=== PATIENT | male | born 1970 | race African-American/Black ===

== ENCOUNTER 2024-04-27 15:21 | Inpatient (IN) | payer OTHER, SELFPAY ==
[2024-04-27] VITALS (48 sets, daily range): BP systolic 52–160; BP diastolic 26–142; BMI 47.9; BMI 48.4
[2024-04-27 12:58] LABS: Hematocrit 35.9 % (39.0-52.0); Mean Corp Hgb Conc. 33.4 g/dL (33.0-37.0); Mean Corpuscular Hgb 27.3 pg (27.0-31.0); Mean Corpuscular Volume 81.8 fL (80.0-94.0); Mean Platelet Volume 10.1 fL (7.4-10.4); Platelet Count 212 10^3/uL (130-400); Red Blood Cell Count 4.39 10^6/uL (4.70-6.10); Red Cell Dist. Width 13.5 % (11.5-14.5); White Blood Cell Count 16.9 10^3/uL (4.8-10.8)
[2024-04-27 13:10] LABS: AST (SGOT) 58 U/L (17-59); Albumin 3.5 g/dl (3.5-5.0); Alkaline Phosphatase 64 U/L (38-126); Blood Urea Nitrogen 50 mg/dl (9-20); Carbon Dioxide 20 mmol/L (22-30); Chloride 95 mmol/L (98-107); Estimated Creatinine Clearance 40 ml/min; Glucose 103 mg/dl (70-99); Potassium 4.6 mmol/L (3.5-5.1); Sodium 133 mmol/L (135-145); Total Protein 6.2 g/dl (6.3-8.2); eGFR 17.58
[2024-04-27 13:16] LABS: ALT (SGPT) 43 U/L (0-50)
[2024-04-27 13:17] LABS: Troponin I 0.016 ng/ml
--- NOTE | 2024-04-27 13:24 | ED.GENMED ---
History of Present Illness
General
Chief Complaint: Fainting/Passed Out
Time Seen by Provider: 04/27/24 13:16
History of Present Illness
History of Present Illness:
53-year-old male with no known past medical history presents to the emergency department for evaluation after a syncopal event at the medical [facility] at [facility]. He states that for the past several days he has had
generalized malaise and bodyaches, went to seek medical attention when he had a witnessed syncopal event. He reports shortness of breath with exertion. Also reports severe leg pain and redness
Review of Systems
Review of Systems
Allergies reviewed?: Yes
All Other Systems: ROS reviewed and negative except as documented in HPI and ROS
Phy Exam
Physical Exam
Physical Exam:
GEN: Morbidly obese, diaphoretic, tachypneic
Eyes: PERRLA, EOMs intact, no scleral icterus
HENT: NCAT, oral mucosa moist
Lungs: CTAB, no wheezes, rales, rhonchi, normal chest wall excursion
Cardiac: Tachycardic, regular
Abdomen: S, NT, ND, NABS, no masses or hepatosplenomegaly
Neuro: AO x 3
MSK: No gross deformity or ecchymosis. No edema. No digital clubbing
Skin: Severe erythema of the left lower extremity extending to the medial thigh with warmth and marked tenderness, there is an ulcerated wound to the posterior lower leg
Psych: Calm, cooperative, proper hygiene
Sepsis
Sepsis Screening
Sepsis Assessment: Septic Shock
Sepsis Screening: Lactate >/=4mmol/L and ARF-Creatinine >2.0
Sepsis Screen
Sepsis Screen: Septic Shock
Date: 04/27/24
Time: 15:26
Course
Orders/Labs/Results
Orders:
Orders
04/27/24 12:18
Electrocardiogram (*1) Urgent
Reason for Study: Syncope
04/27/24 12:19
EKG- Treatment ONCE
04/27/24 12:39
Complete Blood Count/With Diff Urgent
Comprehensive Metabolic Panel Urgent
Manual Differential Urgent
Troponin I Urgent
04/27/24 13:25
CR Chest Portable - 1 View Urgent
Comment:
Reason For Exam: sepsis
Reason Study Needs to be Portable: Other
04/27/24 13:26
Lactated Ringers [Lr] 2,000 ml IV BOLUS
04/27/24 13:27
Cefepime HCl [Maxipime] 2,000 mg IV NOW STA
04/27/24 13:37
Lactic Acid Q4H
Comment: CANCEL 2nd LACTIC ACID IF 1st LACTIC ACID IS LESS THAN 2
Blood Culture Routine
TANIYA Source: Blood/Venous
Specimen Description:
Blood Culture Urgent
TANIYA Source: Blood/Venous
Specimen Description:
04/27/24 13:43
Vancomycin [Vancocin] 2,000 mg 0.9% Sodium Chloride 500 ml [Nss] 500 ml IV NOW
04/27/24 14:11
MRSA Screen Routine
TANIYA Source: Nose
Specimen Description:
04/27/24 14:12
Urinalysis Reflex To Culture Routine
04/27/24 14:15
0.9% Sodium Chloride 1000 ml [Nss] 1,000 ml IV 500 mls/hr
04/27/24 15:02
Medical Insurance Coding Specialist Consult Routine
Consulting Provider: Bhupendra Yarbrough
Was physician already notified: Yes
Reason for consult: Septic shock
04/27/24 15:04
Admit/Transfer Patient As Directed
Co-Sign Provider:
Level of Care: Inpatient admission
Assign to:: ICU
Physician / Group: jeronimo rodarte
Diagnosis: Septic shock 2/2 LLE cellulitis/woud, hypotension, MARÍA ELENA 2/2 nephrotoxic meds
Reason for Hospitalization: Septic shock 2/2 LLE cellulitis, hypotension, MARÍA ELENA 2/2 nephrotoxic meds, left lower
extremity wounds, stage II sacral wound
Expected length of stay greater than two midnights?: Yes
ELOS- Estimated Length of Stay in days: 5
I certify the patient meets the requirements for IP care: Yes
Code Status As Directed
Resuscitation Status: Full Code
04/27/24 15:07
PRN Pain Medication Management As Directed
May give lesser potent ordered pain med per pt: Yes
preference::
Protocol:: Medication orders for pain may be administered in a
manner that supports deferring to patient preference
when the pt is:
- Requesting an ordered lesser potent pain medication.
Least to most potent pain medications are defined
as: acetaminophen < NSAID < tramadol < opioids
(morphine, oxycodone, hydromorphone).
- Requesting a lesser dose of the same medication IF
ORDERED.
- Requesting a less intrusive route of administration
if both routes are prescribed by the provider (PO <
IV).
04/27/24 15:[address] Non Medication Order As Directed
Physician Order: -Please use adult size cuff to left lower forearm to measure blood pressures. see order for
lovephed
04/27/24 15:15
NORepinephrine 4 MG/250 ML [Levophed] 4 mg in 250 ml IV PER PROTOCOL
Initial dose in mcg/min, then titrate:: 2
Titrate to keep:: MAP > 65 mmHg
Titrate by mcg/min:: 1-2 mcg/min
Frequency of titrations (minutes):: 5
Maximum dose in ICU in mcg/min:: 30
Maximum dose in IMU in mcg/min:: 8
Maximum dose in IVU in mcg/min:: 4
Begin to taper infusion when:: Remained at goal for 4hrs
Taper by mcg/min:: 1-2 mcg/min
Frequency of taper (minutes) if patient maintains goal:: 30
Taper to off?: Yes
If infusion off & no longer maintaining goal:: Contact Provider
04/27/24 15:17
Acetaminophen [Tylenol] 650 mg PO Q4HPRN PRN
04/27/24 17:30
Lactic Acid Q4H
Comment: CANCEL 2nd LACTIC ACID IF 1st LACTIC ACID IS LESS THAN 2
Abnormal Lab Results
04/27/24 04/27/24
12:39 13:37
WBC 16.9 H 10^3/uL
(4.8-10.8)
RBC 4.39 L 10^6/uL
(4.70-6.10)
Hgb 12.0 L g/dL
(13.0-18.0)
Hct 35.9 L %
(39.0-52.0)
Abs Neuts (Manual) 14.5 H 10^3/uL
(1.4-6.5)
Band Neutrophils 15 H %
(0-3)
Lymphocytes (Manual) 3 L %
(20-51)
Monocytes (Manual) 11 H %
(2-9)
Sodium 133 L mmol/L
(135-145)
Chloride 95 L mmol/L
(98-107)
Carbon Dioxide 20 L mmol/L
(22-30)
BUN 50 H mg/dl
(9-20)
Creatinine 3.9 H mg/dL
(0.7-1.3)
Glucose 103 H mg/dl
(70-99)
Lactic Acid 5.5 H* mmol/L
(0.7-2.0)
Total Bilirubin 2.0 H mg/dl
(0.2-1.3)
Total Protein 6.2 L g/dl
(6.3-8.2)
04/27/24 12:39
04/27/24 12:39
Vital Signs
Initial and Last Documented VS:
Initial Vital Signs
Temp Pulse Resp Pulse Ox
97.6 F 103 22 92
04/27/24 12:19 04/27/24 12:19 04/27/24 12:19 04/27/24 12:19
Last Documented Vital Signs
Temp Pulse Resp BP Pulse Ox
98.8 F 122 28 160/142 99
04/27/24 14:53 04/27/24 15:15 04/27/24 15:15 04/27/24 15:09 04/27/24 12:29
MDM/Problems Addressed
MDM/Problems Addressed:
Patient was severe sepsis most likely secondary to left lower extremity cellulitis. He is in renal failure but chronicity of this is uncertain, aggressive IV fluid resuscitation initiated in the emergency department and will start broad-spectrum IV
antibiotics. Will require admission to the hospitalist service for further management
*Critical Care Note
Total Time (30-74mins, 75-104mins- exclusive of procedures): 35 minutes
comment:
Critical care time: 35 minutes
Critical care time was exclusive of: Separately billable procedures, treating other patients, and teaching time
Critical care was necessary to treat or prevent imminent or life-threatening deterioration of the following conditions: Septic shock
Critical care time spent personally by me on the following activities:
[x] Review of old charts
[x] Obtaining history from patient or surrogate
[x] Ordering and review of the laboratory studies
[x] Ordering and review of radiographic studies
[x] Ordering and performing treatments and interventions
[x] Patient patient's response to treatment
[x] Development of treatment plan with patient or surrogate
ED Attending Note
-
Portions of this chart may have been created with voice recognition software.� Occasional wrong word or��sound alike� substitutions may have occurred due to the inherent limitations of voice recognition software.
Discharge Plan
Departure
Patient Disposition: Admit
Date of Disposition: 04/27/24
Time of Disposition: 13:59
Admit to: Med/Surg
Presentation/result/management discussed w/ accepting MD/DO: Hospitalist
Discharge Problem:
Cellulitis of left lower extremity, Septic shock
Interventions
Interventions:
*Risk Screen - Suicide Last Done: 04/27/24 12:26
*General Assessment Last Done: 04/27/24 12:26
*Neglect/Abuse Screening Last Done: 04/27/24 12:26
*ED COVID-19 Vaccine History Last Done: 04/27/24 12:26
ED- Cardiac Assessment Last Done: 04/27/24 12:27
ED- Neurological Assessment Last Done: 04/27/24 12:27
[2024-04-27] MEDS: MAXIPIME 2000 MG IV (13:42)
[2024-04-27] MEDS: LR 2000 IV (13:43)
[2024-04-27 13:48] LABS: Absolute Neutrophils -Man Diff 14.5 10^3/uL (1.4-6.5); Band Neutrophils 15 % (0-3); Lymphocytes 3 % (20-51); Monocytes 11 % (2-9); Normal RBC Morphology Yes; Platelets Checked Yes; Segmented Neutrophils 71 % (42-75); Total Cells Counted 100
[2024-04-27 14:09] LABS: Lactic Acid 5.5 mmol/L (0.7-2.0)
--- NOTE | 2024-04-27 14:14 | HPS.HSE ---
Family Physician
-
Family Physician: Facility [facility]
Chief Complaint
-
Hypotension, left leg cellulitis
History of Present Illness
53-year-old male from [facility] who had witnessed syncope by staff nurses. He was sitting in a chair then passed out. He was lowered to the floor by 2 nurses and other staff members where they elevated his legs on pillows
he then woke up on the floor. He has been complaining of bodyaches, fatigue for the past 2 days. He reports fever yesterday 101F for which she was given Tylenol. He states the chills did not come back until today. He reports bilateral leg edema
for the past 3 to 4 days. He has chronic peripheral edema left greater than right they have been giving him Lasix 40 mg for the past 6 days along with Motrin 400 mg twice daily x 3 months along with Lasix and lisinopril. On presentation to the ER
he was noted to be hypotensive 78/63 tachycardic with heart rate 111 and in septic shock likely due to a left lower extremity cellulitis, with left lateral aspect skin tear, left leg mid medial aspect ulceration stage II and left buttocks stage II
wound. He reports chills, left leg pain and chronic back pain. He denies headache, sore throat, chest pain, palpitations, shortness of breath, cough, abdominal pain, nausea, vomiting, diarrhea, urinary symptoms. He has past medical history of
class III obesity�BMI 47.9, HTN, prior opiate abuse 10 years ago has been on chronic buprenorphine 2 mg daily for the past 10 years for chronic back pain/lumbar herniated disks, chronic lower leg edema, prior nicotine use 1 pack a day 5 years quit
20 years ago
Medical History
Past Medical History
Past Medical History: Reports Other
Additional Past Medical History:
class III obesity�BMI 47.9
HTN
prior opiate abuse 10 years ago
has been on chronic buprenorphine 2 mg daily for the past 10 years for chronic back pain/lumbar herniated disks
chronic lower leg edema
prior nicotine use 1 pack a day 5 years quit 20 years ago
Past Surgical History: Reports None
Social History
Tobacco: Former Smoker (5 years 1 pack a day quit 20 years ago age 27)
Alcohol: Daily
Personal: Single
Living: Detention ([facility] for the past 3 months)
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
Family History
Family History: Other (Mother hyperlipidemia father unsure, sister alive estranged)
Allergies / Home Medications
Allergies reflects when Allergies were last updated in [facility].
Home Medications with original date entered in [facility]
Allergy/Medication List:
Allergies
Allergy/AdvReac Type Severity Reaction Status Date / Time
Penicillins Allergy Unknown Rash Verified 04/27/24 12:19
Home Medications
acetaminophen 325 mg tablet (Tylenol) 650 mg PO TIDPRN PRN mild pain 04/27/24
buprenorphine HCl 2 mg sublingual tablet 2 mg sublingual DAILY 04/27/24
furosemide 40 mg tablet (Lasix) 40 mg PO DAILY 04/27/24
ibuprofen 200 mg tablet (Advil) 400 mg PO BIDPRN PRN mild pain 04/27/24
lisinopril 20 mg tablet 20 mg PO DAILY 04/27/24
Review of Systems
-
History Source: Patient and Other (2 correctional officers at bedside)
A 12 point ROS was completed and negative except as noted: Yes
Constitutional: Reports Fever and Chills
EENT: Denies Sore Throat or Runny Nose
Respiratory: Denies Cough or Trouble Breathing
Cardiac: Reports Syncope; Denies Chest Pain or Palpitations
Abdomen/GI: Denies Abdominal Pain, Nausea, Vomiting, Diarrhea, Constipated, Bloody Stools or Black Stools
: Denies Dysuria, Frequency, Flank Pain, Incontinence, Difficulty Voiding or Urgency
Musculoskeletal: Reports Edema (+2 left lower extremity edema left greater than right, left leg cellulitis from foot extending up circumferentially lower leg to upper mid thigh, left lateral skin tear, left leg medial aspect ulceration stage II);
Denies Joint Pain
Skin: Denies Itching
Neurological: Denies Dizzy, Headache or Weakness
Endocrine: Reports No Symptoms
Hematologic/Lymphatic: Reports No Symptoms
Psych: Reports Calm
Physical Exam
Vital Signs
Vital Signs
Temp Pulse Resp BP Pulse Ox
97.6 F 111 30 157/105 99
04/27/24 12:19 04/27/24 14:00 04/27/24 14:00 04/27/24 13:49 04/27/24 12:29
Physical Exam
General: Conversant, Fever, Chills and Morbidly Obese
HEENT: NormoCephalic, Anicteric, Moist mucous membranes, PERRLA, [place] Conjunctivae and No Ptosis; No Pharyngeal Erythema
Respiratory: Clear; No Wheezes, Rales or Rhonchi
Cardiac: S1/S2, Tachycardia (Sinus) and Peripheral Edema (Bilateral +2 left greater than right); No Murmur, Rub or Gallop
Breast: Deferred by me
GI: Soft, Non Tender, Non Distended, Normal Bowel Sounds and No Hepatosplenomegaly
Rectal: Deferred by Provider
Genito-urinary: Deferred by me
Musculoskeletal: No Clubbing, No Cyanosis and Edema, Left Lower Extremity (+2 left lower extremity edema left greater than right, left leg cellulitis from foot extending up circumferentially lower leg to upper mid thigh, left lateral skin tear POA,
left leg medial aspect ulceration stage II POA); No Edema, Left Upper Extremity, Edema, Right Upper Extremity or Edema, Right Lower Extremity
Skin: Warm, Dry and Decubitus Ulcers (Stage II left buttocks decub present on admission); No Rash or Jaundice
Neuro: AO x 3, No Motor Deficits, Cranial Nerves Intact and No Sensory Deficits; No Slurred Speech, Facial Droop, Tremors or Sedated
Psych: Calm
Laboratory Results
-
04/27/24 12:39
04/27/24 12:39
Laboratory Results
Lactic Acid 5.5 mmol/L (0.7-2.0) H* 04/27/24 13:37
Total Bilirubin 2.0 mg/dl (0.2-1.3) H 04/27/24 12:39
AST 58 U/L (17-59) 04/27/24 12:39
ALT 43 U/L (0-50) 04/27/24 12:39
Alkaline Phosphatase 64 U/L (38-126) 04/27/24 12:39
Troponin I 0.016 ng/ml 04/27/24 12:39
Impression/Plan
-
Impression/plan:
Admit to ICU
#Septic shock secondary to Left lower extremity cellulitis w/ skin tear and ulceration present on admission
#Bilateral leg edema Left> Right
BP 78/63, HR 106, 97.6,
WBC 16.9 with left shift and bandemia, lactic acid 5.5 will trend
-Check MRSA nasal swab
-Blood culture x 2
-Check UA DISTRIBUTION OPERATION SUPERVISOR
-Treating IV cefepime, IV vancomycin
-Tylenol as needed
-Check venous duplex bilateral legs
-Consult district sales representative
-Consult wound care
CXR: No active cardiopulmonary disease
#Syncope secondary to vasovagal episode
#Hypotension 2/2 sepsis and volume depletion
BP 78/63
-IV LR 3000 cc bolus over 3 hours then IV NSS 100 cc/h
-Start Levophed- As blood pressure 70s over 50s with appropriate cuff to left lower arm due to obesity
-Please use adult size cuff to left lower forearm to measure blood pressures
-HOLD lisinopril, Lasix 40 mg daily
#MARÍA ELENA 2/2 sepsis/nephrotoxic meds
Has been on Motrin 4 mg twice daily x 3 months, was on Lasix 40 mg for the past 6 days
Creat 3.9/bun 50
HOLD lisinopril, Lasix. Hold Motrin 400 mg twice daily
-Hold nephrotoxic meds
#Left buttocks stage II decub secondary to obesity and prolonged sitting present on admission
-Consult wound care
#Prior drug abuse
Was addicted to oral Percocet greater than 10 years ago for back pain
May continue buprenorphine 2 mg sublingual daily -patient has been on for 10 years
#Prior nicotine use
5-year 1 pack a day quit 20 years ago age 27
#Class III obesity�BMI 47.9
-Affects all aspects of care
-Weight loss recommended
-Low-fat diet
DVT prophylaxis
Subcu heparin
Full code
[2024-04-27] MEDS: VANCOCIN 540 MG IV (14:23)
--- NOTE | 2024-04-27 15:08 | W.PN.UPDATE ---
Update Note
Progress Note Update
This is an addendum to the H&P written by Nena Zhang 04/27/2024. Patient seen and examined independently with ENAMEL FINISHER.
53-year-old male past medical history of hypertension, chronic lymphedema, obesity, former oral opiate use, presenting with left lower extremity cellulitis.
Labs show creatinine of 2.9 unclear baseline. Lactic acid of 5.5. Chest x-ray unremarkable. Patient clinically septic shock secondary to left lower extremity cellulitis. MARÍA ELENA secondary to recent addition of Lasix, lisinopril and ibuprofen use.
Check blood cultures. IV fluids. Levophed as needed. Vancomycin/Zosyn. Check bilateral venous ultrasound. Hold nephrotoxic medications.
[2024-04-27] MEDS: TYLENOL 650 MG PO (15:29)
--- NOTE | 2024-04-27 16:25 | CON.INTV ---
Addendum entered and electronically signed by Bhupendra Yabrrough MD 04/27/24 23:05:
I have seen the patient with the assistant family teacher, Dr. Stewart, and I agree with her HPI, PE, impression and plan with the following notations, additions and corrections. Patient was at the nurses office in [place] and had a witnessed
syncopal episode. Over the last few days he has been having worsening shortness of breath, fatigue and bodyaches. He does not remember syncopized and. He says his left leg has been painful and weeping over the last several weeks�months. He does
not use oxygen at home. In the ER he was afebrile to 97.6 �F, pulse rate 103, breathing at 22 breaths/min, BP low at 78/63 and saturating 92% on room air. Labs showed leukocytosis to 16.9, anemia to 12, sodium 133, creatinine 3.9, lactate 5.5, T.
bili 2 and urinalysis with no evidence of UTI. Blood cultures were collected. CXR shows no active cardiopulmonary process. He was given cefepime/vancomycin + LR x 2 L in the ER. Due to the patient remaining hypotensive with SBP in the 50s�60s,
Levophed was started and he was transferred to the ICU for further care with lawn and tree service spray supervisor services consulted for additional management/recommendations.
When I saw the patient he was resting in bed in no acute distress, denying shortness of breath, chest pain or dizziness. He is currently on 2 L/min nasal cannula saturating 96%. BP 100/64 and heart rate 122. He is currently on Levophed at
18mcg/min + vasopressin at 0.03 units/min. He says his blood pressure is normally 'good' and is not too high or too low. He is on antihypertensives at home with lisinopril 20 mg daily.
PMHx: Hypertension, history of opioid abuse, chronic lower leg edema, former tobacco use disorder
PSHx: Non-contributory
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
FHx: Mother: Hyperlipidemia
Pertinent physical exam:
NAD, morbidly obese, awake, alert, answering questions appropriately
EOMI/PERRL; NC/AT
Thick neck
+S1/S2; Tachycardic
CTA b/l, no wheezing, rales rhonchi
Bilateral lower extremity lymphedema with lichenification, +2 LE pitting edema b/l
Following all commands; cooperative
Patient's vitals, labs, imaging, micro and current/former documentation were all personally reviewed.
Impression:
#Sepsis due to left lower extremity cellulitis
#Syncopal event
#Leukocytosis likely due to sepsis
#Acute respiratory failure with hypoxia on supplemental oxygen (2L/min)
#Anemia (mild)
#Hypochloremia, hyponatremia
#MARÍA ELENA
#Lactic acidosis
#Hyperbilirubinemia
#Stage II decubitus ulcer
#History of drug abuse
#History of tobacco use disorder
#Obesity
Plan:
- Continue vasopressors with vaso + levo and keep MAP>65
- If unable to wean off then consider hydrocortisone +/- midodrine
- Continue ABx with cefepime/IV vanco
- Follow up blood Cx collected 04/27/2024
- NS 0.9% at 100cc/hr with eventual stop date to avoid volume overload
- trend lactate until <2mmol/L
- Renally dose all meds/Abx, and trend sCr and UOP
- Consider nephrology eval if Cr continues to rise
- Wound care to left lower extremity
- Check LE duplex to r/o DVT
- Maintain SpO2 >90-94% with supplemental O2, and wean down as tolerated
- Transfuse Hb if needed to keep >7g/dL; keep plt>20k
- Replete K>4, Mg>2
- Continue subutex
- Encourage IS use
- DVT ppx: HSQ
Critical care statement: A total of 40 minutes of critical care time was provided for this patient today. This includes management of unstable vital signs, evaluation of the patient at bedside, reviewing the patient's pertinent medical records
including radiographs, microbiology, laboratory evaluations, and discussion with primary team, consultants, pharmacy, nutrition, physical therapy, case management, charge nurse, critical care nursing, and respiratory therapy.
Original Note:
Consultation
Consultation Request
Date/Time Consultation Requested: 04/27/24 1600
Date/Time Consultation Performed: 04/27/24 1615
Medical History
-
Chief Complaint: Lower extremity swelling, fever, chills
History of Present Illness:
Patient is a 53-year-old male w PMH hypertension (on lisinopril), morbid obesity, and chronic lower leg edema (from about a year ago) who was brought to the ED from [facility] after a witnessed syncope by staff nurses.
Patient was shortly back to baseline after a leg elevation. On presentation to the ER, his vital signs were BP 78/63, HR 111, RR 22. Initial labs showed elevated WBC 16.9 with left shift, hyponatremia (sodium 133), k 4.6, Cr 3.9 and BUN 50. Lactate
> 5.
Patient states feeling tired since few days ago. He had noticed redness and increased swelling of lower extremities from about a week ago, and developed blisters on his left leg a few days ago. He does not recall a traumatic event to his LEs. He
denies history of diabetes. He was started on Lasix 40mg 6 days ago. He starting feeling feverish and having chills yesterday (mentions a fever of 101F) for which he was given Tylenol. He states he is feeling much better now and does not have
chills anymore. Denies CP, cough or urinary symptoms. No n/v or diarrhea. Has SOB on exertion (chronic).
Past Medical History
Past Medical History: HTN and Other (morbid obesity, Chronic lower leg edema, chronic back pain, lumbar herniated disc)
Past Surgical History: None
Social History
Tobacco: Former Smoker
Alcohol: Daily
Living: Snf
Family History
Family History: Reviewed & Not Pertinent
Allergies / Home Medications
Allergies
Allergy/AdvReac Type Severity Reaction Status Date / Time
Penicillins Allergy Unknown Rash Verified 04/27/24 12:19
Home Medications
�Medication �Instructions �Recorded �Confirmed �Last Taken �Type
acetaminophen 325 mg tablet 650 mg PO TIDPRN PRN mild pain 04/27/24 04/27/24 04/26/24 History
(Tylenol)
buprenorphine HCl 2 mg sublingual 2 mg sublingual DAILY 04/27/24 04/27/24 04/26/24 History
tablet
furosemide 40 mg tablet (Lasix) 40 mg PO DAILY 04/27/24 04/27/24 04/26/24 History
ibuprofen 200 mg tablet (Advil) 400 mg PO BIDPRN PRN mild pain 04/27/24 04/27/24 04/26/24 History
lisinopril 20 mg tablet 20 mg PO DAILY 04/27/24 04/27/24 04/26/24 History
Review of Systems
-
History Source: Patient
All other systems: Negative unless noted
Vitals / Labs / Diagnostic Testing
Vital Signs
Temp Pulse Resp BP Pulse Ox
98.8 F 122 21 118/92 99
04/27/24 14:53 04/27/24 15:31 04/27/24 15:31 04/27/24 15:31 04/27/24 12:29
Lab Data
04/27/24 12:39
04/27/24 12:39
Diagnostic Testing:
Physical Exam
-
HEENT: Normocephalic, Anicteric and Moist Mucous Membranes
Cardiovascular: S1/S2, Regular Rhythm, Peripheral Edema ( b/l LE edema (left> right)) and Calf Tenderness
Respiratory: Clear and Other (tachypneic)
GI: Soft, Distended, Non Tender and Normal Bowel Sounds
Neurology: Awake, Alert, Oriented and AO x 3
Skin: Warm, Dry and Other (erythema, warmness and swelling of both LEs (left> right) up to mid-thigh, ruptured blister on lateral of left leg, pressure ulcer on back, non-purulent-- upper extremity normal)
Assessment
-
#Septic shock likely due to left lower leg cellulitis
Currently, BP 118/92, RR 21 DE 122, O2 sat 99 on room air, T 98.8
-Started on IV cefepime, IV vancomycin--Continue
-Continue IV LR 3000 cc bolus over 3 hours then IV NSS 100 cc/h
- d/c levophed if SBP> 90
-CXR unremarkable
-EKG done
-Currently does not have fever, tylenol prn
-Blood culture x 2
-Check UA when able to provide sample
-bilateral LE doppler US
-Wound care consulted
-Possibly consider echo after patient is more stable
#MARÍA ELENA: might be sec to sepsis or med-related
-Hold Motrin
-limit pain meds
-Closely Monitor BUN, Cr
-Eventually consult nephrology for chronic lower leg edema
[2024-04-27] MEDS: NSS IV (16:44)
[2024-04-27] MEDS: NSS 1000 IV ×2 (16:53→20:59)
[2024-04-27] MEDS: LEVOPHED 250 IV ×2 (17:29→21:54)
[2024-04-27 19:11] LABS: Lactic Acid 3.4 mmol/L (0.7-2.0)
[2024-04-27] MEDS: PITRESSIN 100 IV (19:50)
--- NOTE | 2024-04-27 20:30 | PTCARENOTE ---
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
94%, dyspnea on exertion, diminished, BSx4 round obese, uses urinal due to void, cellulitis on LE, LL leg anterior skin tear 10x5 cleansed with NS, adaptic and adhesive foams applied, LL posterior leg 5 1/2x3 wound and 1 1/2x1 wound cleansed with NS
and adhesive foam applied, R buttocks MASB with several open spots adhesive foam applied, L buttocks MASB cleansed with NS and adhesive foam applied, 20G RFA, 20G LAC, Levo 16, able to make needs known, guards @ bedside, call cole within reach,
otherwise refer to documentation
[2024-04-27 21:16] LABS: Urine Albumin Trace (Neg - Trace); Urine Bilirubin Negative (Negative); Urine Character Clear (Clear); Urine Color Yellow; Urine Glucose Negative (Negative); Urine Ketone Negative (Negative); Urine Leukocyte Negative (Negative); Urine Nitrite Negative (Negative); Urine Occult Blood 4+ (Negative); Urine Urobilinogen Negative (Neg - 1+)
[2024-04-27 21:24] LABS: Urine Squamous Cell 0-2 /LPF (Few)
[2024-04-27 21:25] LABS: Urine White Cell 0-2 /HPF (0-5)
[2024-04-27 21:26] LABS: Urine Amorphous Seen; Urine Sperm Seen
[2024-04-28] VITALS (45 sets, daily range): BP systolic 75–129; BP diastolic 43–81; BMI 48.4
--- NOTE | 2024-04-28 00:08 | PTCARENOTE ---
systems reviewed, vasopressin started per sep, gtts titrated per worklist, using urinal clemente output, pt c/o chronic back pain but declines meds and only wants to be repositioned, otherwise refer to documentation.
[2024-04-28] MEDS: VANCOCIN 300 ML IV (00:14)
[2024-04-28] MEDS: VANCOCIN 300 MG IV (00:14)
[2024-04-28] MEDS: HEPARIN 5000 UNITS SC ×4 (00:14→23:23)
--- NOTE | 2024-04-28 01:30 | W.PN.SEPSIS ---
Sepsis
Vital Signs
Temp Pulse Resp BP Pulse Ox
98.5 F 119 28 115/75 93
04/27/24 23:30 04/28/24 01:15 04/28/24 01:15 04/28/24 01:00 04/28/24 01:15
Physical Exam
Physical Exam:
A focused exam was performed after fluid resuscitation.
Capillary Refill
Bilateral Upper Extremity:
Toshia Time: Less than 3 sec
Bilateral Lower Extremity:
Toshia Time: Less than 3 sec
Pulse Evaluation
Bilateral Radial:
Pulse Evaluation: Present
Bilateral Dorsalis Pedis:
Pulse Evaluation: Palpable with Doppler
[2024-04-28] MEDS: STERILE WATER FOR INJECTION 10 ML IV (01:36)
[2024-04-28] MEDS: MAXIPIME 2000 MG IV (01:36)
[2024-04-28] MEDS: LEVOPHED 250 IV ×4 (01:36→10:32)
[2024-04-28] MEDS: TYLENOL 650 MG PO (01:43)
[2024-04-28] MEDS: PITRESSIN 100 IV ×3 (03:46→19:03)
[2024-04-28 04:27] LABS: Hematocrit 34.3 % (39.0-52.0); Hemoglobin 11.6 g/dL (13.0-18.0); Mean Corp Hgb Conc. 33.8 g/dL (33.0-37.0); Mean Corpuscular Hgb 27.8 pg (27.0-31.0); Mean Corpuscular Volume 82.1 fL (80.0-94.0); Mean Platelet Volume 10.5 fL (7.4-10.4); Platelet Count 232 10^3/uL (130-400); Red Blood Cell Count 4.18 10^6/uL (4.70-6.10); Red Cell Dist. Width 13.8 % (11.5-14.5)
[2024-04-28 04:29] LABS: INR 1.27; PT 15.7 Sec (11.4-14.6)
[2024-04-28 04:30] LABS: APTT 39.3 Sec (23.4-35.0)
--- NOTE | 2024-04-28 04:30 | PTCARENOTE ---
systems reviewed, gtts titrated per worklist, antibiotics, lower legs blistering, weeping and causing skin tears, cleansed with NS, adaptic, alginate foam, ABD and Kerlix wrap applied, pt denied pain throughout dressing change, tylenol given per SEP
for chronic back pain, labs sent, otherwise refer to documentation.
[2024-04-28 04:43] LABS: ALT (SGPT) 119 U/L (0-50); AST (SGOT) 330 U/L (17-59); Alkaline Phosphatase 45 U/L (38-126); Blood Urea Nitrogen 54 mg/dl (9-20); Calcium 8.5 mg/dl (8.4-10.2); Carbon Dioxide 21 mmol/L (22-30); Chloride 96 mmol/L (98-107); Estimated Creatinine Clearance 48 ml/min; Glucose 92 mg/dl (70-99); Magnesium 1.3 mg/dl (1.6-2.3); Phosphorus 3.5 mg/dl (2.5-4.5); Potassium 4.8 mmol/L (3.5-5.1); Sodium 132 mmol/L (135-145); Total Bilirubin 2.2 mg/dl (0.2-1.3); Total Protein 5.8 g/dl (6.3-8.2); eGFR 21.48
[2024-04-28 04:44] LABS: Lactic Acid 3.2 mmol/L (0.7-2.0)
[2024-04-28 04:48] LABS: Vancomycin Random 26.3 ug/ml
[2024-04-28 05:55] LABS: Absolute Neutrophils -Man Diff 12.4 10^3/uL (1.4-6.5); Band Neutrophils 29 % (0-3); Lymphocytes 10 % (20-51); Segmented Neutrophils 49 % (42-75)
[2024-04-28 05:56] LABS: Metamyelocytes 4 % (-); Monocytes 7 % (2-9); Normal RBC Morphology Yes; Platelets Checked Yes
[2024-04-28 05:57] LABS: Total Cells Counted 100; Toxic Granulation 1+; Vacuolated Segs 1+
[2024-04-28] MEDS: MAGNESIUM OXIDE 500 MG PO (06:47)
[2024-04-28] MEDS: NSS 1000 IV (08:06)
[2024-04-28] MEDS: DESENEX/MITRAZOL/ZEASORB 1 APPLIC TOPICAL ×2 (08:19→21:17)
[2024-04-28] MEDS: SUBUTEX 2 MG SL (08:19)
--- NOTE | 2024-04-28 09:14 | W.PN.INTV ---
Today's Communication / Plan
Recommendations
d/c cefepime- Continue vanco-start clinda/eamon--CT of LLE
Assessment
-
#Septic shock likely due to left lower leg cellulitis
Currently, BP 82/63 (on levo 22mcg/min), RR 20, CA 106, O2 sat 95 on 2L O2, T 99.7
-Appreciate ID consult-- Continue vanco-start eamon and clinda--discontinue cefepime
-Continue IV NSS 100 cc/h
-Continue levophed--goal MAP> 65
-CXR unremarkable
-Currently does not have fever, tylenol prn
-Blood culture x 2, initial results positive for gram (+) cocci in chains
-U/A neg for UTI
-bilateral LE doppler US neg for DVT
-Appreciate Wound care
-Wean off O2 if pt tolerates
-Gen surg consulted
- CT LE
- A-line and central line placement
#MARÍA ELENA: might be sec to sepsis or med-related
-Hold Motrin
-limit pain meds
-Closely Monitor BUN, Cr
Subjective Dataa
Subjective Data
Date of Service:
Date of Service: April 28, 2024
Chief Complaint: Rn Access Follow Up
Subjective:
Patient was resting at time of visit. He is alert and oriented. Did not complain of any SOB/CP. Stated he feels much better and has decreased left leg pain. Had an episode of fever last night but was not repeated. No chills.
Review of Systems
General: Pain (mild-mod left leg pain)
Cardiopulmonary: Dyspnea on Exertion
Neuro: Other (fatigue)
Objective Data
Data Reviewed
Vital Signs / I&O / Oxygen:
Vital Signs
Temp Pulse Resp BP Pulse Ox
99.7 F 106 28 95/63 92
04/28/24 07:00 04/28/24 08:30 04/28/24 08:30 04/28/24 08:30 04/28/24 08:40
Intake and Output
04/27/24 04/28/24 04/29/24
06:59 06:59 06:59
Intake Total 2744.0 / 2928.0 368 / 368
Output Total 3100 / 3400 300 / 300
Balance -356.0 / -472.0 68 / 68
SaO2 92
Nasal Cannula flow liters per 2
minute
Physical Exam
General: Respiratory Distress (RR 20, O2 sat 95 on 2L O2), Comfortable and Good Appetite
HEENT: Normocephalic and Anicteric
Cardiovascular: S1-S2, Regular Rhythm and Peripheral Edema (4+ pitting LLE, 2+ pitting RLE)
Respiratory: Clear and Other (no crackles, no wheezing)
GI: Soft, Distended, Non Tender and Normal Bowel Sounds
Neurology: Awake, Alert, Oriented and AO x 3
Skin: Warm, Dry and Other (marked swelling and redness of left leg, purulent bullae on left leg, medial left leg skin tear)
Labs/Micro/Reports
Lab Data
04/28/24 04:07
04/28/24 04:07
Laboratory Results
04/28/24
04:07
PT 15.7 H
INR 1.27
APTT 39.3 H
Microbiology
04/27/24 13:37 Blood/Venous Blood Culture - Preliminary
Positive culture in progress
04/27/24 13:37 Blood/Venous Gram Stain - Final
04/27/24 13:37 Blood/Venous Blood Culture - Preliminary
Positive culture in progress
04/27/24 13:37 Blood/Venous Gram Stain - Final
--- NOTE | 2024-04-28 09:26 | CM ---
Patient from [facility] and plan is for patient to return to care home when medically appropriate. Patient with guards in ICU room. Please call report to [facility]; call [phone] for fax. CM will continue to follow for discharge
planning needs.
Plan; return to [facility] when medically appropriate
[2024-04-28 10:07] LABS: Lactic Acid 2.3 mmol/L (0.7-2.0)
--- NOTE | 2024-04-28 10:34 | W.PN.HOSP.TC ---
Today's Communication/Plan
-
IV antibiotics
IV fluids
Pressor
CT of the left lower extremity rule out collection.
Echo
Follow LFT
Abdominal ultrasound
Total Critical Care Time__45___ minutes. I was immediately available to the patient and staff. I personally examined, reviewed labs, diagnostic images/reports, interpretations, treatment plans, discussed patient care with other providers and
family or caregivers (if patient is unable to make decisions), entered orders as appropriate and documented the medical record.
Assessment / Plan
Assessment / Plan
Impression:
Severe sepsis due to left lower extremity cellulitis
Septic shock with hypotension requiring vasopressors
Gram-positive bacteremia secondary to above.
Syncope prior to presentation.
Acute hypoxic respiratory failure in the settings of hypotension.
Acute renal failure
Lactic acidosis.
Abnormal liver function test
Stage II decubital ulcer present on admission
Other conditions:
Essential hypertension
Obesity with BMI of 48.
Opiate use disorder on Suboxone.
Plan:
Left lower extremity cellulitis with severe sepsis and septic shock
Preliminary blood cultures positive for gram-positive cocci in chains pending final.
Left lower cellulitis complicated with chronic venous stasis/obesity with superficial weeping wounds with no fluctuance.
Lower extremity Doppler negative for DVT.
Check CT scan without contrast (unable to provide contrast due to acute renal failure. Concern for deep tissue collection
Broad-spectrum antibiotics currently on vancomycin and cefepime pending final cultures
ID consultation.
Repeat blood culture for clearance.
Echocardiogram.
Septic shock with hypotension not expanding to IV fluids
Continue isotonic solution
Continue Levophed and vasopressin
Monitor urine output
Acute hypoxic respiratory failure
Currently on 2 L of nasal cannula oxygen with no evidence of respiratory distress.
No respiratory complaints
Chest x-ray with clear parenchyma
Lower extremity Doppler negative
Echocardiogram is pending
If remains hypoxic consider further evaluation with CT scan of the chest/VQ scan if concern for thromboembolic disease
Continue DVT prophylaxis
MARÍA ELENA baseline metabolic acidosis/lactic acidosis
Likely prerenal in the settings of sepsis, septic shock with prerenal stimuli.
Less likely glomerular process given bland UA
Hold Lasix, NSAIDs, lisinopril.
Continue IV fluids
Bladder scan for retention
Follow BMP
Consider nephrology evaluation if uptrending creatinine
Avoid nephrotoxins
Abnormal LFT
No abdominal pain or other gastrointestinal complaints upon presentation.
Trending down with hemodynamic control.
Consider further evaluation with imaging including ultrasound versus CT scan.
Obesity with BMI of 48
Check hemoglobin A1c
Check TSH
Essential hypertension
Hold preadmission antihypertensive regimen including lisinopril and Lasix baseline
Opiate use disorder
Continue Suboxone
Full code
DVT prophylaxis subcu heparin
Anticipated Discharge: > 48 hours
Subjective/Interval History
-
Date of Service: April 28, 2024
Objective Data
-
Labs:
Laboratory Results
04/28/24
04:07
WBC 16.0 H
Hgb 11.6 L
Hct 34.3 L
Plt Count 232
PT 15.7 H
INR 1.27
APTT 39.3 H
Sodium 132 L
Potassium 4.8
Chloride 96 L
Carbon Dioxide 21 L
BUN 54 H
Creatinine 3.3 H
Glucose 92
Calcium 8.5
Total Bilirubin 2.2 H
AST 330 H
ALT 119 H
Alkaline Phosphatase 45
Vital Signs:
Vital Signs
Temp Pulse Resp BP Pulse Ox
99.7 F 106 28 95/63 92
04/28/24 07:00 04/28/24 08:30 04/28/24 08:30 04/28/24 08:30 04/28/24 08:40
I&O
04/27/24 04/28/24 04/29/24
06:59 06:59 06:59
Intake Total 2744.0 / 2928.0 736 / 736
Output Total 3100 / 3400 300 / 300
Balance -356.0 / -472.0 436 / 436
Physical Exam
-
General: Well Developed and No Apparent Distress
HEENT: Normocephalic, Atraumatic and Moist Mucous Membranes
Respiratory: Clear to Auscultation
Cardiac: Regular Rhythm and S1/S2; Negative Murmur, Rub or Gallop
GI: Soft, Nontender, Nondistended and Normal Bowel Sounds; Negative Organomegaly
Rectal: Deferred by Provider
Musculoskeletal: No Clubbing, No Cyanosis, No Edema and Other (Left lower extremity/calf with chronic erythema and induration due to venous stasis and superficial weeping wounds without fluctuance on exam)
Skin: Negative Rash
Neuro: Nonfocal/Grossly Intact
--- NOTE | 2024-04-28 10:40 | CON.ID ---
Consultation
-
Date/Time Consultation Requested: 04/28/24 10:30
Date/Time Consultation Performed: 04/28/24 10:40
Requesting Provider: Dr Meadows
Performing Provider: Dr Mckinney
Reason for Consultation: sepsis, cellulitis
Chief Complaint / Past History
Chief Complaint
Hypotension, left leg cellulitis
History of Present Illness
Mr Bhakta is a 53 year old male with history of class III obesity with chronic lymphedema who presented here from [facility] for witnessed syncope - patient was sitting in a chair and fainted; he was lowered to the floor.
Symptoms began about 6 days before arrival when he was started on laxis and motrin for chronic edema. Then three to four days prior to arrival he actually noted increased lower extremity edema. Two days before this he complained of myalgias and
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 On arrival he noted chills, leg leg pain and a skin tear. He denies headache, sore throat, chest pain, palpitations, shortness of breath, cough, abdominal pain, nausea,
vomiting, diarrhea and urinary symptoms.
Since arrival here Tmax is 100.6 orally, hypotensive and requiring pressors - norepi has steadily increased and now up to 22 mcg/min and vasopressin, wbc on arrival 16.9 and today 16.0, hgb 11.6, plt 232, L shift is noted, na 132, cr 3.9 on arrival
and today 3.3, lactic acid initially 5.5 and today 2.3, t bili 2.2, ast 330, alt 119, alk phos 45, on arrival blood cultures x2 gpcs in chains - two sets of blood cultures done at the same time, a MRSA screen was sent, CXR no infiltrates, US: no
DVT, he was given 2L NR and vancomycin and cefepime
Past History
Additional Past Medical History:
opioid abuse
HTN
Past Surgical History: None
Allergy History:
Penicillins Allergy (Verified 04/27/24 16:28)
Rash
Medications Reviewed: Yes
Social History
Tobacco: Former Smoker (5 pack year hx)
Alcohol: Daily
Drug: None
Family History
Family History: Not Pertinent
Review of Systems
Review of Systems
General: Fever and Chills
All systems: All other systems were reviewed and were negative
Vital Signs
Temp Pulse Resp BP Pulse Ox
99.7 F 106 28 95/63 92
04/28/24 07:00 04/28/24 08:30 04/28/24 08:30 04/28/24 08:30 04/28/24 08:40
Physical Exam
Physical Exam
Constitutional: Acutely Ill, Chronically Ill and Obese
Cardiovascular: Regular Rate and S1/S2; Negative Murmur or Rub
Pulmonary: Clear and Symmetric; Negative Wheezes, Rales or Rhonchi
Gastrointestinal: Soft, Non Tender, Non Distended and Normal Bowel Sounds
Skin: Warm and Dry; Negative Rash or Jaundice
Neurological: Awake and Alert
Lab / Diagnostic Study Results
04/28/24 04:07
04/28/24 04:07
Total Counted 100 04/28/24 04:07
Abs Neuts (Manual) 12.4 10^3/uL (1.4-6.5) H 04/28/24 04:07
Segmented Neutrophils 49 % (42-75) 04/28/24 04:07
Band Neutrophils 29 % (0-3) H D 04/28/24 04:07
Lymphocytes (Manual) 10 % (20-51) L 04/28/24 04:07
Basophils (Manual) 1 % 04/28/24 04:07
PT 15.7 Sec (11.4-14.6) H 04/28/24 04:07
INR 1.27 04/28/24 04:07
Lactic Acid 2.3 mmol/L (0.7-2.0) H 04/28/24 09:35
Ur Squamous Epith Cells 0-2 /LPF (Few) 04/27/24 21:09
Microbiology Results
Micro:
04/27/24 13:37 Blood Culture - Preliminary
Blood/Venous Positive culture in progress
Gram Stain - Final
04/27/24 13:37 Blood Culture - Preliminary
Blood/Venous Positive culture in progress
Gram Stain - Final
04/27/24 18:46 MRSA Screen - Pending
Nose
Assessment / Plan
Septic Shock
LLE cellulitis - GAS vs Necrotizing SSTI
Chronic Lymphedema
MSOF
Reported allergy to penicillin- rash
- has subcuticular bleeding and flaccid serous bullae along with marked swelling but no pain out of proportion (on chronic buprenorpine 2 mg daily but not getting break through medication), also no crepitus - severe differential group a strep
infection vs necrotizing fasciitis
- remains in shock at this time with escalating doses
- added on CRP for LRINEC - expect it to be elevated
- repeat blood cultures x2
- Peripheral Vas US: no DVT
- agree with further imaging if possible - unsure if weight/girth will be limiting factors
- consulted general surgery
- start clindamycin (considered linezolid however on buprenorphine)
- add meropenem, stop cefepime - dosing reviewed with clinical pharmacy given BMI and MARÍA ELENA
- continue vancomycin
patient is critically ill, prognosis guarded
Care Review
Plan reviewed with: Physician (Dr Moreira - possible [facility])
[2024-04-28 11:28] LABS: Glycohemoglobin (HgbA1c) 5.8 % (4.0-5.6)
--- NOTE | 2024-04-28 12:10 | PTCARENOTE ---
PICC line placed. on 22mcg of levo and vaso. Awaiting read from PICC line. Called CT scan to verify weight limit of machine for Lower extremity
[2024-04-28 13:04] LABS: C-Reactive Protein > 270.00 mg/L (0.0-10.00)
[2024-04-28 13:50] LABS: Free T4 1.25 ng/dl (0.78-2.19)
[2024-04-28] MEDS: MERREM 1000 MG IV ×2 (13:52→23:23)
[2024-04-28] MEDS: STERILE WATER FOR INJECTION 20 ML IV ×2 (13:52→23:25)
--- NOTE | 2024-04-28 13:55 | VATNOTE ---
PCN notified of PICC placemen in the [facility] and informed it is OK to use.
[2024-04-28] MEDS: LEVOPHED 258 MG IV ×3 (13:57→23:19)
--- NOTE | 2024-04-28 14:03 | W.SUR.POST ---
Surgical Immediate Post Op
Note
Bedside Arterial Catheter Insertion Procedure
Date of procedure: 04/28/2024
Pre Op Diagnosis: Septic shock
Post Op Diagnosis: Septic shock
Procedure Performed: Arterial catheter insertion
Primary Surgeon/proceduralist: Dr. Yarbrough
Secondary Surgeons: N/A
Anesthesia: N/A
Estimated Blood Loss: 2 cc
Fluids: N/A
Drains/Shunts: N/A
Specimens/Cultures: N/A
Doppler/Duplex/Angio (Y/N): N/A
Complications: No immediate complications
Operative Findings: After informed written consent was obtained, the patient was positioned with his distal left upper extremity supinated. Palpable radial pulse as well as palpable ulnar pulse identified. Collateral flow appreciated with a
positive Tanner test. Sterile technique was employed with handwashing, cap, gown, face mask and sterile gloves. The left radial artery site was cleaned with a ChloraPrep. Ultrasound guidance was utilized to identify the patent radial artery which
had good pulsatility. Integral-guidewire (Arrow) technique was used. The catheter was inserted into the patient's skin and advanced until pulsatile blood flow was seen inside the catheter. The guidewire was advanced through the needle and
catheter to the hub. The outer catheter was advanced over the needle and wire into the artery. The needle�guidewire unit was removed entirely. The arterial catheter was attached to the tubing with appropriate waveform seen. Arterial line was
secured into place using a Ethilon 3-0 suture. The insertion site was covered with a Biopatch and the entire catheter was then covered with a Tegaderm. There were no immediate complications.
[2024-04-28] MEDS: CLEOCIN 50 IV ×2 (14:20→21:16)
[2024-04-28 14:34] LABS: Lactic Acid 2.1 mmol/L (0.7-2.0)
--- NOTE | 2024-04-28 14:44 | CON.GS ---
Consultation
-
Requesting Provider: Hank
Performing Provider: Lillie
Reason for Consultation: Severe cellulitis
Medical History
-
Chief Complaint: LLE swelling and pain
History of Present Illness:
53M, incarcerated, presents after witnessed syncope. This occurred while pt was seated. He reports 2 days of generalized aches and pains and fatigue. Endorses f/c, tmax 101F prior to admit. Reports worsening of chronic edema of BLE over the past few
days which was managed with ibuprofen and lasix. Hypotensive by cuff pressure and tachycardic in the ED prompting admission to ICU and pressor support. He is on buprenorphine for hx of opioid abuse. Denies n/v.
Past Medical History
Past Medical History: Other (class III obesity-BMI 47.9 HTN prior opiate abuse 10 years ago has been on chronic buprenorphine 2 mg daily for the past 10 years for chronic back pain/lumbar herniated disks chronic lower leg edema)
Past Surgical History: Reviewed & Noncontributory
Social History
Tobacco: Former Smoker
Alcohol: None (daily prior to incarceration 3 months ago)
Drug: Former User (on buprenorphine now)
Living: [facility]
Family History
Family History: Reviewed & Noncontributory
Allergies / Home Medications
Allergy/AdvReac Type Severity Reaction Status Date / Time
Penicillins Allergy Rash Verified 04/28/24 10:55
�Medication �Instructions �Recorded �Confirmed �Type
acetaminophen 325 mg tablet 650 mg PO TIDPRN PRN mild pain 04/27/24 04/27/24 History
(Tylenol)
buprenorphine HCl 2 mg sublingual 2 mg sublingual DAILY Pain 04/27/24 04/27/24 History
tablet
furosemide 40 mg tablet (Lasix) 40 mg PO DAILY Fluid 04/27/24 04/27/24 History
Retention/Swelling
ibuprofen 200 mg tablet (Advil) 400 mg PO BIDPRN PRN mild pain 04/27/24 04/27/24 History
lisinopril 20 mg tablet 20 mg PO DAILY Blood Pressure 04/27/24 04/27/24 History
Review of Systems
-
A 10 point review of systems was completed, and was negative except as per HPI.
Physical Exam
Vital Signs
Temp Pulse Resp BP Pulse Ox
99.0 F 107 20 96/64 97
04/28/24 11:00 04/28/24 13:00 04/28/24 13:00 04/28/24 13:00 04/28/24 13:00
04/27/24 04/28/24 04/29/24
06:59 06:59 06:59
Actual Weight 189.8 kg
Body Mass Index (BMI) 48.4
Lab Results
04/28/24 04:07
WBC 16.0 10^3/uL (4.8-10.8) H 04/28/24 04:07
Hgb 11.6 g/dL (13.0-18.0) L 04/28/24 04:07
Hct 34.3 % (39.0-52.0) L 04/28/24 04:07
Plt Count 232 10^3/uL (130-400) 04/28/24 04:07
Physical Exam
General: No Apparent Distress
HEENT: Normocephalic and Anicteric
GI: Obese
Skin: Other (BLE with chronic lymphedema, RLE with chronic lymphedematous changes; LLE with serous bullae and circumferential erythema tracking above the knee medially, mild ttp but not out of proportion, no crepitus, no worsening pain with passive
stretch)
Neuro: AO x 3
Psych: Calm
Data Reviewed
-
Labs: Labs Reviewed by me and Discussed with Physician
Assessment / Plan
-
53M with LLE cellulitis in setting of chronic lymphedema, there is concern for possible necrotizing infection
Tmax 100.6F since admit; requiring pressors based on cuff pressures
His LRINEC score is elevated and suggestive of necrotizing infection, however the clinical picture is obscured by chronic lymphedematous changes to his LE soft tissues and MARÍA ELENA
He is likely to have significant challenges healing any surgical wound, given his social situation and co-morbidities
Plan:
Rec A-line for BP monitoring
Rec stat CT LLE to evaluate the soft tissues of the leg and rule out deep collections
Re-evaluate post images to determine need for OR
IV abx per ID
[2024-04-28 14:46] LABS: Vancomycin Random 15.6 ug/ml
[2024-04-28] MEDS: MAGNESIUM SULFATE 100 IV (14:53)
[2024-04-28 15:20] LABS: Phosphorus 4.1 mg/dl (2.5-4.5)
--- NOTE | 2024-04-28 15:41 | PHA.VAN.IN ---
Assessment
- Assessment
Renal Function: Unknown baseline
Concomitant Antimicrobials: meropenem, clindamycin
Plan
- Plan
Dosing Received:
Vancomycin HCl 2,000 mg - Admin: 04/27/24 14:23
Vancomycin HCl 1,500 mg - Admin: 04/28/24 00:14
Therapeutic Drug Monitoring:
04/28/24 04/28/24
04:07 14:16
Random Vancomycin 26.3 15.6
Initial level drawn ~2H after end of infusion of prior 1500mg dose and essentially is a peak level
Repeat level drawn ~10H after initial level
ke = 0.0515, half-life = 13.5H
Based on patient-specific PK, patient's level expected to fall less than 10 in next 8 H if no further doses administered
Plan:
Patient unlikely to follow population-specific PK given height / weight and MARÍA ELENA
SCR & UOP seem to be improving
Give Vanc 1250mg x1 now (~10mg/kg adjusted body weight)
Repeat random level 04/29 0600
Pharmacokinetics Vancomycin I
- -
Patient Age: 53
Patient Sex: Male
Vancomycin Day #: 1
Indication: Skin And Soft Tissue
Requesting Provider: Dr. Mckinney
Pertinent Antimicrobial Allergies:
penicillins - rash; tolerated cefepime
Height / Weight:
Height 6 ft 6 in
Actual Weight 189.8 kg
IBW in k
Adjusted BW in k
Pertinent Past Medical History: BMI ~48
- Vital Signs / Lab Results
Temp Pulse Resp BP Pulse Ox
99.0 F 107 20 96/64 97
04/28/24 11:00 04/28/24 13:00 04/28/24 13:00 04/28/24 13:00 04/28/24 13:00
Lab Results - Hematology
04/27/24 04/28/24
12:39 04:07
WBC 16.9 H 16.0 H
Band Neutrophils 15 H 29 H D
Lab Results - Chemistry
04/27/24 04/28/24
12:39 04:07
BUN 50 H 54 H
Creatinine 3.9 H 3.3 H
Estimated Creat Clear 40 48
Albumin 3.5 3.0 L
04/27/24 04/27/24 04/28/24
13:37 18:46 04:07
Lactic Acid 5.5 H* 3.4 H 3.2 H
04/28/24 04/28/24
09:35 14:16
Lactic Acid 2.3 H 2.1 H
Lab Results - Urine
04/27/24
21:09
Urine Nitrite (Reflex) Negative
Leukocyte Esterase Rfl Negative
Urine WBC (Reflex) 0-2
Ur Squamous Epith Cells 0-2
Microbiology Results
04/27/24 13:37 Blood Culture - Preliminary
Blood/Venous Positive culture in progress
Gram Stain - Final
04/27/24 13:37 Blood Culture - Preliminary
Blood/Venous Positive culture in progress
Gram Stain - Final
--- NOTE | 2024-04-28 15:54 | PTCARENOTE ---
Deborah placed at bedside prior to transport to CT scan. Pressor requirement going up. Now on double concentrated levo at 24mcg and vaso. Mag repleted. Transported patient on monitor. Plan to go to OR per Dr. Moreira.
--- NOTE | 2024-04-28 16:35 | W.PN.UPDATE ---
Update Note
Progress Note Update
CT reviewed. Diffuse edematous changes without fluid collections or gas. Pt re-evaluated at bedside and now more somnolent, increasing pressor requirements, erythema tracking higher on left medial thigh.
Plan: Emergently to OR for I&D LLE
Discussed the likelihood of large wounds that he will struggle to heal, as well as risk of disease progression, need for further procedures, bleeding, limb loss and he verbalized understanding and freely signed the consent.
--- NOTE | 2024-04-28 16:40 | PTCARENOTE ---
OR staff picked up patient.
[2024-04-28] MEDS: VANCOCIN 275 MG IV (17:06)
[2024-04-28 17:43] LABS: B.E. - POC -3.2 mmol/L; Glucose - POC 104 mg/dl (70-99); HCO3 - POC 24 mmol/L (21-29); Hematocrit - POC 36 % PCV (42-52); Hemodilution- POC Yes; Hemoglobin Calculated - POC 12.4; Ionized Calcium - POC 1.29 mmol/L (1.12-1.27); Lactate - POC 1.79 mmol/L (0.36-0.75); O2 Saturation %Calculated-POC 98.1 % (92-96); PCO2 - POC 51 mmHg (35-45); PO2 - POC 121 mmHg (80-100); Sodium - POC 130 mmol/L (135-145); pH - POC 7.28 (7.35-7.45)
--- NOTE | 2024-04-28 17:59 | W.IMMPOSTOP ---
Surgical Immed Post Op Note
-
Primary Surgeon: Lillie
Pre-op Diagnosis: Severe soft tissue infection
Post-op Diagnosis: Same
Procedure Performed: Incision and debridement left lower extremity soft tissue infection
Anesthesia Type: GETA
Specimen / Cultures: Deep wound Cx x2
Estimated Blood Loss: 200cc
Complications: None immediate
Operative Findings: Severe edema of soft tissues, no necrotic fat, no odor, no dishwater drainage, no pus, fascia intact, compartments soft; fasciotomy type superficial incisions made at medial and lateral aspects, down to the fascia but did not
open fascia; infection worse medially and more extensive incision here, laterally smaller incision, tighter tissue planes on that side; extensive epidermolysis circumferentially; dressed with xeroform to desquamated areas, saline moist kerlix in
deeper bilateral incisions covered with abd pads and gently snugged sinan wrap; minor bleeding controlled with vicryl ties/cautery; no hemodynamic improvement during the case
Prognosis: guarded
--- NOTE | 2024-04-28 18:00 | PTCARENOTE ---
Received patient back from OR. Patient intubated #8 ETT, AC 18/550/5/100%. blood gas and labs sent. Aragon placed. awaiting sedation orders from .
[2024-04-28 18:55] LABS: B.E. -3.9 mmol/L; PCO2 49 mmHg (35-48); PO2 159 mmHg (83-108); pH 7.28 (7.35-7.45)
--- NOTE | 2024-04-28 19:00 | PTCARENOTE ---
On assessment pt intubated and sedated post op, no sedation running currently, pressors needs increasing, MANUAL TRAINING TEACHER aware, sedation ordered, see MAR, pt RASS +2, coughing and setting off vent, PRN meds given, respiratory at bedside to assess pt, ST on the
monitor, low grade temp, NPO, #16 fr wilkerson placed by Juan Carlos encarnacion leg with JAYSHREE C/D/I, RUE double lumen PICC and L radial Andre.
[2024-04-28 19:05] LABS: Blood Urea Nitrogen 48 mg/dl (9-20); Calcium 8.6 mg/dl (8.4-10.2); Carbon Dioxide 23 mmol/L (22-30); Chloride 92 mmol/L (98-107); Estimated Creatinine Clearance 66 ml/min; Glucose 109 mg/dl (70-99); Magnesium 1.8 mg/dl (1.6-2.3); Potassium 4.4 mmol/L (3.5-5.1); Sodium 131 mmol/L (135-145); eGFR 31.47
[2024-04-28] MEDS: NEO-SYNEPHRINE 250 IV (19:32)
[2024-04-28] MEDS: SUBLIMAZE 50 MCG IV ×4 (19:39→23:12)
[2024-04-28] MEDS: SUBLIMAZE 100 IV (19:46)
[2024-04-28] MEDS: PRECEDEX 100 IV (23:06)
[2024-04-29] VITALS (7 sets, daily range): BP systolic 104–136; BP diastolic 63–81; BMI 49.3
[2024-04-29] MEDS: SUBLIMAZE 100 IV ×2 (00:31→06:24)
[2024-04-29] MEDS: TYLENOL 650 MG PO (01:30)
--- NOTE | 2024-04-29 02:09 | PTCARENOTE ---
Increasing pressor requirement noted, LOCAL SALES MANAGER aware and at bedside, pt currently on Levo, Vaso, Cisco, Fen, and Prec gtt. OGT placed and Xray to confirm placement of ETT and OGT, elevated ST noted, LOCAL SALES MANAGER aware, EKG and trop placed and completed, elevated
temp, PRNs given.
--- NOTE | 2024-04-29 02:26 | W.PN.UPDATE ---
Update Note
Progress Note Update
04/29/24
0115- RN noted new EKG changes, appeared on the monitor ST elevation, patient cannot be assessed for chest pain because he is intubated and sedated on the ventilator. EKG and troponin obtained. Troponin resulted 3.380, previously 0.016. Will
consult cardiology Dr. Cadena.
[2024-04-29] MEDS: PRECEDEX 100 IV ×3 (03:47→19:01)
[2024-04-29] MEDS: LEVOPHED 258 MG IV ×4 (03:49→18:59)
[2024-04-29] MEDS: NEO-SYNEPHRINE 250 IV (03:49)
[2024-04-29] MEDS: PITRESSIN 100 IV ×2 (03:49→15:41)
[2024-04-29 04:25] LABS: Hemoglobin 11.2 g/dL (13.0-18.0); Mean Corp Hgb Conc. 33.9 g/dL (33.0-37.0); Mean Corpuscular Hgb 27.4 pg (27.0-31.0); Mean Corpuscular Volume 80.7 fL (80.0-94.0); Mean Platelet Volume 10.4 fL (7.4-10.4); Platelet Count 253 10^3/uL (130-400); Red Blood Cell Count 4.09 10^6/uL (4.70-6.10)
[2024-04-29 04:41] LABS: Glucose - Point of Care 121 mg/dl (70-99)
[2024-04-29 04:42] LABS: Vancomycin Random 15.8 ug/ml
[2024-04-29 04:47] LABS: ALT (SGPT) 119 U/L (0-50); AST (SGOT) 240 U/L (17-59); Albumin 2.9 g/dl (3.5-5.0); Alkaline Phosphatase 69 U/L (38-126); Blood Urea Nitrogen 47 mg/dl (9-20); Calcium 8.6 mg/dl (8.4-10.2); Carbon Dioxide 21 mmol/L (22-30); Chloride 92 mmol/L (98-107); Estimated Creatinine Clearance 79 ml/min; Glucose 117 mg/dl (70-99); Phosphorus 3.9 mg/dl (2.5-4.5); Potassium 4.4 mmol/L (3.5-5.1); Sodium 131 mmol/L (135-145); Total Bilirubin 2.3 mg/dl (0.2-1.3); Total Protein 5.7 g/dl (6.3-8.2); eGFR 39.17
--- NOTE | 2024-04-29 05:16 | PTCARENOTE ---
pt able to follow some commands and nods appropriately, denies pain but appears uncomfortable, repositioned it bed, small amount of drainage noted to LLE post op JAYSHREE dressing. Titrating down on pressors
[2024-04-29] MEDS: CLEOCIN 50 IV ×3 (06:05→21:04)
--- NOTE | 2024-04-29 07:42 | CON.CAR ---
Addendum entered and electronically signed by Min Bahena DO 04/29/24 10:30:
I saw and examined the patient.
The It Lead's note was reviewed and I agree with the note.
Comment:
Plan:
Patient in septic shock with significant lower extremity wounds.
Cont attempts to wean pressors.
Cont to work to wean vent. Cont pulm toilet.
Syncope likely secondary to septic shock.
Echo was poor quality but EF preserved.
Cont to trend troponin until it peaks.
Monitor EKG. No acute changes.
Troponin may be secondary to sepsis/myocarditis and less likely ACS. Will repeat echocardiogram to reevaluate left ventricular systolic function next 24 to 48 hours.
IV heparin for 24 hours and likely would stop within 24 hours after troponin peaks.
Eventual ischemic evaluation pending clinical course.
Unable to add beta-alex secondary to hypotension. The patient's Lasix and lisinopril are on hold.
Monitor daily weights I's and O's.
Discussed with nursing.
Discussed with surgery.
Original Note:
Consultation
Consultation Request
Date/Time Consultation Performed: 04/29/24
Requesting Provider: Dr. Meadows
Performing Provider: Ana M Enamorado PA-C for Dr. Stephen
Reason for Consultation: elevated troponin
Medical History
-
Chief Complaint: syncope
History of Present Illness:
Patient is a 53 yo incarcerated male at [facility] with PMH of opioid abuse, chronic back pain, HTN, obesity, former smoker who presented to [facility] on 04/27/24 after syncopal episode. While at [facility] he apparently had syncope while sitting in chair
which was witnessed by nursing staff. He had been feeling poorly by report several days prior to that with fever, malaise, bodyaches. He also reported several days of acute on chronic LE edema for which he was given several days of lasix and motrin
along with his OP lisinopril. He was hypotensive and tachycardic in ER. He is being treated for septic shock secondary to LE cellulitis. There is concern for necrotizing fasciitis vs group A strep per ID. Patient underwent I&D of LLE as was more
somnolent with worsening erythema to thigh and with increasing pressor requirements. He is currently intubated and sedated on multiple pressors. EKG was completed overnight due to concern for ST elevations on telemetry. Trop trending up, most recent
7. Cardiology consulted for evaluation.
PMH:
HTN
Obesity
History of opioid abuse
Chronic back pain on buprenorphine
Chronic LE edema/lymphedema
Former smoker
Past Medical History
Past Medical History: Other (in HPI)
Social History
Tobacco: Former Smoker
Living: [facility]
Family History
Family History: Unable to Obtain
Allergies / Home Medications
Allergy/AdvReac Type Severity Reaction Status Date / Time
Penicillins Allergy Rash; Verified 04/28/24 15:42
tolerated
cefepime
�Medication �Instructions �Recorded �Confirmed �Type
acetaminophen 325 mg tablet 650 mg PO TIDPRN PRN mild pain 04/27/24 04/27/24 History
(Tylenol)
buprenorphine HCl 2 mg sublingual 2 mg sublingual DAILY Pain 04/27/24 04/27/24 History
tablet
furosemide 40 mg tablet (Lasix) 40 mg PO DAILY Fluid 04/27/24 04/27/24 History
Retention/Swelling
ibuprofen 200 mg tablet (Advil) 400 mg PO BIDPRN PRN mild pain 04/27/24 04/27/24 History
lisinopril 20 mg tablet 20 mg PO DAILY Blood Pressure 04/27/24 04/27/24 History
Review of Systems
-
Unable to obtain full review of systems at this time due to: Patient Intubation
Physical Exam
Vital Signs
Temp Pulse Resp BP Pulse Ox
100 F 61 20 120/73 98
04/29/24 04:33 04/29/24 06:00 04/29/24 06:00 04/29/24 04:00 04/29/24 06:00
Lab Results
04/29/24 03:55
04/29/24 03:55
Troponin I 7.130 ng/ml H* D 04/29/24 06:16
Physical Exam
General: No Apparent Distress, Intubated and Other (obese)
HEENT: Normocephalic and Moist Mucous Membranes
Respiratory: Clear and Non Labored Respirations
Cardiac: S1/S2, Regular Rhythm and Other (garret)
GI: Soft, Non Tender and Non Distended
Musculoskeletal: No Clubbing, No Cyanosis and Edema (trace to 1+ of B/L LE. )
Skin: Warm, Dry and Other (LLE wrapped)
Neuro: Sedated
Impression / Plan
-
Primary Retort Kiln Burner: none prior to admission
Assessment:
Presentation with witnessed syncope
Severe sepsis secondary to LE cellulitis
Bacteremia - suspected necrotizing fasciitis vs group A strep
Septic shock with hypotension requiring pressor support
Acute hypoxic respiratory failure, on vent
MARÍA ELENA, unclear baseline
Elevated troponin
Elevated LFTs
Anemia
Hyponatremia
HTN
Obesity
History of opioid abuse
Chronic back pain on buprenorphine
Chronic LE edema/lymphedema
Former smoker
ECHO 04/28/24: TDS, EF 55%, mild cLVH, enlarged dilated RV, mildly hypokinetic, no significant valvular disease
Plan:
-Patient presented with syncopal episode and is being treated for severe sepsis from LLE cellulitis with concern for nec fasc vs group A strep. underwent I&D yesterday by general surgery.
-remains intubated, sedated at this time
-currently requiring levo, mariam, and vasopressin. wean as able
-cardiology consulted due to rising troponin after noted to have EKG/tele changes. trop up to 7. trend to peak
-echo with results as above, although TDS
-review of EKGs does not appear to have acute ischemic changes. review of tele SR/ST, currently with HRs in 50s-60s.
-for now, plan for conservative mgmt
-hgb 11.2. consider for IV heparin for 24 hours if ok with surgery
-no active cardiopulm disease by CXR
-no BB with hypotension/on pressors. OP lisinopril and lasix on hold
-consider for eventual ischemic evaluation pending clinical progress
-d/w nursing
Data Reviewed
-
EKG: Tracing Personally Visualized and interpreted
Radiology: Report Reviewed by me
Medical Tests (Nuc Med, Echo etc): Report Reviewed by me
Labs: Labs Reviewed by me
Old Records: Reviewed
[2024-04-29] MEDS: NSS (PRESERVATIVE FREE) 10 ML IV (07:55)
[2024-04-29] MEDS: HEPARIN 5000 UNITS SC (07:55)
[2024-04-29] MEDS: DESENEX/MITRAZOL/ZEASORB 1 APPLIC TOPICAL ×2 (07:56→19:43)
[2024-04-29] MEDS: MIRALAX TUBE (07:57)
[2024-04-29] MEDS: SUBUTEX SL (07:57)
[2024-04-29] MEDS: PROTONIX IV 40 MG IV (07:57)
--- NOTE | 2024-04-29 08:08 | PHA.VAN.FU ---
Vancomycin Assessment / Plan
- Assessment
Renal Function: SCR Decreasing
WBC's are: Trending Up
Concomitant Antimicrobials: meropenem, clindamycin
- Assessment - Therapeutic Drug Monitoring
Random Level: 15.8 - drawn ~11H after previous dose of 1250mg
- Dosing Plan
Dosing by Level: Re-dose today (Vanc 1250mg)
- Monitoring Plan
Random Level: 04/29 1600 - to assess if further dosing necessary for today
Monitoring Comments: additional random level ordered for 04/30 AM
- Follow Up
Pharmacy will continue to follow.
Vancomycin Follow UP
- -
Patient Age: 53
Patient Sex: Male
Vancomycin Day #: 2
Indication: Skin And Soft Tissue
Requesting Provider: Dr. Mckinney
Pertinent Antimicrobial Allergies:
penicillins - rash; tolerated cefepime
Height / Weight:
Height 6 ft 6 in
Actual Weight 193.4 kg
IBW in k
Adjusted BW in k
Pertinent Past Medical History: BMI ~48
- Vital Signs / Lab Results
Temp Pulse Resp BP Pulse Ox
100 F 61 20 120/73 98
04/29/24 04:33 04/29/24 06:00 04/29/24 06:00 04/29/24 04:00 04/29/24 06:00
Lab Results - Hematology
04/27/24 04/28/24 04/29/24
12:39 04:07 03:55
WBC 16.9 H 16.0 H 27.0 H
Band Neutrophils 15 H 29 H D
Lab Results - Chemistry
04/27/24 04/28/24 04/28/24
12:39 04:07 18:40
BUN 50 H 54 H 48 H
Creatinine 3.9 H 3.3 H 2.4 H
Estimated Creat Clear 40 48 66
Albumin 3.5 3.0 L
04/29/24
03:55
BUN 47 H
Creatinine 2.0 H
Estimated Creat Clear 79
Albumin 2.9 L
04/27/24 04/27/24 04/28/24
13:37 18:46 04:07
Lactic Acid 5.5 H* 3.4 H 3.2 H
04/28/24 04/28/24 04/28/24
09:35 14:16 18:40
Lactic Acid 2.3 H 2.1 H 2.0
Microbiology Results
04/27/24 13:37 Blood Culture - Preliminary
Blood/Venous Positive culture in progress
Gram Stain - Final
04/27/24 13:37 Blood Culture - Preliminary
Blood/Venous Positive culture in progress
Gram Stain - Final
Therapeutic Drug Monitoring
Random Vancomycin 15.8 ug/ml 04/29/24 03:55
--- NOTE | 2024-04-29 08:15 | W.PN.INTV ---
Today's Communication / Plan
Recommendations
SBT
Continue Clinda/cefazoline
Trend trops
Assessment
-
#Septic shock likely due to left lower leg cellulitis
Currently, BP 138/73 (on levo 22mcg/min), NC 57, O2 sat 95 on 2L O2, T 99.7
-Patient went to OR yesterday. No necrosis, fascia intact, compartments soft. Wound culture sent. Gen surg following
-Also, patient had ST elevation on monitor last night. EKG obtained and echo done (EF 55%). Troponin elevated (3 and 7). Cardiology visited patient. Does not think it is an acute ischemic process. Will trend trops.
-Appreciate ID consult-- Receiving Clinda/cephazolin
-On levophed/vasopressin/precedex--goal MAP> 65
-Currently does not have fever, tylenol prn
-Blood culture positive for strep.pyogenes
-U/A neg for UTI
-bilateral LE doppler US neg for DVT
- Appreciate wound care
-CT LE: no signs of associated abscess
- A-line and central line placed
#Hypoxia/Intubation
Patient came back intubated and has been on mechanical ventilation since.
Fentanyl stopped--Tapering mariam--SBT today to evaluate possible extubation
#MARÍA ELENA: might be sec to sepsis or med-related
-Cr improving
-Closely Monitor
Subjective Dataa
Subjective Data
Date of Service:
Date of Service: April 29, 2024
Chief Complaint: Mechanical Fitter Follow Up
Subjective:
Patient is intubated and sedated at the time of visit.
Review of Systems
General: Unobtainable - Sedation
Objective Data
Data Reviewed
Vital Signs / I&O / Oxygen:
Vital Signs
Temp Pulse Resp BP Pulse Ox
100 F 61 20 120/73 98
04/29/24 04:33 04/29/24 06:00 04/29/24 06:00 04/29/24 04:00 04/29/24 06:00
Intake and Output
04/28/24 04/29/24 04/30/24
06:59 06:59 06:59
Intake Total 2744.0 / 2928.0 3535.1 / 3657.4 244.6 / 244.6
Output Total 3100 / 3400 4460 / 4510 75 / 75
Balance -356.0 / -472.0 -924.9 / -852.6 169.6 / 169.6
Physical Exam
General: Other
HEENT: Anicteric and Other (patient is intubated (self-ventilation))
Cardiovascular: S1-S2, Regular Rhythm and Peripheral Edema (4+ pitting LLE, 2+ pitting RLE)
Respiratory: Clear, ET Tube and Other (no crackles, no wheezing)
GI: Soft, Non Tender and Normal Bowel Sounds
Neurology: Other (sedated at time of visit)
Skin: Warm, Dry and Other (sinan wrap on LLE )
Labs/Micro/Reports
Lab Data
04/29/24 03:55
04/29/24 03:55
Laboratory Results
04/28/24
18:40
pH 7.28 L
pCO2 49 H
pO2 159 H
HCO3 23.0
O2 Delivery Level
Microbiology
04/27/24 13:37 Blood/Venous Blood Culture - Preliminary
Positive culture in progress
04/27/24 13:37 Blood/Venous Gram Stain - Final
04/27/24 13:37 Blood/Venous Blood Culture - Preliminary
Positive culture in progress
04/27/24 13:37 Blood/Venous Gram Stain - Final
[2024-04-29] MEDS: VANCOCIN 275 MG IV (08:32)
--- NOTE | 2024-04-29 08:50 | W.PN.ID1 ---
Addendum entered and electronically signed by Nevaeh Mckinney MD 04/29/24 12:25:
attended dressing change with equipment operator warehouse at noon
Surgical site clean, note visible artery or vein, muscle is not tense or swollen, tissue is pink, no odor, no murky drainage; surrounding skin with sloughing skin in many locations, subcuticular bleeding, a bit less erythema than yesterday.
Original Note:
Date of Service
Date of Service: April 29, 2024
Today's Communication
- c/w clindamycin x3 days
- start cefazolin - dosing reviewed with clinical pharmacist Sona Ellington
- stop vancomycin
patient is critically ill, prognosis guarded
Assessment / Plan
Septic Shock
Group A Strep Cellulitis
Chronic Lymphedema
MSOF
Reported allergy to penicillin- rash
Class III obesity
- discussed with Dr Moreira - OR findings most consistent with severe group a strep infection
- repeat blood cultures x2
- Peripheral Vas US: no DVT
- appreciate general surgery
- c/w clindamycin x3 days
- start cefazolin - dosing reviewed with bay Ellington
- stop vancomycin
patient is critically ill, prognosis guarded
Chief Complaint
-: Cellulitis and Other (Group a strep bacteremia)
Subjective / Review of Systems
febrile overnight via core T - tmax 101.0
now on 3 pressors, with invasive BP monitoring
OR notes reviewed - most consistent with severe Group A strep infection
developed NSTEMI
Vital Signs / Physical Exam
Vital Signs
Vital Signs
Temp Pulse Resp BP Pulse Ox
99.7 F 61 20 120/73 98
04/29/24 08:25 04/29/24 06:00 04/29/24 06:00 04/29/24 04:00 04/29/24 08:00
Physical Exam
Constitutional: Acutely Ill, Chronically Ill, Toxic and Obese
Cardiovascular: Regular Rate and S1/S2; Negative Murmur or Rub
Pulmonary: Symmetric, Coarse and Non Labored; Negative Wheezes or Rales
Gastrointestinal: Soft, Non Tender, Non Distended and Normal Bowel Sounds
Skin: Warm and Dry; Negative Rash or Jaundice
Wound: Other (deferred first dressing take down to surgery)
Objective Data
Lab Data
Lab Results
04/29/24 03:55
04/29/24 03:55
PT 15.7 Sec (11.4-14.6) H 04/28/24 04:07
INR 1.27 04/28/24 04:07
APTT 39.3 Sec (23.4-35.0) H 04/28/24 04:07
Estimated Creat Clear 79 ml/min 04/29/24 03:55
Lactic Acid 2.0 mmol/L (0.7-2.0) 04/28/24 18:40
Total Bilirubin 2.3 mg/dl (0.2-1.3) H 04/29/24 03:55
AST 240 U/L (17-59) H 04/29/24 03:55
ALT 119 U/L (0-50) H 04/29/24 03:55
Alkaline Phosphatase 69 U/L (38-126) 04/29/24 03:55
C-Reactive Protein > 270.00 mg/L (0.0-10.00) H 04/28/24 04:12
Most recent labs reviewed.
Micro Results:
04/27/24 13:37 Blood Culture - Preliminary
Blood/Venous Streptococcus pyogenes
Gram Stain - Final
04/27/24 13:37 Blood Culture - Preliminary
Blood/Venous Streptococcus pyogenes
Gram Stain - Final
04/27/24 18:46 MRSA Screen - Final
Nose Staph aureus MRSA
04/28/24 17:20 Wound Culture - Pending
Leg - Left Gram Stain - Pending
04/28/24 17:20 Anaerobic Culture - Pending
Leg - Left
04/28/24 14:17 Blood Culture - Pending
Blood/Venous
04/28/24 14:17 Blood Culture - Pending
Blood/Venous
[2024-04-29 08:54] LABS: Absolute Neutrophils -Man Diff 25.6 10^3/uL (1.4-6.5); Band Neutrophils 15 % (0-3); Lymphocytes 3 % (20-51); Monocytes 2 % (2-9); Segmented Neutrophils 80 % (42-75)
[2024-04-29 08:57] LABS: Normal RBC Morphology Yes; Platelets Checked Yes; Total Cells Counted 100
--- NOTE | 2024-04-29 09:00 | PTCARENOTE ---
Pt rec'd from shift superintendent caustic cresylate RN, intubated and sedated, Fent and Precedex infusing, bp supported with levo, mariam and vaso-see worklist for rates. Pt is arousable to voice, nodding appropriately, following simple commands. Pupils 2 mm, equal and
reactive. Vent settings AC 20/550/40%/5, pt tolerating well, no alarms. Oral care provided, weak gag reflex noted. Suctioned for scant white secretions. Dopplar pedal pulses present and marked. Ortiz catheter in place for critical I+Os, care
provided, turned with assistance of 2 RNs and PCT. Plan of care discussed with cardiology. 2 Guards remain at bedside, safe environment maintained.
--- NOTE | 2024-04-29 09:10 | PTOTSP ---
Received order for PT from the ED. Reviewed chart and noted pt went to OR and now remains intubated, with rising troponin 7.13. Pt is not appropriate for PT at this time. Will need new orders when stable to begin PT activity.
--- NOTE | 2024-04-29 09:36 | W.PN.SURGUPD ---
Surgical Update
Surgical Update
pt seen and examined
intubated and sedated on ventilator
remains on high dose vasopressor support
troponin rising
LLE with open wounds - serous drainage as expected
erythema, some cyanosis of skin edges but no allan necrosis
A/P: POD#1 s/p Incision and debridement left lower extremity soft tissue infection
Severe edema of soft tissues, no necrotic fat, no odor, no dishwater drainage, no pus, fascia intact, compartments soft
d/w cardiology - okay to initiate heparin gtt - no bolus and monitor for bleeding
local wound care -> dress with xeroform to desquamated areas, saline moist kerlix in deeper bilateral incisions covered with abd pads and gently snugged sinan wrap
[2024-04-29] MEDS: ANCEF 10 IV ×2 (09:42→17:18)
[2024-04-29 11:17] LABS: Hematocrit 31.5 % (39.0-52.0); Hemoglobin 10.7 g/dL (13.0-18.0); Mean Corpuscular Hgb 26.6 pg (27.0-31.0); Mean Corpuscular Volume 78.4 fL (80.0-94.0); Mean Platelet Volume 10.2 fL (7.4-10.4); Platelet Count 244 10^3/uL (130-400); Red Blood Cell Count 4.02 10^6/uL (4.70-6.10); Red Cell Dist. Width 14.1 % (11.5-14.5); White Blood Cell Count 26.7 10^3/uL (4.8-10.8)
[2024-04-29] MEDS: HEPARIN 25000 UNITS/250 ML IV (11:18)
[2024-04-29 11:24] LABS: APTT 40.4 Sec (23.4-35.0)
--- NOTE | 2024-04-29 11:58 | CM ---
CM following re: discharge planning.
Discussed in Rounds, reviewed pt's chart, met with pt and two guards at bedside.
Pt is POD#1 s/p Incision and debridement left lower extremity soft tissue infection, intubated yesterday, remains intubated and sedated, on mechanical ventilator, remains on high dose vasopressor support.
Pt is from [facility] with a plan to return back to [facility] when medically stable.
[facility] nursing report: [phone]
Discharge instructions fax: [phone]
D/C plan: [facility].
[2024-04-29] MEDS: TYLENOL ORAL SOLUTION 650 MG TUBE ×2 (13:25→17:28)
--- NOTE | 2024-04-29 13:48 | WOUNDNOTE ---
LEFT POSTERIOR LEG WOUND
--- NOTE | 2024-04-29 13:49 | WOUNDNOTE ---
LEFT LEG INCISION
--- NOTE | 2024-04-29 14:14 | PTCARENOTE ---
08:22-Fent gtt stopped for SAT, pt tolerated well, remained calm and cooperative, able to follow basic commands.
09:30-Resp therapist attempted SBT and pt was immediately apneic on CPAP settings, returned pt to AC mode with vent settings as prior.
09:40-Cisco off. MAP maintained >65.
10:42-levo weaned to 28 mcg for MAP of 69.
11:19-levo weaned to 26 mcg for MAP of 69.
12:15-attempted to wean levo to 24 mcg, however MAP dropped to 63, so resumed gtt at 26 mcg.
Grand rounds with contracts specialist team performed approx 9am, plan of care discussed, will continue with current plan, (0600 repeat troponin of 7.13 noted) orders for heparin gtt rec'd as per cardiology. CBC/PTT/trop drawn and sent at noon, results noted
and communicated to physician. WOC MACKENZIE Scuhltz at bedside, wound care performed with assistance of 2 RNs and 2 guards, pt washed and repositioned with lópez lift, linens changed, pt tolerated with minimal discomfort, shaking head 'no' when asked if
experiencing pain.
All other meds and assessment as documented. Safe environment maintained, continuing to closely monitor.
--- NOTE | 2024-04-29 14:17 | WOUNDNOTE ---
[facility] RN note: Patient admitted with LLE cellulitis and sepsis
See H&P for complete history.
PMH: class III obesity�BMI 47.9, HTN, prior opiate abuse, chronic back pain/herniated disks, chronic LE edema, prior smoker.
HTN
Wound Location and type/assessment: Due to body habitus and intubated status, care was completed with the care of this mortgage loan underwriter and RNs Jojo and Jimmy. Two security guards helped to turn patient. Patient s/p incision and debridement on 04/28 of
left anterior soft tissue infection. The artery exposed on the anterior/medial wound and there is 2 cm of undermining at 12 o clock. The lateral wound was not pictured as care was completed quickly due patients intubated/respiratory status. Wounds
appear clean and are surrounded by areas of desquamated skin. Buttocks with friction/MASD appearing wound vs stage 2 PI. Per security guards, patient is wheelchair bound.
Appetite: NPO
Pressure redistribution devices in place: Bariatric air bed, turning scheduled, heels off-loaded on pillows.
Plan: Wound care completed as ordered by surgeon. Dr. Mckinney was available to view wound during care. RN's Jimmy and Jojo given update. SPD called for Xeroform to be delivered to room. Patient has several comorbidities including current use of
vasopressors, intubation, obesity and immobility. Wounds may worsen and new wounds may develop, even with optimal care.
--- NOTE | 2024-04-29 14:59 | PTCARENOTE ---
PRN Tylenol administered via OG tube at 13:25 for temp 100.5.
--- NOTE | 2024-04-29 15:34 | W.PN.HOSP.TC ---
Today's Communication/Plan
-
IV antibiotics
IV pressors
Wound care.
Ventilatory support
Total Critical Care Time__45___ minutes. I was immediately available to the patient and staff. I personally examined, reviewed labs, diagnostic images/reports, interpretations, treatment plans, discussed patient care with other providers and
family or caregivers (if patient is unable to make decisions), entered orders as appropriate and documented the medical record.
Assessment / Plan
Assessment / Plan
Impression:
Severe sepsis due to left lower extremity cellulitis
Septic shock with hypotension requiring vasopressors
Bacteremia with Streptococcus pyogenous
Syncope prior to presentation.
Acute hypoxic respiratory failure in the settings of hypotension.
VDRF in the settings of severe sepsis and hemodynamic instability.
� Intubated 04/28
Acute renal failure
Lactic acidosis.
Abnormal liver function test
Demand ischemia non-Q wave HI
Stage II decubital ulcer present on admission
Other conditions:
Essential hypertension
Obesity with BMI of 48.
Opiate use disorder on Suboxone.
Plan:
Left lower extremity cellulitis with severe sepsis and septic shock
Severe left lower extremity cellulitis with initial concern for necrotizing fasciitis
Blood culture with Streptococcus pyogenes
CT of the left lower extremity with severe cellulitis
Status post incision and debridement of left lower extremity soft tissue infection with no evidence of necrotizing fasciitis
Lower extremity Doppler negative for DVT.
Antibiotics regimen adjusted to cefazolin and clindamycin to target nonpathogenic
Repeat blood culture for clearance pending
Daily wound care
Septic shock with hypotension not expanding to IV fluids
Remains hemodynamically unstable requiring multiple pressors currently on Levophed, norepinephrine, vasopressin.
Monitor urine output
Acute hypoxic respiratory failure
VDRF
� Intubated on 04/29 with procedure
Chest x-ray with clear parenchyma
Lower extremity Doppler negative
Continue sedation.
Hold Suboxone
Non-Q wave HI secondary to demand ischemia.
Troponin peaked at 7
Echocardiogram
Very technically difficult study suboptimal 2D echo doppler study
Normal left ventricular chamber size. Normal left ventricular systolic
function. Left ventricular ejection fraction is 55%. Normal regional wall
motion. Mild concentric left ventricular hypertrophy.
Enlarged dilated right ventricular size. Right ventricle appears mildly
hypokinetic.
No significant valvular disease within the limitations of this study
No prior echo for comparison.
Initiated on IV heparin on 04/29
Conservative management including treatment of sepsis and hemodynamic instability
MARÍA ELENA baseline metabolic acidosis/lactic acidosis
Likely prerenal in the settings of sepsis, septic shock with prerenal stimuli.
Less likely glomerular process given bland UA
Hold Lasix, NSAIDs, lisinopril.
Continue vasopressors to avoid hypotension
Bladder scan for retention
Follow BMP
Consider nephrology evaluation if uptrending creatinine
Avoid nephrotoxins
Abnormal LFT
No abdominal pain or other gastrointestinal complaints upon presentation.
Trending down with hemodynamic control.
Consider further evaluation with imaging including ultrasound versus CT scan.
Obesity with BMI of 48
Check hemoglobin A1c 5.8
Check TSH
Essential hypertension
Hold preadmission antihypertensive regimen including lisinopril and Lasix baseline
Opiate use disorder
On Suboxone prior to presentation
Full code
DVT prophylaxis subcu heparin
Anticipated Discharge: > 48 hours
Subjective/Interval History
-
Date of Service: April 29, 2024
Objective Data
-
Labs:
Laboratory Results
04/29/24 04/29/24 04/29/24
03:55 11:04 17:30
WBC 27.0 H 26.7 H
Hgb 11.2 L 10.7 L
Hct 33.0 L 31.5 L
Plt Count 253 244
APTT 40.4 H Pending
Sodium 131 L
Potassium 4.4
Chloride 92 L
Carbon Dioxide 21 L
BUN 47 H
Creatinine 2.0 H
Glucose 117 H
Calcium 8.6
Total Bilirubin 2.3 H
AST 240 H
ALT 119 H
Alkaline Phosphatase 69
Vital Signs:
Vital Signs
Temp Pulse Resp BP Pulse Ox
100.7 F H 65 21 111/70 97
04/29/24 15:26 04/29/24 15:15 04/29/24 15:15 04/29/24 12:00 04/29/24 15:15
I&O
04/28/24 04/29/24 04/30/24
06:59 06:59 06:59
Intake Total 2744.0 / 2928.0 3535.1 / 3657.4 1044.8 / 1044.8
Output Total 3100 / 3400 4460 / 4510 890 / 890
Balance -356.0 / -472.0 -924.9 / -852.6 154.8 / 154.8
Physical Exam
-
General: Well Developed and No Apparent Distress
HEENT: Normocephalic, Atraumatic, Moist Mucous Membranes and Other (ET tube in place with clear secretion)
Respiratory: Decreased Breath Sounds
Cardiac: Regular Rhythm and S1/S2; Negative Murmur, Rub or Gallop
GI: Soft, Nontender, Nondistended and Normal Bowel Sounds; Negative Organomegaly
Rectal: Deferred by Provider
Musculoskeletal: No Clubbing, No Cyanosis and No Edema
Skin: Negative Rash
Neuro: Sedated and Nonfocal/Grossly Intact
--- NOTE | 2024-04-29 16:37 | PTCARENOTE ---
15:42-Levo weaned again to 22 mcg for MAP 73, pt is maintaining stable bp with MAP >65 at this time. Continuing to monitor closely. All other assessments unchanged.
--- NOTE | 2024-04-29 18:24 | PTCARENOTE ---
Troponin result 12.2, PTT 42.0 noted. Heparin gtt increased to 1200 units/hr. Follow up lab draw orders placed per protocol. Will update oncoming shift.
--- NOTE | 2024-04-29 19:23 | PTCARENOTE ---
On assessment pt intubated and sedated, pt RASS -2, coughing and setting off vent occasionally but tolerating, respiratory at bedside to assess pt, SR on the monitor, low grade temp, PRN meds given see SOLEDAD CHAVARRIA, OGT 81 cm at the lip, #16 fr wilkerson, L
leg with JAYSHREE C/D/I, RUE double lumen PICC and L radial Andre.
[2024-04-29] MEDS: SUBLIMAZE 50 MCG IV (21:04)
--- NOTE | 2024-04-29 23:48 | PTCARENOTE ---
Pt repositioned and bathed, tolerated turns, small amount of drainage noted from LLE dressing, mouth care given, HOB elevated.
[2024-04-30] VITALS (12 sets, daily range): BP systolic 91–125; BP diastolic 49–74; PULSE 2–79; BMI 47.1
[2024-04-30] MEDS: LEVOPHED 258 MG IV ×4 (00:46→23:16)
[2024-04-30 00:57] LABS: APTT 43.1 Sec (23.4-35.0)
[2024-04-30] MEDS: PITRESSIN 100 IV ×2 (01:36→12:34)
[2024-04-30] MEDS: ANCEF 10 IV ×4 (01:36→22:23)
[2024-04-30] MEDS: PRECEDEX 100 IV ×2 (01:36→06:23)
--- NOTE | 2024-04-30 04:27 | PTCARENOTE ---
pt continues on levo and vaso, titrating down on levo throughout the night, maps in the 70s.
[2024-04-30 04:34] LABS: Hematocrit 29.7 % (39.0-52.0); Hemoglobin 10.2 g/dL (13.0-18.0); Mean Corp Hgb Conc. 34.3 g/dL (33.0-37.0); Mean Corpuscular Hgb 26.7 pg (27.0-31.0); Mean Corpuscular Volume 77.7 fL (80.0-94.0); Mean Platelet Volume 10.3 fL (7.4-10.4); Platelet Count 243 10^3/uL (130-400); Red Blood Cell Count 3.82 10^6/uL (4.70-6.10); Red Cell Dist. Width 14.3 % (11.5-14.5); White Blood Cell Count 36.2 10^3/uL (4.8-10.8)
[2024-04-30 04:48] LABS: Lactic Acid 1.4 mmol/L (0.7-2.0)
[2024-04-30 04:50] LABS: ALT (SGPT) 108 U/L (0-50); AST (SGOT) 239 U/L (17-59); Albumin 2.6 g/dl (3.5-5.0); Alkaline Phosphatase 109 U/L (38-126); Blood Urea Nitrogen 43 mg/dl (9-20); Calcium 8.5 mg/dl (8.4-10.2); Carbon Dioxide 26 mmol/L (22-30); Chloride 94 mmol/L (98-107); Estimated Creatinine Clearance 106 ml/min; Glucose 126 mg/dl (70-99); Magnesium 2.1 mg/dl (1.6-2.3); Phosphorus 2.6 mg/dl (2.5-4.5); Potassium 3.7 mmol/L (3.5-5.1); Sodium 131 mmol/L (135-145); Total Bilirubin 2.5 mg/dl (0.2-1.3); Total Protein 5.5 g/dl (6.3-8.2); eGFR 55.32
[2024-04-30] MEDS: TYLENOL ORAL SOLUTION 650 MG TUBE ×3 (05:50→20:47)
[2024-04-30] MEDS: CLEOCIN 50 IV ×3 (05:50→22:23)
[2024-04-30] MEDS: HEPARIN 25000 UNITS/250 ML IV ×2 (06:23→22:58)
--- NOTE | 2024-04-30 07:45 | PTCARENOTE ---
Pt rec'd from river rafting guide RN, POD #2 from I+D of LLE with Dr. Moreira, remains intubated, sedated and restrained. Pt tolerating vent settings AC 20/550/0.40/5, bp supported with Levo and vaso; heparin and precedex infusing per orders via R PICC line.
VSS, pt calm and cooperative, RASS -2, pt following simple commands and opening eyes to voice. Left radial A Line leveled and calibrated, all ports secured and patent. 0800 PTT drawn and sent, result noted and heparin gtt adjusted per protocol. Next
PTT ordered for 15:00. Plan of care discussed with patient, indicates his agreement by giving thumbs up. Precedex gtt turned off at 0800 for SAT, pt tolerating well, opening eyes, participating in active ROM. Dr. Moreira arrived to bedside
approximately 08:15, wound care completed with 2 RNs, pt medicated for pain afterward. Pt repositioned with lópez lift, wilkerson care and oral hygiene care provided. Continuing to monitor closely. 2 Guards remain at bedside, safe environment
maintained.
[2024-04-30 07:48] LABS: % Basophils 0.1 % (0-2); % Eosinophils 0.3 % (0-6); % Immature Granulocytes 7.5 % (0-0.5); % Lymphocytes 5.8 % (20.5-51.1); % Monocytes 6.1 % (1.7-9.3); % Neutrophils 80.2 % (42.2-75.2); Absolute Eosinophils 0.1 10^3/uL (0-0.7); Absolute Immature Granulocytes 2.7 10^3/uL (0-0.05); Absolute Lymphocytes 2.1 10^3/uL (1.2-3.4); Absolute Monocytes 2.2 10^3/uL (0.1-0.6); Nucleated Red Blood Cells % 0.1 % (-)
[2024-04-30] MEDS: NSS (PRESERVATIVE FREE) 10 ML IV (07:52)
[2024-04-30] MEDS: PROTONIX IV 40 MG IV (07:52)
[2024-04-30] MEDS: SUBUTEX SL (07:52)
[2024-04-30] MEDS: MIRALAX TUBE (07:52)
[2024-04-30] MEDS: DESENEX/MITRAZOL/ZEASORB 1 APPLIC TOPICAL ×2 (07:53→20:47)
--- NOTE | 2024-04-30 08:22 | W.PN.GS2 ---
Today's Communication / Plan
-
Local wound care
Assessment / Plan
-
53M with severe cellulitis of LLE and septic shock
Pressor reqs decreasing
Vent wean in progress
No acute need for further surgical debridement
Plan:
Local wound care with saline wet-to-dry, xeroform for desquamated areas, abd pads, sinan wrap
Would consider delayed primary closure over a drain if and when he improves
May need further debridement this admission, no indication for this today
Abx per ID
GS will follow peripherally
Subjective Data
-
Date of Service: April 30, 2024
Intubated/sedated, pressors are weaning
Objective Data
-
Intake and Output
04/29/24 04/30/24 05/01/24
06:59 06:59 06:59
Intake Total 3535.1 / 3657.4 2270.4 / 2270.4 53 / 53
Output Total 4460 / 4510 2570 / 2570 100 / 100
Balance -924.9 / -852.6 -299.6 / -299.6 -47 / -47
Intake:
Oral fluids 0 / 0
IV fluids (Total) 3435.1 / 3557.4 1890.4 / 1890.4 53 / 53
DEX 133 / 152 332.5 / 332.5 0 / 0
FENT 195 / 215 40 / 40
ISIDRA 312 / 330 48 / 48
Nss 1,000 ml @ 100 mls/hr IV . 1200 / 1200
Q10H ELVA Rx#:[id number]
heparin 216 / 216 14 / 14
levo 1388.1 / 1444.4 1046.9 / 1046.9 30 / 30
vaso 207 / 216 207 / 207 9 / 9
IV piggybacks 100 / 100 380 / 380
Output:
Urine, Ortiz 2410 / 2460 2570 / 2570 100 / 100
Urine, Voided 2049
Vital Signs
Temp Pulse Resp BP Pulse Ox
101.3 F H 71 20 121/74 98
04/30/24 06:00 04/30/24 06:30 04/30/24 06:30 04/30/24 04:00 04/30/24 08:00
Lab Results
04/30/24 04:09
04/30/24 04:09
Calcium 8.5 mg/dl (8.4-10.2) 04/30/24 04:09
Phosphorus 2.6 mg/dl (2.5-4.5) 04/30/24 04:09
Magnesium 2.1 mg/dl (1.6-2.3) 04/30/24 04:09
Total Bilirubin 2.5 mg/dl (0.2-1.3) H 04/30/24 04:09
AST 239 U/L (17-59) H 04/30/24 04:09
ALT 108 U/L (0-50) H 04/30/24 04:09
Alkaline Phosphatase 109 U/L (38-126) 04/30/24 04:09
Total Protein 5.5 g/dl (6.3-8.2) L 04/30/24 04:09
Albumin 2.6 g/dl (3.5-5.0) L 04/30/24 04:09
Physical Exam
-
Gen: intubated/sedated
LLE: serous drainage, no odor, no pus, small scattered patches of cyanotic skin
[2024-04-30] MEDS: SUBLIMAZE 50 MCG IV (08:23)
--- NOTE | 2024-04-30 08:36 | OR.RPT ---
Addendum entered and electronically signed by Duane Moreira MD 05/05/24 13:14:
CDI query addendum: excisional debridement of skin and subcutaneous fat with #10 blade
Original Note:
Operative Report
Operative Report
Primary Surgeon: Lillie
Pre-op Diagnosis: Severe soft tissue infection
Post-op Diagnosis: Same
Procedure Performed: Incision and debridement left lower extremity soft tissue infection
Anesthesia Type: GETA
Specimen / Cultures: Deep wound Cx x2
Estimated Blood Loss: 200cc
Complications: None immediate
Operative Findings: Severe edema of soft tissues, no necrotic fat, no odor, no dishwater drainage, no pus, fascia intact, compartments soft; fasciotomy type superficial incisions made at medial and lateral aspects, down to the fascia but did not
open fascia; infection worse medially and more extensive incision here, laterally smaller incision, tighter tissue planes on that side; extensive epidermolysis circumferentially; dressed with xeroform to desquamated areas, saline moist kerlix in
deeper bilateral incisions covered with abd pads and gently snugged sinan wrap; minor bleeding controlled with vicryl ties/cautery; no hemodynamic improvement during the case
Date of Surgery: 04/28/24
Indications: This 53M developed left lower extremity edema, serous bullae, erythema, fever and hypotension. Workup was negative for gas in tissues, deep abscess. Due to clinical decline he was taken to the OR for incision and debridement to rule out
necrotizing infection.
Description of procedure: The patient was placed on the operating table in the supine position. General anesthesia was induced. A time-out was completed verifying correct patient, procedure, site, positioning, and special equipment prior to
beginning this procedure. An orogastric tube was placed. The left lower extremity was prepped and draped in the usual sterile fashion. There was extensive epidermolysis circumferentially about the calf. A medial incision was made about two finger
breadths posterior to the medial edge of the tibia extending from the medial malleolus to the knee using cut cautery. The subcutaneous fat was incised with cautery and digitally explored down to the fascia for the length of the incision. The tissue
planes were somewhat loose at the inferior and superior extent of the incision and these areas were bluntly digitally dissected tracking subcutaneously medially above the knee and inferiorly around the ankle, as well as in a few locations along the
length of the incision. No odor was noted, no dishwater drainage nor pus nor necrotic tissue was identified. Compartments were soft. We encountered minor bleeding controlled with Vicryl ties and cautery during this dissection. Attention was turned
to the lateral calf and a second incision was made extending from the lateral malleolus toward the knee, about two finger breadths superior to the fibula using cut cautery. The incision was extended into the subcutaneous fat with cautery and the
subcutaneous tissue was digitally probed. The tissue planes were tighter laterally and thus less extensive incision and dissection was carried out. Compartments soft, no evidence of necrosis, odor, pus, dishwater drainage. Hemostasis was again
achieved with electrocautery and vicryl ties. The wound was packed with saline moist kerlix. Xeroform gauze was placed over the desquamated areas. Abd pads were placed over the packed incisions and a gently snugged sinan wrap was placed to secure the
dressings.
The patient tolerated the procedure well and was taken to the ICU care unit intubated and sedated.
[2024-04-30 08:39] LABS: APTT 43.2 Sec (23.4-35.0)
--- NOTE | 2024-04-30 09:29 | W.PN.CARDCBS ---
Today's Communication / Plan
-
Troponin trending down. Continue supportive care
Continue IV heparin. Add aspirin via tube
Continue Levophed and vasopressin and wean as tolerated.
Continue broad-spectrum antibiotics.
If he recovers from this event within consider ischemic evaluation.
Impression / Plan
-
Primary Implant Polisher: none prior to admission
Assessment:
Presentation with witnessed syncope
Severe sepsis secondary to LE cellulitis s/p OR 04/30 debridement
Bacteremia -strep pyogenes
Septic shock with hypotension requiring pressor support
Acute hypoxic respiratory failure, on vent
MARÍA ELENA, unclear baseline
Elevated troponin
Elevated LFTs
Anemia
Hyponatremia
HTN
Obesity
History of opioid abuse
Chronic back pain on buprenorphine
Chronic LE edema/lymphedema
Former smoker
ECHO 04/28/24: TDS, EF 55%, mild cLVH, enlarged dilated RV, mildly hypokinetic, no significant valvular disease
Plan:
-Troponins are trending down after peaking at 12. Echo with no clear wall motion on
Difficult study.
-EKG with abnormal ST segments. Will repeat today. Continue IV heparin for now. Hemoglobin stable at 10.2
-I will continue conservative care for now. If he recovers from this event, I would consider ischemic evaluation at this point.
-Will try and repeat the echo in several days to reevaluate LVEF.
-He remains septic on multiple pressors including vasopressin and Levophed. Continue to wean as tolerated
-Continue antibiotics for strep bacteremia and fasciitis.
-Creatinine has improved and is down to 1.5.
-LFTs are improving
Critical care time 33-minutes
Progress Note - Implant Polisher
Subjective
Date of Service: April 30, 2024
He is intubated and sedated on multiple pressors.
Objective
Labs:
04/30/24 04:09
04/30/24 04:09
Labs
Hgb 10.2 g/dL (13.0-18.0) L 04/30/24 04:09
Hct 29.7 % (39.0-52.0) L 04/30/24 04:09
Plt Count 243 10^3/uL (130-400) 04/30/24 04:09
PT 15.7 Sec (11.4-14.6) H 04/28/24 04:07
INR 1.27 04/28/24 04:07
APTT 43.2 Sec (23.4-35.0) H 04/30/24 08:21
Sodium 131 mmol/L (135-145) L 04/30/24 04:09
Potassium 3.7 mmol/L (3.5-5.1) 04/30/24 04:09
BUN 43 mg/dl (9-20) H 04/30/24 04:09
Creatinine 1.5 mg/dL (0.7-1.3) H 04/30/24 04:09
Glucose 126 mg/dl (70-99) H 04/30/24 04:09
Troponins
04/27/24 04/29/24 04/29/24
12:39 01:18 03:55
Troponin I 0.016 3.380 H* Cancelled
04/29/24 04/29/24 04/29/24
06:16 11:04 17:26
Troponin I 7.130 H* D 10.800 H* D 12.200 H*
04/30/24 04/30/24
00:22 04:09
Troponin I 11.400 H* 9.250 H*
Vital Signs and I&O:
Vital Signs
Temp Pulse Resp BP Pulse Ox
100.9 F H 74 20 116/67 95
04/30/24 07:30 04/30/24 08:45 04/30/24 08:45 04/30/24 08:00 04/30/24 08:45
Vital Signs
Temp Pulse Resp BP Pulse Ox
100.9 F H 74 20 116/67 95
04/30/24 07:30 04/30/24 08:45 04/30/24 08:45 04/30/24 08:00 04/30/24 08:45
Intake & Output
04/28/24 04/29/24 04/30/24 05/01/24
06:59 06:59 06:59 06:59
Intake Total 2744.0 / 2928.0 3535.1 / 3657.4 2270.4 / 2270.4 138 / 138
Output Total 3100 / 3400 4460 / 4510 2570 / 2645 250 / 250
Balance -356.0 / -472.0 -924.9 / -852.6 -299.6 / -374.6 -112 / -112
Physical Exam
Physical Exam
GEN: No distress, intubated/sedated
HEENT: supple, anicteric, mmm, ET tube
LUNGS: bilat rhonchi
CV: Reg, S1/S2, 1/6 syst LSB, no gallop
ABD: soft, BS+, NT/ND
EXT: + edema
NEURO: unable to assess
SKIN: dresing intact
--- NOTE | 2024-04-30 10:23 | W.PN.ID1 ---
Date of Service
Date of Service: April 30, 2024
Today's Communication
Continue antibiotics.
Assessment / Plan
Septic Shock
Group A Strep Cellulitis
Invasive group A strep infection with bacteremia
Leukocytosis
Chronic Lymphedema
MOSF
Reported allergy to penicillin- rash
- tolerating cefazolin
Class III obesity
-Case previously discussed with Dr Moreira - OR findings most consistent with severe group a strep infection
- repeat blood cultures x2 have been obtained
- Peripheral Vas US: no DVT
- c/w clindamycin (day #2) x3 days
- Continue cefazolin - dosing reviewed with clinical pharmacist - Anastasia Ellington. Will increase to 2 g every 6 hours given elevated BMI
- Trend white count
patient remains critically ill, vent dependent and in ICU. Prognosis remains guarded.
����������������������������������������������������������
Chief Complaint
-: Cellulitis and Other (Group a strep bacteremia)
Subjective / Review of Systems
Patient seen and examined. Remains intubated at this time, although being weaned.
Vital Signs / Physical Exam
Vital Signs
Vital Signs
Temp Pulse Resp BP Pulse Ox
100.9 F H 75 20 116/67 97
04/30/24 07:30 04/30/24 10:21 04/30/24 10:21 04/30/24 08:00 04/30/24 10:21
Physical Exam
Constitutional: Acutely Ill, Non-toxic and Obese
Eyes: Sclera Anicteric
Oropharyngeal: Other (ET tube in place.)
Cardiovascular: S1/S2; Negative S3/S4
Pulmonary: Other (ET tube to vent.)
Gastrointestinal: Soft, Non Tender and Non Distended
Extremities: Edema
Wound: Other (Left lower extremity wrapped in Jim wrap. Dressings in place.)
Neurological: Other (Arousable and responsive to voice and touch.)
Objective Data
Lab Data
Lab Results
04/30/24 04:09
04/30/24 04:09
PT 15.7 Sec (11.4-14.6) H 04/28/24 04:07
INR 1.27 04/28/24 04:07
APTT 43.2 Sec (23.4-35.0) H 04/30/24 08:21
Estimated Creat Clear 106 ml/min 04/30/24 04:09
Lactic Acid 1.4 mmol/L (0.7-2.0) 04/30/24 04:09
Total Bilirubin 2.5 mg/dl (0.2-1.3) H 04/30/24 04:09
AST 239 U/L (17-59) H 04/30/24 04:09
ALT 108 U/L (0-50) H 04/30/24 04:09
Alkaline Phosphatase 109 U/L (38-126) 04/30/24 04:09
C-Reactive Protein > 270.00 mg/L (0.0-10.00) H 04/28/24 04:12
Most recent labs reviewed.
Micro Results:
04/28/24 17:20 Wound Culture - Preliminary
Leg - Left No growth
Gram Stain - Preliminary
04/28/24 17:20 Anaerobic Culture - Preliminary
Leg - Left Culture pending. Anaerobic cultures are examined after 3
days incubation. Additional information to follow.
04/27/24 13:37 Blood Culture - Preliminary
Blood/Venous Streptococcus pyogenes
Gram Stain - Final
04/27/24 13:37 Blood Culture - Preliminary
Blood/Venous Streptococcus pyogenes
Gram Stain - Final
04/28/24 14:17 Blood Culture - Preliminary
Blood/Venous No Growth in 24 hours- Final report to follow
04/28/24 14:17 Blood Culture - Preliminary
Blood/Venous No Growth in 24 hours- Final report to follow
04/27/24 18:46 MRSA Screen - Final
Nose Staph aureus MRSA
Care Review
Plan reviewed with: Physician ([facility])
[2024-04-30] MEDS: LASIX 40 MG IV (10:27)
[2024-04-30] MEDS: ASPIR LOW (ENTERIC COATED) 81 MG PO (10:28)
[2024-04-30] MEDS: FLEXBUMIN 100 IV ×2 (10:28→13:36)
--- NOTE | 2024-04-30 10:56 | PTCARENOTE ---
Grand rounds completed with wildlife biostation research ecologist team at approx 10:00. Plan of care discussed.
Pt has been tolerating SBT since 09:45, breathing independently on CPAP vent settings 5/5 with 40% FiO2. Per orders, ABG drawn and sent at this time, will await result to determine possible extubation.
Lasix and Albumin given at this time, Ancef adjusted to Q6.
Safe environment maintained with 2 guards at bedside.
[2024-04-30 11:05] LABS: B.E. 3.2 mmol/L; HCO3 27.9 mmol/L (21-28); O2 Saturation % 98.9 % (94-98); PCO2 42 mmHg (35-48); PO2 91 mmHg (83-108); pH 7.43 (7.35-7.45)
--- NOTE | 2024-04-30 11:17 | W.PN.HOSP.TC ---
Today's Communication/Plan
-
Weaned off continuous sedation
SBT
Monitor volume status closely, may required gentle diuresis to facilitate weaning
IV antibiotics per
Wound care.
Noted with persistent LFT elevation mixed pattern
Ultrasound suggestive of cholelithiasis with also dilated CBD could not exclude acute cholecystitis. Monitor closely. Consider additional imaging including HIDA scan versus CT post extubation. If clinical concern, may require percutaneous
decompression of gallbladder
Continue IV heparin
And aspirin postextubation
Total Critical Care Time__50___ minutes. I was immediately available to the patient and staff. I personally examined, reviewed labs, diagnostic images/reports, interpretations, treatment plans, discussed patient care with other providers and
family or caregivers (if patient is unable to make decisions), entered orders as appropriate and documented the medical record.
Assessment / Plan
Assessment / Plan
Impression:
Severe sepsis due to left lower extremity cellulitis
Septic shock with hypotension requiring vasopressors
Bacteremia with Streptococcus pyogenous
Syncope prior to presentation.
Acute hypoxic respiratory failure in the settings of hypotension.
VDRF in the settings of severe sepsis and hemodynamic instability.
� Intubated 04/28
Acute renal failure
Lactic acidosis.
Abnormal liver function test
Demand ischemia non-Q wave VA
Stage II decubital ulcer present on admission
Other conditions:
Essential hypertension
Obesity with BMI of 48.
Opiate use disorder on Suboxone.
Plan:
Left lower extremity cellulitis with severe sepsis and septic shock
Severe left lower extremity cellulitis with initial concern for necrotizing fasciitis
Blood culture with Streptococcus pyogenes
CT of the left lower extremity with severe cellulitis
Status post incision and debridement of left lower extremity soft tissue infection with no evidence of necrotizing fasciitis
Lower extremity Doppler negative for DVT.
Antibiotics regimen adjusted to cefazolin and clindamycin to target nonpathogenic
Repeat blood culture negative to date
Daily wound care
Septic shock with hypotension not expanding to IV fluids
Remains hemodynamically unstable requiring multiple pressors currently on Levophed, vasopressin. Weaned off norepinephrine
Monitor urine output
Acute hypoxic respiratory failure
VDRF
� Intubated on 04/29 with procedure
Follow-up chest x-ray with left lower lobe pleural effusion and congestion
Weaned off sedation per
SBT on 04/30 per
May need IV Lasix to facilitate weaning
Non-Q wave VA secondary to demand ischemia.
Troponin peaked at 12 and trending down
Echocardiogram
Very technically difficult study suboptimal 2D echo doppler study
Normal left ventricular chamber size. Normal left ventricular systolic
function. Left ventricular ejection fraction is 55%. Normal regional wall
motion. Mild concentric left ventricular hypertrophy.
Enlarged dilated right ventricular size. Right ventricle appears mildly
hypokinetic.
No significant valvular disease within the limitations of this study
No prior echo for comparison.
Initiated on IV heparin on 04/29
Conservative management including treatment of sepsis and hemodynamic instability
Aspirin
Ischemic evaluation eventually
MARÍA ELENA baseline metabolic acidosis/lactic acidosis
Likely prerenal in the settings of sepsis, septic shock with prerenal stimuli.
Less likely glomerular process given bland UA
Hold Lasix, NSAIDs, lisinopril.
Continue vasopressors to avoid hypotension
Bladder scan for retention
Follow BMP
Consider nephrology evaluation if uptrending creatinine
Avoid nephrotoxins
Abnormal LFT
Rising bilirubin and transaminases.
Ultrasound:Hepatosplenomegaly with hepatic steatosis.
Gallstones and sludge are present. The gallbladder is mildly distended however there is are additional findings suggestive of cholecystitis.
The common bile duct is borderline dilated measuring 6.7 mm.
Follow LFT closely
Surgery has been on board
If trending up LFTs, consider HIDA scan versus percutaneous decompression of the gallbladder.
Obesity with BMI of 48
Check hemoglobin A1c 5.8
Check TSH
Essential hypertension
Hold preadmission antihypertensive regimen including lisinopril and Lasix baseline
Opiate use disorder
On Suboxone prior to presentation
Full code
DVT prophylaxis subcu heparin
Anticipated Discharge: > 48 hours
Subjective/Interval History
-
Date of Service: April 30, 2024
Objective Data
-
Labs:
Laboratory Results
04/30/24 04/30/24 04/30/24
00:22 04:09 08:21
WBC 36.2 H
Hgb 10.2 L
Hct 29.7 L
Plt Count 243
APTT 43.1 H 43.2 H
HCO3
Sodium 131 L
Potassium 3.7
Chloride 94 L
Carbon Dioxide 26
BUN 43 H
Creatinine 1.5 H
Glucose 126 H
Calcium 8.5
Total Bilirubin 2.5 H
AST 239 H
ALT 108 H
Alkaline Phosphatase 109
04/30/24 04/30/24
10:54 15:00
WBC
Hgb
Hct
Plt Count
APTT Pending
HCO3 27.9
Sodium
Potassium
Chloride
Carbon Dioxide
BUN
Creatinine
Glucose
Calcium
Total Bilirubin
AST
ALT
Alkaline Phosphatase
Vital Signs:
Vital Signs
Temp Pulse Resp BP Pulse Ox
100.3 F 78 17 111/50 96
04/30/24 11:01 04/30/24 10:45 04/30/24 10:45 04/30/24 10:27 04/30/24 10:45
I&O
04/29/24 04/30/24 05/01/24
06:59 06:59 06:59
Intake Total 3535.1 / 3657.4 2270.4 / 2270.4 468 / 468
Output Total 4460 / 4510 2570 / 2645 750 / 750
Balance -924.9 / -852.6 -299.6 / -374.6 -282 / -282
Physical Exam
-
General: Well Developed and No Apparent Distress
HEENT: Normocephalic, Atraumatic, Moist Mucous Membranes and Other (ET tube in place with clear secretion)
Respiratory: Decreased Breath Sounds
Cardiac: Regular Rhythm and S1/S2; Negative Murmur, Rub, Gallop or Other
GI: Soft, Nontender, Nondistended and Normal Bowel Sounds; Negative Organomegaly
Rectal: Deferred by Provider
Musculoskeletal: No Clubbing, No Cyanosis and No Edema
Skin: Negative Rash
Neuro: Sedated and Nonfocal/Grossly Intact
--- NOTE | 2024-04-30 11:41 | PTCARENOTE ---
Addendum entered by Jimmy Goodman RN 04/30/24 11:42:
ABG results noted and pt assessed by Dr. Yarbrough prior to extubation.
Original Note:
11:25-Pt extubated to bipap 15/8 with 6L, tolerating well. Continuing to monitor closely.
[2024-04-30 12:02] LABS: GGTP 29 U/L (15-73)
--- NOTE | 2024-04-30 12:49 | W.PN.INTV ---
Today's Communication / Plan
Recommendations
Extubated-continue heparin-continue clinda/cefazoline-continue pressors, wean as tolerated
Assessment
-
Currently, BP 138/73 (on levo 16 and vaso 0.03), MI 71, T 101.3
#Septic shock likely due to left lower leg cellulitis (Blood culture positive for strep.pyogenes)
-Gen surg peripherally following, considering delayed primary closure over a drain or further debridement later next week
-Trops were going up last night. EKG did not show any acute ischemic changes. Currently, troponin is downtrending. Cont heparin drip. Started aspirin this am. Eventual ischemic evaluation.
-Appreciate ID consult-- Receiving Clinda/cephazolin
-Continue Levophed and vasopressin-wean as tolerated.
-Currently does not have fever, tylenol prn
-Appreciate wound care
-CT LE: no signs of associated abscess
-One-time dose of Lasix given
#Hypoxia/Intubation
Patient was able to be extubated today. Put on brief BiPAP and then switched to nasal O2.
#MARÍA ELENA: might be sec to sepsis or med-related
-Cr continues to improve
-Closely Monitor
#Abnormal LFT
Bilirubin and transaminases stable. ALP and GGT WNL.
Ultrasound:Hepatosplenomegaly with hepatic steatosis. Some findings suggestive of cholecystitis. The common bile duct is borderline dilated measuring 6.7 mm.
maybe sec to sepsis (?) Will cont to trend LFTs.
Subjective Dataa
Subjective Data
Date of Service:
Date of Service: April 30, 2024
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
Subjective:
Patient was awake and responded to verbal commands. Was having fevers overnight. Currently T is 101.3.
Review of Systems
General: Fever and Pain (Back pain)
Objective Data
Data Reviewed
Vital Signs / I&O / Oxygen:
Vital Signs
Temp Pulse Resp BP Pulse Ox
99.9 F 79 28 111/50 95
04/30/24 11:43 04/30/24 11:30 04/30/24 11:30 04/30/24 10:27 04/30/24 11:25
Intake and Output
04/29/24 04/30/24 05/01/24
06:59 06:59 06:59
Intake Total 3535.1 / 3657.4 2270.4 / 2270.4 526.8 / 526.8
Output Total 4460 / 4510 2570 / 2645 1550 / 1550
Balance -924.9 / -852.6 -299.6 / -374.6 -1023.2 / -1023.2
SaO2 [A/C] 98
SaO2 95
Nasal Cannula flow liters per 5
minute
Physical Exam
HEENT: Anicteric
Cardiovascular: S1-S2, Regular Rhythm and Peripheral Edema (4+ pitting LLE, 2+ pitting RLE)
Respiratory: Clear, ET Tube and Other (no crackles, no wheezing)
GI: Soft, Non Tender and Normal Bowel Sounds
Neurology: Awake, Alert and Other (Follows verbal commands)
Skin: Warm, Dry and Other (sinan wrap on LLE , erythema and swelling up to mid thigh)
Labs/Micro/Reports
Lab Data
04/30/24 04:09
04/30/24 04:09
Laboratory Results
04/29/24 04/30/24 04/30/24
17:26 00:22 08:21
APTT 42.0 H 43.1 H 43.2 H
pH
pCO2
pO2
HCO3
O2 Delivery Level
04/30/24
10:54
APTT
pH 7.43
pCO2 42
pO2 91
HCO3 27.9
O2 Delivery Level
Microbiology
04/28/24 17:20 Leg - Left Wound Culture - Preliminary
No growth
04/28/24 17:20 Leg - Left Gram Stain - Preliminary
04/28/24 17:20 Leg - Left Anaerobic Culture - Preliminary
Culture pending. Anaerobic cultures are examined after 3
days incubation. Additional information to follow.
04/27/24 13:37 Blood/Venous Blood Culture - Preliminary
Streptococcus pyogenes
04/27/24 13:37 Blood/Venous Gram Stain - Final
04/27/24 13:37 Blood/Venous Blood Culture - Preliminary
Streptococcus pyogenes
04/27/24 13:37 Blood/Venous Gram Stain - Final
04/28/24 14:17 Blood/Venous Blood Culture - Preliminary
No Growth in 24 hours- Final report to follow
04/28/24 14:17 Blood/Venous Blood Culture - Preliminary
No Growth in 24 hours- Final report to follow
04/27/24 18:46 Nose MRSA Screen - Final
Staph aureus MRSA
--- NOTE | 2024-04-30 12:55 | CM ---
CM following re: discharge planning.
Discussed in Rounds, reviewed pt's chart, met with pt and two guards at bedside.
Pt is POD#2 s/p Incision and debridement left lower extremity soft tissue infection. Pt extubated to bipap 15/8 with 6L, continue supportive care.
Pt is from [facility] with a plan to return back to [facility] when medically stable.
[facility] nursing report: [phone]
Discharge instructions fax: [phone]
D/C plan: [facility].
[2024-04-30 13:12] LABS: Direct Bilirubin 1.8 mg/dl (0.0-0.4)
--- NOTE | 2024-04-30 13:12 | PTCARENOTE ---
Update provided to [facility] nursing staff Meena by phone.
[2024-04-30] MEDS: DILAUDID 1 MG IV ×3 (13:32→22:23)
--- NOTE | 2024-04-30 13:46 | PTCARENOTE ---
Bipap removed by RT Darrin at this time, pt placed on 4L NC.
--- NOTE | 2024-04-30 13:50 | PN.CDI ---
CDI
- -
CDI:
Physician Documentation Request
Admit Date: 04/27/24 15:21
Dear Doctor Lillie,
Clinical Indicators:
Patient admitted with sepsis due to left lower extremity cellulitis.
04/30 Incision and debridement left lower extremity soft tissue infection performed.
04/30 Operative Report,'The tissue planes were somewhat loose at the inferior and superior extent of the incision and these areas were bluntly digitally dissected tracking subcutaneously medially above the knee and inferiorly around the ankle, as
well as in a few locations along the length of the incision.'
Could you provide, in the progress notes further clarification regarding the debridement.
Please specify the type of debridement performed:
1. Excisional Debridement - defined as removal by excision of devitalized tissue, necrosis or slough
2. Non-excisional debridement - defined as removal of devitalized tissue, necrosis or slough by such methods as irrigation, brushing, scrubbing or washing.
If the debridement was excisional, please also include:
1. Type of instrument used (#11 blade, #15 blade etc.)
2. What was excised (necrotic tissue, gangrenous tissue, slough etc.)
Use of terms such as suspected, likely, concern for, or probable (associated with a specific diagnosis that is being evaluated, monitored, or treated as if it exists) are acceptable and can be coded in the inpatient setting, when documented at the
time of discharge.
Thank you,
Jacinta Young RN BSN
CDI Specialist
available via tiger text
Please use your independent medical judgment in providing your response.
[2024-04-30 15:31] LABS: APTT 43.7 Sec (23.4-35.0)
--- NOTE | 2024-04-30 15:46 | CON.GI ---
Consultation
-
Date/Time Consultation Requested: 04/30/2024
Date/Time Consultation Performed: 04/30/2024
Requesting Provider:
Performing Provider:
Reason for Consultation: Elevetaed LFT's
Medical History
Chief Complaint / HPI
Chief Complaint: syncopal episode/ elevated lft's noted
History of Present Illness:
Fernando is a 53-year-old male who was brought in from [facility] after an episode of syncope. On reviewing records, he had bilateral leg swelling for 3 to 4 days prior to admission, was getting Lasix and Motrin. In the ER, he
was noted to be hypotensive with blood pressure of 78/63 and tachycardic at 111. On admission, he was also noted to have leukocytosis with white count of 16, today it is 36.2. Hemoglobin also trended down from 11.6-10.2. MCV slightly low at 77.7.
He had left lower extremity cellulitis with concern for necrotizing infection, he was taken to the OR 03/29/2024 for incision and drainage, severe granular soft tissue without any necrotic fat noted. Fasciotomy done.
On admission, total bilirubin was 2.0, trended up to 2.5. Today direct bilirubin was noted to be 1.8. GGT and alkaline phosphatase in normal range. AST went from 58-239, peaked at 330 04/28, ALT went from 43-1 08, peaked at 119. Also noted was
elevated troponin. Abdominal ultrasound showed hepatosplenomegaly with hepatic steatosis, gallstones and sludge present. No findings to suggest cholecystitis. Common bile duct is 6.7 mm.
No previous LFTs to review.
From a GI standpoint, he denies any abdominal pain, nausea or vomiting. No heartburn or trouble swallowing. No constipation, diarrhea, blood in the stool or black stool. No loss of appetite or unintentional weight loss and regular NSAID use.
No history of jaundice, hepatitis, blood transfusions, IV drug abuse, no family history of liver disease.No herbal supplement use.
No family history of colon cancer or colon polyps. Never had EGD or colonoscopy. No recent herbal medication.
Past Medical History
Past Medical History: HTN and Other (obesity)
Social History
Tobacco: Former Smoker
Alcohol: None
Drug: None
Family History
Family History: Reviewed & Not Pertinent
Allergies / Home Medications
Allergy/AdvReac Type Severity Reaction Status Date / Time
Penicillins Allergy Rash; Verified 04/28/24 15:42
tolerated
cefepime
�Medication �Instructions �Recorded
acetaminophen 325 mg tablet 650 mg PO TIDPRN PRN mild pain 04/27/24
(Tylenol)
buprenorphine HCl 2 mg sublingual 2 mg sublingual DAILY Pain 04/27/24
tablet
furosemide 40 mg tablet (Lasix) 40 mg PO DAILY Fluid 04/27/24
Retention/Swelling
ibuprofen 200 mg tablet (Advil) 400 mg PO BIDPRN PRN mild pain 04/27/24
lisinopril 20 mg tablet 20 mg PO DAILY Blood Pressure 04/27/24
Review of Systems
-
All other systems: A 12 pt ROS was Negative except as stated above in HPI
Vital Signs
Temp Pulse Resp BP Pulse Ox
99.9 F 77 18 120/64 96
04/30/24 11:43 04/30/24 15:00 04/30/24 15:00 04/30/24 12:00 04/30/24 15:00
Physical Exam
Exam
General: Well Developed and Well Nourished
HEENT: Normocephalic
Cardiac: S1/S2
GI: Soft, Non Tender, Non Distended and Normal Bowel Sounds
Musculoskeletal: Edema
Results
WBC 36.2 10^3/uL (4.8-10.8) H 04/30/24 04:09
Hgb 10.2 g/dL (13.0-18.0) L 04/30/24 04:09
Hct 29.7 % (39.0-52.0) L 04/30/24 04:09
MCV 77.7 fL (80.0-94.0) L 04/30/24 04:09
Plt Count 243 10^3/uL (130-400) 04/30/24 04:09
Absolute Neuts (auto) 29.0 10^3/uL (1.4-6.5) H 04/30/24 04:09
PT 15.7 Sec (11.4-14.6) H 04/28/24 04:07
INR 1.27 04/28/24 04:07
APTT 43.7 Sec (23.4-35.0) H 04/30/24 15:03
Sodium 131 mmol/L (135-145) L 04/30/24 04:09
Potassium 3.7 mmol/L (3.5-5.1) 04/30/24 04:09
Chloride 94 mmol/L (98-107) L 04/30/24 04:09
Carbon Dioxide 26 mmol/L (22-30) 04/30/24 04:09
BUN 43 mg/dl (9-20) H 04/30/24 04:09
Creatinine 1.5 mg/dL (0.7-1.3) H 04/30/24 04:09
Calcium 8.5 mg/dl (8.4-10.2) 04/30/24 04:09
Total Bilirubin 2.5 mg/dl (0.2-1.3) H 04/30/24 04:09
AST 239 U/L (17-59) H 04/30/24 04:09
ALT 108 U/L (0-50) H 04/30/24 04:09
Alkaline Phosphatase 109 U/L (38-126) 04/30/24 04:09
Hepatitis A IgM Ab Cancelled 04/30/24 13:55
Hepatitis A IgM Ab Cancelled 04/30/24 13:55
Hep Bs Antibody Cancelled 04/30/24 13:55
Hep Bs Antibody Cancelled 04/30/24 13:55
Hepatitis C Antibody Cancelled 04/30/24 13:55
Hepatitis C Antibody Cancelled 04/30/24 13:55
Diagnostic Image Results:
Prior GI Procedures:
EGD: None
Colonoscopy: None
Assessment / Plan
-
53-year-old male with history of hypertension,, history of opioid abuse, chronic back pain, currently on bupropion sent in from [facility] for syncope and also lower extremity cellulitis. In the ER, he was noted to be
hypotensive and tachycardic, febrile and on pressor support, sepsis like picture. He had left lower extremity cellulitis with concern for necrotizing infection, he was taken to the OR 03/29/2024 for incision and drainage, severe granular soft tissue
without any necrotic fat noted. Fasciotomy done.
Incidental elevation in LFT's noted during hospital visit with no prior LFT's at .
-Elevated transamniases with elevated direct and toratl bilirubin and normal alkaline phosphatase/GGT
admitted wiht leukocytosis and sepsis currently on Abx, also hypotensive on admission
No h/o underlying liver ds, jaundice or hepatitis
Multiple etiologies for elevated LFT's- hypotensive episode, sepsis, antibiotic use vs other
Will check Hepatitis A/B/C serologies
US without any significant findings and no evidence of acute cholecystitis or choledocholithiasis
Avoid hypotensive episodes, continue to trend LFT's
If persistent elevation, will do blood work for underlying liver ds panel
Will follow for now
- continues to have leukocytosis, management per ICU team
will follow
-
-
Thank you for consultation and allowing me to participate in the patient's care. Please call the radiation control technician GI physician during the after hours with any questions or concerns.
[2024-04-30 15:55] LABS: Hepatitis B Surface Antigen Negative (Negative)
[2024-04-30 16:13] LABS: Hepatitis B Surface Antibody Negative; Hepatitis C Antibody Negative (Negative)
--- NOTE | 2024-04-30 16:19 | PTCARENOTE ---
Heparin gtt adjusted per protocol for PTT result of 43.7. Next draw scheduled for 22:15.
--- NOTE | 2024-04-30 18:15 | PTCARENOTE ---
Pt has remained stable on nasal cannula throughout the remainder of the shift, education re: use of deep breathing, IS, good oral hygeine provided. Pt verbalized and demonstrated understanding. Tolerating ice chips cautiously, no s/s aspiration
noted. levo tapered throughout shift, currently infusing at 16 mcg/min, vaso continues at 0.3 units/min. Heparin infusing at 1800 units/hr. Pt remains calm and cooperative, back pain managed with repositioning and PRN Dilaudid, see MAR for times.
Safe environment maintained with 2 guards at bedside.
--- NOTE | 2024-04-30 20:00 | PTCARENOTE ---
Assumed care of patient at 1900, nursing assessment completed and as documented. Patient Ox3, on 5L NC sat 98-100% lung sounds diminished throughout, SR with 1st degree HB and BBB on monitor, +3 to LLE +2 to RLE, pedal pulses present with doppler
and marked. Left radial arterial line patent and in place, waveform WNL, correlates to BP, and zeroed at this time. Temp sensing wilkerson in place draining clemente/yellow urine, abdomen round and obese with positive bowel sounds. NPO and tolerating small
sips of water. Patient with LLE fasciotomy x2 open areas, wound weeping serosanguineous fluid, reinforced with abd pads and new JAYSHREE wrap. Sacral foam C/D/I. Patient with right D/L PICC line and L AC PIV. Heparin infusing at 18ml/hr via right PICC
next PTT due at 2215, vasopressin infusing at 9ml/hr via right PICC, and double concentrated norepinephrine via right PICC at 30ml/hr - see worklist for titration of heparin and norepinephrine. PRN Tylenol given for temp 101.0 - see SEP.
Repositioned and hygiene care provided, vitals stable, care ongoing.
--- NOTE | 2024-04-30 20:00 | PTCARENOTE ---
Addendum entered by Marshal Valentine RN 05/01/24 01:05:
Right radial arterial line in place, waveform WNL, correlate to automatic BP's. Zeroed at this time.
Original Note:
Assumed care of patient at 1900, nursing assessment completed and as documented. Patient Ox3, on 5L NC sat 98-100% lung sounds diminished throughout, SR with 1st degree HB and BBB on monitor, +3 to LLE +2 to RLE, pedal pulses present with doppler
and marked. Temp sensing wilkerson in place draining clemente/yellow urine, abdomen round and obese with positive bowel sounds. NPO and tolerating small sips of water. Patient with LLE fasciotomy x2 open areas, wound weeping serosanguineous fluid,
reinforced with abd pads and new JAYSHREE wrap. Sacral foam C/D/I. Patient with right D/L PICC line and L AC PIV. Heparin infusing at 18ml/hr via right PICC next PTT due at 2215, vasopressin infusing at 9ml/hr via right PICC, and double concentrated
norepinephrine via right PICC at 30ml/hr - see worklist for titration of heparin and norepinephrine. PRN Tylenol given for temp 101.0 - see SEP. Repositioned and hygiene care provided, vitals stable, care ongoing.
[2024-05-01] VITALS (12 sets, daily range): BP systolic 106–136; BP diastolic 61–81; BMI 45.5
--- NOTE | 2024-05-01 | PTCARENOTE ---
No changes to physical assessment. RT applied HS BiPAP. Heparin titrated per protocol, see worklist. VSS, guards x2 in room, care ongoing.
[2024-05-01] MEDS: PITRESSIN 100 IV ×3 (00:04→23:00)
[2024-05-01] MEDS: DILAUDID 1 MG IV ×3 (02:51→20:57)
[2024-05-01] MEDS: ANCEF 10 IV ×4 (05:13→21:47)
[2024-05-01] MEDS: CLEOCIN 50 IV ×3 (05:13→23:45)
[2024-05-01 05:35] LABS: B.E. 5.3 mmol/L; O2 Saturation % 98.4 % (94-98); PCO2 50 mmHg (35-48); PO2 83 mmHg (83-108)
[2024-05-01 05:50] LABS: Hematocrit 28.7 % (39.0-52.0); Hemoglobin 9.7 g/dL (13.0-18.0); Mean Corp Hgb Conc. 33.8 g/dL (33.0-37.0); Mean Corpuscular Hgb 26.5 pg (27.0-31.0); Mean Corpuscular Volume 78.4 fL (80.0-94.0); Mean Platelet Volume 10.1 fL (7.4-10.4); Platelet Count 244 10^3/uL (130-400); Red Blood Cell Count 3.66 10^6/uL (4.70-6.10); Red Cell Dist. Width 14.3 % (11.5-14.5); White Blood Cell Count 41.6 10^3/uL (4.8-10.8)
[2024-05-01 05:54] LABS: APTT 61.1 Sec (23.4-35.0)
[2024-05-01 06:07] LABS: ALT (SGPT) 58 U/L (0-50); AST (SGOT) 146 U/L (17-59); Alkaline Phosphatase 134 U/L (38-126); Blood Urea Nitrogen 39 mg/dl (9-20); Calcium 8.3 mg/dl (8.4-10.2); Carbon Dioxide 30 mmol/L (22-30); Chloride 91 mmol/L (98-107); Estimated Creatinine Clearance 117 ml/min; Glucose 121 mg/dl (70-99); Phosphorus 3.4 mg/dl (2.5-4.5); Potassium 3.3 mmol/L (3.5-5.1); Sodium 135 mmol/L (135-145); Total Bilirubin 2.4 mg/dl (0.2-1.3); eGFR > 60.00
[2024-05-01 06:32] LABS: % Basophils 0.2 % (0-2); % Eosinophils 0.9 % (0-6); % Immature Granulocytes 15.6 % (0-0.5); % Lymphocytes 6.4 % (20.5-51.1); % Monocytes 5.5 % (1.7-9.3); % Neutrophils 71.4 % (42.2-75.2); Absolute Basophils 0.1 10^3/uL (0-0.2); Absolute Eosinophils 0.4 10^3/uL (0-0.7); Absolute Immature Granulocytes 6.5 10^3/uL (0-0.05); Absolute Lymphocytes 2.7 10^3/uL (1.2-3.4); Absolute Monocytes 2.3 10^3/uL (0.1-0.6); Absolute Neutrophils 29.7 10^3/uL (1.4-6.5); Nucleated Red Blood Cells % 0.1 % (-)
[2024-05-01] MEDS: DILAUDID 0.5 MG IV ×2 (07:22→09:42)
[2024-05-01] MEDS: KCL 270 MEQ IV (07:23)
[2024-05-01] MEDS: PROTONIX IV 40 MG IV (07:24)
[2024-05-01] MEDS: ASPIR LOW (ENTERIC COATED) 81 MG PO (07:24)
[2024-05-01] MEDS: NSS (PRESERVATIVE FREE) 10 ML IV (07:24)
[2024-05-01] MEDS: SUBUTEX 2 MG SL (07:24)
[2024-05-01] MEDS: MIRALAX 17 GRAMS TUBE (07:25)
--- NOTE | 2024-05-01 07:31 | W.PN.ID1 ---
Date of Service
Date of Service: May 01, 2024
Today's Communication
Continue antibiotics.
Assessment / Plan
Septic Shock
-Remains on 2 pressors
Group A Strep Cellulitis
Invasive group A strep infection with bacteremia
Leukocytosis
- rising
Chronic Lymphedema
[facility]
Reported allergy to penicillin- rash
- tolerating cefazolin
Class III obesity
Recommendations:
- repeat blood cultures no growth to date.
- Peripheral Vas US: no DVT
- c/w clindamycin (day #3) through today then discontinue.
- Continue cefazolin dosed for elevated BMI
- Trend white count
patient remains critically ill, vent dependent, on pressors and in ICU. Prognosis remains extremely guarded.
����������������������������������������������������������
Chief Complaint
-: Cellulitis and Other (Group a strep bacteremia; septic shock)
Subjective / Review of Systems
Patient seen and examined. Has been extubated since yesterday. Currently reports ongoing lower extremity discomfort. No diarrhea reported. Remains on 2 pressors at this time.
Review of Systems: Fever
Vital Signs / Physical Exam
Vital Signs
Vital Signs
Temp Pulse Resp BP Pulse Ox
99.8 F 83 20 127/70 96
05/01/24 04:34 05/01/24 07:00 05/01/24 07:00 05/01/24 06:00 05/01/24 07:00
Physical Exam
Constitutional: Acutely Ill, Non-toxic and Obese
Head: Normocephalic
Eyes: Sclera Anicteric
Oropharyngeal: Negative Thrush
Cardiovascular: Regular Rate and S1/S2; Negative S3/S4
Pulmonary: Coarse and Non Labored; Negative Wheezes
Gastrointestinal: Soft, Non Tender and Non Distended
Extremities: Edema (Left lower extremity), Erythema (Left lower extremity) and Venous Insufficiency
Wound: Other (Left lower extremity wrapped in Jim wrap. Dressings in place. Serous strikethrough.)
Neurological: Awake, Alert and Other (Arousable and responsive to voice and touch.)
Psychological: Calm
Objective Data
Lab Data
Lab Results
05/01/24 05:25
05/01/24 05:25
PT 15.7 Sec (11.4-14.6) H 04/28/24 04:07
INR 1.27 04/28/24 04:07
APTT 61.1 Sec (23.4-35.0) H 05/01/24 05:25
Estimated Creat Clear 117 ml/min 05/01/24 05:25
Lactic Acid 1.4 mmol/L (0.7-2.0) 04/30/24 04:09
Total Bilirubin 2.4 mg/dl (0.2-1.3) H 05/01/24 05:25
GGT 29 U/L (15-73) 04/30/24 04:09
AST 146 U/L (17-59) H 05/01/24 05:25
ALT 58 U/L (0-50) H 05/01/24 05:25
Alkaline Phosphatase 134 U/L (38-126) H 05/01/24 05:25
C-Reactive Protein > 270.00 mg/L (0.0-10.00) H 04/28/24 04:12
Most recent labs reviewed.
Micro Results:
04/28/24 14:17 Blood Culture - Preliminary
Blood/Venous No Growth in 48 hours- Final report to follow
04/28/24 14:17 Blood Culture - Preliminary
Blood/Venous No Growth in 48 hours- Final report to follow
04/28/24 17:20 Wound Culture - Preliminary
Leg - Left No growth
Gram Stain - Preliminary
04/28/24 17:20 Anaerobic Culture - Preliminary
Leg - Left Culture pending. Anaerobic cultures are examined after 3
days incubation. Additional information to follow.
04/27/24 13:37 Blood Culture - Preliminary
Blood/Venous Streptococcus pyogenes
Gram Stain - Final
04/27/24 13:37 Blood Culture - Preliminary
Blood/Venous Streptococcus pyogenes
Gram Stain - Final
04/27/24 18:46 MRSA Screen - Final
Nose Staph aureus MRSA
Care Review
Plan reviewed with: Nurse
[2024-05-01] MEDS: DESENEX/MITRAZOL/ZEASORB 1 APPLIC TOPICAL ×2 (07:42→21:00)
--- NOTE | 2024-05-01 08:27 | W.PN.CARDCBS ---
Today's Communication / Plan
-
Can stop IV heparin if OK with primary service (and change anticoagulation to prophylaxis)
Impression / Plan
-
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
none prior to admission
Initial consult: Dr Bahena
Assessment:
Presentation with witnessed syncope
Severe sepsis secondary to LE cellulitis s/p OR 04/30 debridement
Bacteremia -strep pyogenes
Septic shock with hypotension requiring pressor support
Acute hypoxic respiratory failure, on vent
MARÍA ELENA, unclear baseline
Elevated troponin
Elevated LFTs
Anemia
Hyponatremia
HTN
Obesity
History of opioid abuse
Chronic back pain on buprenorphine
Chronic LE edema/lymphedema
Former smoker
ECHO 04/28/24: TDS, EF 55%, mild cLVH, enlarged dilated RV, mildly hypokinetic, no significant valvular disease
Plan:
Remains critically ill
Abn Troponin in setting of sepsis and shock
- Troponins are trending down after peaking at 12.
- Echo with no clear wall motion on
- EKG with right sided intra-ventricular conduction and and no dynamic ischemic changes with 3 serial ecgs
Abnormal troponins likely secondary to sepsis
- Was initially placed on IV heparin over possibility for cardiac ischemia, heparin has been on for > 24 hrs
Can stop IV heparin if OK with primary service (and change anticoagulation to prophylaxis)
If he recovers from this event, I would consider ischemic evaluation at this point.
Keep K 4-5 and Mg 2-3
Will try and repeat the echo in several days to reevaluate LVEF.
-He remains septic on multiple pressors including vasopressin and Levophed. Continue to wean as tolerated
-Continue antibiotics for strep bacteremia and fasciitis.
-Creatinine has improved and is down to 1.3.
-LFTs are improving
Critical care time 35-minutes
Progress Note - Retail Worker
Subjective
Date of Service: May 01, 2024
Awake and responsive and offers no complaints
Objective
Labs:
05/01/24 05:25
05/01/24 05:25
Labs
Hgb 9.7 g/dL (13.0-18.0) L 05/01/24 05:25
Hct 28.7 % (39.0-52.0) L 05/01/24 05:25
Plt Count 244 10^3/uL (130-400) 05/01/24 05:25
PT 15.7 Sec (11.4-14.6) H 04/28/24 04:07
INR 1.27 04/28/24 04:07
APTT 61.1 Sec (23.4-35.0) H 05/01/24 05:25
Sodium 135 mmol/L (135-145) 05/01/24 05:25
Potassium 3.3 mmol/L (3.5-5.1) L 05/01/24 05:25
BUN 39 mg/dl (9-20) H 05/01/24 05:25
Creatinine 1.3 mg/dL (0.7-1.3) 05/01/24 05:25
Glucose 121 mg/dl (70-99) H 05/01/24 05:25
Troponins
04/29/24 04/29/24 04/29/24
01:18 03:55 06:16
Troponin I 3.380 H* Cancelled 7.130 H* D
04/29/24 04/29/24 04/30/24
11:04 17:26 00:22
Troponin I 10.800 H* D 12.200 H* 11.400 H*
04/30/24
04:09
Troponin I 9.250 H*
Vital Signs and I&O:
Vital Signs
Temp Pulse Resp BP Pulse Ox
99.7 F 83 20 127/70 96
05/01/24 08:03 05/01/24 07:00 05/01/24 07:00 05/01/24 06:00 05/01/24 07:00
Vital Signs
Temp Pulse Resp BP Pulse Ox
99.7 F 83 20 127/70 96
05/01/24 08:03 05/01/24 07:00 05/01/24 07:00 05/01/24 06:00 05/01/24 07:00
Intake & Output
04/29/24 04/30/24 05/01/24 05/02/24
06:59 06:59 06:59 06:59
Intake Total 3535.1 / 3657.4 2270.4 / 2270.4 1742.6 / 1742.6
Output Total 4460 / 4510 2570 / 2645 4165 / 4165
Balance -924.9 / -852.6 -299.6 / -374.6 -2422.4 / -2422.4
Physical Exam
Physical Exam
GEN: Morbidly obese, no distress
LUNGS: bilat rhonchi
CV: Reg, S1/S2, 1/6 syst LSB, no gallop
ABD: soft, BS+, NT/ND
EXT: +2 pitting LE B/L edema
--- NOTE | 2024-05-01 08:28 | W.PN.INTV ---
Today's Communication / Plan
Recommendations
Start bowel regimen
Antibiotics as per ID
BiPAP with sleep
Trend VBG to assess pCO2 + P HR stable
Maintain SpO2 >90-94%
Follow-up surveillance blood cultures (NGTD)
Wound care to LLE
Heparin drip stopped, now on chemical prophylactic dosing
Continue ICU level care for this patient who is critically ill requiring vasopressors
Eventually he will go back to custodial after discharge
Assessment
-
Impression:
#Septic shock due to left lower extremity cellulitis/soft tissue infection due to Streptococcus pyogenes s/p I&D (POD #3)
#Strep pyogenes bacteremia
#Syncopal event
#Leukocytosis due to sepsis
#Elevated troponin, likely due to demand ischemia with type II TX
#Acute respiratory failure with hypoxia + hypercapnea requiring ventilator s/p OR on 04/28/2024, extubated 04/30/2024
#Anemia (mild)
#Hypochloremia, hyponatremia
#MARÍA ELENA - improving
#Metabolic acidosis - now resolved
#Lactic acidosis - resolved
#Transaminitis with hyperbilirubinemia - worsening
#Stage II decubitus ulcer
#History of drug abuse
#History of tobacco use disorder
#Obesity
Plan:
- Patient extubated successfully on 04/30/2024
- Maintain SpO2 >90-94% with supplemental O2 and wean as tolerated
- Adjust PEEP and FiO2 as needed to keep SpO2 at goal as above
- Continue with nocturnal BiPAP for hypercapnia with suspected OHS - blood gas this morning shows compensated hypercapnia with pH 7.4, pCO2 50
- Continue vasopressors with vaso + levo and keep MAP>65
- Vasopressor requirements have been improving, hence no need for solucortef at this time
- Continue ABx with clindamycin + cefazolin s/p cefepime/IV vanco
- ID consulted and defer Abx to them
- Blood cultures (4/) from 04/27/2024 grew Streptococcus pyogenes --> repeat surveillance blood cultures from 04/28 shows NGTD
- OR cultures grew GAS
- Given the rising T. bili + persistent shock-state, GI consulted as abdominal ultrasound showed gallstones with sludge with mildly distended GB and borderline dilated CBD at 6.7 mm. GGT WNL; hepatitis panel also negative. Continue to
monitor/trend LFTs. GI not concerned for cholecystitis or choledocholithiasis. No need currently for MRCP or HIDA scan at this time.
- Post-operative management as per general surgery; no intraoperative evidence of necrotizing fasciitis; no immediate plans to bring back to OR
- Renally dose all meds/Abx, and trend sCr and UOP
- Consider nephrology eval if Cr continues to rise
- Continue with A-line for more accurate monitoring of BP
- Wound care to left lower extremity
- Check LE duplex to r/o DVT --> negative
- Patient had evidence of ST elevation on the clay thrower on 04/29/2024, however no evidence of ischemia seen on 12-lead EKG. Also no wall motion abnormality seen on recent echo. Cardiology consulted and recommended IV heparin, which is now
stopped as of this AM (05/01). Consider repeat echo to reassess LVEF
- Nursing staff said the patient has not had a BM in several days - start bowel regimen
- Transfuse Hb if needed to keep >7g/dL; keep plt>20k
- Replete K>4, Mg>2
- Continue subutex
- DVT ppx: Heparin SQ
Continue ICU level of care for this critically ill patient on vasopressors.
Critical care statement: A total of 41 minutes of critical care time was provided for this patient today. This includes management of unstable vital signs, evaluation of the patient at bedside, reviewing the patient's pertinent medical records
including radiographs, microbiology, laboratory evaluations, and discussion with primary team, consultants, pharmacy, nutrition, physical therapy, case management, charge nurse, critical care nursing, and respiratory therapy.
Subjective Dataa
Subjective Data
Date of Service:
Date of Service: May 01, 2024
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
Subjective:
Patient seen and evaluated today at bedside. BP 128/58 on Levophed at 6mcg/min + vasopressin. Heart rate 85 and saturating 99% on 5 L/min nasal cannula. Spiked fever overnight to 101 �F. He has minimal complaints today, with some pain in his
left lower extremity. Wound care continuing to the left lower extremity. Wore BiPAP overnight on 18/02 bled with 5 L/min. He denies chest pain, SOB, MEEHAN, abdominal pain, or diarrhea. No BM in last few days as per nursing.
Review of Systems
General: Other (Negative unless mentioned above)
Objective Data
Data Reviewed
Vital Signs / I&O / Oxygen:
Vital Signs
Temp Pulse Resp BP Pulse Ox
99.7 F 83 20 127/70 96
05/01/24 08:03 05/01/24 07:00 05/01/24 07:00 05/01/24 06:00 05/01/24 08:00
Intake and Output
04/30/24 05/01/24 05/02/24
06:59 06:59 06:59
Intake Total 2270.4 / 2270.4 1742.6 / 1799.7 221.3 / 221.3
Output Total 2570 / 2645 4165 / 4165
Balance -299.6 / -374.6 -2422.4 / -2365.3 221.3 / 221.3
SaO2 [A/C] 98
SaO2 96
Nasal Cannula flow liters per 5
minute
Physical Exam
General: Respiratory Distress (negative), Comfortable, Chills (negative), Sweats (negative) and Other (morbidly obese male in NAD)
HEENT: Normocephalic, Anicteric and Other (thick neck)
Cardiovascular: S1-S2, Rub (negative) and Peripheral Edema (+1RLE pitting edema, +2 LLE pitting edema)
Respiratory: Wheeze (negative), Crackles (Bibasilar), Rhonchi (negative) and Non-Labored Respirations
GI: Soft, Distended (Abdominal obesity), Non Tender and Normal Bowel Sounds
Neurology: AO x 3 and Tremors (negative)
Skin: Warm, Dry and Other (sinan wrap on LLE , erythema and swelling up to mid thigh)
Labs/Micro/Reports
Lab Data
05/01/24 05:25
05/01/24 05:25
Laboratory Results
04/30/24 04/30/24 04/30/24
10:54 15:03 22:16
APTT 43.7 H 48.0 H
pH 7.43
pCO2 42
pO2 91
HCO3 27.9
O2 Delivery Level
05/01/24
05:25
APTT 61.1 H
pH 7.40
pCO2 50 H
pO2 83
HCO3 31.0 H
O2 Delivery Level Bipap 18/02
Microbiology
04/28/24 14:17 Blood/Venous Blood Culture - Preliminary
No Growth in 48 hours- Final report to follow
04/28/24 14:17 Blood/Venous Blood Culture - Preliminary
No Growth in 48 hours- Final report to follow
04/28/24 17:20 Leg - Left Wound Culture - Preliminary
No growth
04/28/24 17:20 Leg - Left Gram Stain - Preliminary
04/28/24 17:20 Leg - Left Anaerobic Culture - Preliminary
Culture pending. Anaerobic cultures are examined after 3
days incubation. Additional information to follow.
04/27/24 13:37 Blood/Venous Blood Culture - Preliminary
Streptococcus pyogenes
04/27/24 13:37 Blood/Venous Gram Stain - Final
04/27/24 13:37 Blood/Venous Blood Culture - Preliminary
Streptococcus pyogenes
04/27/24 13:37 Blood/Venous Gram Stain - Final
04/27/24 18:46 Nose MRSA Screen - Final
Staph aureus MRSA
--- NOTE | 2024-05-01 08:31 | PTCARENOTE ---
recieved from nnight shift. patient in bed. guards present at bedside. awake and alert, making immediate needs known. vaso and levo ggts via rue picc. stat potassium rider IV initiated. patient complained of 7/10 pain. IV dilaudid admin. when came
back to reassess patient's pain he stated he did not feel me giving any pain medication, pain is still 7/10. notified. PO meds admin and tolerated, cont turn/reposition schedule
[2024-05-01] MEDS: HEPARIN 25000 UNITS/250 ML IV (10:58)
--- NOTE | 2024-05-01 11:47 | W.PN.GI.CBS2 ---
Today's Communication / Plan
-
-Elevated transamniases with elevated direct and total bilirubin and normal alkaline phosphatase/GGT
admitted wiht leukocytosis and sepsis currently on Abx, also hypotensive on admission
No h/o underlying liver ds, jaundice or hepatitis
Multiple etiologies for elevated LFT's- hypotensive episode, sepsis, antibiotic use vs other
HepatitisB/C serologies-negative
US without any significant findings and no evidence of acute cholecystitis or choledocholithiasis
Avoid hypotensive episodes, continue to trend LFT's
LFTs are trending down at this time. If persistent elevation, will do blood work for underlying liver ds panel
Start clear liquid diet, advance as tolerated per medical team.
- continues to have leukocytosis, management per ICU team
Will sign off, no further GI testing unless LFTs trend up again. Please call back if needed
Assessment / Plan
-
53-year-old male with history of hypertension,, history of opioid abuse, chronic back pain, currently on bupropion sent in from [facility] for syncope and also lower extremity cellulitis. In the ER, he was noted to be
hypotensive and tachycardic, febrile and on pressor support, sepsis like picture. He had left lower extremity cellulitis with concern for necrotizing infection, he was taken to the OR 03/29/2024 for incision and drainage, severe granular soft tissue
without any necrotic fat noted. Fasciotomy done.
Incidental elevation in LFT's noted during hospital visit with no prior LFT's at .
-Elevated transamniases with elevated direct and total bilirubin and normal alkaline phosphatase/GGT
admitted wiht leukocytosis and sepsis currently on Abx, also hypotensive on admission
No h/o underlying liver ds, jaundice or hepatitis
Multiple etiologies for elevated LFT's- hypotensive episode, sepsis, antibiotic use vs other
HepatitisB/C serologies-negative
US without any significant findings and no evidence of acute cholecystitis or choledocholithiasis
Avoid hypotensive episodes, continue to trend LFT's
LFTs are trending down at this time. If persistent elevation, will do blood work for underlying liver ds panel
Start clear liquid diet, advance as tolerated per medical team.
- continues to have leukocytosis, management per ICU team
Will sign off, no further GI testing unless LFTs trend up again. Please call back if needed
Subjective
Subjective
Date of Service: May 01, 2024
Noted leukocytosis with low-grade fever. Denies any abdominal pain, nausea or vomiting. No bowel movements yet.
Objective
Data Reviewed
Laboratory Data:
Laboratory Results
05/01/24 05:25
05/01/24 05:25
Laboratory Results
PT 15.7 Sec (11.4-14.6) H 04/28/24 04:07
INR 1.27 04/28/24 04:07
APTT 61.1 Sec (23.4-35.0) H 05/01/24 05:25
Phosphorus 3.4 mg/dl (2.5-4.5) 05/01/24 05:25
Magnesium 2.0 mg/dl (1.6-2.3) 05/01/24 05:25
Total Bilirubin 2.4 mg/dl (0.2-1.3) H 05/01/24 05:25
AST 146 U/L (17-59) H 05/01/24 05:25
ALT 58 U/L (0-50) H 05/01/24 05:25
Alkaline Phosphatase 134 U/L (38-126) H 05/01/24 05:25
Vital Signs and I&O:
Vital Signs
Temp Pulse Resp BP Pulse Ox
99.1 F 83 20 127/70 96
05/01/24 11:29 05/01/24 07:00 05/01/24 07:00 05/01/24 06:00 05/01/24 08:00
I&O
04/30/24 05/01/24 05/02/24
06:59 06:59 06:59
Intake Total 2270.4 / 2270.4 1742.6 / 1799.7 375.5 / 375.5
Output Total 2570 / 2645 4165 / 4165
Balance -299.6 / -374.6 -2422.4 / -2365.3 375.5 / 375.5
Physical Exam
Physical Exam
GI: Soft, Non Distended and Non Tender
[2024-05-01 12:36] LABS: APTT 60.8 Sec (23.4-35.0)
--- NOTE | 2024-05-01 14:20 | W.PN.HOSP.TC ---
Today's Communication/Plan
-
continue IV abx
clears
SC Heparin; stop hep drip
Assessment / Plan
Assessment / Plan
Impression:
Severe sepsis due to left lower extremity cellulitis
Septic shock with hypotension requiring vasopressors
Bacteremia with Streptococcus pyogenous
Syncope prior to presentation.
Acute hypoxic respiratory failure in the settings of hypotension.
VDRF in the settings of severe sepsis and hemodynamic instability.
� Intubated 04/28
Acute renal failure
Lactic acidosis.
Abnormal liver function test
Demand ischemia non-Q wave ND
Stage II decubital ulcer present on admission
Other conditions:
Essential hypertension
Obesity with BMI of 48.
Opiate use disorder on Suboxone.
Plan:
Left lower extremity cellulitis with severe sepsis and septic shock
Severe left lower extremity cellulitis with initial concern for necrotizing fasciitis
Blood culture with Streptococcus pyogenes
CT of the left lower extremity with severe cellulitis
Status post incision and debridement of left lower extremity soft tissue infection with no evidence of necrotizing fasciitis
Lower extremity Doppler negative for DVT.
Antibiotics regimen adjusted to cefazolin and clindamycin to target nonpathogenic
Repeat blood culture negative to date
Daily wound care
Septic shock with hypotension not expanding to IV fluids
Remains hemodynamically unstable requiring multiple pressors currently on Levophed, vasopressin. Weaned off norepinephrine
Monitor urine output
Acute hypoxic respiratory failure
VDRF
� Intubated on 04/29 with procedure; extubated 04/30
Follow-up chest x-ray with left lower lobe pleural effusion and congestion
Weaned off sedation per
Non-Q wave ND secondary to demand ischemia.
Troponin peaked at 12 and trending down
Echocardiogram
Very technically difficult study suboptimal 2D echo doppler study
Normal left ventricular chamber size. Normal left ventricular systolic
function. Left ventricular ejection fraction is 55%. Normal regional wall
motion. Mild concentric left ventricular hypertrophy.
Enlarged dilated right ventricular size. Right ventricle appears mildly
hypokinetic.
No significant valvular disease within the limitations of this study
No prior echo for comparison.
Conservative management including treatment of sepsis and hemodynamic instability
Aspirin
Ischemic evaluation eventually
stopped IV Heparin 05/01
MARÍA ELENA baseline metabolic acidosis/lactic acidosis
Likely prerenal in the settings of sepsis, septic shock with prerenal stimuli.
Less likely glomerular process given bland UA
Hold Lasix, NSAIDs, lisinopril.
Continue vasopressors to avoid hypotension
Bladder scan for retention
Follow BMP
Consider nephrology evaluation if uptrending creatinine
Avoid nephrotoxins
Abnormal LFT
Resolving bilirubin and transaminases.
Ultrasound:Hepatosplenomegaly with hepatic steatosis.
Gallstones and sludge are present. The gallbladder is mildly distended however there is are additional findings suggestive of cholecystitis.
The common bile duct is borderline dilated measuring 6.7 mm.
Follow LFT closely
Surgery has been on board
GI consulted
- on clears
Obesity with BMI of 48
Check hemoglobin A1c 5.8
Check TSH
Essential hypertension
Hold preadmission antihypertensive regimen including lisinopril and Lasix baseline
Opiate use disorder
On Suboxone prior to presentation
Full code
DVT prophylaxis subcu heparin
Total Critical Care Time 41 minutes. I was immediately available to the patient and staff. I personally examined, reviewed labs, diagnostic images/reports, interpretations, treatment plans, discussed patient care with other providers and family
or caregivers (if patient is unable to make decisions), entered orders as appropriate and documented the medical record.
Anticipated Discharge: > 48 hours
Subjective/Interval History
-
Date of Service: May 01, 2024
extubated yesterday
some LE discomfort
remains on 2 pressors
Objective Data
-
Labs:
Laboratory Results
05/01/24 05/01/24 05/01/24
05:25 12:16 18:30
WBC 41.6 H*
Hgb 9.7 L
Hct 28.7 L
Plt Count 244
APTT 61.1 H 60.8 H Pending
HCO3 31.0 H
Sodium 135
Potassium 3.3 L
Chloride 91 L
Carbon Dioxide 30
BUN 39 H
Creatinine 1.3
Glucose 121 H
Calcium 8.3 L
Total Bilirubin 2.4 H
AST 146 H
ALT 58 H
Alkaline Phosphatase 134 H
Vital Signs:
Vital Signs
Temp Pulse Resp BP Pulse Ox
99.1 F 83 20 127/70 96
05/01/24 11:29 05/01/24 07:00 05/01/24 07:00 05/01/24 06:00 05/01/24 08:00
I&O
04/30/24 05/01/24 05/02/24
06:59 06:59 06:59
Intake Total 2270.4 / 2270.4 1742.6 / 1799.7 428.9 / 428.9
Output Total 2570 / 2645 4165 / 4165
Balance -299.6 / -374.6 -2422.4 / -2365.3 428.9 / 428.9
Physical Exam
-
General: Obese and Other (acutely ill)
HEENT: Normocephalic and Atraumatic
Respiratory: Clear to Auscultation; Negative Wheezes
Cardiac: Regular Rhythm
GI: Soft
Musculoskeletal: Other (venous insufficiency)
Neuro: Awake and Alert
Psych: Calm
Data Reviewed
-
Critical Care Time (in minutes): 41
Labs: Labs Reviewed by me
--- NOTE | 2024-05-01 14:40 | PTCARENOTE ---
wound care to sacrum completed. patient turned and repositioned for comfort. hep gtt d/c as per MD order. levo gtt is being titrated and is currently @ 12 mcg
[2024-05-01] MEDS: SENOKOT-S 2 TABLET PO (18:51)
[2024-05-01] MEDS: DULCOLAX 10 MG PO (18:51)
--- NOTE | 2024-05-01 20:00 | PTCARENOTE ---
Addendum entered by Marshal Valentine RN 05/02/24 01:01:
Left radial arterial line patent, ABP and BP correlating, zeroed at this time.
Original Note:
Assumed care of patient at 1900, nursing assessment completed and as documented. Patient Ox3, on 5L NC sats 97-100% lung sounds diminished throughout, SR with 1st degree HB and BBB on monitor rates 80-90. Pedal pulses present with doppler
bilaterally, +3 RLE and +2 LLE. Patient tolerating CLD with little intake for dinner, abdomen round/obese with positive bowel sounds - started on bowel regimen. Temperature sensing wilkerson catheter in place draining clear yellow urine, hygiene care
provided. Wound to RLE wrapped in sinan with serous drainage weeping - reinforced and changed pad, LLE red and warm to touch, sacral foam C/D/I. CHG bath completed at this time and patient repositioned. RUE D/L PICC patent with norepinephrine and
vasopressin infusing, see worklist for medication titration, goal of MAP >65. Febrile 100.5 - PRN Tylenol solution given see SEP. VSS, guards x2 within room, safe environment maintained, care ongoing.
[2024-05-01] MEDS: SENOKOT-S PO (20:45)
[2024-05-01] MEDS: TYLENOL ORAL SOLUTION 650 MG TUBE (20:56)
[2024-05-01] MEDS: HEPARIN 5000 UNITS SC (23:45)
[2024-05-02] VITALS (9 sets, daily range): BP systolic 106–125; BP diastolic 63–70; PULSE 2–86; BMI 44.6
--- NOTE | 2024-05-02 | PTCARENOTE ---
No changes to physical assessment. Patient refused oral care at this time. RT placed patient on BiPAP HS 15/ 4L. Norepinephrine and vasopressin infusing via RUE D/L PICC, see worklist. Left radial arterial line in place, ABP and BP correlating,
zeroed. VSS, guards x2 within room, safe environment maintained, care ongoing.
[2024-05-02] MEDS: ANCEF 10 IV ×4 (04:00→20:48)
[2024-05-02] MEDS: DILAUDID 1 MG IV ×4 (04:12→20:48)
[2024-05-02 04:54] LABS: Hematocrit 29.5 % (39.0-52.0); Hemoglobin 9.8 g/dL (13.0-18.0); Mean Corp Hgb Conc. 33.2 g/dL (33.0-37.0); Mean Corpuscular Hgb 27.1 pg (27.0-31.0); Mean Corpuscular Volume 81.7 fL (80.0-94.0); Mean Platelet Volume 10.5 fL (7.4-10.4); Platelet Count 271 10^3/uL (130-400); Red Blood Cell Count 3.61 10^6/uL (4.70-6.10); Red Cell Dist. Width 14.4 % (11.5-14.5); White Blood Cell Count 33.6 10^3/uL (4.8-10.8)
[2024-05-02 05:02] LABS: ALT (SGPT) 36 U/L (0-50); AST (SGOT) 102 U/L (17-59); Albumin 2.9 g/dl (3.5-5.0); Alkaline Phosphatase 137 U/L (38-126); Blood Urea Nitrogen 44 mg/dl (9-20); Calcium 8.7 mg/dl (8.4-10.2); Carbon Dioxide 33 mmol/L (22-30); Chloride 92 mmol/L (98-107); Creatine Phosphokinase 191 U/L (55-170); Estimated Creatinine Clearance > 125 ml/min; Glucose 135 mg/dl (70-99); Magnesium 2.1 mg/dl (1.6-2.3); Phosphorus 3.6 mg/dl (2.5-4.5); Potassium 3.8 mmol/L (3.5-5.1); Sodium 135 mmol/L (135-145); Total Bilirubin 1.8 mg/dl (0.2-1.3); eGFR > 60.00
--- NOTE | 2024-05-02 07:36 | PTCARENOTE ---
received from shift superintendent caustic cresylate, AAOx3, guards at the bedside. on 5L of O2 via NC, no s/s of resp distress noted, cont on pressors with levo @ 4 mcg and vaso @ 0.03. ana to L radial intact and correlating. Q@T schedule with lópez lift. LLE elevated,
dressing C/D/I. CLD orders. verbalizes all the needs. cont to monitor
[2024-05-02] MEDS: SUBUTEX 2 MG SL (07:42)
[2024-05-02] MEDS: ASPIR LOW (ENTERIC COATED) 81 MG PO (07:42)
[2024-05-02] MEDS: MIRALAX 17 GRAMS TUBE (07:43)
[2024-05-02] MEDS: NSS (PRESERVATIVE FREE) 10 ML IV (07:43)
[2024-05-02] MEDS: HEPARIN 5000 UNITS SC ×2 (07:43→15:53)
[2024-05-02] MEDS: PROTONIX IV 40 MG IV (07:43)
[2024-05-02] MEDS: SENOKOT-S 1 TABLET PO ×2 (07:43→19:46)
[2024-05-02] MEDS: DESENEX/MITRAZOL/ZEASORB 1 APPLIC TOPICAL ×2 (07:44→19:48)
--- NOTE | 2024-05-02 08:18 | W.PN.INTV ---
Today's Communication / Plan
Recommendations
Continue bowel regimen
Antibiotics as per ID
BiPAP with sleep --> change mask to nasal mask to see if this improves his discomfort
Trend VBG to assess if pH + pCO2 are stable
Maintain SpO2 >90-94%
Follow-up surveillance blood cultures (NGTD)
Wound care to LLE
Continue ICU level care for this patient who is critically ill requiring vasopressors
Eventually he will go back to shelter after discharge
Assessment
-
Impression:
#Septic shock due to left lower extremity cellulitis/soft tissue infection due to Streptococcus pyogenes s/p I&D (POD #4)
#Strep pyogenes bacteremia
#Syncopal event
#Leukocytosis due to sepsis
#Elevated troponin, likely due to demand ischemia with type II AK
#Acute respiratory failure with hypoxia + hypercapnea requiring ventilator s/p OR on 04/28/2024, extubated 04/30/2024
#Anemia (mild)
#Hypochloremia, hyponatremia
#MARÍA ELENA - improving
#Metabolic acidosis - now resolved
#Lactic acidosis - resolved
#Transaminitis with hyperbilirubinemia - improving
#Stage II decubitus ulcer
#History of drug abuse
#History of tobacco use disorder
#Obesity
Plan:
- Patient extubated successfully on 04/30/2024
- Maintain SpO2 >90-94% with supplemental O2 and wean as tolerated
- Continue with nocturnal BiPAP for hypercapnia with suspected OHS - blood gas on AM of 05/01 shows compensated hypercapnia with pH 7.4, pCO2 50 --> re-check blood gas tomorrow to assess stability of pH + pCO2
- Change BiPAP full facemask to nasal mask to see if this helps improve patient's tolerance/level of discomfort
- Continue vasopressors with vaso + levo and keep MAP>65
- Vasopressor requirements have been improving, but still with difficulty getting them off completely --> start stress dose steroids with Solu-Cortef + midodrine
- After solucortef has been on x 3 days then would wean off as tolerated
- Continue ABx with cefazolin s/p cefepime x 2 doses, s/p meropenem x 2 doses, s/p IV vanco (04/28 - 04/29) and clindamycin (04/28 - 05/01)
- ID consulted and defer Abx to them
- Blood cultures (4/) from 04/27/2024 grew Streptococcus pyogenes --> repeat surveillance blood cultures from 04/28 shows NGTD
- OR cultures grew GAS
- Given the elevated T. bili + persistent shock-state, GI consulted as abdominal ultrasound on 04/29/2024 showed gallstones with sludge with mildly distended GB and borderline dilated CBD at 6.7 mm. GGT was WNL; hepatitis panel also negative.
Continue to monitor/trend LFTs. GI not concerned for cholecystitis or choledocholithiasis --> no need currently for MRCP or HIDA scan at this time.
- Post-operative management as per general surgery; no intraoperative evidence of necrotizing fasciitis; no immediate plans to bring back to OR
- Renally dose all meds/Abx, and trend sCr and UOP
- Consider nephrology eval if MARÍA ELENA develops
- Continue with A-line for more accurate monitoring of BP - can remove once off vasopressors
- Wound care to left lower extremity
- Check LE duplex to r/o DVT --> negative
- Patient had evidence of ST elevation on the groundwater monitoring technician on 04/29/2024, however no evidence of ischemia seen on 12-lead EKG. Also no wall motion abnormality seen on recent echo. Cardiology consulted and recommended IV heparin, which is now
stopped as of AM of 05/01/2024. Consider repeat echo to reassess LVEF
- Nursing staff said the patient has not had a BM in several days - continue bowel regimen
- Transfuse Hb if needed to keep >7g/dL; keep plt>20k
- Replete K>4, Mg>2
- Continue subutex
- DVT ppx: Heparin SQ
Continue ICU level of care for this critically ill patient on vasopressors.
Critical care statement: A total of 38 minutes of critical care time was provided for this patient today. This includes management of unstable vital signs, evaluation of the patient at bedside, reviewing the patient's pertinent medical records
including radiographs, microbiology, laboratory evaluations, and discussion with primary team, consultants, pharmacy, nutrition, physical therapy, case management, charge nurse, critical care nursing, and respiratory therapy.
Subjective Dataa
Subjective Data
Date of Service:
Date of Service: May 02, 2024
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
Subjective:
Patient was seen and evaluated today at bedside. Currently on Levophed at 8 mcg/min + vasopressin at 0.03 units/min. BP 95/50 via A-line, BP via NIBP: 126/72, saturating 96% on 6 L/min and heart rate 79. He has minimal complaints although he has
some tenderness in his left lower extremity. He wore BiPAP overnight on 18/02 bled with 4 L/min. He is amenable to continuing to wear the BiPAP but he would like a nasal mask instead.
Review of Systems
General: Other (Negative unless mentioned above)
Objective Data
Data Reviewed
Vital Signs / I&O / Oxygen:
Vital Signs
Temp Pulse Resp BP Pulse Ox
99.4 F 88 16 121/70 97
05/02/24 07:00 05/02/24 08:15 05/02/24 08:15 05/02/24 08:00 05/02/24 08:15
Intake and Output
05/01/24 05/02/24 05/03/24
06:59 06:59 06:59
Intake Total 1742.6 / 1799.7 1162.1 / 1176.7 105.2 / 105.2
Output Total 4165 / 4165 1675 / 1675
Balance -2422.4 / -2365.3 -512.9 / -498.3 105.2 / 105.2
SaO2 [A/C] 98
SaO2 97
Nasal Cannula flow liters per 5
minute
Physical Exam
General: Respiratory Distress (negative), Comfortable, Chills (negative), Sweats (negative) and Other (morbidly obese male in NAD)
HEENT: Normocephalic, Anicteric and Other (thick neck)
Cardiovascular: S1-S2, Rub (negative) and Peripheral Edema (+1RLE pitting edema, +2 LLE pitting edema)
Respiratory: Wheeze (negative), Crackles (Bibasilar), Rhonchi (negative) and Non-Labored Respirations
GI: Soft, Distended (Abdominal obesity), Non Tender and Normal Bowel Sounds
Neurology: AO x 3 and Tremors (negative)
Skin: Warm, Dry and Other (sinan wrap on LLE , erythema and swelling up to mid thigh)
Labs/Micro/Reports
Lab Data
05/02/24 04:22
05/02/24 04:22
Laboratory Results
05/01/24 05/01/24
12:16 20:03
APTT 60.8 H Cancelled
Microbiology
04/28/24 14:17 Blood/Venous Blood Culture - Preliminary
No Growth in 72 hours- Final report to follow
04/28/24 14:17 Blood/Venous Blood Culture - Preliminary
No Growth in 72 hours- Final report to follow
04/28/24 17:20 Leg - Left Anaerobic Culture - Preliminary
Culture pending. Anaerobic cultures are examined after 3
days incubation. Additional information to follow.
04/28/24 17:20 Leg - Left Wound Culture - Preliminary
Streptococcus pyogenes
04/28/24 17:20 Leg - Left Gram Stain - Preliminary
04/27/24 13:37 Blood/Venous Blood Culture - Preliminary
Streptococcus pyogenes
04/27/24 13:37 Blood/Venous Gram Stain - Final
04/27/24 13:37 Blood/Venous Blood Culture - Preliminary
Streptococcus pyogenes
04/27/24 13:37 Blood/Venous Gram Stain - Final
04/27/24 18:46 Nose MRSA Screen - Final
Staph aureus MRSA
[2024-05-02] MEDS: PITRESSIN 100 IV (08:54)
--- NOTE | 2024-05-02 09:31 | W.PN.ID1 ---
Date of Service
Date of Service: May 02, 2024
Today's Communication
Continue antibiotics.
Assessment / Plan
Septic Shock
-Remains on 2 pressors
Group A Strep Cellulitis
Invasive group A strep infection with bacteremia
Leukocytosis
-Mildly improved today.
Chronic Lymphedema
MOSF
Reported allergy to penicillin- rash
- tolerating cefazolin
Class III obesity
Recommendations:
- repeat blood cultures no growth to date.
- Peripheral Vas US: no DVT
- Completed 3 days of clindamycin.
- Continue cefazolin dosed for elevated BMI
- Trend white count
Patient remains critically ill, on pressors and in ICU. Prognosis remains extremely guarded.
����������������������������������������������������������
Chief Complaint
-: Cellulitis and Other (Group a strep bacteremia; septic shock)
Subjective / Review of Systems
Review of Systems: No Fever and No Chills
Vital Signs / Physical Exam
Vital Signs
Vital Signs
Temp Pulse Resp BP Pulse Ox
99.4 F 88 16 121/70 97
05/02/24 07:00 05/02/24 08:15 05/02/24 08:15 05/02/24 08:00 05/02/24 08:15
Physical Exam
Constitutional: Acutely Ill, Non-toxic and Obese
Head: Normocephalic
Eyes: Sclera Anicteric
Oropharyngeal: Negative Thrush
Cardiovascular: Regular Rate and S1/S2; Negative S3/S4
Pulmonary: Coarse and Non Labored; Negative Wheezes
Gastrointestinal: Soft, Non Tender and Non Distended
Extremities: Edema (Left lower extremity), Erythema (Left lower extremity) and Venous Insufficiency
Wound: Other (Left lower extremity wrapped in Jim wrap. Dressings in place. Serous strikethrough.)
Neurological: Awake and Alert
Psychological: Calm
Objective Data
Lab Data
Lab Results
05/02/24 04:22
05/02/24 04:22
PT 15.7 Sec (11.4-14.6) H 04/28/24 04:07
INR 1.27 04/28/24 04:07
APTT Cancelled 05/01/24 20:03
Estimated Creat Clear > 125 ml/min 05/02/24 04:22
Lactic Acid 1.4 mmol/L (0.7-2.0) 04/30/24 04:09
Total Bilirubin 1.8 mg/dl (0.2-1.3) H 05/02/24 04:22
GGT 29 U/L (15-73) 04/30/24 04:09
AST 102 U/L (17-59) H 05/02/24 04:22
ALT 36 U/L (0-50) 05/02/24 04:22
Alkaline Phosphatase 137 U/L (38-126) H 05/02/24 04:22
C-Reactive Protein > 270.00 mg/L (0.0-10.00) H 04/28/24 04:12
Most recent labs reviewed.
Micro Results:
04/28/24 14:17 Blood Culture - Preliminary
Blood/Venous No Growth in 72 hours- Final report to follow
04/28/24 14:17 Blood Culture - Preliminary
Blood/Venous No Growth in 72 hours- Final report to follow
04/28/24 17:20 Anaerobic Culture - Preliminary
Leg - Left Culture pending. Anaerobic cultures are examined after 3
days incubation. Additional information to follow.
04/28/24 17:20 Wound Culture - Preliminary
Leg - Left Streptococcus pyogenes
Gram Stain - Preliminary
04/27/24 13:37 Blood Culture - Preliminary
Blood/Venous Streptococcus pyogenes
Gram Stain - Final
04/27/24 13:37 Blood Culture - Preliminary
Blood/Venous Streptococcus pyogenes
Gram Stain - Final
04/27/24 18:46 MRSA Screen - Final
Nose Staph aureus MRSA
[2024-05-02 09:43] LABS: Absolute Neutrophils -Man Diff 26.5 10^3/uL (1.4-6.5); Band Neutrophils 11 % (0-3); Eosinophils 2 % (0-6); Lymphocytes 6 % (20-51); Metamyelocytes 6 % (-); Monocytes 5 % (2-9); Myelocytes 2 % (-); Segmented Neutrophils 68 % (42-75)
[2024-05-02 09:44] LABS: Platelets Checked YES
[2024-05-02 09:45] LABS: Normal RBC Morphology No
[2024-05-02 09:46] LABS: Hypochromasia Slight; Stomatocytes FEW; Target Cells FEW
[2024-05-02 09:48] LABS: Total Cells Counted 100
[2024-05-02] MEDS: ProAmatine 10 MG PO ×2 (13:52→17:24)
[2024-05-02] MEDS: SOLU-CORTEF 50 MG IV ×2 (13:52→17:24)
--- NOTE | 2024-05-02 15:21 | W.PN.HOSP.TC ---
Today's Communication/Plan
-
continue IV abx
wean pressors
advance to full liquids
Assessment / Plan
Assessment / Plan
Impression:
Severe sepsis due to left lower extremity cellulitis
Septic shock with hypotension requiring vasopressors
Bacteremia with Streptococcus pyogenous
Syncope prior to presentation.
Acute hypoxic respiratory failure in the settings of hypotension.
VDRF in the settings of severe sepsis and hemodynamic instability.
� Intubated 04/28
Acute renal failure
Lactic acidosis.
Abnormal liver function test
Demand ischemia non-Q wave ME
Stage II decubital ulcer present on admission
Other conditions:
Essential hypertension
Obesity with BMI of 48.
Opiate use disorder on Suboxone.
Plan:
Left lower extremity cellulitis with severe sepsis and septic shock
Severe left lower extremity cellulitis with initial concern for necrotizing fasciitis
Blood culture with Streptococcus pyogenes
CT of the left lower extremity with severe cellulitis
Status post incision and debridement of left lower extremity soft tissue infection with no evidence of necrotizing fasciitis
Lower extremity Doppler negative for DVT.
Antibiotics regimen adjusted to cefazolin and clindamycin to target nonpathogenic
Repeat blood culture negative to date
Daily wound care
Septic shock with hypotension not expanding to IV fluids
Remains hemodynamically unstable requiring multiple pressors currently on Levophed, vasopressin. Weaned off norepinephrine
Monitor urine output
Acute hypoxic respiratory failure
VDRF
� Intubated on 04/29 with procedure; extubated 04/30
Follow-up chest x-ray with left lower lobe pleural effusion and congestion
Weaned off sedation per
Non-Q wave ME secondary to demand ischemia.
Troponin peaked at 12 and trending down
Echocardiogram
Very technically difficult study suboptimal 2D echo doppler study
Normal left ventricular chamber size. Normal left ventricular systolic
function. Left ventricular ejection fraction is 55%. Normal regional wall
motion. Mild concentric left ventricular hypertrophy.
Enlarged dilated right ventricular size. Right ventricle appears mildly
hypokinetic.
No significant valvular disease within the limitations of this study
No prior echo for comparison.
Conservative management including treatment of sepsis and hemodynamic instability
Aspirin
Ischemic evaluation eventually
stopped IV Heparin 05/01
MARÍA ELENA baseline metabolic acidosis/lactic acidosis
Likely prerenal in the settings of sepsis, septic shock with prerenal stimuli.
Less likely glomerular process given bland UA
Hold Lasix, NSAIDs, lisinopril.
Continue vasopressors to avoid hypotension
Bladder scan for retention
Follow BMP
Consider nephrology evaluation if uptrending creatinine
Avoid nephrotoxins
Abnormal LFT
Resolving bilirubin and transaminases.
Ultrasound:Hepatosplenomegaly with hepatic steatosis.
Gallstones and sludge are present. The gallbladder is mildly distended however there is are additional findings suggestive of cholecystitis.
The common bile duct is borderline dilated measuring 6.7 mm.
Follow LFT closely
Surgery has been on board
GI consulted
- on clears
Obesity with BMI of 48
Check hemoglobin A1c 5.8
Check TSH
Essential hypertension
Hold preadmission antihypertensive regimen including lisinopril and Lasix baseline
Opiate use disorder
On Suboxone prior to presentation
Full code
DVT prophylaxis subcu heparin
Total Critical Care Time 41 minutes. I was immediately available to the patient and staff. I personally examined, reviewed labs, diagnostic images/reports, interpretations, treatment plans, discussed patient care with other providers and family
or caregivers (if patient is unable to make decisions), entered orders as appropriate and documented the medical record.
Anticipated Discharge: > 48 hours
Subjective/Interval History
-
Date of Service: May 02, 2024
remains on 2 pressors
Midodrine given
tolerating clears
Objective Data
-
Labs:
Laboratory Results
05/02/24
04:22
WBC 33.6 H
Hgb 9.8 L
Hct 29.5 L
Plt Count 271
Sodium 135
Potassium 3.8
Chloride 92 L
Carbon Dioxide 33 H
BUN 44 H
Creatinine 1.0
Glucose 135 H
Calcium 8.7
Total Bilirubin 1.8 H
AST 102 H
ALT 36
Alkaline Phosphatase 137 H
Vital Signs:
Vital Signs
Temp Pulse Resp BP Pulse Ox
98.9 F 88 16 112/57 97
05/02/24 12:23 05/02/24 08:15 05/02/24 08:15 05/02/24 13:52 05/02/24 08:15
I&O
05/01/24 05/02/24 05/03/24
06:59 06:59 06:59
Intake Total 1742.6 / 1799.7 1162.1 / 1176.7 425.2 / 425.2
Output Total 4165 / 4165 1675 / 1675
Balance -2422.4 / -2365.3 -512.9 / -498.3 425.2 / 425.2
Physical Exam
-
General: No Apparent Distress
HEENT: Normocephalic and Atraumatic
Respiratory: Negative Wheezes
Cardiac: Regular Rhythm and S1/S2
GI: Soft
Musculoskeletal: No Edema
Neuro: AO x 3
Psych: Calm
Data Reviewed
-
Critical Care Time (in minutes): 41
Labs: Labs Reviewed by me
--- NOTE | 2024-05-02 15:30 | PTCARENOTE ---
wound care completed with wet to dry packing, xeroform and abds. pink wound bed with serosang drainage, no odor. LLE +3 edema, weeping serous fluid, warm and red to touch. vascular assessed the wound and seen exposed blood vessel. MD confirmed that
it is a vein. patient has doppler pedal pulses in both legs.
[2024-05-02] MEDS: LEVOPHED 258 MG IV (17:24)
[2024-05-02] MEDS: CITROMA 300 ML PO (17:28)
--- NOTE | 2024-05-02 17:44 | PTCARENOTE ---
diet advanced to full liquids, patient tolerating the diet. assisted with meal selection. mag citrate administered for no BM recorded x4 days.
vasopressin gtt turned off. levophed is currently infusing @6 mcg. patient started in midodrine PO.
complete care given with chg wipes, mouth and wilkerson care. moisturizer applied to the back. sacrum drsg intact.
--- NOTE | 2024-05-02 23:00 | PTCARENOTE ---
Received report from RN, assumed care of patient at 2300. Ox3, on 4L NC lung sounds diminished throughout, SR on montior with 1st degree HB and BBB, pedal pulses present with doppler, +3 edema to LLE, +2 edema to RLE. Left radial A line in place,
waveform WNL, zeroed at this time, ABP and BP correlating. Ortiz in place draining light clemente colored urine, abdomen round and obese with no recent BM but patient on bowel regimen and tolerating FLD. B/L stage 2 to buttock, foam in place C/D/I. RLE
red and warm to touch, small foam present. LLE wrapped with JAYSHREE - reinforced dressing and changed pad underneath with noted serous drainage. Remains on norepinephrine at 6mcg/min via D/L LUE PICC and titrating per worklist. Medications given, VSS,
guards x2 at bedside with patient RLE zip tied to bed, care ongoing.
[2024-05-03] VITALS (42 sets, daily range): BP systolic 87–130; BP diastolic 45–103; PULSE 2–92; BMI 44.0
[2024-05-03] MEDS: HEPARIN 5000 UNITS SC ×2 (00:15→07:44)
[2024-05-03] MEDS: SOLU-CORTEF 50 MG IV ×3 (00:15→11:45)
[2024-05-03] MEDS: ANCEF 10 IV ×4 (04:44→21:57)
[2024-05-03 04:51] LABS: Venous Blood Gas B.E. 11.2 mmol/L (-4 to +4); Venous Blood Gas HCO3 37.6 mmol/L (22-27); Venous Blood Gas O2 Sat % 94.9 %; Venous Blood Gas pCO2 58 mmHg (35-48); Venous Blood Gas pH 7.42 (7.32-7.43); Venous Blood Gas pO2 63 mmHg (30-50)
[2024-05-03] MEDS: DILAUDID 1 MG IV (04:52)
[2024-05-03 05:05] LABS: Hematocrit 31.1 % (39.0-52.0); Hemoglobin 10.3 g/dL (13.0-18.0); Mean Corp Hgb Conc. 33.1 g/dL (33.0-37.0); Mean Corpuscular Hgb 27.4 pg (27.0-31.0); Mean Corpuscular Volume 82.7 fL (80.0-94.0); Mean Platelet Volume 10.6 fL (7.4-10.4); Platelet Count 359 10^3/uL (130-400); Red Blood Cell Count 3.76 10^6/uL (4.70-6.10); Red Cell Dist. Width 14.7 % (11.5-14.5); White Blood Cell Count 32.2 10^3/uL (4.8-10.8)
[2024-05-03 05:22] LABS: ALT (SGPT) 28 U/L (0-50); AST (SGOT) 81 U/L (17-59); Albumin 3.2 g/dl (3.5-5.0); Alkaline Phosphatase 159 U/L (38-126); Blood Urea Nitrogen 49 mg/dl (9-20); Carbon Dioxide 35 mmol/L (22-30); Chloride 93 mmol/L (98-107); Estimated Creatinine Clearance > 125 ml/min; Glucose 149 mg/dl (70-99); Magnesium 2.8 mg/dl (1.6-2.3); Phosphorus 3.8 mg/dl (2.5-4.5); Potassium 4.7 mmol/L (3.5-5.1); Sodium 137 mmol/L (135-145); Total Bilirubin 1.4 mg/dl (0.2-1.3); Total Protein 6.8 g/dl (6.3-8.2); eGFR > 60.00
[2024-05-03 05:28] LABS: Absolute Neutrophils -Man Diff 27.3 10^3/uL (1.4-6.5); Band Neutrophils 13 % (0-3); Eosinophils 1 % (0-6); Lymphocytes 4 % (20-51); Metamyelocytes 2 % (-); Monocytes 4 % (2-9); Myelocytes 4 % (-); Normal RBC Morphology No; Platelets Checked Yes; Segmented Neutrophils 72 % (42-75)
[2024-05-03 05:29] LABS: Total Cells Counted 100
--- NOTE | 2024-05-03 05:47 | PTCARENOTE ---
No changes to physical assessment. Patient tolerated nasal BiPAP for about 4 1/2 hours, on 4L NC sats 93-95%. CHG bath done, wound reinforced and patient repositioned. Left radial arterial line zeroed, waveform WNL, ABP correlating well with cuff
BP. Norepinephrine remains infusing via D/L RUE PICC, see worklist for titration. Medications given, see MAR. Labs drawn and sent. VSS, guards x2 at bedside, patient RLE cuffed to bed, care ongoing.
[2024-05-03] MEDS: ASPIR LOW (ENTERIC COATED) 81 MG PO (07:44)
[2024-05-03] MEDS: SENOKOT-S 1 TABLET PO (07:44)
[2024-05-03] MEDS: ProAmatine 10 MG PO ×3 (07:44→17:02)
[2024-05-03] MEDS: SUBUTEX 2 MG SL (07:44)
[2024-05-03] MEDS: DESENEX/MITRAZOL/ZEASORB 1 APPLIC TOPICAL ×2 (07:45→21:27)
[2024-05-03] MEDS: PROTONIX IV 40 MG IV (07:45)
[2024-05-03] MEDS: NSS (PRESERVATIVE FREE) 10 ML IV (07:45)
[2024-05-03] MEDS: MIRALAX 17 GRAMS TUBE (07:45)
--- NOTE | 2024-05-03 08:42 | PTCARENOTE ---
report received, assessments per work list. Truck Leasing Manager at bedside, arterial line removed per order. right picc in place, Levophed per work list titration. basilar crackles, adequate pulse oximeter on 4 liters. abdomen obese. active bowel sounds.
repositioned and care provided, patient had small brown soft smear of stool. dressing in place to left lower leg, weeping yellow drainage. buttock dressing changed per order.call cole in reach. reviewed plan of care. patient shackled to bed with 2
guards present
--- NOTE | 2024-05-03 08:55 | W.PN.INTV ---
Addendum entered and electronically signed by Kobe Chacon MD 05/03/24 16:38:
pt tx out of ICU
Pulm will follow briefly
Addendum entered and electronically signed by Kobe Chacon MD 05/03/24 15:15:
Patient seen and examined independently from below. Reviewed case at length with resident during rounds. Agree with plan. Patient is without complaints. Primary complaint is left leg discomfort. Otherwise denies shortness of breath, chest pain.
Tolerating BiPAP overnight. Remains critically ill on norepinephrine
Vitals reviewed. Negative fluid status noted. Maintained on BiPAP 15/, 4 L overnight. Presently weaned down to 2 L
Chest exam is clear, abdominal exam soft, obese. 2+ lower extreme edema, left lower extremity with mild erythema, wrapping in place, no tenderness, no warmth
Data reviewed
VBG 7.42/58/63
Serum bicarbonate 35
White count 32.2
A/P
Agree with plan below
Encourage incentive spirometry. Will check chest x-ray in a.m.
Oxygen requirement improving arguing against significant volume overload
Given this, would continue with occasional LR boluses 2 50-500 with attempts to wean norepinephrine off
Ideally, once off pressors, favor discontinuing steroids
Ortiz catheter in place. Continue for now
Bowel regimen in place
If continues to have persistent hypotension, will consider echocardiogram
Okay to discontinue A-line given trend towards improvement
Eventual OR per surgery. Remains n.p.o. after midnight
Otherwise tolerating full diet
Reviewed with critical care nursing, respiratory care, pharmacy
TCCT 31 min
Original Note:
Today's Communication / Plan
Recommendations
Advance diet- CXR- Will try to wean off pressor as tolerated
Assessment
-
I saw and evaluated patient this morning. He was resting comfortably in bed. Was awake, alert, and oriented. Left leg cellulitis seems to be improving with decreased swelling and redness of the thigh. But still a good amount of discharge.
#Septic shock due to left lower extremity cellulitis/soft tissue infection
b/c and w/c positive for Streptococcus pyogenes
no intraoperative evidence of necrotizing fasciitis (POD #5)
Currently on 2mcg levo to keep MAP>65- Will try to wean off pressor as tolerated-removed A-line this morning
Solu-Cortef 50 q6h started last night
Started midodrine 10 TID-first dose given this am
Continue Ancef-ID following
Gen surg peripherally following-- might plan on taking to OR again early this week
Appreciate wound care
#Acute respiratory failure
Requiring ventilator s/p OR, extubated 04/30/2024
Currently saturating 96% with 2L nasal O2
Maintain SpO2 >90-94% with supplemental O2 and wean as tolerated
Will get another CXR today
#Anemia (mild)
No apparent GIB
Likely dilutional
Transfuse Hb if needed to keep >7g/dL
#MARÍA ELENA
Improving-Cr stands at 1 (initially 3.9)
cont to monitor BMP
#Elevated troponin
ST elevation on monitor but not on 12 lead EKG- Echo unremarkable.
Likely due to increased demand post pressors
Cardiology following--started on aspirin
Will need eventual ischemia eval
#Elevated LFT
Stable and slightly downtrending-Likely related to sepsis
Abd u/s showed gallstones with sludge with mildly distended GB and borderline dilated CBD at 6.7 mm. GI not concerned for cholecystitis or choledocholithiasis.
Continue to trend LFTs
#hyponatremia
Resolved
#DVT prophylaxis
Lovenox
#Diet
Advanced to regular
Subjective Dataa
Subjective Data
Date of Service:
Date of Service: May 03, 2024
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
Subjective:
Awake, alert and oriented. Is saturating well on 2L O2. Denies chest pain, shortness of breath.
states his leg pain has improved since admission.
Review of Systems
General: Fever (Negative), Chills (Negative) and Satisfactory Appetite
Cardiopulmonary: Dyspnea on Exertion, Edema and Lower Extremity Pain (LLE: Significantly improved since admission)
Genitourinary: Ortiz
Objective Data
Data Reviewed
Vital Signs / I&O / Oxygen:
Vital Signs
Temp Pulse Resp BP Pulse Ox
98.4 F 80 11 113/52 96
05/03/24 07:55 05/03/24 07:44 05/03/24 06:30 05/03/24 07:44 05/03/24 06:30
Intake and Output
05/02/24 05/03/24 05/04/24
06:59 06:59 06:59
Intake Total 1162.1 / 1176.7 1532.2 / 1539.7 255.0 / 255.0
Output Total 1675 / 1675 1935 / 1935 250 / 250
Balance -512.9 / -498.3 -402.8 / -395.3 5.0 / 5.0
SaO2 [A/C] 98
SaO2 96
Nasal Cannula flow liters per 4
minute
Physical Exam
General: Respiratory Distress (on 2 lit O2), Comfortable, Chills (negative), Sweats (negative), Good Appetite and Other (morbidly obese male in NAD)
HEENT: Normocephalic, Anicteric and Other (thick neck)
Cardiovascular: S1-S2, Rub (negative) and Peripheral Edema (+1RLE pitting edema, +3 LLE pitting edema)
Respiratory: Wheeze (negative), Crackles (Bibasilar), Rhonchi (negative) and Non-Labored Respirations
GI: Soft, Distended (Abdominal obesity), Non Tender and Normal Bowel Sounds
Neurology: AO x 3 and Tremors (negative)
Skin: Warm, Dry and Other (sinan wrap on LLE , erythema and swelling up to mid thigh)
Labs/Micro/Reports
Lab Data
05/03/24 04:36
05/03/24 04:36
Microbiology
04/28/24 17:20 Leg - Left Anaerobic Culture - Preliminary
Culture pending. Anaerobic cultures are examined after 3
days incubation. Additional information to follow.
04/28/24 14:17 Blood/Venous Blood Culture - Preliminary
No Growth in 4 days- Final report to follow
04/28/24 14:17 Blood/Venous Blood Culture - Preliminary
No Growth in 4 days- Final report to follow
04/28/24 17:20 Leg - Left Wound Culture - Preliminary
Streptococcus pyogenes
04/28/24 17:20 Leg - Left Gram Stain - Preliminary
04/27/24 13:37 Blood/Venous Blood Culture - Preliminary
Streptococcus pyogenes
04/27/24 13:37 Blood/Venous Gram Stain - Final
04/27/24 13:37 Blood/Venous Blood Culture - Preliminary
Streptococcus pyogenes
04/27/24 13:37 Blood/Venous Gram Stain - Final
--- NOTE | 2024-05-03 09:13 | W.PN.ID1 ---
Date of Service
Date of Service: May 03, 2024
Today's Communication
- Completed 3 days of clindamycin.
- Continue cefazolin dosed for elevated BMI
- Trend white count - may be affected by steroids
- to return to the OR for further debridement today
Patient remains critically ill, on pressors and in ICU. Prognosis remains extremely guarded.
Assessment / Plan
Septic Shock
-Remains on 2 pressora - minimal dose of levophed, also midodrine
Group A Strep Cellulitis
Invasive group A strep infection with bacteremia
Leukocytosis
- mildly improved today
- on stress dose steroids
Chronic Lymphedema
Reported allergy to penicillin- rash
- tolerating cefazolin
Class III obesity
Recommendations:
- repeat blood cultures no growth to date.
- Peripheral Vas US: no DVT
- weight down 15 kg from arrival 188 -> 173 kg
- Completed 3 days of clindamycin.
- Continue cefazolin dosed for elevated BMI
- Trend white count - may be affected by steroids
- to return to the OR for further debridement today
Patient remains critically ill, on pressors and in ICU. Prognosis remains extremely guarded.
����������������������������������������������������������
Chief Complaint
-: Cellulitis and Other (Group a strep bacteremia)
Subjective / Review of Systems
afebrile over 24 hours
norepi down to 2 mcg/min, vaso off, on midodrine now
has R PICC
devitalized superficial tissue - to return to the OR
Vital Signs / Physical Exam
Vital Signs
Vital Signs
Temp Pulse Resp BP Pulse Ox
98.4 F 79 13 103/58 95
05/03/24 07:55 05/03/24 08:45 05/03/24 08:45 05/03/24 08:45 05/03/24 08:45
weight down 15 kg from arrival 188 -> 173 kg
Physical Exam
Constitutional: No Acute Distress, Chronically Ill and Obese
Cardiovascular: Regular Rate and S1/S2; Negative Murmur or Rub
Pulmonary: Clear and Symmetric; Negative Wheezes or Rales
Gastrointestinal: Soft, Non Tender, Non Distended and Normal Bowel Sounds
Skin: Warm and Dry; Negative Rash or Jaundice
Wound: Other (devitalized superficial tissue on the distal leg around the surgical site - to return to the OR)
Objective Data
Lab Data
Lab Results
05/03/24 04:36
05/03/24 04:36
PT 15.7 Sec (11.4-14.6) H 04/28/24 04:07
INR 1.27 04/28/24 04:07
APTT Cancelled 05/01/24 20:03
Estimated Creat Clear > 125 ml/min 05/03/24 04:36
Lactic Acid 1.4 mmol/L (0.7-2.0) 04/30/24 04:09
Total Bilirubin 1.4 mg/dl (0.2-1.3) H 05/03/24 04:36
GGT 29 U/L (15-73) 04/30/24 04:09
AST 81 U/L (17-59) H 05/03/24 04:36
ALT 28 U/L (0-50) 05/03/24 04:36
Alkaline Phosphatase 159 U/L (38-126) H 05/03/24 04:36
C-Reactive Protein > 270.00 mg/L (0.0-10.00) H 04/28/24 04:12
Most recent labs reviewed.
L shift persists
Micro Results:
04/28/24 17:20 Anaerobic Culture - Preliminary
Leg - Left Culture pending. Anaerobic cultures are examined after 3
days incubation. Additional information to follow.
04/28/24 14:17 Blood Culture - Preliminary
Blood/Venous No Growth in 4 days- Final report to follow
04/28/24 14:17 Blood Culture - Preliminary
Blood/Venous No Growth in 4 days- Final report to follow
04/28/24 17:20 Wound Culture - Preliminary
Leg - Left Streptococcus pyogenes
Gram Stain - Preliminary
04/27/24 13:37 Blood Culture - Preliminary
Blood/Venous Streptococcus pyogenes
Gram Stain - Final
04/27/24 13:37 Blood Culture - Preliminary
Blood/Venous Streptococcus pyogenes
Gram Stain - Final
04/27/24 18:46 MRSA Screen - Final
Nose Staph aureus MRSA
--- NOTE | 2024-05-03 10:08 | W.PN.CARDCBS ---
Today's Communication / Plan
-
Empiric treatment for elevated troponin for now
Beta-alex when able to tolerate and off of pressors
Continue aspirin
No statin bwith abnormal LFTs
Impression / Plan
-
Primary Market Developer:
none prior to admission
Initial consult: Dr Bahena
Assessment:
Presentation with witnessed syncope
Severe sepsis secondary to LE cellulitis s/p OR 04/30 debridement
Bacteremia -strep pyogenes
Septic shock with hypotension requiring pressor support
s/p vdrf
MARÍA ELENA, unclear baseline
Non-[place] myocardial ischemic injury with peak troponin of 12.2
Elevated LFTs
Anemia
Hyponatremia
HTN
Obesity
History of opioid abuse
Chronic back pain on buprenorphine
Chronic LE edema/lymphedema
Former smoker
ECHO 04/28/24: TDS, EF 55%, mild cLVH, enlarged dilated RV, mildly hypokinetic, no significant valvular disease
Plan:
He has improved significantly but remains on pressors
Troponin elevation of unclear etiology with normal ejection fraction
Given severe obesity and comorbid conditions might prefer empiric management with beta-alex when blood pressure is able to tolerate
Continue aspirin
Hold statin with abnormal LFTs
Continue antibiotics for strep bacteremia and fasciitis.
Progress Note - Market Developer
Subjective
Date of Service: May 03, 2024
No chest pain or shortness of breath
Objective
Labs:
05/03/24 04:36
05/03/24 04:36
Labs
Hgb 10.3 g/dL (13.0-18.0) L 05/03/24 04:36
Hct 31.1 % (39.0-52.0) L 05/03/24 04:36
Plt Count 359 10^3/uL (130-400) D 05/03/24 04:36
PT 15.7 Sec (11.4-14.6) H 04/28/24 04:07
INR 1.27 04/28/24 04:07
APTT Cancelled 05/01/24 20:03
Sodium 137 mmol/L (135-145) 05/03/24 04:36
Potassium 4.7 mmol/L (3.5-5.1) 05/03/24 04:36
BUN 49 mg/dl (9-20) H 05/03/24 04:36
Creatinine 1.0 mg/dL (0.7-1.3) 05/03/24 04:36
Glucose 149 mg/dl (70-99) H 05/03/24 04:36
Vital Signs and I&O:
Vital Signs
Temp Pulse Resp BP Pulse Ox
98.4 F 79 13 103/58 96
05/03/24 07:55 05/03/24 08:45 05/03/24 08:45 05/03/24 08:45 05/03/24 09:30
Vital Signs
Temp Pulse Resp BP Pulse Ox
98.4 F 79 13 103/58 96
05/03/24 07:55 05/03/24 08:45 05/03/24 08:45 05/03/24 08:45 05/03/24 09:30
Intake & Output
05/01/24 05/02/24 05/03/24 05/04/24
06:59 06:59 06:59 06:59
Intake Total 1742.6 / 1799.7 1162.1 / 1176.7 1532.2 / 1539.7 500.6 / 500.6
Output Total 4165 / 4165 1675 / 1675 1935 / 1935 450 / 450
Balance -2422.4 / -2365.3 -512.9 / -498.3 -402.8 / -395.3 50.6 / 50.6
Physical Exam
Physical Exam
General: Well developed, well nourished in NAD.
Neck: Supple, no JVD, HJR, carotids +2 B/L, no bruits bilaterally.
Heart: Non displaced PMI, RRR, no murmurs, No S3, S4, no rubs.
Lungs: Scattered rhonchi
Extremities: No clubbing, cyanosis or edema bilaterally.
Neuro: Grossly nonfocal, awake, alert and oriented x3.
[2024-05-03] MEDS: LACTATED RINGERS 250 IV (10:59)
--- NOTE | 2024-05-03 11:00 | WOUNDNOTE ---
KAVINE (photo taken by Tammy Thomas, surgical ROVING HAULER)
--- NOTE | 2024-05-03 11:00 | WOUNDNOTE ---
KAVINE (photo taken by Tammy Thomas, surgical LEATHER PARTS MATCHER)
--- NOTE | 2024-05-03 11:14 | PTCARENOTE ---
fluid bolus completed, Levophed titration per work list. surgery in, wound care left leg completed by surgical team. patient for return to OR tomorrow. wilkerson removed, condom cath placed#35
--- NOTE | 2024-05-03 11:59 | W.PN.GS2 ---
Addendum entered and electronically signed by Daniel Segundo MD 05/03/24 12:43:
I saw and examined the patient independently.
The Medical Supervisor's note was reviewed and I agree with the note, assessment and plan except where noted below.
Comment: 53-year-old male with severe cellulitis of the left lower extremity and septic shock now postoperative day 3, still on Levophed. Overall improving however his left lower extremity wounds look worse. Unfortunately the patient ate breakfast
recently.
Okay to continue diet today, n.p.o. at midnight.
Patient posted for the OR tomorrow for additional debridement.
Risks/Benefits/Alternatives, expected postoperative course and possible complications (bleeding, infection, injury to surrounding structures, acute/chronic pain) discussed at length. Patient wishes to proceed with surgery. All questions answered.
Consent obtained.
I spent 55 minutes in total for the care of this patient today including direct patient care and counseling, reviewing labs, imaging, coordination of care, as well as documentation.
Original Note:
Today's Communication / Plan
-
OR tomorrow for wound debridment
Assessment / Plan
-
53M with severe cellulitis of LLE and septic shock now POD #3 Debridement
Pressor reqs decreasing to 2mcg of Levophed alone
Extubated
WBC trending down
No fever for >48hours
Plan:
Local wound care with Dakin's wet-to-dry, xeroform for desquamated areas, abd pads, sinan wrap
NPO after MN for debridement in OR
Abx per ID
Medical management as per primary team
Subjective Data
-
Date of Service: May 03, 2024
Patient seen and examined at bedside with Dr. Segundo. Some discomfort to the LLE but manageable. Conversive.
Objective Data
-
Intake and Output
05/02/24 05/03/24 05/04/24
06:59 06:59 06:59
Intake Total 1162.1 / 1176.7 1532.2 / 1539.7 998.2 / 998.2
Output Total 1674 / 1674 / 77
Balance -512.9 / -498.3 -402.8 / -395.3 223.2 / 223.2
Intake:
Oral fluids 110 / 110 1170 / 1170 720 / 720
IV fluids (Total) 752.1 / 766.7 362.2 / 369.7 278.2 / 278.2
LR bolus 250 / 250
heparin 140 / 140
levo 396.1 / 401.7 263.2 / 270.7 28.2 / 28.2
vaso 216 / 225 99 / 99
IV piggybacks 300 / 300
Output:
Urine, Ortiz 1674 77
Vital Signs
Temp Pulse Resp BP Pulse Ox
98.6 F 94 17 97/57 93
05/03/24 11:51 05/03/24 11:30 05/03/24 11:30 05/03/24 11:30 05/03/24 11:30
Lab Results
05/03/24 04:36
05/03/24 04:36
Calcium 9.0 mg/dl (8.4-10.2) 05/03/24 04:36
Phosphorus 3.8 mg/dl (2.5-4.5) 05/03/24 04:36
Magnesium 2.8 mg/dl (1.6-2.3) H 05/03/24 04:36
Total Bilirubin 1.4 mg/dl (0.2-1.3) H 05/03/24 04:36
Direct Bilirubin Cancelled 05/03/24 06:00
AST 81 U/L (17-59) H 05/03/24 04:36
ALT 28 U/L (0-50) 05/03/24 04:36
Alkaline Phosphatase 159 U/L (38-126) H 05/03/24 04:36
Total Protein 6.8 g/dl (6.3-8.2) 05/03/24 04:36
Albumin 3.2 g/dl (3.5-5.0) L 05/03/24 04:36
Physical Exam
-
Gen: intubated/sedated
LLE: Incision two finger breadths posterior to the medial edge of the tibia extending from the medial malleolus to the knee clean with some minimal slough
A second incision was made extending from the lateral malleolus toward the knee with debris/mcguire tissue: serous drainage
Sloughing/pealing skin with patchy necrosis across george/calf
--- NOTE | 2024-05-03 13:47 | PTCARENOTE ---
levophed weaned to off, no void since wilkerson removed. good appetite for lunch. placed on Bipap for nap. call cole in reach
--- NOTE | 2024-05-03 15:06 | PTCARENOTE ---
patient reassessed. voided clemente urine via condom cath post wilkerson removal. levophed remain off at this time. call cole in reach
--- NOTE | 2024-05-03 16:15 | W.PN.HOSP.TC ---
Today's Communication/Plan
-
IV antibiotics
Wound care per
Plan for additional OR debridement on 05/04
Wean off norepinephrine
Consider to introduce low-dose of beta-alex once BP stable.
Aspirin
Assessment / Plan
Assessment / Plan
Impression:
Severe sepsis due to left lower extremity cellulitis
Septic shock with hypotension requiring vasopressors
Bacteremia with Streptococcus pyogenous
Syncope prior to presentation.
Acute hypoxic respiratory failure in the settings of hypotension.
VDRF in the settings of severe sepsis and hemodynamic instability.
� Intubated 04/28
Acute renal failure
Lactic acidosis.
Abnormal liver function test
Demand ischemia non-Q wave NJ
Stage II decubital ulcer present on admission
Other conditions:
Essential hypertension
Obesity with BMI of 48.
Opiate use disorder on Suboxone.
Plan:
Left lower extremity cellulitis with severe sepsis and septic shock
Severe left lower extremity cellulitis with initial concern for necrotizing fasciitis
Blood culture with Streptococcus pyogenes
CT of the left lower extremity with severe cellulitis
Status post incision and debridement of left lower extremity soft tissue infection with no evidence of necrotizing fasciitis
Lower extremity Doppler negative for DVT.
Antibiotics regimen adjusted to cefazolin. Completed 3 days of clindamycin
Repeat blood culture negative to date
Plan is for additional OR debridement on 05/04
Daily wound care
Septic shock with hypotension not expanding to IV fluids
BP overall improving per
Wean off norepinephrine
Acute hypoxic respiratory failure
VDRF
� Intubated on 04/29 with procedure; extubated 04/30
Follow-up chest x-ray with left lower lobe pleural effusion and congestion
Weaned off sedation
Non-Q wave NJ secondary to demand ischemia.
Troponin peaked at 12 and trending down
Echocardiogram
Very technically difficult study suboptimal 2D echo doppler study
Normal left ventricular chamber size. Normal left ventricular systolic
function. Left ventricular ejection fraction is 55%. Normal regional wall
motion. Mild concentric left ventricular hypertrophy.
Enlarged dilated right ventricular size. Right ventricle appears mildly
hypokinetic.
No significant valvular disease within the limitations of this study
No prior echo for comparison.
Conservative management including treatment of sepsis and hemodynamic instability
Aspirin
Ischemic evaluation eventually
stopped IV Heparin 05/01
MARÍA ELENA baseline metabolic acidosis/lactic acidosis
Likely prerenal in the settings of sepsis, septic shock with prerenal stimuli.
Less likely glomerular process given bland UA
Hold Lasix, NSAIDs, lisinopril.
Continue vasopressors to avoid hypotension
Bladder scan for retention
Follow BMP
Consider nephrology evaluation if uptrending creatinine
Avoid nephrotoxins
Abnormal LFT
Resolving bilirubin and transaminases.
Ultrasound:Hepatosplenomegaly with hepatic steatosis.
Gallstones and sludge are present. The gallbladder is mildly distended however there is are additional findings suggestive of cholecystitis.
The common bile duct is borderline dilated measuring 6.7 mm.
Overall low clinical suspicion for acute cholecystitis
LFT has been trending down
Regular diet
Obesity with BMI of 48
Check hemoglobin A1c 5.8
Check TSH
Essential hypertension
Hold preadmission antihypertensive regimen including lisinopril and Lasix baseline
Opiate use disorder
On Suboxone prior to presentation
Full code
DVT prophylaxis subcu heparin
Anticipated Discharge: > 48 hours
Subjective/Interval History
-
Date of Service: May 03, 2024
Objective Data
-
Labs:
Laboratory Results
05/03/24
04:36
WBC 32.2 H
Hgb 10.3 L
Hct 31.1 L
Plt Count 359 D
Sodium 137
Potassium 4.7
Chloride 93 L
Carbon Dioxide 35 H
BUN 49 H
Creatinine 1.0
Glucose 149 H
Calcium 9.0
Total Bilirubin 1.4 H
AST 81 H
ALT 28
Alkaline Phosphatase 159 H
Vital Signs:
Vital Signs
Temp Pulse Resp BP Pulse Ox
98.2 F 87 14 110/71 93
05/03/24 15:13 05/03/24 16:00 05/03/24 16:00 05/03/24 16:00 05/03/24 16:00
I&O
05/02/24 05/03/24 05/04/24
06:59 06:59 06:59
Intake Total 1162.1 / 1176.7 1532.2 / 1539.7 1841.1 / 1841.1
Output Total 1675 / 1675 1935 / 1935 1050 / 1050
Balance -512.9 / -498.3 -402.8 / -395.3 791.1 / 791.1
Physical Exam
-
General: Well Developed and No Apparent Distress
HEENT: Normocephalic, Atraumatic and Moist Mucous Membranes
Respiratory: Clear to Auscultation
Cardiac: Regular Rhythm and S1/S2; Negative Murmur, Rub or Gallop
GI: Soft, Nontender, Nondistended and Normal Bowel Sounds; Negative Organomegaly
Rectal: Deferred by Provider
Musculoskeletal: No Clubbing, No Cyanosis and No Edema
Skin: Negative Rash
Neuro: Nonfocal/Grossly Intact
[2024-05-03] MEDS: LOVENOX 40 MG SC (17:02)
[2024-05-03] MEDS: DILAUDID 0.5 MG IV (17:07)
--- NOTE | 2024-05-03 20:30 | PTCARENOTE ---
Resumed care of pt this evening. Received pt A&Ox3, able to move all 4 extremities, and can make needs known. Pt exhibits a flat affect and expresses some anxiety related to tomorrows S/P. Pt is NSR on tele monitor, has +2 GA, +3 edema on the left
lower leg, +2 edema on the right lower leg and has B/L pedal pulses present w/ doppler. Pt is on 2L of O2 satting at 93% pulse ox. Pt has shallow respirations and is orthopneic. On auscultation pt lungs sound diminished TO. Pt has a round, obese,
and distended abdomen w/ +BS. Pt has a CC attached to drainage bag is voiding clemente colored urine. Pt's left lower leg dressing is C/D/I. Pt also has a sacral dressing that is intact. Anti fungal powder applied to groin and perineum area due to
MASD.
[2024-05-03] MEDS: DAKIN'S SOLUTION 0.125% 1/4 STRENGTH 473 ML TOPICAL (21:28)
[2024-05-04] VITALS (25 sets, daily range): BP systolic 85–153; BP diastolic 41–87; BMI 45.6
--- NOTE | 2024-05-04 00:15 | PTCARENOTE ---
Pt made NPO at midnight in preparation for S/P later today.
[2024-05-04] MEDS: ZOFRAN 4 MG IV (02:35)
--- NOTE | 2024-05-04 02:40 | PTCARENOTE ---
Pt c/o nausea w/ dry heaving. This RN administered IV zofran per order.
[2024-05-04] MEDS: ANCEF 10 IV ×4 (04:48→22:44)
[2024-05-04 04:51] LABS: Hematocrit 28.9 % (39.0-52.0); Hemoglobin 9.4 g/dL (13.0-18.0); Mean Corp Hgb Conc. 32.5 g/dL (33.0-37.0); Mean Corpuscular Hgb 26.7 pg (27.0-31.0); Mean Corpuscular Volume 82.1 fL (80.0-94.0); Mean Platelet Volume 10.1 fL (7.4-10.4); Platelet Count 392 10^3/uL (130-400); Red Blood Cell Count 3.52 10^6/uL (4.70-6.10); Red Cell Dist. Width 14.9 % (11.5-14.5); White Blood Cell Count 27.8 10^3/uL (4.8-10.8)
[2024-05-04] MEDS: DILAUDID 1 MG IV ×2 (04:58→15:05)
[2024-05-04 05:10] LABS: ALT (SGPT) 26 U/L (0-50); AST (SGOT) 76 U/L (17-59); Albumin 2.9 g/dl (3.5-5.0); Alkaline Phosphatase 138 U/L (38-126); Blood Urea Nitrogen 51 mg/dl (9-20); Calcium 8.6 mg/dl (8.4-10.2); Carbon Dioxide 37 mmol/L (22-30); Chloride 96 mmol/L (98-107); Direct Bilirubin 0.5 mg/dl (0.0-0.4); Estimated Creatinine Clearance > 125 ml/min; Glucose 122 mg/dl (70-99); Magnesium 2.5 mg/dl (1.6-2.3); Phosphorus 3.2 mg/dl (2.5-4.5); Potassium 4.4 mmol/L (3.5-5.1); Sodium 138 mmol/L (135-145); Total Protein 6.4 g/dl (6.3-8.2); eGFR > 60.00
[2024-05-04 07:06] LABS: Absolute Neutrophils -Man Diff 22.2 10^3/uL (1.4-6.5); Anisocytosis 1+; Band Neutrophils 5 % (0-3); Lymphocytes 9 % (20-51); Metamyelocytes 5 % (-); Monocytes 4 % (2-9); Myelocytes 2 % (-); Normal RBC Morphology No; Platelets Checked Yes; Segmented Neutrophils 75 % (42-75)
[2024-05-04 07:07] LABS: Total Cells Counted 100
--- NOTE | 2024-05-04 07:15 | PTCARENOTE ---
Received patient. Forensic patient, shackled right ankle. 2 officers present at bedside. Patient is stable.
--- NOTE | 2024-05-04 07:50 | W.PN.INTV ---
Today's Communication / Plan
Recommendations
Off steroids
Antibiotics per ID
off pressors
To OR later today
We will sign off. Please call with questions
Assessment
-
53-year-old male admitted for sepsis, streptococcal pyogenes bacteremia with left lower extremity cellulitis 04/27/2024
#Septic shock due to left lower extremity cellulitis/soft tissue infection
b/c and w/c positive for Streptococcus pyogenes
no intraoperative evidence of necrotizing fasciitis intraoperatively
Pressors weaned off
Steroids discontinued
Continue midodrine 10 TID
Continue Ancef-ID following
Gen surg peripherally following--OR today
Appreciate wound care white count trending down
#Acute respiratory failure
Requiring ventilator s/p OR, extubated 04/30/2024
Currently saturating 96% with 2L nasal O2
Maintain SpO2 >90-94% with supplemental O2 and wean as tolerated
Chest x-ray 05/04 with improved bibasilar aeration
Patient refusing BiPAP
Would likely continue to need oxygen at night
#Anemia (mild)
No apparent GIB
Hemoglobin stable 9.4
#MARÍA ELENA
Improving-Cr stands at 1 (initially 3.9)
cont to monitor BMP
Urine output adequate
#Elevated troponin
ST elevation on monitor but not on 12 lead EKG- Echo unremarkable.
Likely due to increased demand post pressors
Cardiology following--started on aspirin
Will need eventual ischemia eval
#Elevated LFT
Stable and slightly downtrending-Likely related to sepsis
Abd u/s showed gallstones with sludge with mildly distended GB and borderline dilated CBD at 6.7 mm. GI not concerned for cholecystitis or choledocholithiasis.
Continue to trend LFTs
#hyponatremia
Resolved
#DVT prophylaxis
Lovenox
#Diet
Advanced to regular, n.p.o. for now pending OR
Patient transferred out of ICU. We will sign off. Please call with questions
Subjective Dataa
Subjective Data
Date of Service:
Date of Service: May 04, 2024
Chief Complaint: Wood Router Hand Follow Up
Subjective:
Patient is without complaints. Mild left leg pain otherwise denies shortness of breath, nausea. Did not tolerate BiPAP overnight.
Objective Data
Data Reviewed
Vital Signs / I&O / Oxygen:
Vital Signs
Temp Pulse Resp BP Pulse Ox
98.3 F 95 18 129/76 90
05/04/24 06:43 05/04/24 06:00 05/04/24 06:00 05/04/24 06:00 05/04/24 06:00
Intake and Output
05/03/24 05/04/24 05/05/24
06:59 06:59 06:59
Intake Total 1532.2 / 1539.7 2321.1 / 2321.1
Output Total 1935 / 1935 1950 / 1950
Balance -402.8 / -395.3 371.1 / 371.1
SaO2 [A/C] 98
SaO2 90
Nasal Cannula flow liters per 2
minute
Physical Exam
General: Comfortable and Other (morbidly obese male in NAD)
HEENT: Normocephalic, Anicteric and Other (thick neck)
Cardiovascular: S1-S2, Regular Rhythm, Murmur (n), Rub (negative) and Peripheral Edema (+1RLE pitting edema, +3 LLE pitting edema, left lower extremity wrapped, mild warmth)
Respiratory: Wheeze (negative), Crackles (no), Rhonchi (negative), Non-Labored Respirations and Stridor (n)
GI: Soft, Distended (Abdominal obesity), Non Tender and Normal Bowel Sounds
Neurology: Awake, Alert and No Motor Deficits (Moves all extremities)
Skin: Warm, Dry, Cyanosis (n), Rash (Mild erythema left lower extremity) and Other (sinan wrap on LLE , erythema and swelling up to mid thigh)
Labs/Micro/Reports
Lab Data
05/04/24 04:31
05/04/24 04:31
Microbiology
04/28/24 14:17 Blood/Venous Blood Culture - Final
No Growth - Final Report
04/28/24 14:17 Blood/Venous Blood Culture - Final
No Growth - Final Report
04/28/24 17:20 Leg - Left Anaerobic Culture - Preliminary
Culture pending. Anaerobic cultures are examined after 3
days incubation. Additional information to follow.
04/28/24 17:20 Leg - Left Wound Culture - Preliminary
Streptococcus pyogenes
04/28/24 17:20 Leg - Left Gram Stain - Preliminary
[2024-05-04] MEDS: MIRALAX TUBE (08:00)
--- NOTE | 2024-05-04 09:08 | W.PN.ID1 ---
Date of Service
Date of Service: May 04, 2024
Today's Communication
c/w cefazolin
Assessment / Plan
Septic Shock
-Remains on midodrine
Group A Strep Cellulitis
Invasive group A strep infection with bacteremia
Leukocytosis
- mildly improved today
- steroids were stopped
Chronic Lymphedema
Reported allergy to penicillin- rash
- tolerating cefazolin
Class III obesity
Recommendations:
- repeat blood cultures finalized negative
- Completed 3 days of clindamycin.
- Continue cefazolin dosed for elevated BMI
- Trend white count - may be affected by steroids which were stopped today
- to return to the OR for further debridement today (yesterday patient had eaten and it was delayed
Some clinical improvement. Prognosis remains guarded.
����������������������������������������������������������
Chief Complaint
-: Cellulitis and Other (Group a strep bacteremia)
Subjective / Review of Systems
afebrile
bp stable on midodrine only
no significant events overnight
Vital Signs / Physical Exam
Vital Signs
Vital Signs
Temp Pulse Resp BP Pulse Ox
97.9 F 88 14 153/69 97
05/04/24 07:48 05/04/24 08:00 05/04/24 08:00 05/04/24 07:00 05/04/24 08:00
Physical Exam
Constitutional: No Acute Distress and Chronically Ill
Cardiovascular: Regular Rate and S1/S2; Negative Murmur or Rub
Pulmonary: Clear and Symmetric; Negative Wheezes or Rales
Gastrointestinal: Soft, Non Tender, Non Distended and Normal Bowel Sounds
Skin: Warm and Dry; Negative Rash or Jaundice
Wound: Other (deferred dressing take down - for the OR later today; dressing dry and intact)
Objective Data
Lab Data
Lab Results
05/04/24 04:31
05/04/24 04:31
PT 15.7 Sec (11.4-14.6) H 04/28/24 04:07
INR 1.27 04/28/24 04:07
APTT Cancelled 05/01/24 20:03
Estimated Creat Clear > 125 ml/min 05/04/24 04:31
Lactic Acid 1.4 mmol/L (0.7-2.0) 04/30/24 04:09
Total Bilirubin 1.0 mg/dl (0.2-1.3) 05/04/24 04:31
GGT 29 U/L (15-73) 04/30/24 04:09
AST 76 U/L (17-59) H 05/04/24 04:31
ALT 26 U/L (0-50) 05/04/24 04:31
Alkaline Phosphatase 138 U/L (38-126) H 05/04/24 04:31
C-Reactive Protein > 270.00 mg/L (0.0-10.00) H 04/28/24 04:12
Most recent labs reviewed.
Micro Results:
04/28/24 14:17 Blood Culture - Final
Blood/Venous No Growth - Final Report
04/28/24 14:17 Blood Culture - Final
Blood/Venous No Growth - Final Report
04/28/24 17:20 Anaerobic Culture - Preliminary
Leg - Left Culture pending. Anaerobic cultures are examined after 3
days incubation. Additional information to follow.
04/28/24 17:20 Wound Culture - Preliminary
Leg - Left Streptococcus pyogenes
Gram Stain - Preliminary
04/27/24 13:37 Blood Culture - Preliminary
Blood/Venous Streptococcus pyogenes
Gram Stain - Final
04/27/24 13:37 Blood Culture - Preliminary
Blood/Venous Streptococcus pyogenes
Gram Stain - Final
04/27/24 18:46 MRSA Screen - Final
Nose Staph aureus MRSA
[2024-05-04] MEDS: DAKIN'S SOLUTION 0.125% 1/4 STRENGTH 473 ML TOPICAL (09:22)
[2024-05-04] MEDS: ProAmatine 10 MG PO ×3 (09:25→17:27)
[2024-05-04] MEDS: SUBUTEX 2 MG SL (09:26)
--- NOTE | 2024-05-04 09:26 | W.PN.GS2 ---
Today's Communication / Plan
-
-- Incision and debridement, dressing change of LLE in the OR today
-- NPO, IVF
-- Abx: Ancef, ID on board
-- Continue local wound care post-op
Assessment / Plan
-
Patient is a 53 yo M p/w NSTI of LLE and septic shock now POD #6 incision and debridement
Weaned off pressors, WBC trending down
No fever for >48hours
Plan for incision and debridement, dressing change of LLE in the OR today. The procedure itself, as well as the risks, benefits and alternatives was discussed. All questions answered. Consent signed.
Plan:
-- Incision and debridement, dressing change of LLE in the OR today
-- NPO, IVF
-- Abx: Rafael, ID on board
-- Continue local wound care post-op
Medical management as per primary team
Subjective Data
-
Date of Service: May 04, 2024
No new complaints. No worsening pain. No fevers.
Objective Data
-
Intake and Output
05/03/24 05/04/24 05/05/24
06:59 06:59 06:59
Intake Total 1532.2 / 1539.7 2321.1 / 2321.1
Output Total 1934 / 1949
Balance -402.8 / -395.3 371.1 / 371.1
Intake:
Oral fluids 1170 / 1170 2039
IV fluids (Total) 362.2 / 369.7 281.1 / 281.1
LR bolus 250 / 250
levo 263.2 / 270.7 31.1 / 31.1
vaso 99 / 99
Output:
Urine, Ortiz 1934 775 / 775
Urine, Voided 1174 117
Vital Signs
Temp Pulse Resp BP Pulse Ox
97.9 F 88 14 153/69 97
05/04/24 07:48 05/04/24 08:00 05/04/24 08:00 05/04/24 07:00 05/04/24 08:00
Lab Results
05/04/24 04:31
05/04/24 04:31
Calcium 8.6 mg/dl (8.4-10.2) 05/04/24 04:31
Phosphorus 3.2 mg/dl (2.5-4.5) 05/04/24 04:31
Magnesium 2.5 mg/dl (1.6-2.3) H 05/04/24 04:31
Total Bilirubin 1.0 mg/dl (0.2-1.3) 05/04/24 04:31
Direct Bilirubin 0.5 mg/dl (0.0-0.4) H 05/04/24 04:31
AST 76 U/L (17-59) H 05/04/24 04:31
ALT 26 U/L (0-50) 05/04/24 04:31
Alkaline Phosphatase 138 U/L (38-126) H 05/04/24 04:31
Total Protein 6.4 g/dl (6.3-8.2) 05/04/24 04:31
Albumin 2.9 g/dl (3.5-5.0) L 05/04/24 04:31
Physical Exam
-
Gen: NAD
Ext: LLE with extensive superficial skin necrosis, medial incision with mostly granulation tissue, no purulence, no deeper necrosis, muscle viable, lateral incision with some de la cruz necrotic fat, no purulence, healthy underlying muscle, no worsening
erythema or induration, no bullae, sensation intact, motor 4/5, pain with exam
--- NOTE | 2024-05-04 09:33 | W.PN.CARDCBS ---
Today's Communication / Plan
-
Continue medical therapy for elevated troponin and normal ejection fraction
Remains on pressors for hypotension in the setting of sepsis
Eventual beta-alex therapy
Hold statin with abnormal LFTs which are improving and may be able to start statin soon
Impression / Plan
-
Primary Tool Grinder Operator Surface:
none prior to admission
Initial consult: Dr Bahena
Assessment:
Presentation with witnessed syncope
Severe sepsis secondary to LE cellulitis s/p OR 04/30 debridement
Bacteremia -strep pyogenes
Septic shock with hypotension requiring pressor support
s/p vdrf
MARÍA ELENA, unclear baseline
Non-SC myocardial ischemic injury with peak troponin of 12.2
Elevated LFTs
Anemia
Hyponatremia
HTN
Obesity
History of opioid abuse
Chronic back pain on buprenorphine
Chronic LE edema/lymphedema
Former smoker
ECHO 04/28/24: TDS, EF 55%, mild cLVH, enlarged dilated RV, mildly hypokinetic, no significant valvular disease
Plan:
Remains on pressors for severe hypotension in the setting of sepsis
Given severe obesity and comorbid conditions prefer empiric management with beta-alex when blood pressure is able to tolerate
Continue aspirin
Hold statin with abnormal LFTs which are improving and may be able to start statin soon
Continue antibiotics for strep bacteremia and fasciitis.
Progress Note - Tool Grinder Operator Surface
Subjective
Date of Service: May 04, 2024
No complaints
Objective
Labs:
05/04/24 04:31
05/04/24 04:31
Labs
Hgb 9.4 g/dL (13.0-18.0) L 05/04/24 04:31
Hct 28.9 % (39.0-52.0) L 05/04/24 04:31
Plt Count 392 10^3/uL (130-400) 05/04/24 04:31
PT 15.7 Sec (11.4-14.6) H 04/28/24 04:07
INR 1.27 04/28/24 04:07
APTT Cancelled 05/01/24 20:03
Sodium 138 mmol/L (135-145) 05/04/24 04:31
Potassium 4.4 mmol/L (3.5-5.1) 05/04/24 04:31
BUN 51 mg/dl (9-20) H 05/04/24 04:31
Creatinine 1.0 mg/dL (0.7-1.3) 05/04/24 04:31
Glucose 122 mg/dl (70-99) H 05/04/24 04:31
Vital Signs and I&O:
Vital Signs
Temp Pulse Resp BP Pulse Ox
97.9 F 88 14 153/69 97
05/04/24 07:48 05/04/24 08:00 05/04/24 08:00 05/04/24 07:00 05/04/24 08:00
Vital Signs
Temp Pulse Resp BP Pulse Ox
97.9 F 88 14 153/69 97
05/04/24 07:48 05/04/24 08:00 05/04/24 08:00 05/04/24 07:00 05/04/24 08:00
Intake & Output
05/02/24 05/03/24 05/04/24 05/05/24
06:59 06:59 06:59 06:59
Intake Total 1162.1 / 1176.7 1532.2 / 1539.7 2321.1 / 2321.1
Output Total 1675 / 1675 1934 / 1934 1949 / 1949
Balance -512.9 / -498.3 -402.8 / -395.3 371.1 / 371.1
Physical Exam
Physical Exam
General: Well developed, well nourished in NAD.
Neck: Supple, no JVD, HJR, carotids +2 B/L, no bruits bilaterally.
Heart: Non displaced PMI, RRR, no murmurs, No S3, S4, no rubs.
Lungs: Scattered rhonchi
Extremities: No clubbing, cyanosis or edema bilaterally.
Neuro: Grossly nonfocal, awake, alert and oriented x3.
--- NOTE | 2024-05-04 09:54 | W.SUR.PREOP ---
Pre-Operative Surgical Note
-
I have examined this patient prior to the performance of the scheduled procedure.
The patient's condition is unchanged from the time of the current History and
Physical and the patient is able to undergo the scheduled procedure.
--- NOTE | 2024-05-04 10:32 | W.PN.HOSP.TC ---
Today's Communication/Plan
-
Afebrile and hemodynamically stable
Weaned off vasopressors and IV fluids
For additional OR debridement of the left lower extremity wound today
Continue IV antibiotics
Assessment / Plan
Assessment / Plan
Impression:
Severe sepsis due to left lower extremity cellulitis
Septic shock with hypotension requiring vasopressors
Bacteremia with Streptococcus pyogenous
Syncope prior to presentation.
Acute hypoxic respiratory failure in the settings of hypotension.
VDRF in the settings of severe sepsis and hemodynamic instability.
� Intubated 04/28
Acute renal failure
Lactic acidosis.
Abnormal liver function test
Demand ischemia non-Q wave CA
Stage II decubital ulcer present on admission
Other conditions:
Essential hypertension
Obesity with BMI of 48.
Opiate use disorder on Suboxone.
Plan:
Left lower extremity cellulitis with severe sepsis and septic shock
Severe left lower extremity cellulitis with initial concern for necrotizing fasciitis
Blood culture with Streptococcus pyogenes
CT of the left lower extremity with severe cellulitis
Status post incision and debridement of left lower extremity soft tissue infection with no evidence of necrotizing fasciitis
Lower extremity Doppler negative for DVT.
Antibiotics regimen adjusted to cefazolin. Completed 3 days of clindamycin
Repeat blood culture negative to date
Plan is for additional OR debridement on 05/04
Daily wound care
Septic shock with hypotension not expanding to IV fluids
BP overall improving per
Weaned off norepinephrine
Acute hypoxic respiratory failure
VDRF
� Intubated on 04/29 with procedure; extubated 04/30
Follow-up chest x-ray with left lower lobe pleural effusion and congestion
Weaned off sedation
Non-Q wave CA secondary to demand ischemia.
Troponin peaked at 12 and trending down
Echocardiogram
Very technically difficult study suboptimal 2D echo doppler study
Normal left ventricular chamber size. Normal left ventricular systolic
function. Left ventricular ejection fraction is 55%. Normal regional wall
motion. Mild concentric left ventricular hypertrophy.
Enlarged dilated right ventricular size. Right ventricle appears mildly
hypokinetic.
No significant valvular disease within the limitations of this study
No prior echo for comparison.
Conservative management including treatment of sepsis and hemodynamic instability
Aspirin
Ischemic evaluation eventually
stopped IV Heparin 05/01
MARÍA ELENA baseline metabolic acidosis/lactic acidosis
Likely prerenal in the settings of sepsis, septic shock with prerenal stimuli.
Less likely glomerular process given bland UA
Hold Lasix, NSAIDs, lisinopril.
Continue vasopressors to avoid hypotension
Bladder scan for retention
Follow BMP
Consider nephrology evaluation if uptrending creatinine
Avoid nephrotoxins
Abnormal LFT
Resolving bilirubin and transaminases.
Ultrasound:Hepatosplenomegaly with hepatic steatosis.
Gallstones and sludge are present. The gallbladder is mildly distended however there is are additional findings suggestive of cholecystitis.
The common bile duct is borderline dilated measuring 6.7 mm.
Overall low clinical suspicion for acute cholecystitis
LFT has been trending down
Regular diet
Obesity with BMI of 48
Check hemoglobin A1c 5.8
Essential hypertension
Hold preadmission antihypertensive regimen including lisinopril and Lasix baseline
Opiate use disorder
On Suboxone prior to presentation
Full code
DVT prophylaxis subcu heparin
Anticipated Discharge: > 48 hours
Subjective/Interval History
-
Date of Service: May 04, 2024
Objective Data
-
Labs:
Laboratory Results
05/04/24
04:31
WBC 27.8 H
Hgb 9.4 L
Hct 28.9 L
Plt Count 392
Sodium 138
Potassium 4.4
Chloride 96 L
Carbon Dioxide 37 H
BUN 51 H
Creatinine 1.0
Glucose 122 H
Calcium 8.6
Total Bilirubin 1.0
AST 76 H
ALT 26
Alkaline Phosphatase 138 H
Vital Signs:
Vital Signs
Temp Pulse Resp BP Pulse Ox
97.9 F 93 14 133/75 97
05/04/24 07:48 05/04/24 09:25 05/04/24 08:00 05/04/24 09:25 05/04/24 08:00
I&O
05/03/24 05/04/24 05/05/24
06:59 06:59 06:59
Intake Total 1532.2 / 1539.7 2321.1 / 2321.1
Output Total 193 / 1934 1949 / 1949
Balance -402.8 / -395.3 371.1 / 371.1
Physical Exam
-
General: Well Developed and No Apparent Distress
HEENT: Normocephalic, Atraumatic and Moist Mucous Membranes
Respiratory: Clear to Auscultation
Cardiac: Regular Rhythm and S1/S2; Negative Murmur, Rub or Gallop
GI: Soft, Nontender, Nondistended and Normal Bowel Sounds; Negative Organomegaly
Rectal: Deferred by Provider
Musculoskeletal: No Clubbing, No Cyanosis and No Edema
Skin: Negative Rash
Neuro: Nonfocal/Grossly Intact
--- NOTE | 2024-05-04 13:00 | PTCARENOTE ---
No change in patient assessment. Patient to OR accompanied by nurse, transport x 2 and officers x 2.
--- NOTE | 2024-05-04 13:48 | PTCARENOTE ---
No change in patient's physical assessment. Pain is controlled while at rest.
--- NOTE | 2024-05-04 14:38 | W.IMMPOSTOP ---
Surgical Immed Post Op Note
-
Primary Surgeon: Paige
Assisting Surgeon: None
Pre-op Diagnosis: LLE NSTI
Post-op Diagnosis: LLE NSTI
Procedure Performed: Incision and debridement of LLE wound, dressing change under anesthesia
Anesthesia Type: General
Specimen / Cultures: None
Estimated Blood Loss: 23 cc
Complications: None
Operative Findings:
1. LEFT lower extremity with extensive skin necrosis, surface area ~90% of skin below knee, left in place to slough, aggressive debridement would result in large wound necessitating skin graft
2. Minimal local debridement of medial and lateral wounds removing necrotic skin and subcutaneous tissues, good health bleeding encountered
3. Underlying muscle viable, evidence of some granulation tissue
4. Pulse-a-Vac, dressing with Betadine soaked Kerlix, Xeroform, ABD, Kerlix, JAYSHREE wrap
[2024-05-04] MEDS: DESENEX/MITRAZOL/ZEASORB 1 APPLIC TOPICAL ×2 (15:04→22:35)
[2024-05-04] MEDS: ASPIR LOW (ENTERIC COATED) 81 MG PO (15:04)
[2024-05-04] MEDS: LOVENOX 40 MG SC (17:26)
[2024-05-04] MEDS: DAKIN'S SOLUTION 0.125% 1/4 STRENGTH TOPICAL (20:27)
--- NOTE | 2024-05-04 23:11 | PTCARENOTE ---
Pt placed on Bipap by RT, within 5 minute pt took mask off and stated 'here we got, this thing immediately makes me dry heave. I can't wear it.' Denies nausea when off the mask, pt placed back on NC.
[2024-05-05] VITALS (18 sets, daily range): BP systolic 99–136; BP diastolic 58–89; PULSE 96; O2SAT 95; BMI 45.8
[2024-05-05] MEDS: ANCEF 10 IV ×4 (04:21→21:59)
[2024-05-05] MEDS: DILAUDID 0.5 MG IV (04:41)
[2024-05-05 04:48] LABS: Hemoglobin 9.9 g/dL (13.0-18.0); Mean Corp Hgb Conc. 31.9 g/dL (33.0-37.0); Mean Corpuscular Hgb 26.3 pg (27.0-31.0); Mean Corpuscular Volume 82.4 fL (80.0-94.0); Mean Platelet Volume 10.2 fL (7.4-10.4); Platelet Count 444 10^3/uL (130-400); Red Blood Cell Count 3.76 10^6/uL (4.70-6.10); Red Cell Dist. Width 14.9 % (11.5-14.5); White Blood Cell Count 27.8 10^3/uL (4.8-10.8)
[2024-05-05 05:05] LABS: ALT (SGPT) 38 U/L (0-50); AST (SGOT) 98 U/L (17-59); Alkaline Phosphatase 127 U/L (38-126); Blood Urea Nitrogen 44 mg/dl (9-20); Calcium 8.7 mg/dl (8.4-10.2); Carbon Dioxide 37 mmol/L (22-30); Chloride 97 mmol/L (98-107); Estimated Creatinine Clearance > 125 ml/min; Glucose 127 mg/dl (70-99); Potassium 4.9 mmol/L (3.5-5.1); Sodium 141 mmol/L (135-145); Total Bilirubin 0.9 mg/dl (0.2-1.3); Total Protein 6.7 g/dl (6.3-8.2); eGFR > 60.00
--- NOTE | 2024-05-05 08:00 | PTCARENOTE ---
Patient received, 2 officers at bedside, cuffed to right ankle. Patient tachycardic, No c/o pain, Condom cath in place, states that he slept well.
[2024-05-05 08:15] LABS: Absolute Neutrophils -Man Diff 23.9 10^3/uL (1.4-6.5); Band Neutrophils 4 % (0-3); Lymphocytes 7 % (20-51); Metamyelocytes 3 % (-); Monocytes 4 % (2-9); Segmented Neutrophils 82 % (42-75)
[2024-05-05] MEDS: ASPIR LOW (ENTERIC COATED) 81 MG PO (08:16)
[2024-05-05] MEDS: SUBUTEX 2 MG SL (08:16)
[2024-05-05 08:17] LABS: Anisocytosis 1+; Normal RBC Morphology No; Platelets Checked Yes
[2024-05-05 08:19] LABS: Basophilic Stippling 1+; Hypochromasia 1+; Polychromasia 1+
[2024-05-05] MEDS: ProAmatine PO (08:19)
[2024-05-05 08:20] LABS: Total Cells Counted 100
[2024-05-05] MEDS: DESENEX/MITRAZOL/ZEASORB 1 APPLIC TOPICAL ×2 (08:21→20:31)
--- NOTE | 2024-05-05 08:59 | W.PN.ID1 ---
Date of Service
Date of Service: May 05, 2024
Today's Communication
- Trend white count - may be affected by steroids which were stopped 05/04; would like to see further improvement prior to finalizing antibiotic course
- plan to finish course with IV therapy
Assessment / Plan
Septic Shock
-Remains on midodrine
Group A Strep Cellulitis
Invasive group A strep infection with bacteremia
Leukocytosis
- mildly improved today
Chronic Lymphedema
Reported allergy to penicillin- rash
- tolerating cefazolin
Class III obesity
Recommendations:
- Continue cefazolin dosed for elevated BMI - day 9 tentatively of 14; given BMI and extent of infection, would plan to have patient finish the course on IV antibiotics,
- Trend white count - may be affected by steroids which were stopped 05/04; would like to see further improvement prior to finalizing antibiotic course
- s/p further debridement yesterday
Some clinical improvement, continue to follow clinically
����������������������������������������������������������
Chief Complaint
-: Cellulitis and Other (Group a strep bacteremia)
Subjective / Review of Systems
tmax 100.4 orally - post operative
bp stable on midodrine
refused bipap overnight
taken back to the OR yesterday for extensive skin necrosis ~90% skin below the knee - left in place; did undergo local debridement of medial and lateral wound with bleeding encourntered, muscle viable with granulation tissue
Vital Signs / Physical Exam
Vital Signs
Vital Signs
Temp Pulse Resp BP Pulse Ox
99.2 F 97 15 136/80 93
05/05/24 07:00 05/05/24 08:19 05/04/24 15:30 05/05/24 08:19 05/04/24 21:38
Physical Exam
Constitutional: No Acute Distress
Cardiovascular: Regular Rate
Pulmonary: Symmetric and Non Labored
Wound: Other (surgical sites evaluated - there is some bleeding and some granulation tissue, minimal odor on the dressing, slight greenish tinge, the surrounding skin is superifically necrotic)
Neurological: Awake
Objective Data
Lab Data
Lab Results
05/05/24 04:26
05/05/24 04:26
PT 15.7 Sec (11.4-14.6) H 04/28/24 04:07
INR 1.27 04/28/24 04:07
APTT Cancelled 05/01/24 20:03
Estimated Creat Clear > 125 ml/min 05/05/24 04:26
Lactic Acid 1.4 mmol/L (0.7-2.0) 04/30/24 04:09
Total Bilirubin 0.9 mg/dl (0.2-1.3) 05/05/24 04:26
GGT 29 U/L (15-73) 04/30/24 04:09
AST 98 U/L (17-59) H 05/05/24 04:26
ALT 38 U/L (0-50) 05/05/24 04:26
Alkaline Phosphatase 127 U/L (38-126) H 05/05/24 04:26
C-Reactive Protein > 270.00 mg/L (0.0-10.00) H 04/28/24 04:12
Most recent labs reviewed.
Micro Results:
04/27/24 13:37 Blood Culture - Final
Blood/Venous Streptococcus pyogenes
Gram Stain - Final
04/27/24 13:37 Blood Culture - Final
Blood/Venous Streptococcus pyogenes
Gram Stain - Final
04/28/24 17:20 Wound Culture - Final
Leg - Left Streptococcus pyogenes
Gram Stain - Final
04/28/24 17:20 Anaerobic Culture - Final
Leg - Left NO ANAEROBES ISOLATED
04/28/24 14:17 Blood Culture - Final
Blood/Venous No Growth - Final Report
04/28/24 14:17 Blood Culture - Final
Blood/Venous No Growth - Final Report
04/27/24 18:46 MRSA Screen - Final
Nose Staph aureus MRSA
Care Review
Plan reviewed with: Physician (Dr Moreira - reviewed wound)
--- NOTE | 2024-05-05 09:39 | W.PN.HOSP.TC ---
Today's Communication/Plan
-
IV antibiotics
Wound care
With now elevated BP, stop midodrine
Continue aspirin
Consider to introduce beta-alex
Assessment / Plan
Assessment / Plan
Impression:
Severe sepsis due to left lower extremity cellulitis
Septic shock with hypotension requiring vasopressors
Bacteremia with Streptococcus pyogenous
Syncope prior to presentation.
Acute hypoxic respiratory failure in the settings of hypotension.
VDRF in the settings of severe sepsis and hemodynamic instability.
� Intubated 04/28
Acute renal failure
Lactic acidosis.
Abnormal liver function test
Demand ischemia non-Q wave ND
Stage II decubital ulcer present on admission
Other conditions:
Essential hypertension
Obesity with BMI of 48.
Opiate use disorder on Suboxone.
Plan:
Left lower extremity cellulitis with severe sepsis and septic shock
Severe left lower extremity cellulitis with initial concern for necrotizing fasciitis
Blood culture with Streptococcus pyogenes
CT of the left lower extremity with severe cellulitis
Status post incision and debridement of left lower extremity soft tissue infection with no evidence of necrotizing fasciitis
Lower extremity Doppler negative for DVT.
Antibiotics regimen adjusted to cefazolin. Completed 3 days of clindamycin
Repeat blood culture negative to date
Status post additional excisional debridement of the left lower extremity wound on 05/04
Daily wound care
Septic shock with hypotension not expanding to IV fluids
BP overall improving per
Weaned off norepinephrine.
Wean off midodrine
Acute hypoxic respiratory failure
VDRF
� Intubated on 04/29 with procedure; extubated 04/30
Follow-up chest x-ray with left lower lobe pleural effusion and congestion
Weaned off sedation
Non-Q wave ND secondary to demand ischemia.
Troponin peaked at 12 and trending down
Echocardiogram
Very technically difficult study suboptimal 2D echo doppler study
Normal left ventricular chamber size. Normal left ventricular systolic
function. Left ventricular ejection fraction is 55%. Normal regional wall
motion. Mild concentric left ventricular hypertrophy.
Enlarged dilated right ventricular size. Right ventricle appears mildly
hypokinetic.
No significant valvular disease within the limitations of this study
No prior echo for comparison.
Conservative management including treatment of sepsis and hemodynamic instability
Aspirin
Ischemic evaluation eventually
stopped IV Heparin 05/01
MARÍA ELENA baseline metabolic acidosis/lactic acidosis
Likely prerenal in the settings of sepsis, septic shock with prerenal stimuli.
Less likely glomerular process given bland UA
Hold Lasix, NSAIDs, lisinopril.
Continue vasopressors to avoid hypotension
Bladder scan for retention
Follow BMP
Consider nephrology evaluation if uptrending creatinine
Avoid nephrotoxins
Abnormal LFT
Resolving bilirubin and transaminases.
Ultrasound:Hepatosplenomegaly with hepatic steatosis.
Gallstones and sludge are present. The gallbladder is mildly distended however there is are additional findings suggestive of cholecystitis.
The common bile duct is borderline dilated measuring 6.7 mm.
Overall low clinical suspicion for acute cholecystitis
LFT has been trending down
Regular diet
Obesity with BMI of 48
Check hemoglobin A1c 5.8
Essential hypertension
Hold preadmission antihypertensive regimen including lisinopril and Lasix baseline
Opiate use disorder
On Suboxone prior to presentation
Full code
DVT prophylaxis subcu heparin
Anticipated Discharge: > 48 hours
Subjective/Interval History
-
Date of Service: May 05, 2024
Objective Data
-
Labs:
Laboratory Results
05/05/24
04:26
WBC 27.8 H
Hgb 9.9 L
Hct 31.0 L
Plt Count 444 H
Sodium 141
Potassium 4.9
Chloride 97 L
Carbon Dioxide 37 H
BUN 44 H
Creatinine 1.0
Glucose 127 H
Calcium 8.7
Total Bilirubin 0.9
AST 98 H
ALT 38
Alkaline Phosphatase 127 H
Vital Signs:
Vital Signs
Temp Pulse Resp BP Pulse Ox
99.2 F 97 15 136/80 93
05/05/24 07:00 05/05/24 08:19 05/04/24 15:30 05/05/24 08:19 05/04/24 21:38
I&O
05/04/24 05/05/24 05/06/24
06:59 06:59 06:59
Intake Total 2321.1 / 2321.1 2220 / 2220 1000 / 1000
Output Total 1950 / 1950 2100 / 2100 45 / 45
Balance 371.1 / 371.1 120 / 120 955 / 955
Physical Exam
-
General: Well Developed and No Apparent Distress
HEENT: Normocephalic, Atraumatic and Moist Mucous Membranes
Respiratory: Clear to Auscultation
Cardiac: Regular Rhythm and S1/S2; Negative Murmur, Rub or Gallop
GI: Soft, Nontender, Nondistended and Normal Bowel Sounds; Negative Organomegaly
Rectal: Deferred by Provider
Musculoskeletal: No Clubbing, No Cyanosis and No Edema
Skin: Negative Rash
Neuro: Nonfocal/Grossly Intact
--- NOTE | 2024-05-05 09:54 | W.PN.CARDCBS ---
Today's Communication / Plan
-
Nonischemic troponin elevation. No plan for ischemic assessment. Continue aspirin
Eventual beta-alex
Eventual statin. Lipids ordered.
Continue postop care
Impression / Plan
-
Primary Separator Inserter:
none prior to admission
Initial consult: Dr Bahena
Assessment:
Presentation with witnessed syncope
Severe sepsis secondary to LE cellulitis s/p OR 04/30 debridement
Bacteremia and wound with-strep pyogenes-s/p debridement 05/04/2024
Septic shock with hypotension requiring pressor support
s/p vdrf
MARÍA ELENA, unclear baseline
Non-RI myocardial ischemic injury with peak troponin of 12.2
Elevated LFTs
Anemia
Hyponatremia
HTN
Obesity
History of opioid abuse
Chronic back pain on buprenorphine
Chronic LE edema/lymphedema
Former smoker
ECHO 04/28/24: TDS, EF 55%, mild cLVH, enlarged dilated RV, mildly hypokinetic, no significant valvular disease
Plan:
Initially hypotensive with bacterial sepsis requiring pressors and then midodrine. Strep pyogenes bacteremia/wound with debridement 04/2024. Blood pressure is now elevated and midodrine has been discontinued.
Continue to follow blood pressure. May eventually need restart of outpatient antihypertensive treatment. Follow creatinine.
Troponin elevation likely non-RI myocardial ischemic injury. No cardiac symptoms currently. EKG stable. Sinus tachycardia likely related to pain, anemia and recent surgery. Continue to follow.
Given severe obesity and comorbid conditions prefer empiric management with beta-alex when blood pressure is able to tolerate.
Continue aspirin
Hold statin with abnormal LFTs which are improving and may be able to start statin soon. Lipids ordered.
Continue antibiotics for strep bacteremia and fasciitis.
Progress Note - Separator Inserter
Subjective
Date of Service: May 05, 2024
He denies chest pain, palpitations and dizziness
Objective
Labs:
05/05/24 04:26
05/05/24 04:26
Labs
Hgb 9.9 g/dL (13.0-18.0) L 05/05/24 04:26
Hct 31.0 % (39.0-52.0) L 05/05/24 04:26
Plt Count 444 10^3/uL (130-400) H 05/05/24 04:26
PT 15.7 Sec (11.4-14.6) H 04/28/24 04:07
INR 1.27 04/28/24 04:07
APTT Cancelled 05/01/24 20:03
Sodium 141 mmol/L (135-145) 05/05/24 04:26
Potassium 4.9 mmol/L (3.5-5.1) 05/05/24 04:26
BUN 44 mg/dl (9-20) H 05/05/24 04:26
Creatinine 1.0 mg/dL (0.7-1.3) 05/05/24 04:26
Glucose 127 mg/dl (70-99) H 05/05/24 04:26
Vital Signs and I&O:
Vital Signs
Temp Pulse Resp BP Pulse Ox
99.2 F 97 15 136/80 93
05/05/24 07:00 05/05/24 08:19 05/04/24 15:30 05/05/24 08:19 05/04/24 21:38
Vital Signs
Temp Pulse Resp BP Pulse Ox
99.2 F 97 15 136/80 93
05/05/24 07:00 05/05/24 08:19 05/04/24 15:30 05/05/24 08:19 05/04/24 21:38
Intake & Output
05/03/24 05/04/24 05/05/24 05/06/24
06:59 06:59 06:59 06:59
Intake Total 1532.2 / 1539.7 2321.1 / 2321.1 2220 / 2220 1000 / 1000
Output Total 1934 / 1934 1949 / 1949 2099 / 2099 45 / 45
Balance -402.8 / -395.3 371.1 / 371.1 120 / 120 955 / 955
Physical Exam
Physical Exam
General: Obese man laying in bed
Heart: Distant heart sounds RRR, no murmurs, No S3, S4, no rubs.
Lungs: Coarse anterior breath sounds
Extremities: Left leg wrapped
Neuro: Grossly nonfocal, awake, alert
[2024-05-05] MEDS: DAKIN'S SOLUTION 0.125% 1/4 STRENGTH TOPICAL ×2 (10:00→20:01)
[2024-05-05] MEDS: DAKIN'S SOLUTION 0.125% 1/4 STRENGTH 150 ML TOPICAL (10:00)
[2024-05-05] MEDS: DILAUDID 1 MG IV ×3 (10:03→21:59)
--- NOTE | 2024-05-05 10:24 | CM ---
Per ID physician patient to stay on IV antibiotics until 05/09; Cefazoline 2gm IV q6 hours. CM called and reviewed IV antibiotic prescription with Meena from [facility] and script placed on chart. Meena asking about wound care, CM will update
patient nurse to clarify [facility] question. CM will contnue to follow for discharge planning needs.
Plan; return to [facility]; call [phone] for fax
[2024-05-05 10:51] LABS: HDL Cholesterol 25 mg/dl; LDL Cholesterol, Calculated 110 mg/dl; Total Cholesterol 165 mg/dl (50-199); Triglyceride 151 mg/dl (10-149); Very Low Density Lipoprotein 30 mg/dl (0-30)
--- NOTE | 2024-05-05 11:03 | W.PN.GS2 ---
Today's Communication / Plan
-
May need further debridement in the OR in the near future
Local wound care for now
Assessment / Plan
-
53M with severe GAS soft tissue infection of LLE
Hemodynamically improved
Wound continues to progress, will likely require further debridement in the near future
Due to extensive epidermolysis, not a good candidate for wound vac
Due to ongoing progression of the wound, not a candidate for delayed primary closure
Abx per ID
Wound care with dakins wet to dry
Re-evaluate wound tomorrow
Subjective Data
-
Date of Service: May 05, 2024
Low grade temps, remains off pressors, pain controlled
Objective Data
-
Intake and Output
05/04/24 05/05/24 05/06/24
06:59 06:59 06:59
Intake Total 2321.1 / 2321.1 222 / 2220 1000 / 1000
Output Total 1949 / 1949 2099 / 2099 45 / 45
Balance 371.1 / 371.1 120 / 120 955 / 955
Intake:
Oral fluids 2039 / 0 2219 / 0
IV fluids (Total) 281.1 / 281.1
LR bolus 250 / 250
levo 31.1 / 31.1
IV piggybacks 1000 / 1000
Output:
Urine, Ortiz 775 / 775
Urine, Voided 1175 / 1175 2099 45 / 45
Other:
How many times incontinent 1
SATURATED amount urine
Vital Signs
Temp Pulse Resp BP Pulse Ox
99.2 F 97 25 109/86 93
05/05/24 07:00 05/05/24 10:30 05/05/24 10:30 05/05/24 10:00 05/05/24 10:00
Lab Results
05/05/24 04:26
05/05/24 04:26
Calcium 8.7 mg/dl (8.4-10.2) 05/05/24 04:
Phosphorus 3.2 mg/dl (2.5-4.5) 05/04/24 04:31
Magnesium 2.5 mg/dl (1.6-2.3) H 05/04/24 04:31
Total Bilirubin 0.9 mg/dl (0.2-1.3) 05/05/24 04:26
Direct Bilirubin 0.5 mg/dl (0.0-0.4) H 05/04/24 04:31
AST 98 U/L (17-59) H 05/05/24 04:26
ALT 38 U/L (0-50) 05/05/24 04:26
Alkaline Phosphatase 127 U/L (38-126) H 05/05/24 04:26
Total Protein 6.7 g/dl (6.3-8.2) 05/05/24 04:26
Albumin 3.0 g/dl (3.5-5.0) L 05/05/24 04:26
Physical Exam
-
Gen: NAD
LLE: thin dark eschar forming over most of anterior surface of the skin, medial wound with some green coloration of gauze suggestive of pseudomonas colonization, some dusky fat and early sings of areas of skin necrosis developing that may become
full thickness, laterally the wound edges have dusky patches but deeper tissues appear healthier
--- NOTE | 2024-05-05 15:40 | TRANSFER ---
Report called to [facility] on [facility]. Questions answered. Patient transferred via bariatric bed accompanied by RN x2 and correctional officers x 2. Belongings sent, no valuables noted. Patient awake and alert, in good spirits. C/o some LLE pain on
arrival to unit. MACKENZIE Lazo aware.
--- NOTE | 2024-05-05 16:00 | PTCARENOTE ---
Received patient as transfer from IMU into room 2124. Patient AAOx3, VSS, [facility] guards at bedside. LLE dressing clean dry and intact, B/L legs elevated with pillows. Condom catheter draining clemente colored urine. Patient
on bariatric bed. Call cole placed within reach, patient states no concerns at this time.
[2024-05-05] MEDS: LOVENOX 40 MG SC (17:07)
[2024-05-06 03:24] VITALS: BP 114/87
[2024-05-06] MEDS: ANCEF 10 IV ×4 (03:51→21:41)
[2024-05-06 06:00] VITALS: BMI 45.9
[2024-05-06 06:27] LABS: ALT (SGPT) 49 U/L (0-50); AST (SGOT) 122 U/L (17-59); Albumin 2.8 g/dl (3.5-5.0); Alkaline Phosphatase 126 U/L (38-126); Blood Urea Nitrogen 37 mg/dl (9-20); Calcium 8.3 mg/dl (8.4-10.2); Carbon Dioxide 35 mmol/L (22-30); Chloride 96 mmol/L (98-107); Estimated Creatinine Clearance > 125 ml/min; Glucose 118 mg/dl (70-99); Potassium 5.3 mmol/L (3.5-5.1); Sodium 137 mmol/L (135-145); Total Bilirubin 0.9 mg/dl (0.2-1.3); Total Protein 6.3 g/dl (6.3-8.2); eGFR > 60.00
[2024-05-06 06:43] LABS: Hematocrit 27.9 % (39.0-52.0); Hemoglobin 9.1 g/dL (13.0-18.0); Mean Corp Hgb Conc. 32.6 g/dL (33.0-37.0); Mean Corpuscular Hgb 27.7 pg (27.0-31.0); Mean Corpuscular Volume 85.1 fL (80.0-94.0); Mean Platelet Volume 10.2 fL (7.4-10.4); Platelet Count 421 10^3/uL (130-400); Red Blood Cell Count 3.28 10^6/uL (4.70-6.10); Red Cell Dist. Width 14.7 % (11.5-14.5); White Blood Cell Count 25.7 10^3/uL (4.8-10.8)
[2024-05-06 07:20] VITALS: BP 103/61
[2024-05-06 07:33] LABS: % Basophils 0.5 % (0-2); % Eosinophils 1.2 % (0-6); % Immature Granulocytes 4.5 % (0-0.5); % Monocytes 5.5 % (1.7-9.3); % Neutrophils 80.3 % (42.2-75.2); Absolute Basophils 0.1 10^3/uL (0-0.2); Absolute Eosinophils 0.3 10^3/uL (0-0.7); Absolute Immature Granulocytes 1.2 10^3/uL (0-0.05); Absolute Lymphocytes 2.1 10^3/uL (1.2-3.4); Absolute Monocytes 1.4 10^3/uL (0.1-0.6); Absolute Neutrophils 20.6 10^3/uL (1.4-6.5); Nucleated Red Blood Cells % 0 % (-)
[2024-05-06] MEDS: ASPIR LOW (ENTERIC COATED) 81 MG PO (08:16)
[2024-05-06] MEDS: SUBUTEX 2 MG SL (08:16)
[2024-05-06] MEDS: DESENEX/MITRAZOL/ZEASORB 1 APPLIC TOPICAL ×2 (08:21→21:41)
[2024-05-06] MEDS: DAKIN'S SOLUTION 0.125% 1/4 STRENGTH 473 ML TOPICAL ×2 (08:21→21:41)
[2024-05-06] MEDS: DILAUDID 1 MG IV ×4 (08:23→22:55)
--- NOTE | 2024-05-06 09:53 | W.PN.CARDCBS ---
Addendum entered and electronically signed by Trenton Conner MD 05/06/24 12:39:
53-year-old man with syncope in the setting of septic shock/strep pyogenes bacteremia with vent dependent respiratory failure from cellulitis and compartment syndrome requiring fasciotomy and debridement. Peak troponin 12.2
PMH: Hypertension, morbid obesity, history of opioid abuse, lymphedema
Allergies, meds, reviewed
Current meds: Subutex, aspirin 81 mg a day, cefazolin, Lovenox
103/61, pulse 95, respirate 16, afebrile, saturation is 92%, weight is 180 kg, no distress, head neck exam normal, lungs clear, distant, limited exam regular rate and rhythm, distant heart tones, no obvious murmurs JVD okay, edema, wounds
bilaterally, left leg wrapped, neuro nonfocal, abdomen very obese
Hemoglobin 9.1, white count 25.7, platelets 421, potassium 5.3, BUN and creatinine 37 and 1.0, AST 122
Telemetry: No abnormality
Assessment:
Presented w/witnessed syncope
Severe sepsis secondary to LE cellulitis s/p OR 04/30 debridement
Bacteremia and wound with strep pyogenes s/p debridement 05/04/2024
Septic shock with hypotension requiring pressor support
s/p VDRF
MARÍA ELENA, unclear baseline
Non-ischemic myocardial injury
Elevated LFTs
Anemia
Hyponatremia
HTN
Obesity
History of opioid abuse
Chronic back pain on buprenorphine
Chronic LE edema/lymphedema
Former smoker
ECHO 04/28/24: TDS, EF 55%, mild cLVH, enlarged dilated RV, mildly hypokinetic, no significant valvular disease
Plan:
Overall he seems stable from a cardiac standpoint
Suspect that elevated troponin is not ACS related despite the fact that troponin was 12.2 Even if ACS, given his weight, he is an extremely poor candidate for intervention and best strategy is probably optimization of GDMT. Continue aspirin, if
hemoglobin stabilizes and improves I would add clopidogrel. We can begin low-dose beta-alex. LFTs still elevated but can add statin. LDL is 110. Avoid JAYSHREE inhibitor given potassium of 5.3.
Okay to stop telemetry
We will arrange for cardiac follow-up.
Original Note:
Today's Communication / Plan
-
Continue to follow BP and resume OP medications as able
Continue aspirin 81mg daily
Follow up arranged.
Impression / Plan
-
Primary Saw Grinder: none prior to admission, initially seen by Dr. Bahena
Assessment:
Presented w/witnessed syncope
Severe sepsis secondary to LE cellulitis s/p OR 04/30 debridement
Bacteremia and wound with strep pyogenes s/p debridement 05/04/2024
Septic shock with hypotension requiring pressor support
s/p VDRF
MARÍA ELENA, unclear baseline
Non-ischemic myocardial injury
Elevated LFTs
Anemia
Hyponatremia
HTN
Obesity
History of opioid abuse
Chronic back pain on buprenorphine
Chronic LE edema/lymphedema
Former smoker
ECHO 04/28/24: TDS, EF 55%, mild cLVH, enlarged dilated RV, mildly hypokinetic, no significant valvular disease
Plan:
-Presented after syncopal episode in the setting of septic shock w/ LE cellulitis. s/p debridement in OR 04/30 and 05/04.
-Initially hypotensive requiring pressors. Once weaned from pressors was maintained on midodrine. Midodrine now discontinued. BPs stable.
-Continue to follow BP. As OP was maintained on lasix and lisinopril, both remain on hold.
-Elevated troponin noted earlier in admission, managing as nonischemic myocardial injury. Continue aspirin 81mg daily. No chest pain.
-Echo this admission w/ preserved EF and no significant valvular disease as noved above.
-Remains in SR on review of telemetry. HR slightly elevated, likely related to anemia, pain, and recent surgery. Continue to follow
-Statin on hold due to elevated LFTs. Resume as able. LDL 110.
-Continue abx per ID.
-Cardiology follow up arranged
HPI: Patient is a 53 yo incarcerated male at [facility] with PMH of opioid abuse, chronic back pain, HTN, obesity, former smoker who presented to [facility] on 04/27/24 after syncopal episode. While at [facility] he apparently had syncope while sitting in
chair which was witnessed by nursing staff. He had been feeling poorly by report several days prior to that with fever, malaise, bodyaches. He also reported several days of acute on chronic LE edema for which he was given several days of lasix and
motrin along with his OP lisinopril. He was hypotensive and tachycardic in ER. He is being treated for septic shock secondary to LE cellulitis. There is concern for necrotizing fasciitis vs group A strep per ID. Patient underwent I&D of LLE as was
more somnolent with worsening erythema to thigh and with increasing pressor requirements. He is currently intubated and sedated on multiple pressors. EKG was completed overnight due to concern for ST elevations on telemetry. Trop trending up, most
recent 7. Cardiology consulted for evaluation.
Progress Note - Saw Grinder
Subjective
Date of Service: May 06, 2024
No cardiac complaints. Denies chest pain or SOB.
Objective
Labs:
05/06/24 05:56
05/06/24 05:56
Labs
Hgb 9.1 g/dL (13.0-18.0) L 05/06/24 05:56
Hct 27.9 % (39.0-52.0) L 05/06/24 05:56
Plt Count 421 10^3/uL (130-400) H 05/06/24 05:56
PT 15.7 Sec (11.4-14.6) H 04/28/24 04:07
INR 1.27 04/28/24 04:07
APTT Cancelled 05/01/24 20:03
Sodium 137 mmol/L (135-145) 05/06/24 05:56
Potassium 5.3 mmol/L (3.5-5.1) H 05/06/24 05:56
BUN 37 mg/dl (9-20) H 05/06/24 05:56
Creatinine 1.0 mg/dL (0.7-1.3) 05/06/24 05:56
Glucose 118 mg/dl (70-99) H 05/06/24 05:56
Vital Signs and I&O:
Vital Signs
Temp Pulse Resp BP Pulse Ox
98.2 F 95 16 103/61 92
05/06/24 07:20 05/06/24 07:20 05/06/24 07:20 05/06/24 07:20 05/06/24 07:20
Vital Signs
Temp Pulse Resp BP Pulse Ox
98.2 F 95 16 103/61 92
05/06/24 07:20 05/06/24 07:20 05/06/24 07:20 05/06/24 07:20 05/06/24 07:20
Intake & Output
05/04/24 05/05/24 05/06/24 05/07/24
06:59 06:59 06:59 06:59
Intake Total 2321.1 / 2321.1 2220 / 2220 3760 / 3760
Output Total 1950 / 1950 2100 / 2100 2670 / 2670
Balance 371.1 / 371.1 120 / 120 1090 / 1090
Physical Exam
Physical Exam
GEN: No distress, awake, alert, oriented x3
HEENT: supple, anicteric, mmm
LUNGS: CTA anterolaterally, no wheezes/rales
CV: Reg, S1/S2, no murmur
EXT: L leg wrapped
NEURO: Gross non-focal
SKIN: Warm, dry
[2024-05-06 11:45] VITALS: BP 100/54
--- NOTE | 2024-05-06 13:00 | PTCARENOTE ---
This RN communicated with cardiology regarding K of 5.3; per cardio, patient okay to come off telemetry, repeat labs ordered for AM.
--- NOTE | 2024-05-06 13:21 | WOUNDNOTE ---
[facility] RN NOTE: Reviewed chart and coordinated care with MACKENZIE Lazo and Dr. Diaz. Patient medicated for pain prior to wound care. Wound beds with 90% slough and intact areas are 50% black and 50% epithelized skin. Moderate to heavy drainage noted.
Wound care provided as ordered. Buttock wounds improved since last assessment and appear to be caused by friction. 5 layer foam added to sacrum for protection. Patient remains on bariatric air bed. Heels off-loaded with pillows under calves.
Confirmed wound orders with Dr. Diaz increased wound care to BID due to drainage. Hydrophor to epithelized skin on skin distal to knee. Will continue to follow as needed.
--- NOTE | 2024-05-06 13:26 | W.PN.GS2 ---
Today's Communication / Plan
-
local wound care
Assessment / Plan
-
53M with severe GAS soft tissue infection of LLE
Hemodynamically improved and out of ICU
Wound continues to progress, will likely require further debridement in the near future
WBC trending down, AFVSS
Due to extensive epidermolysis, not a good candidate for wound vac
Due to ongoing progression of the wound, not a candidate for delayed primary closure at this time
Abx per ID
Wound care with dakins wet to dry, xenoform to skin, sinan for compression
Subjective Data
-
Date of Service: May 06, 2024
Patient seen and examined at bedside with Dr. Diaz
Objective Data
-
Intake and Output
05/05/24 05/06/24 05/07/24
06:59 06:59 06:59
Intake Total 2220 / 2220 3760 / 3760
Output Total 2100 / 2100 2670 / 2670
Balance 120 / 120 1090 / 1090
Intake:
Oral fluids 2220 / 2220 2760 / 2760
IV piggybacks 1000 / 1000
Output:
Urine, Ortiz 1450 / 1450
Urine, Voided 2100 / 2100 1220 / 1220
Other:
How many times incontinent 1
SATURATED amount urine
Vital Signs
Temp Pulse Resp BP Pulse Ox
98.4 F 89 16 100/54 93
05/06/24 11:45 05/06/24 11:45 05/06/24 11:45 05/06/24 11:45 05/06/24 11:45
Lab Results
05/06/24 05:56
05/06/24 05:56
Calcium 8.3 mg/dl (8.4-10.2) L 05/06/24 05:56
Phosphorus 3.2 mg/dl (2.5-4.5) 05/04/24 04:31
Magnesium 2.5 mg/dl (1.6-2.3) H 05/04/24 04:31
Total Bilirubin 0.9 mg/dl (0.2-1.3) 05/06/24 05:56
Direct Bilirubin 0.5 mg/dl (0.0-0.4) H 05/04/24 04:31
AST 122 U/L (17-59) H 05/06/24 05:56
ALT 49 U/L (0-50) 05/06/24 05:56
Alkaline Phosphatase 126 U/L (38-126) 05/06/24 05:56
Total Protein 6.3 g/dl (6.3-8.2) 05/06/24 05:56
Albumin 2.8 g/dl (3.5-5.0) L 05/06/24 05:56
Physical Exam
-
Gen: NAD
LLE: thin dark eschar forming over most of anterior surface of the skin, medial wound with some green coloration of gauze suggestive of pseudomonas colonization, some dusky fat and early sings of areas of skin necrosis developing, laterally the
wound edges have dusky patches but deeper tissues appear healthier
LLE pulses: DP 2+, PT 1+
Good ROM to left ankle and toes, normal sensation to foot
[2024-05-06] MEDS: HYDROPHOR 1 APPLIC TOPICAL (13:57)
--- NOTE | 2024-05-06 14:27 | WOUNDNOTE ---
LEFT LATERAL LEG WOUND
--- NOTE | 2024-05-06 14:27 | WOUNDNOTE ---
RIGHT MEDIAL LEG WOUND
[2024-05-06 15:20] VITALS: BP 120/65
--- NOTE | 2024-05-06 16:06 | W.PN.HOSP.TC ---
Today's Communication/Plan
-
Continue IV antibiotics monitoring temperature curve and white count.
Daily wound care.
Assessment / Plan
Assessment / Plan
Impression:
Severe sepsis due to left lower extremity cellulitis
Septic shock with hypotension requiring vasopressors
Bacteremia with Streptococcus pyogenous
Syncope prior to presentation.
Acute hypoxic respiratory failure in the settings of hypotension.
VDRF in the settings of severe sepsis and hemodynamic instability.
� Intubated 04/28
Acute renal failure
Lactic acidosis.
Abnormal liver function test
Demand ischemia non-Q wave FL
Stage II decubital ulcer present on admission
Other conditions:
Essential hypertension
Obesity with BMI of 48.
Opiate use disorder on Suboxone.
Plan:
Left lower extremity cellulitis with severe sepsis and septic shock
Severe left lower extremity cellulitis with initial concern for necrotizing fasciitis
Blood culture with Streptococcus pyogenes
CT of the left lower extremity with severe cellulitis
Status post incision and debridement of left lower extremity soft tissue infection with no evidence of necrotizing fasciitis
Lower extremity Doppler negative for DVT.
Antibiotics regimen adjusted to cefazolin. Completed 3 days of clindamycin
Repeat blood culture negative to date
Status post additional excisional debridement of the left lower extremity wound on 05/04
Daily wound care
Septic shock with hypotension not expanding to IV fluids
BP overall improving per
Weaned off norepinephrine.
Wean off midodrine
Acute hypoxic respiratory failure
VDRF
� Intubated on 04/29 with procedure; extubated 04/30
Follow-up chest x-ray with left lower lobe pleural effusion and congestion
Weaned off sedation
Non-Q wave FL secondary to demand ischemia.
Troponin peaked at 12 and trending down
Echocardiogram
Very technically difficult study suboptimal 2D echo doppler study
Normal left ventricular chamber size. Normal left ventricular systolic
function. Left ventricular ejection fraction is 55%. Normal regional wall
motion. Mild concentric left ventricular hypertrophy.
Enlarged dilated right ventricular size. Right ventricle appears mildly
hypokinetic.
No significant valvular disease within the limitations of this study
No prior echo for comparison.
Initially on IV heparin.
Transition to aspirin
Initiated on GDMT including:, Crestor.
Ischemic evaluation eventually
MARÍA ELENA baseline metabolic acidosis/lactic acidosis
Likely prerenal in the settings of sepsis, septic shock with prerenal stimuli.
Less likely glomerular process given bland UA
Hold Lasix, NSAIDs, lisinopril.
Continue vasopressors to avoid hypotension
Bladder scan for retention
Follow BMP
Consider nephrology evaluation if uptrending creatinine
Avoid nephrotoxins
Abnormal LFT
Resolving bilirubin and transaminases.
Ultrasound:Hepatosplenomegaly with hepatic steatosis.
Gallstones and sludge are present. The gallbladder is mildly distended however there is are additional findings suggestive of cholecystitis.
The common bile duct is borderline dilated measuring 6.7 mm.
Overall low clinical suspicion for acute cholecystitis
LFT has been trending down
Regular diet
Obesity with BMI of 48
Check hemoglobin A1c 5.8
Essential hypertension
Hold preadmission antihypertensive regimen including lisinopril and Lasix baseline
Opiate use disorder
On Suboxone prior to presentation
Full code
DVT prophylaxis subcu heparin
Anticipated Discharge: > 48 hours
Subjective/Interval History
-
Date of Service: May 06, 2024
Objective Data
-
Labs:
Laboratory Results
05/06/24
05:56
WBC 25.7 H
Hgb 9.1 L
Hct 27.9 L
Plt Count 421 H
Sodium 137
Potassium 5.3 H
Chloride 96 L
Carbon Dioxide 35 H
BUN 37 H
Creatinine 1.0
Glucose 118 H
Calcium 8.3 L
Total Bilirubin 0.9
AST 122 H
ALT 49
Alkaline Phosphatase 126
Vital Signs:
Vital Signs
Temp Pulse Resp BP Pulse Ox
98.4 F 89 16 100/54 93
05/06/24 11:45 05/06/24 11:45 05/06/24 11:45 05/06/24 11:45 05/06/24 11:45
I&O
05/05/24 05/06/24 05/07/24
06:59 06:59 06:59
Intake Total 2220 / 2220 3760 / 3760
Output Total 2100 / 2100 2670 / 2670
Balance 120 / 120 1090 / 1090
Physical Exam
-
General: Well Developed and No Apparent Distress
HEENT: Normocephalic, Atraumatic and Moist Mucous Membranes
Respiratory: Clear to Auscultation
Cardiac: Regular Rhythm and S1/S2; Negative Murmur, Rub or Gallop
GI: Soft, Nontender, Nondistended and Normal Bowel Sounds; Negative Organomegaly
Rectal: Deferred by Provider
Musculoskeletal: No Clubbing, No Cyanosis and No Edema
Skin: Negative Rash
Neuro: Nonfocal/Grossly Intact
[2024-05-06] MEDS: CRESTOR 20 MG PO (17:32)
[2024-05-06] MEDS: LOVENOX 40 MG SC (17:32)
[2024-05-06 19:21] VITALS: BP 129/77
[2024-05-06] MEDS: COREG 3.125 MG PO (21:42)
[2024-05-06 23:12] VITALS: BP 107/55
[2024-05-07 03:19] VITALS: BP 123/63
[2024-05-07] MEDS: ANCEF 10 IV ×4 (04:22→23:51)
[2024-05-07 05:18] LABS: Blood Urea Nitrogen 36 mg/dl (9-20); Calcium 8.2 mg/dl (8.4-10.2); Carbon Dioxide 31 mmol/L (22-30); Chloride 97 mmol/L (98-107); Estimated Creatinine Clearance > 125 ml/min; Glucose 134 mg/dl (70-99); Potassium 5.7 mmol/L (3.5-5.1); Sodium 136 mmol/L (135-145); eGFR > 60.00
[2024-05-07 06:00] VITALS: BMI 45.0
[2024-05-07] MEDS: DILAUDID 1 MG IV ×3 (06:04→23:49)
[2024-05-07 07:20] VITALS: BP 128/58
[2024-05-07] MEDS: COREG 3.125 MG PO ×2 (09:17→12:34)
[2024-05-07] MEDS: ASPIR LOW (ENTERIC COATED) 81 MG PO (09:17)
[2024-05-07] MEDS: SUBUTEX 2 MG SL (09:17)
[2024-05-07] MEDS: SILVADENE 1 APPLIC TOPICAL (09:18)
[2024-05-07] MEDS: DESENEX/MITRAZOL/ZEASORB 1 APPLIC TOPICAL (09:25)
[2024-05-07] MEDS: HYDROPHOR 1 APPLIC TOPICAL (09:25)
[2024-05-07] MEDS: DAKIN'S SOLUTION 0.125% 1/4 STRENGTH 473 ML TOPICAL (09:25)
--- NOTE | 2024-05-07 10:09 | W.PN.GS2 ---
Addendum entered and electronically signed by Duane Moreira MD 05/07/24 10:52:
I saw and examined the patient.
The Physiotherapist'S Assistant's note was reviewed and I agree with the note.
Comment: Cont local wound care. Waiting for skin to demarcate. Silvadene added. I advised him this morning that it is possible he will ultimately require amputation of his leg. Will follow peripherally for now.
Original Note:
Today's Communication / Plan
-
Local wound care
Assessment / Plan
-
53M with severe GAS soft tissue infection of LLE
AFVSS
No labs today, but previously with WBC trending down
Wound continues to progress, will eventually require further debridement and eventual skin grafting vs BKA. Will need eventual plastics involvement for grafting: not ready yet.
WBC trending down, AFVSS
Due to extensive epidermolysis, not a good candidate for wound vac. Will place Silvadene over these areas
Due to ongoing progression of the wound, not a candidate for delayed primary closure at this time
Abx per ID
Wound care with dakins wet to dry, silvadene/xenoform to skin, sinan for compression and dressing chnages BID
Analgesics as needed
Subjective Data
-
Date of Service: May 07, 2024
Patient seen and examined at bedside with Dr. Moreira. pain to site with dressing changes. denies fevers, chills
Objective Data
-
Intake and Output
05/06/24 05/07/24 05/08/24
06:59 06:59 06:59
Intake Total 3760 / 3760 2820 / 2820
Output Total 2670 / 2670 3150 / 3150
Balance 1090 / 1090 -330 / -330
Intake:
Oral fluids 2760 / 2760 2820 / 2820
IV piggybacks 1000 / 1000
Output:
Urine, Voided 2670 / 2670 3150 / 3150
Vital Signs
Temp Pulse Resp BP Pulse Ox
98.5 F 76 17 128/58 99
05/07/24 07:20 05/07/24 07:20 05/07/24 07:20 05/07/24 07:20 05/07/24 07:20
Lab Results
05/07/24 04:39
Calcium 8.2 mg/dl (8.4-10.2) L 05/07/24 04:39
Phosphorus 3.2 mg/dl (2.5-4.5) 05/04/24 04:31
Magnesium 2.5 mg/dl (1.6-2.3) H 05/04/24 04:31
Total Bilirubin 0.9 mg/dl (0.2-1.3) 05/06/24 05:56
Direct Bilirubin 0.5 mg/dl (0.0-0.4) H 05/04/24 04:31
AST 122 U/L (17-59) H 05/06/24 05:56
ALT 49 U/L (0-50) 05/06/24 05:56
Alkaline Phosphatase 126 U/L (38-126) 05/06/24 05:56
Total Protein 6.3 g/dl (6.3-8.2) 05/06/24 05:56
Albumin 2.8 g/dl (3.5-5.0) L 05/06/24 05:56
Physical Exam
-
Gen: NAD
LLE: Dressing intact
[2024-05-07 10:23] LABS: % Basophils 0.4 % (0-2); % Eosinophils 0.7 % (0-6); % Immature Granulocytes 1.8 % (0-0.5); % Lymphocytes 9.2 % (20.5-51.1); % Monocytes 6.5 % (1.7-9.3); % Neutrophils 81.4 % (42.2-75.2); Absolute Basophils 0.1 10^3/uL (0-0.2); Absolute Eosinophils 0.1 10^3/uL (0-0.7); Absolute Immature Granulocytes 0.3 10^3/uL (0-0.05); Absolute Lymphocytes 1.8 10^3/uL (1.2-3.4); Absolute Monocytes 1.3 10^3/uL (0.1-0.6); Absolute Neutrophils 15.7 10^3/uL (1.4-6.5); Hematocrit 26.3 % (39.0-52.0); Hemoglobin 8.6 g/dL (13.0-18.0); Mean Corp Hgb Conc. 32.7 g/dL (33.0-37.0); Mean Corpuscular Volume 82.7 fL (80.0-94.0); Mean Platelet Volume 9.5 fL (7.4-10.4); Nucleated Red Blood Cells % 0 % (-); Platelet Count 428 10^3/uL (130-400); Red Blood Cell Count 3.18 10^6/uL (4.70-6.10); Red Cell Dist. Width 14.6 % (11.5-14.5); White Blood Cell Count 19.3 10^3/uL (4.8-10.8)
[2024-05-07 10:24] LABS: Creatine Phosphokinase 32 U/L (55-170)
[2024-05-07] MEDS: LOKELMA 10 GRAM PO ×2 (10:25→23:50)
[2024-05-07] MEDS: NSS 1000 IV (10:26)
--- NOTE | 2024-05-07 10:30 | CM ---
No change in discharge plan at this time. Patient remains with guards in place. Patient with local wound care and IV antibiotics at this time. CM will continue to follow for discharge planning needs.
Plan; return to [facility] when medically appropriate:
call [phone] for fax to [facility]
--- NOTE | 2024-05-07 11:33 | W.PN.CARDCBS ---
Today's Communication / Plan
-
Increase carvedilol
Impression / Plan
-
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 Bahena
Assessment:
Presented w/witnessed syncope
Severe sepsis secondary to LE cellulitis s/p OR 04/30 debridement
Bacteremia and wound with strep pyogenes s/p debridement 05/04/2024
Septic shock with hypotension requiring pressor support
s/p VDRF
MARÍA ELENA, unclear baseline
Non-ischemic myocardial injury
Elevated LFTs
Anemia
Hyponatremia
HTN
Obesity
History of opioid abuse
Chronic back pain on buprenorphine
Chronic LE edema/lymphedema
Former smoker
ECHO 04/28/24: TDS, EF 55%, mild cLVH, enlarged dilated RV, mildly hypokinetic, no significant valvular disease
Plan:
Stable cardiac status.
Potassium is 5.7, defer to hospitalist.
Blood pressure and pulse are better, will increase carvedilol.
Continue aspirin and rosuvastatin. Given dropping hemoglobin, 8.6 will not add Plavix.
HPI: Patient is a 53 yo incarcerated male at [facility] with PMH of opioid abuse, chronic back pain, HTN, obesity, former smoker who presented to [facility] on 04/27/24 after syncopal episode. While at [facility] he apparently had syncope while sitting in
chair which was witnessed by nursing staff. He had been feeling poorly by report several days prior to that with fever, malaise, bodyaches. He also reported several days of acute on chronic LE edema for which he was given several days of lasix and
motrin along with his OP lisinopril. He was hypotensive and tachycardic in ER. He is being treated for septic shock secondary to LE cellulitis. There is concern for necrotizing fasciitis vs group A strep per ID. Patient underwent I&D of LLE as was
more somnolent with worsening erythema to thigh and with increasing pressor requirements. He is currently intubated and sedated on multiple pressors. EKG was completed overnight due to concern for ST elevations on telemetry. Trop trending up, most
recent 7. Cardiology consulted for evaluation.
Progress Note - Slat Basket Top Maker
Subjective
Date of Service: May 07, 2024:
53-year-old man with syncope in the setting of septic shock/strep pyogenes bacteremia with vent dependent respiratory failure from cellulitis and compartment syndrome requiring fasciotomy and debridement.
Peak troponin 12.2
PMH: Hypertension, morbid obesity, history of opioid abuse, lymphedema
Allergies, meds, reviewed
Current meds: Subutex, aspirin 81 mg a day, cefazolin, Lovenox, statin time day, greater than 95 antibodies
No chest pain, dyspnea, left leg discomfort dressings changed.
Weight is 176.6 kg, 128/58, pulse 80s, head neck exam unremarkable, lungs difficult exam but clear, soft systolic murmur, JVD okay lymphedema, dressings, wound in the lower extremities
Hemoglobin 8.6 was 9.1. Potassium is 5.7.
Objective
Labs:
05/07/24 10:12
05/07/24 04:39
Labs
Hgb 8.6 g/dL (13.0-18.0) L 05/07/24 10:12
Hct 26.3 % (39.0-52.0) L 05/07/24 10:12
Plt Count 428 10^3/uL (130-400) H 05/07/24 10:12
PT 15.7 Sec (11.4-14.6) H 04/28/24 04:07
INR 1.27 04/28/24 04:07
APTT Cancelled 05/01/24 20:03
Sodium 136 mmol/L (135-145) 05/07/24 04:39
Potassium 5.7 mmol/L (3.5-5.1) H 05/07/24 04:39
BUN 36 mg/dl (9-20) H 05/07/24 04:39
Creatinine 0.9 mg/dL (0.7-1.3) 05/07/24 04:39
Glucose 134 mg/dl (70-99) H 05/07/24 04:39
Vital Signs and I&O:
Vital Signs
Temp Pulse Resp BP Pulse Ox
36.9 C 76 17 128/58 99
05/07/24 07:20 05/07/24 07:20 05/07/24 07:20 05/07/24 07:20 05/07/24 07:20
Vital Signs
Temp Pulse Resp BP Pulse Ox
36.9 C 76 17 128/58 99
05/07/24 07:20 05/07/24 07:20 05/07/24 07:20 05/07/24 07:20 05/07/24 07:20
Intake & Output
05/05/24 05/06/24 05/07/24 05/08/24
07:59 07:59 07:59 07:59
Intake Total 2220 / 3220 3760 / 3760 2820 / 2820
Output Total 2100 / 2145 2670 / 2670 3150 / 3150
Balance 120 / 1075 1090 / 1090 -330 / -330
Physical Exam
Physical Exam
See above
[2024-05-07 14:59] LABS: Blood Urea Nitrogen 35 mg/dl (9-20); Calcium 8.4 mg/dl (8.4-10.2); Carbon Dioxide 33 mmol/L (22-30); Chloride 97 mmol/L (98-107); Estimated Creatinine Clearance > 125 ml/min; Glucose 103 mg/dl (70-99); Potassium 5.3 mmol/L (3.5-5.1); Sodium 135 mmol/L (135-145); eGFR > 60.00
[2024-05-07 15:40] VITALS: BP 119/55
--- NOTE | 2024-05-07 15:41 | W.PN.ID1 ---
Date of Service
Date of Service: May 07, 2024
Today's Communication
- Continue cefazolin dosed for elevated BMI - day
Assessment / Plan
Septic Shock
-Remains on midodrine
Group A Strep Cellulitis
Invasive group A strep infection with bacteremia
Leukocytosis
- mildly improved today
Chronic Lymphedema
Reported allergy to penicillin- rash
- tolerating cefazolin
Class III obesity
Recommendations:
- Continue cefazolin dosed for elevated BMI - day ; given BMI and extent of infection, would plan to have patient finish the course on IV antibiotics,
- Trend white count
- awaiting demarcation of the skin - follow clinically
����������������������������������������������������������
Chief Complaint
-: Cellulitis and Other (Group a strep bacteremia)
Subjective / Review of Systems
afebrile
bp stable
no complaints
Vital Signs / Physical Exam
Vital Signs
Vital Signs
Temp Pulse Resp BP Pulse Ox
98.5 F 76 17 128/58 99
05/07/24 07:20 05/07/24 07:20 05/07/24 07:20 05/07/24 07:20 05/07/24 07:20
Physical Exam
Constitutional: No Acute Distress
Cardiovascular: Regular Rate and S1/S2; Negative Murmur or Rub
Pulmonary: Clear and Symmetric; Negative Wheezes or Rales
Gastrointestinal: Soft, Non Tender, Non Distended and Normal Bowel Sounds
Skin: Warm and Dry; Negative Rash or Jaundice
Wound: Other (deferred dressing take down)
Objective Data
Lab Data
Lab Results
05/07/24 10:12
05/07/24 14:32
PT 15.7 Sec (11.4-14.6) H 04/28/24 04:07
INR 1.27 04/28/24 04:07
APTT Cancelled 05/01/24 20:03
Estimated Creat Clear > 125 ml/min 05/07/24 14:32
Lactic Acid 1.4 mmol/L (0.7-2.0) 04/30/24 04:09
Total Bilirubin 0.9 mg/dl (0.2-1.3) 05/06/24 05:56
GGT 29 U/L (15-73) 04/30/24 04:09
AST 122 U/L (17-59) H 05/06/24 05:56
ALT 49 U/L (0-50) 05/06/24 05:56
Alkaline Phosphatase 126 U/L (38-126) 05/06/24 05:56
C-Reactive Protein > 270.00 mg/L (0.0-10.00) H 04/28/24 04:12
Most recent labs reviewed.
Micro Results:
04/27/24 13:37 Blood Culture - Final
Blood/Venous Streptococcus pyogenes
Gram Stain - Final
04/27/24 13:37 Blood Culture - Final
Blood/Venous Streptococcus pyogenes
Gram Stain - Final
04/28/24 17:20 Wound Culture - Final
Leg - Left Streptococcus pyogenes
Gram Stain - Final
04/28/24 17:20 Anaerobic Culture - Final
Leg - Left NO ANAEROBES ISOLATED
04/28/24 14:17 Blood Culture - Final
Blood/Venous No Growth - Final Report
04/28/24 14:17 Blood Culture - Final
Blood/Venous No Growth - Final Report
04/27/24 18:46 MRSA Screen - Final
Nose Staph aureus MRSA
--- NOTE | 2024-05-07 16:00 | W.PN.HOSP.TC ---
Today's Communication/Plan
-
Hyperkalemia
Normal creatinine
Normal CK.
ECG with no related changes.
IV hydration
Lokelma
Serial BMP
Continue IV antibiotics and wound care
Assessment / Plan
Assessment / Plan
Impression:
Severe sepsis due to left lower extremity cellulitis
Septic shock with hypotension requiring vasopressors
Bacteremia with Streptococcus pyogenous
Syncope prior to presentation.
Acute hypoxic respiratory failure in the settings of hypotension.
VDRF in the settings of severe sepsis and hemodynamic instability.
� Intubated 04/28
Acute renal failure
Lactic acidosis.
Abnormal liver function test
Demand ischemia non-Q wave [place]
Stage II decubital ulcer present on admission
Hyperkalemia
Other conditions:
Essential hypertension
Obesity with BMI of 48.
Opiate use disorder on Suboxone.
Plan:
Left lower extremity cellulitis with severe sepsis and septic shock
Severe left lower extremity cellulitis with initial concern for necrotizing fasciitis
Blood culture with Streptococcus pyogenes
CT of the left lower extremity with severe cellulitis
Status post incision and debridement of left lower extremity soft tissue infection with no evidence of necrotizing fasciitis
Lower extremity Doppler negative for DVT.
Antibiotics regimen adjusted to cefazolin. Completed 3 days of clindamycin
Repeat blood culture negative to date
Status post additional excisional debridement of the left lower extremity wound on 05/04
Daily wound care
Septic shock with hypotension not expanding to IV fluids
BP overall improving per
Weaned off norepinephrine.
Weaned off midodrine
Acute hypoxic respiratory failure
VDRF
� Intubated on 04/29 with procedure; extubated 04/30
Follow-up chest x-ray with left lower lobe pleural effusion and congestion
Weaned off sedation
Hyperkalemia
Normal creatinine
Normal CK.
ECG with no related changes.
IV hydration
Lokelma
Serial BMP
Non-Q wave [place] secondary to demand ischemia.
Troponin peaked at 12 and trending down
Echocardiogram
Very technically difficult study suboptimal 2D echo doppler study
Normal left ventricular chamber size. Normal left ventricular systolic
function. Left ventricular ejection fraction is 55%. Normal regional wall
motion. Mild concentric left ventricular hypertrophy.
Enlarged dilated right ventricular size. Right ventricle appears mildly
hypokinetic.
No significant valvular disease within the limitations of this study
No prior echo for comparison.
Initially on IV heparin.
Transition to aspirin
Initiated on GDMT including:, Crestor.
Ischemic evaluation eventually
MARÍA ELENA baseline metabolic acidosis/lactic acidosis
Likely prerenal in the settings of sepsis, septic shock with prerenal stimuli.
Less likely glomerular process given bland UA
Hold Lasix, NSAIDs, lisinopril.
Continue vasopressors to avoid hypotension
Bladder scan for retention
Follow BMP
Consider nephrology evaluation if uptrending creatinine
Avoid nephrotoxins
Abnormal LFT
Resolving bilirubin and transaminases.
Ultrasound:Hepatosplenomegaly with hepatic steatosis.
Gallstones and sludge are present. The gallbladder is mildly distended however there is are additional findings suggestive of cholecystitis.
The common bile duct is borderline dilated measuring 6.7 mm.
Overall low clinical suspicion for acute cholecystitis
LFT has been trending down
Regular diet
Obesity with BMI of 48
Check hemoglobin A1c 5.8
Essential hypertension
Hold preadmission antihypertensive regimen including lisinopril and Lasix baseline
Opiate use disorder
On Suboxone prior to presentation
Full code
DVT prophylaxis subcu heparin
Anticipated Discharge: > 48 hours
Subjective/Interval History
-
Date of Service: May 07, 2024
Objective Data
-
Labs:
Laboratory Results
05/07/24 05/07/24 05/07/24
04:39 10:12 14:32
WBC 19.3 H
Hgb 8.6 L
Hct 26.3 L
Plt Count 428 H
Sodium 136 135
Potassium 5.7 H 5.3 H
Chloride 97 L 97 L
Carbon Dioxide 31 H 33 H
BUN 36 H 35 H
Creatinine 0.9 0.9
Glucose 134 H 103 H
Calcium 8.2 L 8.4
Vital Signs:
Vital Signs
Temp Pulse Resp BP Pulse Ox
98.1 F 80 20 119/55 94
05/07/24 15:40 05/07/24 15:40 05/07/24 15:40 05/07/24 15:40 05/07/24 15:40
I&O
05/06/24 05/07/24 05/08/24
06:59 06:59 06:59
Intake Total 3760 / 3760 2820 / 2820
Output Total 2670 / 2670 3150 / 3150
Balance 1090 / 1090 -330 / -330
Physical Exam
-
General: Well Developed and No Apparent Distress
HEENT: Normocephalic, Atraumatic and Moist Mucous Membranes
Respiratory: Clear to Auscultation
Cardiac: Regular Rhythm and S1/S2; Negative Murmur, Rub or Gallop
GI: Soft, Nontender, Nondistended and Normal Bowel Sounds; Negative Organomegaly
Rectal: Deferred by Provider
Musculoskeletal: No Clubbing, No Cyanosis and No Edema
Skin: Negative Rash
Neuro: Nonfocal/Grossly Intact
[2024-05-07 17:09] VITALS: BP 118/61; PULSE 80; O2SAT 92
[2024-05-07] MEDS: CRESTOR 20 MG PO (17:41)
[2024-05-07] MEDS: LOVENOX 40 MG SC (17:41)
--- NOTE | 2024-05-07 18:42 | PTCARENOTE ---
forensics patient was removed from having guards in the room with him as he has been Jase'd per court orders. pt no longer needs gaurds in the room but will need to be brought back to correctional facility once patient is d/c. phone number to call
is [phone]. please call when patient is ready to be d/c.
[2024-05-07] MEDS: COREG 6.25 MG PO (21:15)
[2024-05-07 23:20] VITALS: BP 119/65
[2024-05-08] MEDS: DAKIN'S SOLUTION 0.125% 1/4 STRENGTH 473 ML TOPICAL ×2 (00:02→09:27)
[2024-05-08] MEDS: SILVADENE 1 APPLIC TOPICAL ×2 (00:02→09:28)
[2024-05-08] MEDS: DESENEX/MITRAZOL/ZEASORB 1 APPLIC TOPICAL ×2 (00:02→09:27)
[2024-05-08] MEDS: DILAUDID 1 MG IV ×4 (03:49→22:48)
[2024-05-08] MEDS: ANCEF 10 IV ×4 (05:27→22:48)
[2024-05-08 06:00] VITALS: BMI 45.1
[2024-05-08 06:01] LABS: % Basophils 0.5 % (0-2); % Eosinophils 0.9 % (0-6); % Immature Granulocytes 1.5 % (0-0.5); % Lymphocytes 12.7 % (20.5-51.1); % Monocytes 8.6 % (1.7-9.3); % Neutrophils 75.8 % (42.2-75.2); Absolute Basophils 0.1 10^3/uL (0-0.2); Absolute Eosinophils 0.1 10^3/uL (0-0.7); Absolute Immature Granulocytes 0.2 10^3/uL (0-0.05); Absolute Lymphocytes 1.9 10^3/uL (1.2-3.4); Absolute Monocytes 1.3 10^3/uL (0.1-0.6); Absolute Neutrophils 11.3 10^3/uL (1.4-6.5); Hemoglobin 7.8 g/dL (13.0-18.0); Mean Corp Hgb Conc. 31.2 g/dL (33.0-37.0); Mean Corpuscular Hgb 25.9 pg (27.0-31.0); Mean Corpuscular Volume 83.1 fL (80.0-94.0); Mean Platelet Volume 10.1 fL (7.4-10.4); Nucleated Red Blood Cells % 0 % (-); Platelet Count 455 10^3/uL (130-400); Red Blood Cell Count 3.01 10^6/uL (4.70-6.10); Red Cell Dist. Width 14.5 % (11.5-14.5); White Blood Cell Count 14.9 10^3/uL (4.8-10.8)
[2024-05-08 06:02] LABS: Blood Urea Nitrogen 34 mg/dl (9-20); Calcium 8.4 mg/dl (8.4-10.2); Carbon Dioxide 31 mmol/L (22-30); Chloride 98 mmol/L (98-107); Estimated Creatinine Clearance > 125 ml/min; Glucose 109 mg/dl (70-99); Potassium 5.4 mmol/L (3.5-5.1); Sodium 135 mmol/L (135-145); eGFR > 60.00
--- NOTE | 2024-05-08 07:48 | W.PN.HOSP.TC ---
Addendum entered and electronically signed by Soumya Weeks MD 05/08/24 08:27:
urinary retention (PVR 372 post incontinence) - may explain hyper K?
bladder scan protocol
straight cath now and obtain UA
Addendum entered and electronically signed by Soumya Weeks MD 05/08/24 08:01:
drop in Hg likely dilution - repeat at noon
Original Note:
Today's Communication/Plan
-
wound care
IV Cefazolin
continue Lokelma and start low K diet for today
continue Coreg
continue to hold lisinopril and lasix (weight down)
appreciate consultants
Assessment / Plan
Assessment / Plan
Impression:
Severe sepsis due to left lower extremity cellulitis
Septic shock with hypotension requiring vasopressors
Bacteremia with Streptococcus pyogenous
Syncope prior to presentation.
Acute hypoxic respiratory failure in the settings of hypotension.
VDRF in the settings of severe sepsis and hemodynamic instability.
� Intubated 04/28
Acute renal failure
Lactic acidosis.
Abnormal liver function test
Demand ischemia non-Q wave [place]
Stage II decubital ulcer present on admission
Hyperkalemia
Other conditions:
Essential hypertension
Obesity with BMI of 48.
Opiate use disorder on Suboxone.
Plan:
Left lower extremity cellulitis with severe sepsis and septic shock
Severe left lower extremity cellulitis with initial concern for necrotizing fasciitis
Blood culture with Streptococcus pyogenes
-apprecite ID and GS consults
CT of the left lower extremity with severe cellulitis
Status post incision and debridement of left lower extremity soft tissue infection with no evidence of necrotizing fasciitis
Lower extremity Doppler negative for DVT.
Antibiotics regimen adjusted to cefazolin. Completed 3 days of clindamycin. Continue IV Cefazolin dosed for elevated BMI. Day 12 out of 14
Repeat blood culture negative to date
Status post additional excisional debridement of the left lower extremity wound on 05/04
Daily wound care
Septic shock with hypotension not expanding to IV fluids
BP overall improving per
Weaned off norepinephrine.
Weaned off midodrine
Acute hypoxic respiratory failure
VDRF
� Intubated on 04/29 with procedure; extubated 04/30
Follow-up chest x-ray with left lower lobe pleural effusion and congestion
Weaned off sedation
Hyperkalemia
Normal creatinine
Normal CK.
ECG with no related changes.
s/p IV hydration
Lokelma - continue
Serial BMP
Non-Q wave [place] secondary to demand ischemia.
Troponin peaked at 12 and trending down
Echocardiogram
Very technically difficult study suboptimal 2D echo doppler study
Normal left ventricular chamber size. Normal left ventricular systolic
function. Left ventricular ejection fraction is 55%. Normal regional wall
motion. Mild concentric left ventricular hypertrophy.
Enlarged dilated right ventricular size. Right ventricle appears mildly
hypokinetic.
No significant valvular disease within the limitations of this study
No prior echo for comparison.
Initially on IV heparin.
Transition to aspirin
Initiated on GDMT including:, Crestor.
Ischemic evaluation eventually
MARÍA ELENA baseline metabolic acidosis/lactic acidosis - resolved
Likely prerenal in the settings of sepsis, septic shock with prerenal stimuli.
Less likely glomerular process given bland UA
Hold Lasix, NSAIDs, lisinopril.
Bladder scan for retention
Follow BMP
Consider nephrology evaluation if uptrending creatinine
Avoid nephrotoxins
Abnormal LFT
Resolving bilirubin and transaminases.
Ultrasound:Hepatosplenomegaly with hepatic steatosis.
Gallstones and sludge are present. The gallbladder is mildly distended however there is are additional findings suggestive of cholecystitis.
The common bile duct is borderline dilated measuring 6.7 mm.
Overall low clinical suspicion for acute cholecystitis
LFT has been trending down
Regular diet
Obesity with BMI of 48
Check hemoglobin A1c 5.8
Essential hypertension
Hold preadmission antihypertensive regimen including lisinopril and Lasix baseline
Opiate use disorder
On Suboxone prior to presentation
Full code
DVT prophylaxis subcu heparin
Anticipated Discharge: > 48 hours
Subjective/Interval History
-
Date of Service: May 08, 2024
no new complaints
Objective Data
-
Labs:
Laboratory Results
05/08/24 05/08/24
05:25 05:26
WBC 14.9 H
Hgb 7.8 L
Hct 25.0 L
Plt Count 455 H
Sodium 135
Potassium 5.4 H
Chloride 98
Carbon Dioxide 31 H
BUN 34 H
Creatinine 0.9
Glucose 109 H
Calcium 8.4
Vital Signs:
Vital Signs
Temp Pulse Resp BP Pulse Ox
98.4 F 91 18 119/65 96
05/07/24 23:20 05/07/24 23:20 05/07/24 23:20 05/07/24 23:20 05/08/24 01:06
I&O
05/07/24 05/08/24 05/09/24
06:59 06:59 05:59
Intake Total 2820 / 2820 720 / 720
Output Total 3150 / 3150 2500 / 2500
Balance -330 / -330 -1780 / -1780
Review of Systems
-
History Source: Patient
All other systems: Reviewed and negative
Physical Exam
-
General: No Apparent Distress and Morbidly Obese
HEENT: Normocephalic, Atraumatic and Moist Mucous Membranes
Respiratory: Clear to Auscultation
Cardiac: Regular Rhythm and S1/S2; Negative Murmur, Rub or Gallop
GI: Soft, Nontender, Nondistended and Normal Bowel Sounds; Negative Organomegaly
Rectal: Deferred by Provider
Musculoskeletal: No Clubbing, No Cyanosis and Other (left leg wrapped)
Skin: Negative Rash
Neuro: AO x 3 and Nonfocal/Grossly Intact
Psych: Calm
Data Reviewed
-
Diagnostic Radiology: Report Reviewed by me
Labs: Labs Reviewed by me
[2024-05-08 08:00] VITALS: BP 120/61
[2024-05-08 08:44] LABS: Iron < 20 ug/dl (49-181); Total Iron Binding Capacity 224 ug/dl (261-462)
[2024-05-08] MEDS: COREG 6.25 MG PO ×2 (09:26→22:49)
[2024-05-08] MEDS: SUBUTEX 2 MG SL (09:26)
[2024-05-08] MEDS: ASPIR LOW (ENTERIC COATED) 81 MG PO (09:26)
[2024-05-08] MEDS: HYDROPHOR 1 APPLIC TOPICAL (09:28)
[2024-05-08 09:31] LABS: Urine Albumin Trace (Neg - Trace); Urine Bilirubin Negative (Negative); Urine Character Clear (Clear); Urine Color Yellow; Urine Glucose 1+ (Negative); Urine Ketone Negative (Negative); Urine Leukocyte Negative (Negative); Urine Nitrite Negative (Negative); Urine Occult Blood Negative (Negative); Urine Urobilinogen Negative (Neg - 1+)
[2024-05-08] MEDS: FLUSH (NSS) 2 FLUSH IV ×3 (10:24→17:08)
[2024-05-08] MEDS: LOKELMA 10 GRAM PO (11:49)
[2024-05-08 15:40] VITALS: BP 131/73
[2024-05-08] MEDS: CRESTOR 20 MG PO (17:07)
[2024-05-08] MEDS: LOVENOX 40 MG SC (17:07)
[2024-05-08] MEDS: SENOKOT-S 1 TABLET PO (22:48)
[2024-05-08 23:23] VITALS: BP 120/74
[2024-05-09] MEDS: DAKIN'S SOLUTION 0.125% 1/4 STRENGTH 473 ML TOPICAL ×3 (00:19→20:46)
[2024-05-09] MEDS: SILVADENE 1 APPLIC TOPICAL ×3 (00:20→20:46)
[2024-05-09] MEDS: LOKELMA 10 GRAM PO ×2 (00:20→11:38)
[2024-05-09] MEDS: DESENEX/MITRAZOL/ZEASORB 1 APPLIC TOPICAL ×3 (00:20→20:46)
[2024-05-09] MEDS: DILAUDID 1 MG IV ×5 (02:06→23:17)
[2024-05-09] MEDS: ANCEF 10 IV ×4 (04:37→22:18)
[2024-05-09 05:23] LABS: Hematocrit 24.7 % (39.0-52.0); Hemoglobin 7.9 g/dL (13.0-18.0); Mean Corpuscular Hgb 26.7 pg (27.0-31.0); Mean Corpuscular Volume 83.4 fL (80.0-94.0); Mean Platelet Volume 10.4 fL (7.4-10.4); Platelet Count 448 10^3/uL (130-400); Red Blood Cell Count 2.96 10^6/uL (4.70-6.10); Red Cell Dist. Width 14.2 % (11.5-14.5); White Blood Cell Count 13.5 10^3/uL (4.8-10.8)
[2024-05-09 05:48] LABS: Blood Urea Nitrogen 31 mg/dl (9-20); Calcium 8.5 mg/dl (8.4-10.2); Carbon Dioxide 30 mmol/L (22-30); Chloride 97 mmol/L (98-107); Estimated Creatinine Clearance > 125 ml/min; Glucose 99 mg/dl (70-99); Magnesium 1.7 mg/dl (1.6-2.3); Sodium 136 mmol/L (135-145); eGFR > 60.00
[2024-05-09 05:54] VITALS: BMI 42.1
[2024-05-09 06:00] VITALS: BMI 42.1
[2024-05-09 07:00] VITALS: BP 120/56
--- NOTE | 2024-05-09 08:16 | W.PN.HOSP.TC ---
Today's Communication/Plan
-
see plan
Assessment / Plan
Assessment / Plan
Impression:
Severe sepsis due to left lower extremity cellulitis
Septic shock with hypotension requiring vasopressors
Bacteremia with Streptococcus pyogenous
Syncope prior to presentation.
Acute hypoxic respiratory failure in the settings of hypotension.
VDRF in the settings of severe sepsis and hemodynamic instability.
� Intubated 04/28
Acute renal failure
Lactic acidosis.
Abnormal liver function test
Demand ischemia non-Q wave [place]
Stage II decubital ulcer present on admission
Hyperkalemia
Other conditions:
Essential hypertension
Obesity with BMI of 48.
Opiate use disorder on Suboxone.
Plan:
Left lower extremity cellulitis with severe sepsis and septic shock
Severe left lower extremity cellulitis with initial concern for necrotizing fasciitis
Blood culture with Streptococcus pyogenes
CT of the left lower extremity with severe cellulitis
Appreciate ID and GS consults
Status post incision and debridement of left lower extremity soft tissue infection with no evidence of necrotizing fasciitis
Lower extremity Doppler negative for DVT.
Antibiotics regimen adjusted to cefazolin. Completed 3 days of clindamycin. Continue IV Cefazolin dosed for elevated BMI. Day 13 out of 14
Repeat blood culture negative to date
Status post additional excisional debridement of the left lower extremity wound on 05/04
Daily wound care; not a good candidate for wound vac or delayed primary closure at this time. Per surgery: 'will eventually require further debridement and eventual skin grafting vs BKA. Will need eventual plastics involvement for grafting: not
ready yet.'
Septic shock with hypotension not expanding to IV fluids
BP overall improving per
Weaned off norepinephrine.
Weaned off midodrine
Urinary retention
-PVR 372 morning of 05/08; UA without infection
-straight cath protocol in place
Acute hypoxic respiratory failure
VDRF
� Intubated on 04/29 with procedure; extubated 04/30
Follow-up chest x-ray with left lower lobe pleural effusion and congestion
Weaned off sedation
Hyperkalemia
Normal creatinine
Normal CK.
ECG with no related changes.
s/p IV hydration
s/p Lokelma with improvement in K this morning
Non-Q wave [place] secondary to demand ischemia.
Troponin peaked at 12 and trending down
Echocardiogram
Very technically difficult study suboptimal 2D echo doppler study
Normal left ventricular chamber size. Normal left ventricular systolic
function. Left ventricular ejection fraction is 55%. Normal regional wall
motion. Mild concentric left ventricular hypertrophy.
Enlarged dilated right ventricular size. Right ventricle appears mildly
hypokinetic.
No significant valvular disease within the limitations of this study
No prior echo for comparison.
Initially on IV heparin.
Transition to aspirin
Initiated on GDMT including:, Crestor.
Ischemic evaluation eventually
MARÍA ELENA baseline metabolic acidosis/lactic acidosis - resolved
Likely prerenal in the settings of sepsis, septic shock with prerenal stimuli.
Less likely glomerular process given bland UA
Hold Lasix, NSAIDs, lisinopril.
Bladder scan for retention
Follow BMP
Consider nephrology evaluation if uptrending creatinine
Avoid nephrotoxins
-weight down despite holding lasix
Abnormal LFT
Resolving bilirubin and transaminases.
Ultrasound:Hepatosplenomegaly with hepatic steatosis.
Gallstones and sludge are present. The gallbladder is mildly distended however there is are additional findings suggestive of cholecystitis.
The common bile duct is borderline dilated measuring 6.7 mm.
Overall low clinical suspicion for acute cholecystitis
LFT has been trending down
Regular diet
Obesity with BMI of 48
Check hemoglobin A1c 5.8
Essential hypertension
Hold preadmission antihypertensive regimen including lisinopril and Lasix baseline
Opiate use disorder
On Suboxone prior to presentation
Full code
DVT prophylaxis subcu heparin
Anticipated Discharge: > 48 hours
Subjective/Interval History
-
Date of Service: May 09, 2024
no new complaints
no chest pain or shortness of breath
Objective Data
-
Labs:
Laboratory Results
05/09/24
04:45
WBC 13.5 H
Hgb 7.9 L
Hct 24.7 L
Plt Count 448 H
Sodium 136
Potassium 5.0
Chloride 97 L
Carbon Dioxide 30
BUN 31 H
Creatinine 0.8
Glucose 99
Calcium 8.5
Vital Signs:
Vital Signs
Temp Pulse Resp BP Pulse Ox
98.1 F 71 14 120/56 97
05/09/24 07:00 05/09/24 07:00 05/09/24 07:00 05/09/24 07:00 05/09/24 07:00
I&O
05/08/24 05/09/24 05/10/24
07:59 06:59 06:59
Intake Total
Output Total
Balance
Review of Systems
-
History Source: Patient
All other systems: Reviewed and negative
Physical Exam
-
General: No Apparent Distress and Morbidly Obese
HEENT: Normocephalic, Atraumatic and Moist Mucous Membranes
Respiratory: Clear to Auscultation
Cardiac: Regular Rhythm and S1/S2; Negative Murmur, Rub or Gallop
GI: Soft, Nontender, Nondistended and Normal Bowel Sounds; Negative Organomegaly
Rectal: Deferred by Provider
Musculoskeletal: No Clubbing, No Cyanosis and Other (left leg wrapped)
Skin: Negative Rash
Neuro: AO x 3 and Nonfocal/Grossly Intact
Psych: Calm
Data Reviewed
-
Diagnostic Radiology: Report Reviewed by me
Labs: Labs Reviewed by me
[2024-05-09] MEDS: ASPIR LOW (ENTERIC COATED) 81 MG PO (09:45)
[2024-05-09] MEDS: COREG 6.25 MG PO (09:45)
[2024-05-09] MEDS: SUBUTEX 2 MG SL (09:46)
[2024-05-09] MEDS: HYDROPHOR 1 APPLIC TOPICAL (09:49)
[2024-05-09 14:43] VITALS: BP 109/50
[2024-05-09 15:00] VITALS: BP 131/66
[2024-05-09] MEDS: CRESTOR 20 MG PO (17:54)
[2024-05-09] MEDS: LOVENOX 40 MG SC (17:55)
[2024-05-09] MEDS: COREG 12.5 MG PO (20:40)
[2024-05-09 22:15] VITALS: BP 99/49
[2024-05-10] MEDS: ANCEF 10 IV ×4 (03:37→21:46)
[2024-05-10] MEDS: DILAUDID 1 MG IV ×5 (03:37→22:31)
[2024-05-10 05:24] VITALS: BMI 43.6
[2024-05-10 06:06] LABS: % Basophils 0.9 % (0-2); % Eosinophils 1.3 % (0-6); % Immature Granulocytes 1.6 % (0-0.5); % Lymphocytes 16.8 % (20.5-51.1); % Monocytes 10.7 % (1.7-9.3); % Neutrophils 68.7 % (42.2-75.2); Absolute Basophils 0.1 10^3/uL (0-0.2); Absolute Eosinophils 0.2 10^3/uL (0-0.7); Absolute Immature Granulocytes 0.2 10^3/uL (0-0.05); Absolute Lymphocytes 1.9 10^3/uL (1.2-3.4); Absolute Monocytes 1.2 10^3/uL (0.1-0.6); Hematocrit 24.8 % (39.0-52.0); Hemoglobin 7.9 g/dL (13.0-18.0); Mean Corp Hgb Conc. 31.9 g/dL (33.0-37.0); Mean Corpuscular Hgb 27.5 pg (27.0-31.0); Mean Corpuscular Volume 86.4 fL (80.0-94.0); Mean Platelet Volume 10.3 fL (7.4-10.4); Nucleated Red Blood Cells % 0 % (-); Platelet Count 450 10^3/uL (130-400); Red Blood Cell Count 2.87 10^6/uL (4.70-6.10); White Blood Cell Count 11.6 10^3/uL (4.8-10.8)
[2024-05-10 06:07] LABS: Blood Urea Nitrogen 29 mg/dl (9-20); Calcium 8.8 mg/dl (8.4-10.2); Carbon Dioxide 33 mmol/L (22-30); Chloride 97 mmol/L (98-107); Estimated Creatinine Clearance > 125 ml/min; Glucose 102 mg/dl (70-99); Potassium 4.9 mmol/L (3.5-5.1); Sodium 135 mmol/L (135-145); eGFR > 60.00
[2024-05-10 07:25] VITALS: BP 116/50
[2024-05-10] MEDS: COREG 12.5 MG PO ×2 (07:38→20:08)
[2024-05-10] MEDS: SUBUTEX 2 MG SL (07:38)
[2024-05-10] MEDS: ASPIR LOW (ENTERIC COATED) 81 MG PO (07:38)
[2024-05-10] MEDS: DESENEX/MITRAZOL/ZEASORB 1 APPLIC TOPICAL ×2 (07:44→20:08)
[2024-05-10] MEDS: HYDROPHOR 1 APPLIC TOPICAL (07:44)
[2024-05-10] MEDS: DAKIN'S SOLUTION 0.125% 1/4 STRENGTH 473 ML TOPICAL ×2 (07:44→20:09)
[2024-05-10] MEDS: SILVADENE 1 APPLIC TOPICAL ×2 (07:45→20:09)
[2024-05-10 09:18] VITALS: BP 117/56; PULSE 78; O2SAT 97
[2024-05-10] MEDS: MIRALAX 17 GRAMS PO (09:26)
--- NOTE | 2024-05-10 11:46 | W.PN.ID1 ---
Date of Service
Date of Service: May 10, 2024
Today's Communication
- Continue cefazolin dosed for elevated BMI - day 14 of 14
- I have asked to be notified during dressing change tomorrow to re-evaluate the wound
wound care per surgery
Assessment / Plan
Septic Shock
-Remains on midodrine
Group A Strep Cellulitis
Invasive group A strep infection with bacteremia
Leukocytosis
- mildly improved today
Chronic Lymphedema
Reported allergy to penicillin- rash
- tolerating cefazolin
Class III obesity
Recommendations:
- Continue cefazolin dosed for elevated BMI - day 14 14
- I have asked to be notified during dressing change tomorrow to re-evaluate the wound
- wbc clearly improving, l shift resolved
- wound care per surgery
����������������������������������������������������������
Chief Complaint
-: Cellulitis and Other (Group a strep bacteremia)
Subjective / Review of Systems
afebrile
bp stable
no complaints, no overnight events
Vital Signs / Physical Exam
Vital Signs
Vital Signs
Temp Pulse Resp BP Pulse Ox
98.2 F 85 16 116/50 98
05/10/24 07:25 05/10/24 07:38 05/10/24 07:25 05/10/24 07:38 05/10/24 07:25
Physical Exam
Constitutional: No Acute Distress
Cardiovascular: Regular Rate and S1/S2; Negative Murmur or Rub
Pulmonary: Clear and Symmetric; Negative Wheezes or Rales
Gastrointestinal: Soft, Non Tender, Non Distended and Normal Bowel Sounds
Skin: Warm and Dry; Negative Rash or Jaundice
Wound: Other (dressing clean, dry, intact)
Objective Data
Lab Data
Lab Results
05/10/24 05:10
05/10/24 05:10
PT 15.7 Sec (11.4-14.6) H 04/28/24 04:07
INR 1.27 04/28/24 04:07
APTT Cancelled 05/01/24 20:03
Estimated Creat Clear > 125 ml/min 05/10/24 05:10
Lactic Acid 1.4 mmol/L (0.7-2.0) 04/30/24 04:09
Total Bilirubin 0.9 mg/dl (0.2-1.3) 05/06/24 05:56
GGT 29 U/L (15-73) 04/30/24 04:09
AST 122 U/L (17-59) H 05/06/24 05:56
ALT 49 U/L (0-50) 05/06/24 05:56
Alkaline Phosphatase 126 U/L (38-126) 05/06/24 05:56
C-Reactive Protein > 270.00 mg/L (0.0-10.00) H 04/28/24 04:12
Most recent labs reviewed.
Micro Results:
04/27/24 13:37 Blood Culture - Final
Blood/Venous Streptococcus pyogenes
Gram Stain - Final
04/27/24 13:37 Blood Culture - Final
Blood/Venous Streptococcus pyogenes
Gram Stain - Final
04/28/24 17:20 Wound Culture - Final
Leg - Left Streptococcus pyogenes
Gram Stain - Final
04/28/24 17:20 Anaerobic Culture - Final
Leg - Left NO ANAEROBES ISOLATED
04/28/24 14:17 Blood Culture - Final
Blood/Venous No Growth - Final Report
04/28/24 14:17 Blood Culture - Final
Blood/Venous No Growth - Final Report
04/27/24 18:46 MRSA Screen - Final
Nose Staph aureus MRSA
--- NOTE | 2024-05-10 14:03 | W.PN.UPDATE ---
Update Note
Progress Note Update
Patient's VS reviewed. No longer on tele. Last from 05/07/24 reviewed by me showed SR. Recorded HRs less than 100 for the last 48 hours. BP 116/50. Cont Coreg 12.5 mg BID which is new this admission. Outpatient dose of lisinopril was stopped due to
MARÍA ELENA on admission and hyperkalemia. Troponin peaked at 12 this admission and suspect that elevated troponin is not ACS related. Even if ACS, given his weight, he is an extremely poor candidate for intervention and best strategy is probably
optimization of GDMT so continue Coreg, aspirin 81 mg daily and Crestor 20 mg daily. Hgb remains low and would not start DAPT at this time. Will arrange for outpatient cardiology follow up.
--- NOTE | 2024-05-10 14:51 | W.PN.GS2 ---
Today's Communication / Plan
-
Continue local wound care
Assessment / Plan
-
53M with severe GAS soft tissue infection of LLE with Group A Strep Cellulitis; Invasive group A strep infection with bacteremia
AFVSS
WBC trending down
Wound continues to progress, will eventually require further debridement and eventual skin grafting vs BKA
AFVSS
Due to extensive epidermolysis, not a good candidate for wound vac. Continue with Silvadene over these areas
Due to ongoing progression of the wound, not a candidate for delayed primary closure at this time
Abx per ID
Wound care with dakins wet to dry, silvadene/xenoform to skin, sinan for compression and dressing changes BID
Analgesics as needed
Subjective Data
-
Date of Service: May 10, 2024
Patient seen and examined at bedside. Denies pain unless wound is being dressed.
Objective Data
-
Intake and Output
05/09/24 05/10/24 05/11/24
06:59 06:59 06:59
Intake Total 1440 / 1440
Output Total 1375 / 1375
Balance 65 / 65
Intake:
Oral fluids 1440 / 1440
Output:
Urine, Voided 1375 / 1375
Straight cath output
Other:
How many times incontinent 1
SATURATED amount urine
Vital Signs
Temp Pulse Resp BP Pulse Ox
98.2 F 85 16 116/50 98
05/10/24 07:25 05/10/24 07:38 05/10/24 07:25 05/10/24 07:38 05/10/24 07:25
Lab Results
05/10/24 05:10
05/10/24 05:10
Calcium 8.8 mg/dl (8.4-10.2) 05/10/24 05:10
Phosphorus 3.2 mg/dl (2.5-4.5) 05/04/24 04:31
Magnesium 1.7 mg/dl (1.6-2.3) 05/09/24 04:45
Total Bilirubin 0.9 mg/dl (0.2-1.3) 05/06/24 05:56
Direct Bilirubin 0.5 mg/dl (0.0-0.4) H 05/04/24 04:31
AST 122 U/L (17-59) H 05/06/24 05:56
ALT 49 U/L (0-50) 05/06/24 05:56
Alkaline Phosphatase 126 U/L (38-126) 05/06/24 05:56
Total Protein 6.3 g/dl (6.3-8.2) 05/06/24 05:56
Albumin 2.8 g/dl (3.5-5.0) L 05/06/24 05:56
Physical Exam
-
Gen: NAD
LLE: thin dark eschar forming over most of anterior surface of the skin, large areas of skin necrosis developing, laterally the wound edges have patches of slough but deeper tissues appear healthier
LLE pulses: DP 2+, PT 1+
Good ROM to left ankle and toes, normal sensation to foot
[2024-05-10 15:16] VITALS: BP 112/56
--- NOTE | 2024-05-10 15:34 | W.PN.HOSP.TC ---
Today's Communication/Plan
-
IV antibiotics per ID
Continue wound care.
Assessment / Plan
Assessment / Plan
Impression:
Severe sepsis due to left lower extremity cellulitis
Septic shock with hypotension requiring vasopressors
Bacteremia with Streptococcus pyogenous
Syncope prior to presentation.
Acute hypoxic respiratory failure in the settings of hypotension.
VDRF in the settings of severe sepsis and hemodynamic instability.
� Intubated 04/28
Acute renal failure
Lactic acidosis.
Abnormal liver function test
Demand ischemia non-Q wave NM
Stage II decubital ulcer present on admission
Hyperkalemia
Other conditions:
Essential hypertension
Obesity with BMI of 48.
Opiate use disorder on Suboxone.
Plan:
Left lower extremity cellulitis with severe sepsis and septic shock
Severe left lower extremity cellulitis with initial concern for necrotizing fasciitis
Blood culture with Streptococcus pyogenes
CT of the left lower extremity with severe cellulitis
Appreciate ID and GS consults
Status post incision and debridement of left lower extremity soft tissue infection with no evidence of necrotizing fasciitis
Lower extremity Doppler negative for DVT.
Antibiotics regimen adjusted to cefazolin. Completed 3 days of clindamycin. Continue IV Cefazolin dosed for elevated BMI. Day 13 out of 14
Repeat blood culture negative to date
Status post additional excisional debridement of the left lower extremity wound on 05/04
Daily wound care; not a good candidate for wound vac or delayed primary closure at this time. Per surgery: 'will eventually require further debridement and eventual skin grafting vs BKA. Will need eventual plastics involvement for grafting: not
ready yet.'
Septic shock with hypotension not expanding to IV fluids
BP overall improving per
Weaned off norepinephrine.
Weaned off midodrine
Urinary retention
-PVR 372 morning of 05/08; UA without infection
-straight cath protocol in place
Acute hypoxic respiratory failure
VDRF
� Intubated on 04/29 with procedure; extubated 04/30
Follow-up chest x-ray with left lower lobe pleural effusion and congestion
Weaned off sedation
Hyperkalemia
Normal creatinine
Normal CK.
ECG with no related changes.
s/p IV hydration
s/p Lokelma with improvement in K this morning
Non-Q wave NM secondary to demand ischemia.
Troponin peaked at 12 and trending down
Echocardiogram
Very technically difficult study suboptimal 2D echo doppler study
Normal left ventricular chamber size. Normal left ventricular systolic
function. Left ventricular ejection fraction is 55%. Normal regional wall
motion. Mild concentric left ventricular hypertrophy.
Enlarged dilated right ventricular size. Right ventricle appears mildly
hypokinetic.
No significant valvular disease within the limitations of this study
No prior echo for comparison.
Initially on IV heparin.
Transition to aspirin
Initiated on GDMT including:, Crestor.
Ischemic evaluation eventually
MARÍA ELENA baseline metabolic acidosis/lactic acidosis - resolved
Likely prerenal in the settings of sepsis, septic shock with prerenal stimuli.
Less likely glomerular process given bland UA
Hold Lasix, NSAIDs, lisinopril.
Bladder scan for retention
Follow BMP
Consider nephrology evaluation if uptrending creatinine
Avoid nephrotoxins
-weight down despite holding lasix
Abnormal LFT
Resolving bilirubin and transaminases.
Ultrasound:Hepatosplenomegaly with hepatic steatosis.
Gallstones and sludge are present. The gallbladder is mildly distended however there is are additional findings suggestive of cholecystitis.
The common bile duct is borderline dilated measuring 6.7 mm.
Overall low clinical suspicion for acute cholecystitis
LFT has been trending down
Regular diet
Obesity with BMI of 48
Check hemoglobin A1c 5.8
Essential hypertension
Hold preadmission antihypertensive regimen including lisinopril and Lasix baseline
Opiate use disorder
On Suboxone prior to presentation
Full code
DVT prophylaxis subcu heparin
Anticipated Discharge: 24 - 48 hours
Subjective/Interval History
-
Date of Service: May 10, 2024
Objective Data
-
Labs:
Laboratory Results
05/10/24
05:10
WBC 11.6 H
Hgb 7.9 L
Hct 24.8 L
Plt Count 450 H
Sodium 135
Potassium 4.9
Chloride 97 L
Carbon Dioxide 33 H
BUN 29 H
Creatinine 0.8
Glucose 102 H
Calcium 8.8
Vital Signs:
Vital Signs
Temp Pulse Resp BP Pulse Ox
98.2 F 72 16 112/56 95
05/10/24 15:16 05/10/24 15:16 05/10/24 15:16 05/10/24 15:16 05/10/24 15:16
I&O
05/09/24 05/10/24 05/11/24
06:59 06:59 06:59
Intake Total 1440 / 1440 480 / 480
Output Total 1375 / 1375 575 / 575
Balance 65 / 65 -95 / -95
Physical Exam
-
General: No Apparent Distress and Morbidly Obese
HEENT: Normocephalic, Atraumatic and Moist Mucous Membranes
Respiratory: Clear to Auscultation
Cardiac: Regular Rhythm and S1/S2; Negative Murmur, Rub or Gallop
GI: Soft, Nontender, Nondistended and Normal Bowel Sounds; Negative Organomegaly
Rectal: Deferred by Provider
Musculoskeletal: No Clubbing, No Cyanosis and Other (left leg wrapped)
Skin: Negative Rash
Neuro: AO x 3 and Nonfocal/Grossly Intact
Psych: Calm
--- NOTE | 2024-05-10 15:45 | CM ---
Chart reviewed
Receiving local wound care and IV antibiotics
CM will continue to follow for discharge planning needs
Plan - return to [facility] when medically stable
call [phone] for fax to [facility]
[2024-05-10] MEDS: LOVENOX 40 MG SC (18:19)
[2024-05-10] MEDS: CRESTOR 20 MG PO (18:19)
[2024-05-10] MEDS: SENOKOT-S 1 TABLET PO (18:40)
[2024-05-10 22:36] VITALS: BP 118/55
[2024-05-11] MEDS: ANCEF 10 IV (03:18)
[2024-05-11] MEDS: DILAUDID 1 MG IV ×4 (03:19→17:38)
[2024-05-11 05:44] VITALS: BMI 43.8
[2024-05-11 06:14] LABS: % Basophils 0.9 % (0-2); % Eosinophils 2.8 % (0-6); % Immature Granulocytes 1.7 % (0-0.5); % Lymphocytes 19.8 % (20.5-51.1); % Neutrophils 60.8 % (42.2-75.2); Absolute Basophils 0.1 10^3/uL (0-0.2); Absolute Eosinophils 0.3 10^3/uL (0-0.7); Absolute Immature Granulocytes 0.2 10^3/uL (0-0.05); Absolute Lymphocytes 1.8 10^3/uL (1.2-3.4); Absolute Monocytes 1.3 10^3/uL (0.1-0.6); Absolute Neutrophils 5.6 10^3/uL (1.4-6.5); Hematocrit 22.3 % (39.0-52.0); Hemoglobin 7.1 g/dL (13.0-18.0); Mean Corp Hgb Conc. 31.8 g/dL (33.0-37.0); Mean Corpuscular Hgb 27.6 pg (27.0-31.0); Mean Corpuscular Volume 86.8 fL (80.0-94.0); Mean Platelet Volume 10.4 fL (7.4-10.4); Nucleated Red Blood Cells % 0 % (-); Platelet Count 416 10^3/uL (130-400); Red Blood Cell Count 2.57 10^6/uL (4.70-6.10); Red Cell Dist. Width 14.1 % (11.5-14.5); White Blood Cell Count 9.2 10^3/uL (4.8-10.8)
[2024-05-11 06:29] LABS: Blood Urea Nitrogen 27 mg/dl (9-20); Calcium 8.8 mg/dl (8.4-10.2); Carbon Dioxide 34 mmol/L (22-30); Chloride 97 mmol/L (98-107); Estimated Creatinine Clearance > 125 ml/min; Glucose 110 mg/dl (70-99); Sodium 136 mmol/L (135-145); eGFR > 60.00
[2024-05-11 07:20] VITALS: BP 100/52
[2024-05-11] MEDS: SILVADENE 1 APPLIC TOPICAL (07:53)
[2024-05-11] MEDS: ASPIR LOW (ENTERIC COATED) 81 MG PO (07:53)
[2024-05-11] MEDS: COREG 12.5 MG PO ×2 (07:53→22:03)
[2024-05-11] MEDS: DESENEX/MITRAZOL/ZEASORB 1 APPLIC TOPICAL (07:53)
[2024-05-11] MEDS: SUBUTEX 2 MG SL (07:53)
[2024-05-11] MEDS: DAKIN'S SOLUTION 0.125% 1/4 STRENGTH 1 ML TOPICAL (07:54)
[2024-05-11] MEDS: HYDROPHOR 1 APPLIC TOPICAL (08:08)
[2024-05-11] MEDS: SENOKOT-S 1 TABLET PO (08:08)
--- NOTE | 2024-05-11 08:48 | W.PN.ID1 ---
Date of Service
Date of Service: May 11, 2024
Today's Communication
- completed an aggressive course of IV cefazolin - stopped
- wounds examined today - with granulation tissue and some bleeding, - no odor, no surrounding erythema, wound clean; superifical skin necrosis has now demarcated
- wound care per surgery
Assessment / Plan
Group A Strep Cellulitis
Invasive group A strep infection with bacteremia
Leukocytosis - resolved
Chronic Lymphedema
Reported allergy to penicillin- rash
- tolerating cefazolin
Class III obesity
Recommendations:
- completed an aggressive course of IV cefazolin - stopped
- wounds examined today - with granulation tissue and some bleeding, - no odor, no surrounding erythema, wound clean; superifical skin necrosis has now demarcated
- wound care per surgery
����������������������������������������������������������
Chief Complaint
-: Cellulitis and Other (Group a strep bacteremia)
Subjective / Review of Systems
afebrile
bp stable
no events overnight
some bleeding from the lateral wound overnight - mild oozing on dressing change today
Vital Signs / Physical Exam
Vital Signs
Vital Signs
Temp Pulse Resp BP Pulse Ox
99.1 F 76 18 118/55 96
05/10/24 22:36 05/10/24 22:36 05/10/24 22:36 05/10/24 22:36 05/10/24 22:36
Physical Exam
Constitutional: No Acute Distress
Cardiovascular: Regular Rate
Pulmonary: Symmetric
Gastrointestinal: Non Distended
Skin: Warm and Dry; Negative Rash or Jaundice
Wound: Other (wounds examined today - with granulation tissue and some bleeding, - no odor, no surrounding erythema, wound clean)
Neurological: Awake
Objective Data
Lab Data
Lab Results
05/11/24 05:43
05/11/24 05:43
PT 15.7 Sec (11.4-14.6) H 04/28/24 04:07
INR 1.27 04/28/24 04:07
APTT Cancelled 05/01/24 20:03
Estimated Creat Clear > 125 ml/min 05/11/24 05:43
Lactic Acid 1.4 mmol/L (0.7-2.0) 04/30/24 04:09
Total Bilirubin 0.9 mg/dl (0.2-1.3) 05/06/24 05:56
GGT 29 U/L (15-73) 04/30/24 04:09
AST 122 U/L (17-59) H 05/06/24 05:56
ALT 49 U/L (0-50) 05/06/24 05:56
Alkaline Phosphatase 126 U/L (38-126) 05/06/24 05:56
C-Reactive Protein > 270.00 mg/L (0.0-10.00) H 04/28/24 04:12
Most recent labs reviewed.
Micro Results:
04/27/24 13:37 Blood Culture - Final
Blood/Venous Streptococcus pyogenes
Gram Stain - Final
04/27/24 13:37 Blood Culture - Final
Blood/Venous Streptococcus pyogenes
Gram Stain - Final
04/28/24 17:20 Wound Culture - Final
Leg - Left Streptococcus pyogenes
Gram Stain - Final
04/28/24 17:20 Anaerobic Culture - Final
Leg - Left NO ANAEROBES ISOLATED
04/28/24 14:17 Blood Culture - Final
Blood/Venous No Growth - Final Report
04/28/24 14:17 Blood Culture - Final
Blood/Venous No Growth - Final Report
04/27/24 18:46 MRSA Screen - Final
Nose Staph aureus MRSA
Care Review
Plan reviewed with: Nurse (wound care)
--- NOTE | 2024-05-11 11:15 | WOUNDNOTE ---
[facility]
--- NOTE | 2024-05-11 11:16 | WOUNDNOTE ---
L MEDIAL LOWER LEG
--- NOTE | 2024-05-11 11:16 | WOUNDNOTE ---
L LATERAL LOWER LEG
--- NOTE | 2024-05-11 11:16 | WOUNDNOTE ---
L LATERAL LOWER LEG
--- NOTE | 2024-05-11 11:20 | WOUNDNOTE ---
WON RN NOTE: Followed today along with nurse Jerome and Dr. Mckinney. L leg with healthy bleeding in surgical openings, has slowed down since yesterday but bid dressing changes still required, reports nurse Jerome. Surface of anterior and posterior leg
eschar appears superficial and becoming more defined. Overall much improved compared to last week, Dr. Pierson in agreement. No odor and skin above and below wound with peeling skin. Applied mineral oil to periwound with some skin flaking off during
application. Nurse Jerome changed dressing and applied Jim wrap with my assistance. Patient able to turn self in bed, buttocks improved, heels intact. Applied mineral oil to dry flaky patches on buttocks and new sacral silicone foam applied. No changes
to L leg wound care, will follow as needed.
[2024-05-11] MEDS: ANCEF IV ×2 (11:28→15:56)
--- NOTE | 2024-05-11 11:48 | CM ---
Reviewed the chart notes. CM continues to be available to patient and is monitoring medical plan for needs at discharge.
Plan: Discharge back to [facility] when medically stable.
Call report to: [phone]
Fax report to: [phone]
[2024-05-11] MEDS: FERRLECIT 110 MG IV (13:28)
[2024-05-11 16:08] VITALS: BP 105/48
--- NOTE | 2024-05-11 16:15 | W.PN.HOSP.TC ---
Today's Communication/Plan
-
Off antibiotics
Continue wound care
No further surgical intervention planned at this point.
Transfuse to keep hemoglobin above 8
IV iron.
Monitor for retention
Monitor creatinine and potassium
Assessment / Plan
Assessment / Plan
Impression:
Severe sepsis due to left lower extremity cellulitis
Septic shock with hypotension requiring vasopressors
Bacteremia with Streptococcus pyogenous
Syncope prior to presentation.
Acute hypoxic respiratory failure in the settings of hypotension.
VDRF in the settings of severe sepsis and hemodynamic instability.
� Intubated 04/28
Acute renal failure
Lactic acidosis.
Abnormal liver function test
Demand ischemia non-Q wave NV
Stage II decubital ulcer present on admission
Hyperkalemia
Other conditions:
Essential hypertension
Obesity with BMI of 48.
Opiate use disorder on Suboxone.
Plan:
Left lower extremity cellulitis with severe sepsis and septic shock
Severe left lower extremity cellulitis with initial concern for necrotizing fasciitis
Blood culture with Streptococcus pyogenes
CT of the left lower extremity with severe cellulitis
Appreciate ID and GS consults
Status post incision and debridement of left lower extremity soft tissue infection with no evidence of necrotizing fasciitis
Lower extremity Doppler negative for DVT.
Antibiotics regimen adjusted to cefazolin. Completed 3 days of clindamycin. Continue IV Cefazolin dosed for elevated BMI. Completed 14-day course of antibiotics on 05/11
Repeat blood culture negative to date
Status post additional excisional debridement of the left lower extremity wound on 05/04
Daily wound care; not a good candidate for wound vac or delayed primary closure at this time. Per surgery: 'will eventually require further debridement and eventual skin grafting vs BKA. Will need eventual plastics involvement for grafting: not
ready yet.'
Septic shock with hypotension not expanding to IV fluids
Resolved
Urinary retention
-PVR 372 morning of 05/08; UA without infection
-straight cath protocol in place
Acute blood loss anemia secondary to large wound.
Hemoglobin trending down to sevens.
Low iron stores.
Start IV iron
Transfuse 1 unit of packed red blood cells to keep hemoglobin above 8.
Acute hypoxic respiratory failure
VDRF
� Intubated on 04/29 with procedure; extubated 04/30
Follow-up chest x-ray with left lower lobe pleural effusion and congestion
Weaned off sedation
Hyperkalemia
Normal creatinine
Normal CK.
ECG with no related changes.
s/p IV hydration
s/p Lokelma with improvement in K this morning
Non-Q wave NV secondary to demand ischemia.
Troponin peaked at 12 and trending down
Echocardiogram
Very technically difficult study suboptimal 2D echo doppler study
Normal left ventricular chamber size. Normal left ventricular systolic
function. Left ventricular ejection fraction is 55%. Normal regional wall
motion. Mild concentric left ventricular hypertrophy.
Enlarged dilated right ventricular size. Right ventricle appears mildly
hypokinetic.
No significant valvular disease within the limitations of this study
No prior echo for comparison.
Initially on IV heparin.
Transition to aspirin
Initiated on GDMT including:, Crestor.
Ischemic evaluation eventually
MARÍA ELENA baseline metabolic acidosis/lactic acidosis - resolved
Likely prerenal in the settings of sepsis, septic shock with prerenal stimuli.
Less likely glomerular process given bland UA
Hold Lasix, NSAIDs, lisinopril.
Bladder scan for retention
Follow BMP
Consider nephrology evaluation if uptrending creatinine
Avoid nephrotoxins
-weight down despite holding lasix
Abnormal LFT
Resolving bilirubin and transaminases.
Ultrasound:Hepatosplenomegaly with hepatic steatosis.
Gallstones and sludge are present. The gallbladder is mildly distended however there is are additional findings suggestive of cholecystitis.
The common bile duct is borderline dilated measuring 6.7 mm.
Overall low clinical suspicion for acute cholecystitis
LFT has been trending down
Regular diet
Obesity with BMI of 48
Check hemoglobin A1c 5.8
Essential hypertension
Hold preadmission antihypertensive regimen including lisinopril and Lasix baseline
Opiate use disorder
On Suboxone prior to presentation
Full code
DVT prophylaxis subcu heparin
Anticipated Discharge: 24 - 48 hours
Subjective/Interval History
-
Date of Service: May 11, 2024
Objective Data
-
Labs:
Laboratory Results
05/11/24
05:43
WBC 9.2
Hgb 7.1 L
Hct 22.3 L
Plt Count 416 H
Sodium 136
Potassium 5.0
Chloride 97 L
Carbon Dioxide 34 H
BUN 27 H
Creatinine 0.8
Glucose 110 H
Calcium 8.8
Vital Signs:
Vital Signs
Temp Pulse Resp BP Pulse Ox
98.5 F 77 16 105/48 95
05/11/24 16:08 05/11/24 16:08 05/11/24 16:08 05/11/24 16:08 05/11/24 16:08
I&O
05/10/24 05/11/24 05/12/24
06:59 06:59 06:59
Intake Total 1440 / 1440 1200 / 1200
Output Total 1375 / 1375 1475 / 1475
Balance 65 / 65 -275 / -275
Physical Exam
-
General: No Apparent Distress and Morbidly Obese
HEENT: Normocephalic, Atraumatic and Moist Mucous Membranes
Respiratory: Clear to Auscultation
Cardiac: Regular Rhythm and S1/S2; Negative Murmur, Rub or Gallop
GI: Soft, Nontender, Nondistended and Normal Bowel Sounds; Negative Organomegaly
Rectal: Deferred by Provider
Musculoskeletal: No Clubbing, No Cyanosis and Other (left leg wrapped)
Skin: Negative Rash
Neuro: AO x 3 and Nonfocal/Grossly Intact
Psych: Calm
[2024-05-11] MEDS: LOVENOX 40 MG SC (17:02)
[2024-05-11] MEDS: CRESTOR 20 MG PO (17:02)
[2024-05-11] MEDS: DULCOLAX 10 MG RECTAL (17:03)
[2024-05-11] MEDS: DAKIN'S SOLUTION 0.125% 1/4 STRENGTH TOPICAL (21:25)
[2024-05-11] MEDS: DESENEX/MITRAZOL/ZEASORB TOPICAL (21:25)
[2024-05-11] MEDS: SILVADENE TOPICAL (21:25)
[2024-05-11 21:33] VITALS: BP 92/52
[2024-05-11 21:59] VITALS: BP 111/58
[2024-05-12] VITALS (7 sets, daily range): BP systolic 99–130; BP diastolic 49–61; PULSE 62; O2SAT 100; BMI 43.8
[2024-05-12] MEDS: DILAUDID 1 MG IV ×5 (00:39→21:10)
--- NOTE | 2024-05-12 01:00 | PTCARENOTE ---
1 unit PRBCs finished infusing without complications.
[2024-05-12 05:13] LABS: % Eosinophils 2.3 % (0-6); % Immature Granulocytes 2.4 % (0-0.5); % Lymphocytes 24.2 % (20.5-51.1); % Neutrophils 56.1 % (42.2-75.2); Absolute Basophils 0.1 10^3/uL (0-0.2); Absolute Eosinophils 0.2 10^3/uL (0-0.7); Absolute Immature Granulocytes 0.2 10^3/uL (0-0.05); Absolute Lymphocytes 2.1 10^3/uL (1.2-3.4); Absolute Monocytes 1.2 10^3/uL (0.1-0.6); Absolute Neutrophils 4.8 10^3/uL (1.4-6.5); Hematocrit 23.6 % (39.0-52.0); Hemoglobin 7.5 g/dL (13.0-18.0); Mean Corp Hgb Conc. 31.8 g/dL (33.0-37.0); Mean Corpuscular Hgb 27.3 pg (27.0-31.0); Mean Corpuscular Volume 85.8 fL (80.0-94.0); Nucleated Red Blood Cells % 0 % (-); Platelet Count 416 10^3/uL (130-400); Red Blood Cell Count 2.75 10^6/uL (4.70-6.10); White Blood Cell Count 8.6 10^3/uL (4.8-10.8)
[2024-05-12 05:35] LABS: Blood Urea Nitrogen 35 mg/dl (9-20); Calcium 8.7 mg/dl (8.4-10.2); Carbon Dioxide 31 mmol/L (22-30); Chloride 98 mmol/L (98-107); Estimated Creatinine Clearance > 125 ml/min; Glucose 102 mg/dl (70-99); Potassium 5.3 mmol/L (3.5-5.1); Sodium 135 mmol/L (135-145); eGFR > 60.00
[2024-05-12] MEDS: DAKIN'S SOLUTION 0.125% 1/4 STRENGTH 1 ML TOPICAL (08:26)
[2024-05-12] MEDS: HYDROPHOR 1 APPLIC TOPICAL (08:27)
[2024-05-12] MEDS: DESENEX/MITRAZOL/ZEASORB 1 APPLIC TOPICAL ×2 (08:27→21:04)
[2024-05-12] MEDS: ASPIR LOW (ENTERIC COATED) 81 MG PO (08:27)
[2024-05-12] MEDS: SILVADENE 1 APPLIC TOPICAL (08:27)
[2024-05-12] MEDS: COREG 12.5 MG PO ×2 (08:28→21:04)
--- NOTE | 2024-05-12 10:47 | W.PN.UPDATE ---
Update Note
Progress Note Update
Pt seen and evaluated at bedside. Infection resolved. There is some patchy areas of full thickness necrosis mostly about the medial wound edge, the depth of the wound appears to be forming healthy granulation tissue with good bleeding, ramsining
skin of the calf is developing thin black eschar, difficult to discern if he will maintain viable dermis deep to these areas. Agree with local wound care, enzo. Plastic Surgery reviewed wound images and requested Vascular workup prior to
considering intervention.
--- NOTE | 2024-05-12 11:26 | CON.VAS ---
Addendum entered and electronically signed by Everett Jung MD 05/13/24 07:48:
Seen and evaluated with AQUILES Ro and AQUILES Hansen. Agree with findings as noted below. 53-year-old male with left calf cellulitis/wound. Resulted in necrotizing wound/extensive soft tissue infection. Extensively debrided by general surgery team.
Patient denies any prior lower extremity revascularization procedures. No history of PAD that he is aware of. Denies any history of DVTs. On exam/ He is awake and alert. Breathing is unlabored. Abdomen is soft. Obese. Lower extremity with 2+
femoral, popliteal, DP and PT pulses palpable bilaterally. Feet are warm. Dressings are currently in place left lower extremity. Did not remove but reviewed wound care pictures.
Plan/extensive left lower extremity subcutaneous wounds with dry eschar/necrotic tissue covering. No wet gangrene residually. Appears to have good granulation tissue forming underneath. Based on his exam and my review of his noninvasive studies,
he has no evidence of arterial insufficiency. There could be a venous insufficiency component. Would recommend we obtain venous insufficiency ultrasounds. Likely not much invasively to do for that as well. Would recommend extensive local wound
care, debridements as necessary per wound care/general surgery team's, compression wraps.
Original Note:
Consultation
Consultation Request
Date/Time Consultation Performed: 05/12/24 1130
Requesting Provider: Hospitalist
Performing Provider: Charla Ro NP-C for Everett Jung MD
Reason for Consultation: Left lower extremity wound
Medical History
-
Chief Complaint: Left lower extremity wound/sepsis
History of Present Illness:
This is a 53-year-old male with significant past medical history for obesity, hypertension, prior opiate abuse , chronic back pain, and chronic lower leg edema who presented to [facility] from nursing home on 04/27/2024 with reports of syncopal
episode, ED examination was significant for sepsis suspected source of left lower extremity cellulitis prompting admission. He subsequently is taken to the operating room on 04/28/2024 for incision and debridement of left lower extremity soft
tissue infection. Vascular surgery has now been consulted in regards to adequate blood flow to heal left lower extremity wound following surgical debridement. Patient denies prior history of arterial disease or seeing a vascular surgeon. However,
he does note longstanding history of peripheral edema and reoccurring lower extremity cellulitis. He notes initially having developed lower extremity cellulitis roughly a year and a half ago, but was able to manage with antibiotics and conservative
measures of lower extremity elevation with his primary care doctor. He notes that since that initial onset roughly a year and a half ago he has intermittently had flare ups of erythema or weeping skin but no significant complications. However, he
became incarcerated roughly 3 months ago and notes that now while in nursing home he struggles to have any form of lower extremity elevation to help mitigate his peripheral extremity swelling. He states roughly a week before he was admitted to the ""hospital he noted onset of left lower extremity erythema and progressively weeping skin, that eventually worsened over time. Currently he offers no complaints other than intermittent pain at left lower extremity cellulitis site, particularly with
any kind of dressing change.
Past Medical History
Past Medical History: Other (class III obesity-BMI 47.9 HTN prior opiate abuse 10 years ago has been on chronic buprenorphine 2 mg daily for the past 10 years for chronic back pain/lumbar herniated disks chronic lower leg edema)
Social History
Tobacco: Former Smoker
Alcohol: None
Drug: None and Former User (Former opioid abuse)
Personal: Single
Living: Penitentiary
Allergies / Home Medications
Allergy/AdvReac Type Severity Reaction Status Date / Time
Penicillins Allergy Rash; Verified 05/03/24 09:19
tolerated
cefepime
�Medication �Instructions �Recorded �Confirmed �Type
acetaminophen 325 mg tablet 650 mg PO TIDPRN PRN mild pain 04/27/24 04/27/24 History
(Tylenol)
buprenorphine HCl 2 mg sublingual 2 mg sublingual DAILY Pain 04/27/24 04/27/24 History
tablet
furosemide 40 mg tablet (Lasix) 40 mg PO DAILY Fluid 04/27/24 04/27/24 History
Retention/Swelling
ibuprofen 200 mg tablet (Advil) 400 mg PO BIDPRN PRN mild pain 04/27/24 04/27/24 History
lisinopril 20 mg tablet 20 mg PO DAILY Blood Pressure 04/27/24 04/27/24 History
Review of Systems
-
History Source: Patient
Constitutional: Reports No Symptoms
EENT: Reports No Symptoms
Respiratory: Reports No Symptoms
Cardiac: Reports No Symptoms
Vascular: Reports Other (Chronic lower extremity edema)
Abdomen/GI: Reports No Symptoms
: Reports No Symptoms
Musculoskeletal: Reports No Symptoms
Skin: Reports Other
Neurological: Reports No Symptoms
Endocrine: Reports No Symptoms
Physical Exam
Vital Signs
Temp Pulse Resp BP Pulse Ox
98.1 F 75 16 117/61 96
05/12/24 07:30 05/12/24 07:30 05/12/24 07:30 05/12/24 07:30 05/12/24 07:30
Lab Results
05/12/24 04:49
05/12/24 04:49
Troponin I 9.250 ng/ml H* 04/30/24 04:09
Physical Exam
General: No Apparent Distress
HEENT: Normocephalic, Anicteric and Atraumatic
Respiratory: Non Labored Respirations
Cardiac: Negative JVD
GI: Soft, Non Tender and Non Distended
Musculoskeletal: No Edema
Skin: Other (Bilateral lower extremity edema +3, left calf infectious wound status post I&D currently with clean dry and intact dressing)
Neuro: AO x 3
Psych: Calm
Pulses: Bilateral Femoral: +2, Bilateral Popliteal: +2, Bilateral Dorsalis Pedis: +2 and Bilateral Posterior Tibial: +2
Assessment / Plan
-
Assessment: 53-year-old male with left lower extremity group A strep cellulitis
Plan:
Physical exam with palpable distal pulses, supporting low suspicion for significant peripheral arterial disease. However, will order arterial ultrasound with SETH/TBI to further assess peripheral arterial disease. Will provide vascular surgical
intervention recommendation following results.
I performed this shared service with the attending. I evaluated the patient [id number] and have entered clinical documentation as shown in the encounter note. I performed the following component(s): history and physical exam. Note that medical
decision making is not final until attested by vascular attending.
--- NOTE | 2024-05-12 11:38 | W.PN.ID1 ---
Date of Service
Date of Service: May 12, 2024
Today's Communication
remains well off of antibiotics
Assessment / Plan
Group A Strep Cellulitis
Invasive group A strep infection with bacteremia
Leukocytosis - resolved
Chronic Lymphedema
Reported allergy to penicillin- rash
- tolerating cefazolin
Class III obesity
Recommendations:
- completed an aggressive course of IV cefazolin 05/11 - stopped
- wound care per surgery; vascular and plastic surgery to see
����������������������������������������������������������
Chief Complaint
-: Cellulitis and Other (Group a strep bacteremia)
Subjective / Review of Systems
afebrile
bp stable
only complaint is pain from recent dressing change
Vital Signs / Physical Exam
Vital Signs
Vital Signs
Temp Pulse Resp BP Pulse Ox
98.1 F 75 16 117/61 96
05/12/24 07:30 05/12/24 07:30 05/12/24 07:30 05/12/24 07:30 05/12/24 07:30
Physical Exam
Constitutional: No Acute Distress
Cardiovascular: Regular Rate and S1/S2; Negative Murmur or Rub
Pulmonary: Clear and Symmetric; Negative Wheezes or Rales
Gastrointestinal: Soft, Non Tender, Non Distended and Normal Bowel Sounds
Skin: Warm and Dry; Negative Rash or Jaundice
Wound: Other (deferred repeat dressing take down)
Objective Data
Lab Data
Lab Results
05/12/24 04:49
05/12/24 04:49
PT 15.7 Sec (11.4-14.6) H 04/28/24 04:07
INR 1.27 04/28/24 04:07
APTT Cancelled 05/01/24 20:03
Estimated Creat Clear > 125 ml/min 05/12/24 04:49
Lactic Acid 1.4 mmol/L (0.7-2.0) 04/30/24 04:09
Total Bilirubin 0.9 mg/dl (0.2-1.3) 05/06/24 05:56
GGT 29 U/L (15-73) 04/30/24 04:09
AST 122 U/L (17-59) H 05/06/24 05:56
ALT 49 U/L (0-50) 05/06/24 05:56
Alkaline Phosphatase 126 U/L (38-126) 05/06/24 05:56
C-Reactive Protein > 270.00 mg/L (0.0-10.00) H 04/28/24 04:12
Most recent labs reviewed.
Micro Results:
04/27/24 13:37 Blood Culture - Final
Blood/Venous Streptococcus pyogenes
Gram Stain - Final
04/27/24 13:37 Blood Culture - Final
Blood/Venous Streptococcus pyogenes
Gram Stain - Final
04/28/24 17:20 Wound Culture - Final
Leg - Left Streptococcus pyogenes
Gram Stain - Final
04/28/24 17:20 Anaerobic Culture - Final
Leg - Left NO ANAEROBES ISOLATED
04/28/24 14:17 Blood Culture - Final
Blood/Venous No Growth - Final Report
04/28/24 14:17 Blood Culture - Final
Blood/Venous No Growth - Final Report
04/27/24 18:46 MRSA Screen - Final
Nose Staph aureus MRSA
--- NOTE | 2024-05-12 12:21 | CM ---
[facility]
Patient seen at bedside. On medsitter
off IV antibiotics
PLAN: [facility] when medically stable.
[facility]
Call report to: [phone]
Fax report to: [phone]
[2024-05-12] MEDS: FERRLECIT 110 MG IV (14:25)
--- NOTE | 2024-05-12 15:05 | PTCARENOTE ---
Patient heavy assist x2 to get OOB. Patient back to bed. C/o of 10/10 pain in LLE. Dilaudid given prn per order.
--- NOTE | 2024-05-12 15:14 | PTCARENOTE ---
Patient needing 2 person assist with care. Patient using bedpan and requiring assistance to wipe. Patient a stand and pivot to chair.
--- NOTE | 2024-05-12 15:24 | CM ---
TC to [facility] at [facility] to discuss patients needs once ready for d/c; wound care and therapy.
[facility] unable to talk at this time and given CM number to please return call.
--- NOTE | 2024-05-12 16:05 | W.PN.HOSP.TC ---
Today's Communication/Plan
-
Vascular evaluation prior to discharge.
Continue wound care per
Observe off systemic antibiotics
Case management for discharge planing SNF versus longterm
Assessment / Plan
Assessment / Plan
Impression:
Severe sepsis due to left lower extremity cellulitis
Septic shock with hypotension requiring vasopressors
Bacteremia with Streptococcus pyogenous
Syncope prior to presentation.
Acute hypoxic respiratory failure in the settings of hypotension.
VDRF in the settings of severe sepsis and hemodynamic instability.
� Intubated 04/28
Acute renal failure
Lactic acidosis.
Abnormal liver function test
Demand ischemia non-Q wave [place]
Stage II decubital ulcer present on admission
Hyperkalemia
Other conditions:
Essential hypertension
Obesity with BMI of 48.
Opiate use disorder on Suboxone.
Plan:
Left lower extremity cellulitis with severe sepsis and septic shock
Severe left lower extremity cellulitis with initial concern for necrotizing fasciitis
Blood culture with Streptococcus pyogenes
CT of the left lower extremity with severe cellulitis
Appreciate ID and GS consults
Status post incision and debridement of left lower extremity soft tissue infection with no evidence of necrotizing fasciitis
Lower extremity Doppler negative for DVT.
Antibiotics regimen adjusted to cefazolin. Completed 3 days of clindamycin. Continue IV Cefazolin dosed for elevated BMI. Completed 14-day course of antibiotics on 05/11
Repeat blood culture negative to date
Status post additional excisional debridement of the left lower extremity wound on 05/04
Daily wound care; not a good candidate for wound vac or delayed primary closure at this time. Per surgery: 'will eventually require further debridement and eventual skin grafting vs BKA. Will need eventual plastics involvement for grafting: not
ready yet.'
Septic shock with hypotension not expanding to IV fluids
Resolved
Urinary retention
-PVR 372 morning of 05/08; UA without infection
-straight cath protocol in place
Acute blood loss anemia secondary to large wound.
Hemoglobin trending down to sevens.
Low iron stores.
Continue IV iron
Status post 1 unit of packed red blood cells transfused on 05/11.
Follow hemoglobin
Acute hypoxic respiratory failure
VDRF
� Intubated on 04/29 with procedure; extubated 04/30
Follow-up chest x-ray with left lower lobe pleural effusion and congestion
Weaned off sedation
Hyperkalemia
Normal creatinine
Normal CK.
ECG with no related changes.
s/p IV hydration
s/p Lokelma with improvement in K this morning
Non-Q wave [place] secondary to demand ischemia.
Troponin peaked at 12 and trending down
Echocardiogram
Very technically difficult study suboptimal 2D echo doppler study
Normal left ventricular chamber size. Normal left ventricular systolic
function. Left ventricular ejection fraction is 55%. Normal regional wall
motion. Mild concentric left ventricular hypertrophy.
Enlarged dilated right ventricular size. Right ventricle appears mildly
hypokinetic.
No significant valvular disease within the limitations of this study
No prior echo for comparison.
Initially on IV heparin.
Transition to aspirin
Initiated on GDMT including:, Crestor.
Ischemic evaluation eventually
MARÍA ELENA baseline metabolic acidosis/lactic acidosis - resolved
Likely prerenal in the settings of sepsis, septic shock with prerenal stimuli.
Less likely glomerular process given bland UA
Hold Lasix, NSAIDs, lisinopril.
Bladder scan for retention
Follow BMP
Consider nephrology evaluation if uptrending creatinine
Avoid nephrotoxins
-weight down despite holding lasix
Abnormal LFT
Resolving bilirubin and transaminases.
Ultrasound:Hepatosplenomegaly with hepatic steatosis.
Gallstones and sludge are present. The gallbladder is mildly distended however there is are additional findings suggestive of cholecystitis.
The common bile duct is borderline dilated measuring 6.7 mm.
Overall low clinical suspicion for acute cholecystitis
LFT has been trending down
Regular diet
Obesity with BMI of 48
Check hemoglobin A1c 5.8
Essential hypertension
Hold preadmission antihypertensive regimen including lisinopril and Lasix baseline
Opiate use disorder
On Suboxone prior to presentation
Full code
DVT prophylaxis subcu heparin
Anticipated Discharge: 24 - 48 hours
Subjective/Interval History
-
Date of Service: May 12, 2024
Objective Data
-
Labs:
Laboratory Results
05/12/24
04:49
WBC 8.6
Hgb 7.5 L
Hct 23.6 L
Plt Count 416 H
Sodium 135
Potassium 5.3 H
Chloride 98
Carbon Dioxide 31 H
BUN 35 H
Creatinine 0.9
Glucose 102 H
Calcium 8.7
Vital Signs:
Vital Signs
Temp Pulse Resp BP Pulse Ox
98.0 F 78 16 130/59 97
05/12/24 15:30 05/12/24 15:30 05/12/24 15:30 05/12/24 15:30 05/12/24 15:30
I&O
05/11/24 05/12/24 05/13/24
06:59 06:59 06:59
Intake Total 1200 / 1200 2245 / 2245
Output Total 1475 / 1475 1100 / 1100
Balance -275 / -275 1145 / 1145
Physical Exam
-
General: No Apparent Distress and Morbidly Obese
HEENT: Normocephalic, Atraumatic and Moist Mucous Membranes
Respiratory: Clear to Auscultation
Cardiac: Regular Rhythm and S1/S2; Negative Murmur, Rub or Gallop
GI: Soft, Nontender, Nondistended and Normal Bowel Sounds; Negative Organomegaly
Rectal: Deferred by Provider
Musculoskeletal: No Clubbing, No Cyanosis and Other (left leg wrapped)
Skin: Negative Rash
Neuro: AO x 3 and Nonfocal/Grossly Intact
Psych: Calm
[2024-05-12] MEDS: LOVENOX 40 MG SC (16:53)
[2024-05-12] MEDS: CRESTOR 20 MG PO (16:53)
[2024-05-12] MEDS: DAKIN'S SOLUTION 0.125% 1/4 STRENGTH TOPICAL (20:35)
[2024-05-12] MEDS: SILVADENE TOPICAL (20:35)
[2024-05-13] MEDS: DILAUDID 1 MG IV ×3 (03:08→17:52)
[2024-05-13 06:00] VITALS: BMI 43.9
[2024-05-13 07:20] VITALS: BP 121/56
[2024-05-13] MEDS: COREG 12.5 MG PO ×2 (07:57→20:38)
[2024-05-13] MEDS: DESENEX/MITRAZOL/ZEASORB 1 APPLIC TOPICAL ×2 (07:59→20:38)
[2024-05-13] MEDS: ASPIR LOW (ENTERIC COATED) 81 MG PO (07:59)
[2024-05-13] MEDS: DAKIN'S SOLUTION 0.125% 1/4 STRENGTH 473 ML TOPICAL (08:00)
[2024-05-13] MEDS: HYDROPHOR 1 APPLIC TOPICAL (08:00)
[2024-05-13] MEDS: SILVADENE 1 APPLIC TOPICAL (08:01)
--- NOTE | 2024-05-13 08:44 | W.PN.UPDATE ---
Update Note
Progress Note Update
Spoke to electrical design technician, who discussed that at prior arterial ultrasound yesterday patient could not tolerate any form of compression via ultrasound probe due to pain; concern that patient will not tolerate venous insufficiency study at this time
and results will be insufficient due to limited study, plan to cancel inpatient and patient can obtain venous insufficiency ultrasound study in the outpatient setting.
--- NOTE | 2024-05-13 09:29 | CM ---
Addendum entered by Edel Perkins 05/13/24 15:42:
Per Whit, clinicals received, provider reviewing.
Await TCB.
Addendum entered by Edel Perkins 05/13/24 13:57:
Spoke with Whit from [facility], stated she did not receive fax despite fax receipt that it sent. Per Whit they always have difficulty receiving from the hospital.
Whit requested clinicals be emailed to [email or web address]
Clinicals emailed- secure.
Addendum entered by Edel Perkins 05/13/24 11:28:
Clincals and therapy notes faxed to Whit at [phone] for review.
Whit will call back if they are able to accept patient back today.
Original Note:
Spoke with [facility] again [phone] Hunting Guide, Shea, will call back re d/c planning- wound care and therapy.
[2024-05-13] MEDS: SUBUTEX 2 MG SL (11:19)
[2024-05-13] MEDS: LOKELMA 10 GRAM PO (11:19)
[2024-05-13] MEDS: FERRLECIT 110 MG IV (13:23)
--- NOTE | 2024-05-13 14:00 | W.PN.HOSP.TC ---
Today's Communication/Plan
-
Wound care
Physical therapy
Noted mild hyperkalemia 05/12. Single dose of Lokelma. Follow BMP in a.m.
Ongoing disposition efforts
Assessment / Plan
Assessment / Plan
Impression:
Severe sepsis due to left lower extremity cellulitis
Septic shock with hypotension requiring vasopressors
Bacteremia with Streptococcus pyogenous
Syncope prior to presentation.
Acute hypoxic respiratory failure in the settings of hypotension.
VDRF in the settings of severe sepsis and hemodynamic instability.
� Intubated 04/28
Acute renal failure
Lactic acidosis.
Abnormal liver function test
Demand ischemia non-Q wave [place]
Stage II decubital ulcer present on admission
Hyperkalemia
Other conditions:
Essential hypertension
Obesity with BMI of 48.
Opiate use disorder on Suboxone.
Plan:
Left lower extremity cellulitis with severe sepsis and septic shock
Severe left lower extremity cellulitis with initial concern for necrotizing fasciitis
Blood culture with Streptococcus pyogenes
CT of the left lower extremity with severe cellulitis
Appreciate ID and GS consults
Status post incision and debridement of left lower extremity soft tissue infection with no evidence of necrotizing fasciitis
Lower extremity Doppler negative for DVT.
Antibiotics regimen adjusted to cefazolin. Completed 3 days of clindamycin. Continue IV Cefazolin dosed for elevated BMI. Completed 14-day course of antibiotics on 05/11
Repeat blood culture negative to date
Status post additional excisional debridement of the left lower extremity wound on 05/04
Daily wound care; not a good candidate for wound vac or delayed primary closure at this time. Per surgery: 'will eventually require further debridement and eventual skin grafting vs BKA. Will need eventual plastics involvement for grafting: not
ready yet.'
Septic shock with hypotension not expanding to IV fluids
Resolved
Urinary retention
-PVR 372 morning of 05/08; UA without infection
-straight cath protocol in place
Acute blood loss anemia secondary to large wound.
Hemoglobin trending down to sevens.
Low iron stores.
Continue IV iron
Status post 1 unit of packed red blood cells transfused on 05/11.
Follow hemoglobin
Acute hypoxic respiratory failure
VDRF
� Intubated on 04/29 with procedure; extubated 04/30
Follow-up chest x-ray with left lower lobe pleural effusion and congestion
Weaned off sedation
Hyperkalemia
Normal creatinine
Normal CK.
ECG with no related changes.
s/p IV hydration
s/p Lokelma with improvement in K this morning
Non-Q wave [place] secondary to demand ischemia.
Troponin peaked at 12 and trending down
Echocardiogram
Very technically difficult study suboptimal 2D echo doppler study
Normal left ventricular chamber size. Normal left ventricular systolic
function. Left ventricular ejection fraction is 55%. Normal regional wall
motion. Mild concentric left ventricular hypertrophy.
Enlarged dilated right ventricular size. Right ventricle appears mildly
hypokinetic.
No significant valvular disease within the limitations of this study
No prior echo for comparison.
Initially on IV heparin.
Transition to aspirin
Initiated on GDMT including:, Crestor.
Ischemic evaluation eventually
MARÍA ELENA baseline metabolic acidosis/lactic acidosis - resolved
Likely prerenal in the settings of sepsis, septic shock with prerenal stimuli.
Less likely glomerular process given bland UA
Hold Lasix, NSAIDs, lisinopril.
Bladder scan for retention
Follow BMP
Consider nephrology evaluation if uptrending creatinine
Avoid nephrotoxins
-weight down despite holding lasix
Abnormal LFT
Resolving bilirubin and transaminases.
Ultrasound:Hepatosplenomegaly with hepatic steatosis.
Gallstones and sludge are present. The gallbladder is mildly distended however there is are additional findings suggestive of cholecystitis.
The common bile duct is borderline dilated measuring 6.7 mm.
Overall low clinical suspicion for acute cholecystitis
LFT has been trending down
Regular diet
Obesity with BMI of 48
Check hemoglobin A1c 5.8
Essential hypertension
Hold preadmission antihypertensive regimen including lisinopril and Lasix baseline
Opiate use disorder
On Suboxone prior to presentation
Full code
DVT prophylaxis subcu heparin
Anticipated Discharge: 24 - 48 hours
Subjective/Interval History
-
Date of Service: May 13, 2024
Objective Data
-
Vital Signs:
Vital Signs
Temp Pulse Resp BP Pulse Ox
98.2 F 71 16 121/56 97
05/13/24 07:20 05/13/24 07:57 05/13/24 07:20 05/13/24 07:57 05/13/24 07:20
I&O
05/12/24 05/13/24 05/14/24
06:59 06:59 06:59
Intake Total 2245 / 2245 840 / 840
Output Total 1100 / 1100 1300 / 1300
Balance 1145 / 1145 -460 / -460
Physical Exam
-
General: No Apparent Distress and Morbidly Obese
HEENT: Normocephalic, Atraumatic and Moist Mucous Membranes
Respiratory: Clear to Auscultation
Cardiac: Regular Rhythm and S1/S2; Negative Murmur, Rub or Gallop
GI: Soft, Nontender, Nondistended and Normal Bowel Sounds; Negative Organomegaly
Rectal: Deferred by Provider
Musculoskeletal: No Clubbing, No Cyanosis and Other (left leg wrapped)
Skin: Negative Rash
Neuro: AO x 3 and Nonfocal/Grossly Intact
Psych: Calm
[2024-05-13] MEDS: TYLENOL ORAL SOLUTION 650 MG TUBE (14:56)
[2024-05-13] MEDS: CRESTOR 20 MG PO (17:47)
[2024-05-13] MEDS: LOVENOX 40 MG SC (17:47)
[2024-05-13] MEDS: SILVADENE TOPICAL (20:33)
[2024-05-13] MEDS: DAKIN'S SOLUTION 0.125% 1/4 STRENGTH TOPICAL (20:33)
[2024-05-13 23:46] VITALS: BP 102/54
[2024-05-14] VITALS (14 sets, daily range): BP systolic 110–147; BP diastolic 54–82; PULSE 74; O2SAT 96; BMI 43.7
[2024-05-14] MEDS: DILAUDID 1 MG IV ×5 (02:28→22:41)
[2024-05-14] MEDS: COREG 12.5 MG PO ×2 (10:17→20:03)
[2024-05-14] MEDS: SUBUTEX 2 MG SL (10:18)
[2024-05-14] MEDS: ASPIR LOW (ENTERIC COATED) 81 MG PO (10:18)
[2024-05-14] MEDS: DESENEX/MITRAZOL/ZEASORB 1 APPLIC TOPICAL ×2 (10:18→20:03)
[2024-05-14] MEDS: DAKIN'S SOLUTION 0.125% 1/4 STRENGTH 473 ML TOPICAL ×2 (10:18→20:05)
[2024-05-14] MEDS: HYDROPHOR 1 APPLIC TOPICAL (10:19)
[2024-05-14] MEDS: SILVADENE 1 APPLIC TOPICAL ×2 (10:19→20:05)
[2024-05-14 10:53] LABS: Blood Urea Nitrogen 25 mg/dl (9-20); Calcium 8.7 mg/dl (8.4-10.2); Carbon Dioxide 34 mmol/L (22-30); Chloride 97 mmol/L (98-107); Estimated Creatinine Clearance > 125 ml/min; Glucose 110 mg/dl (70-99); Potassium 4.8 mmol/L (3.5-5.1); Sodium 135 mmol/L (135-145); eGFR > 60.00
[2024-05-14 10:57] LABS: % Basophils 1.1 % (0-2); % Eosinophils 3.6 % (0-6); % Immature Granulocytes 1.3 % (0-0.5); % Lymphocytes 23.2 % (20.5-51.1); % Neutrophils 58.6 % (42.2-75.2); Absolute Basophils 0.1 10^3/uL (0-0.2); Absolute Eosinophils 0.3 10^3/uL (0-0.7); Absolute Immature Granulocytes 0.1 10^3/uL (0-0.05); Absolute Lymphocytes 1.8 10^3/uL (1.2-3.4); Absolute Neutrophils 4.8 10^3/uL (1.4-6.5); Hematocrit 21.2 % (39.0-52.0); Hemoglobin 6.7 g/dL (13.0-18.0); Mean Corp Hgb Conc. 32.2 g/dL (33.0-37.0); Mean Corpuscular Hgb 27.3 pg (27.0-31.0); Mean Corpuscular Volume 84.9 fL (80.0-94.0); Mean Platelet Volume 9.5 fL (7.4-10.4); Nucleated Red Blood Cells % 0 % (-); Platelet Count 374 10^3/uL (130-400); Red Blood Cell Count 2.45 10^6/uL (4.70-6.10); Red Cell Dist. Width 14.2 % (11.5-14.5); White Blood Cell Count 8.2 10^3/uL (4.8-10.8)
--- NOTE | 2024-05-14 11:38 | W.PN.GS2 ---
Today's Communication / Plan
-
Local wound care
Assessment / Plan
-
53M with severe GAS soft tissue infection of LLE with Group A Strep Cellulitis; Invasive group A strep infection with bacteremia
AFVSS
Leukocytosis resolved
Wound continues to progress, will eventually require further debridement and eventual skin grafting vs BKA
AFVSS
Continue with Silvadene over necrotic areas of skin
Due to ongoing progression of the wound, not a candidate for delayed primary closure or wound vac at this time
ID following off abx
Wound care with Dakin's 1/4 strength wet to dry to incisions, Silvadene/Xeroform to skin, sinan for compression and dressing changes BID
Analgesics as needed
Appreciate vascular surgery eval, will consult plastic surgery to follow with us
Subjective Data
-
Date of Service: May 14, 2024
Patient seen and examined at bedside. Changed dressing with primary nurse. Pain with dressing changes.
Objective Data
-
Intake and Output
05/13/24 05/14/24 05/15/24
06:59 06:59 06:59
Intake Total 840 / 840 540 / 540
Output Total 1300 / 1300 1550 / 1550
Balance -460 / -460 -1010 / -1010
Intake:
Oral fluids 840 / 840 540 / 540
Output:
Urine, Voided 1300 / 1300 1550 / 1550
Vital Signs
Temp Pulse Resp BP Pulse Ox
98.1 F 86 20 110/54 95
05/14/24 07:10 05/14/24 07:10 05/14/24 07:10 05/14/24 07:10 05/14/24 07:10
Lab Results
05/14/24 10:26
05/14/24 10:26
Calcium 8.7 mg/dl (8.4-10.2) 05/14/24 10:26
Phosphorus 3.2 mg/dl (2.5-4.5) 05/04/24 04:31
Magnesium 1.7 mg/dl (1.6-2.3) 05/09/24 04:45
Total Bilirubin 0.9 mg/dl (0.2-1.3) 05/06/24 05:56
Direct Bilirubin 0.5 mg/dl (0.0-0.4) H 05/04/24 04:31
AST 122 U/L (17-59) H 05/06/24 05:56
ALT 49 U/L (0-50) 05/06/24 05:56
Alkaline Phosphatase 126 U/L (38-126) 05/06/24 05:56
Total Protein 6.3 g/dl (6.3-8.2) 05/06/24 05:56
Albumin 2.8 g/dl (3.5-5.0) L 05/06/24 05:56
Physical Exam
-
Gen: NAD
LLE: thin dark eschar over most of anterior surface of the skin/george, laterally the surgical wound edges have minimal patches of slough but deeper tissues appear healthier and healing through secondary intention with bleeding noted during dressing
changes. Green tinged drainage noted to wound bed, unchanged.
LLE pulses: DP 2+, PT 1+
Good ROM to left ankle and toes, normal sensation to foot
--- NOTE | 2024-05-14 12:36 | CM ---
Addendum entered by Edel Perkins 05/14/24 16:11:
TC to [facility], per Whit (she just called her medical doctor) they do not believe they can take the patient back.
Whit from the [facility] has emailed the employee relations administrator to see if patient will be furloughed to go to a skilled facility.
Whit was given department number if she finds out over the weekend so we can start working on skilled facilities that will accept someone from [facility].
Original Note:
Spoke with Whit from [facility], their medical technologist is reviewing the chart.
Per Whit the MD who reviewed yesterday believes the patient may be too much for them to take back in this condition.
PT/OT recommending skilled rehab.
Per Whit they may furlough the patient to go to skilled rehab.
Once reviewed, she will let CM know.
TT to MD to make aware.
[2024-05-14] MEDS: FERRLECIT 110 MG IV (13:48)
[2024-05-14] MEDS: TYLENOL ORAL SOLUTION 650 MG TUBE (14:23)
--- NOTE | 2024-05-14 15:45 | W.PN.HOSP.TC ---
Today's Communication/Plan
-
Wound care.
Observe closely off systemic antibiotics.
Ongoing oozing from the wound with hemoglobin trending down to 6.7. Transfuse additional 2 units of packed red blood cells. CBC in AM.
Pain control with addition of IV hydromorphone (has been on Suboxone) for breakthrough pain with wound care.
Ongoing disposition efforts most likely to rehab (assisted could not accept given complexity of wound care)
Assessment / Plan
Assessment / Plan
Impression:
Severe sepsis due to left lower extremity cellulitis
Septic shock with hypotension requiring vasopressors
Bacteremia with Streptococcus pyogenous
Syncope prior to presentation.
Acute hypoxic respiratory failure in the settings of hypotension.
VDRF in the settings of severe sepsis and hemodynamic instability.
� Intubated 04/28
Acute renal failure
Lactic acidosis.
Abnormal liver function test
Demand ischemia non-Q wave [place]
Stage II decubital ulcer present on admission
Hyperkalemia
Other conditions:
Essential hypertension
Obesity with BMI of 48.
Opiate use disorder on Suboxone.
Plan:
Left lower extremity cellulitis with severe sepsis and septic shock
Severe left lower extremity cellulitis with initial concern for necrotizing fasciitis
Blood culture with Streptococcus pyogenes
CT of the left lower extremity with severe cellulitis
Appreciate ID and GS consults
Status post incision and debridement of left lower extremity soft tissue infection with no evidence of necrotizing fasciitis
Lower extremity Doppler negative for DVT.
Antibiotics regimen adjusted to cefazolin. Completed 3 days of clindamycin. Continue IV Cefazolin dosed for elevated BMI. Completed 14-day course of antibiotics on 05/11
Repeat blood culture negative to date
Status post additional excisional debridement of the left lower extremity wound on 05/04
Daily wound care; not a good candidate for wound vac or delayed primary closure at this time. Per surgery: 'will eventually require further debridement and eventual skin grafting vs BKA. Will need eventual plastics involvement for grafting: not
ready yet.'
Septic shock with hypotension not expanding to IV fluids
Resolved
Urinary retention
-PVR 372 morning of 05/08; UA without infection
-straight cath protocol in place
Acute blood loss anemia secondary to large wound.
Hemoglobin trending down to sevens.
Low iron stores.
Continue IV iron
Hemoglobin trending down to 6.7 with blood oozing from the wound. Transfuse to keep above 8.
Acute hypoxic respiratory failure
VDRF
� Intubated on 04/29 with procedure; extubated 04/30
Follow-up chest x-ray with left lower lobe pleural effusion and congestion
Weaned off sedation
Hyperkalemia
Normal creatinine
Normal CK.
ECG with no related changes.
s/p IV hydration
s/p Lokelma with improvement in K this morning
Non-Q wave [place] secondary to demand ischemia.
Troponin peaked at 12 and trending down
Echocardiogram
Very technically difficult study suboptimal 2D echo doppler study
Normal left ventricular chamber size. Normal left ventricular systolic
function. Left ventricular ejection fraction is 55%. Normal regional wall
motion. Mild concentric left ventricular hypertrophy.
Enlarged dilated right ventricular size. Right ventricle appears mildly
hypokinetic.
No significant valvular disease within the limitations of this study
No prior echo for comparison.
Initially on IV heparin.
Transition to aspirin
Initiated on GDMT including:, Crestor.
Ischemic evaluation eventually
MARÍA ELENA baseline metabolic acidosis/lactic acidosis - resolved
Likely prerenal in the settings of sepsis, septic shock with prerenal stimuli.
Less likely glomerular process given bland UA
Hold Lasix, NSAIDs, lisinopril.
Bladder scan for retention
Follow BMP
Consider nephrology evaluation if uptrending creatinine
Avoid nephrotoxins
-weight down despite holding lasix
Abnormal LFT
Resolving bilirubin and transaminases.
Ultrasound:Hepatosplenomegaly with hepatic steatosis.
Gallstones and sludge are present. The gallbladder is mildly distended however there is are additional findings suggestive of cholecystitis.
The common bile duct is borderline dilated measuring 6.7 mm.
Overall low clinical suspicion for acute cholecystitis
LFT has been trending down
Regular diet
Obesity with BMI of 48
Check hemoglobin A1c 5.8
Essential hypertension
Hold preadmission antihypertensive regimen including lisinopril and Lasix baseline
Opiate use disorder
On Suboxone prior to presentation
Full code
DVT prophylaxis subcu heparin
Anticipated Discharge: > 48 hours
Subjective/Interval History
-
Date of Service: May 14, 2024
Objective Data
-
Labs:
Laboratory Results
05/14/24
10:26
WBC 8.2
Hgb 6.7 L*
Hct 21.2 L
Plt Count 374
Sodium 135
Potassium 4.8
Chloride 97 L
Carbon Dioxide 34 H
BUN 25 H
Creatinine 0.8
Glucose 110 H
Calcium 8.7
Vital Signs:
Vital Signs
Temp Pulse Resp BP Pulse Ox
100.0 F 75 18 147/82 97
05/14/24 14:12 05/14/24 14:12 05/14/24 14:12 05/14/24 14:12 05/14/24 14:12
I&O
05/13/24 05/14/24 05/15/24
06:59 06:59 06:59
Intake Total 840 / 840 540 / 540 0 / 0
Output Total 1300 / 1300 1550 / 1550 850 / 850
Balance -460 / -460 -1010 / -1010 -850 / -850
Physical Exam
-
General: No Apparent Distress and Morbidly Obese
HEENT: Normocephalic, Atraumatic and Moist Mucous Membranes
Respiratory: Clear to Auscultation
Cardiac: Regular Rhythm and S1/S2; Negative Murmur, Rub or Gallop
GI: Soft, Nontender, Nondistended and Normal Bowel Sounds; Negative Organomegaly
Rectal: Deferred by Provider
Musculoskeletal: No Clubbing, No Cyanosis and Other (left leg wrapped)
Skin: Negative Rash
Neuro: AO x 3 and Nonfocal/Grossly Intact
Psych: Calm
--- NOTE | 2024-05-14 17:30 | CON.PS ---
Medical History
-
Chief Complaint: LE Wounds
History of Present Illness:
Patient presented with lower extremity soft tissue infection c/f nec fasc. Taken to OR for debridement and potential fasciotomy. H/o underlying lymphedema.
General Surgery OP reports indicates no clinical findings c/w nec fasc. As such, wounds being treated as severe skin infection. Currently undergoing wound care.
Anemic
No ongoing c/f sepsis. No leukocytosis.
Wounds in evolution of demarcation and healing by secondary intention
Allergies / Home Medications
Allergy/AdvReac Type Severity Reaction Status Date / Time
Penicillins Allergy Rash; Verified 05/03/24 09:19
tolerated
cefepime
�Medication �Instructions �Recorded �Confirmed �Type
acetaminophen 325 mg tablet 650 mg PO TIDPRN PRN mild pain 04/27/24 04/27/24 History
(Tylenol)
buprenorphine HCl 2 mg sublingual 2 mg sublingual DAILY Pain 04/27/24 04/27/24 History
tablet
furosemide 40 mg tablet (Lasix) 40 mg PO DAILY Fluid 04/27/24 04/27/24 History
Retention/Swelling
ibuprofen 200 mg tablet (Advil) 400 mg PO BIDPRN PRN mild pain 04/27/24 04/27/24 History
lisinopril 20 mg tablet 20 mg PO DAILY Blood Pressure 04/27/24 04/27/24 History
Physical Exam
Vital Signs
Temp 99.5 F 05/14/24 16:56
Temp route: Oral 05/14/24 16:56
Pulse 89 05/14/24 16:56
Rhythm: Normal sinus rhythm 05/06/24 08:00
With- First Degree Heart Block, Sinus tachycardia 05/06/24 08:00
Resp Rate 16 05/14/24 16:56
Systolic BP: 112 04/30/24 10:21
Blood pressure 126/57 05/14/24 16:56
Blood pressure extremity used: Left forearm 05/14/24 16:56
Position: Lying 11/08/24 16:56
MAP (cuff-Juwan Monitor) 70 05/05/24 12:00
SaO2 97 05/14/24 16:56
Nasal Cannula flow liters per minute 1 05/14/24 16:56
Oxygen Mode of Delivery Room air 05/14/24 16:55
Flow liters per minute # 1.5 05/14/24 12:16
% Oxygen delivered 40 04/29/24 20:54
Pulse Ox at Rest 96 05/14/24 12:16
Can the patient verbally communicate their pain? Yes 05/14/24 15:21
Pain scale ratin 05/14/24 15:21
Arterial Systolic Pressure 119 05/03/24 07:53
Arterial Diastolic Pressure 57 05/03/24 07:53
MAP (E-Zfse-Juynpzo Monitor) 74 05/03/24 07:53
MAP A-Line 67 05/02/24 21:40
Actual Weight 378 lb 05/14/24 06:00
Body Mass Index (BMI) 43.7 05/14/24 06:00
Supine- Blood Pressure 126/72 05/14/24 12:16
Supine- Pulse 74 05/14/24 12:16
etC02 value 44 04/30/24 11:15
Heart rate after activity 86 05/10/24 09:18
Blood pressure after activity 111/64 05/05/24 11:55
Oxygen Saturation with Activity 92 05/10/24 09:18
Wounds Examined via Photographs in chart
Lab Results
05/14/24 10:26
05/14/24 10:26
Troponin I 9.250 ng/ml H* 04/30/24 04:09
Assessment / Plan
-
LE wounds s/p debridement without clinical e/o nec fasc, currently without concerns for sepsis or uncontrolled infection.
I've had numerous conversations with my general surgery colleagues about his clinical course. The correct action was taken to rule out a necrotizing fasciitis. He is now left with open wound to heal in secondarily, which is appropriate. I do not
recommend additional debridement unless systemic symptoms of infection/sepsis arise. Additional surgical debridement may result in extensive soft tissue loss over the tibia, which would likely result in exposed bone/osteo. He may require BKA at
present or in the future. BKA with prosthetic may provide a better intermodal customer service solution than his current status. The wounds should be left to heal in secondarily and the superficial epidermolysis fully self resolve.
He will need [facility] wound care, likely via a wound care center.
Consideration can be given in the [facility] to managing chronic lymphedema/venous stasis as indicated
[2024-05-14] MEDS: LOVENOX 40 MG SC (18:23)
[2024-05-14] MEDS: CRESTOR 20 MG PO (18:24)
[2024-05-15 05:19] LABS: Hematocrit 23.7 % (39.0-52.0); Hemoglobin 7.6 g/dL (13.0-18.0); Mean Corp Hgb Conc. 32.1 g/dL (33.0-37.0); Mean Corpuscular Hgb 27.5 pg (27.0-31.0); Mean Corpuscular Volume 85.9 fL (80.0-94.0); Mean Platelet Volume 9.6 fL (7.4-10.4); Platelet Count 346 10^3/uL (130-400); Red Blood Cell Count 2.76 10^6/uL (4.70-6.10); Red Cell Dist. Width 14.4 % (11.5-14.5); White Blood Cell Count 8.6 10^3/uL (4.8-10.8)
[2024-05-15] MEDS: DILAUDID 1 MG IV ×5 (05:44→23:53)
[2024-05-15 06:00] VITALS: BMI 44.0
[2024-05-15 07:20] VITALS: BP 112/63
[2024-05-15] MEDS: SUBUTEX 2 MG SL (07:55)
[2024-05-15] MEDS: COREG 12.5 MG PO ×2 (07:56→19:33)
[2024-05-15] MEDS: ASPIR LOW (ENTERIC COATED) 81 MG PO (07:56)
[2024-05-15] MEDS: HYDROPHOR 1 APPLIC TOPICAL (07:58)
[2024-05-15] MEDS: DESENEX/MITRAZOL/ZEASORB 1 APPLIC TOPICAL ×2 (07:58→23:52)
[2024-05-15] MEDS: DAKIN'S SOLUTION 0.125% 1/4 STRENGTH 473 ML TOPICAL (07:59)
[2024-05-15] MEDS: SILVADENE 1 APPLIC TOPICAL ×2 (08:00→23:53)
[2024-05-15] MEDS: FLUSH (NSS) 2 FLUSH IV ×2 (10:57→15:22)
--- NOTE | 2024-05-15 11:58 | W.PN.HOSP.TC ---
Today's Communication/Plan
-
monitor Hb
continue wound care and pain control as ongoing dispo efforts continue
Assessment / Plan
Assessment / Plan
Impression:
Severe sepsis due to left lower extremity cellulitis
Septic shock with hypotension requiring vasopressors
Bacteremia with Streptococcus pyogenous
Syncope prior to presentation.
Acute hypoxic respiratory failure in the settings of hypotension.
VDRF in the settings of severe sepsis and hemodynamic instability.
� Intubated 04/28
Acute renal failure
Lactic acidosis.
Abnormal liver function test
Demand ischemia non-Q wave PR
Stage II decubital ulcer present on admission
Hyperkalemia
Other conditions:
Essential hypertension
Obesity with BMI of 48.
Opiate use disorder on Suboxone.
Plan:
Left lower extremity cellulitis with severe sepsis and septic shock
Severe left lower extremity cellulitis with initial concern for necrotizing fasciitis
Blood culture with Streptococcus pyogenes
CT of the left lower extremity with severe cellulitis
Appreciate ID and GS consults
Status post incision and debridement of left lower extremity soft tissue infection with no evidence of necrotizing fasciitis
Lower extremity Doppler negative for DVT.
Antibiotics regimen adjusted to cefazolin. Completed 3 days of clindamycin. Continue IV Cefazolin dosed for elevated BMI. Completed 14-day course of antibiotics on 05/11
Repeat blood culture negative to date
Status post additional excisional debridement of the left lower extremity wound on 05/04
Daily wound care; not a good candidate for wound vac or delayed primary closure at this time. Per surgery: 'will eventually require further debridement and eventual skin grafting vs BKA. Will need eventual plastics involvement for grafting: not
ready yet.'
Septic shock with hypotension not expanding to IV fluids
Resolved
Urinary retention
-PVR 372 morning of 05/08; UA without infection
-straight cath protocol in place
Acute blood loss anemia secondary to large wound.
Hemoglobin trending down to sevens.
Low iron stores.
Continue IV iron
Hemoglobin 7.6 s/p 2 unit PRBC
Acute hypoxic respiratory failure
VDRF
� Intubated on 04/29 with procedure; extubated 04/30
Follow-up chest x-ray with left lower lobe pleural effusion and congestion
Weaned off sedation
Hyperkalemia
Normal creatinine
Normal CK.
ECG with no related changes.
s/p IV hydration
s/p Lokelma with improvement in K this morning
Non-Q wave PR secondary to demand ischemia.
Troponin peaked at 12 and trending down
Echocardiogram
Very technically difficult study suboptimal 2D echo doppler study
Normal left ventricular chamber size. Normal left ventricular systolic
function. Left ventricular ejection fraction is 55%. Normal regional wall
motion. Mild concentric left ventricular hypertrophy.
Enlarged dilated right ventricular size. Right ventricle appears mildly
hypokinetic.
No significant valvular disease within the limitations of this study
No prior echo for comparison.
Initially on IV heparin.
Transition to aspirin
Initiated on GDMT including:, Crestor.
Ischemic evaluation eventually
AMRÍA ELENA baseline metabolic acidosis/lactic acidosis - resolved
Likely prerenal in the settings of sepsis, septic shock with prerenal stimuli.
Less likely glomerular process given bland UA
Hold Lasix, NSAIDs, lisinopril.
Bladder scan for retention
Follow BMP
Consider nephrology evaluation if uptrending creatinine
Avoid nephrotoxins
-weight down despite holding lasix
Abnormal LFT
Resolving bilirubin and transaminases.
Ultrasound:Hepatosplenomegaly with hepatic steatosis.
Gallstones and sludge are present. The gallbladder is mildly distended however there is are additional findings suggestive of cholecystitis.
The common bile duct is borderline dilated measuring 6.7 mm.
Overall low clinical suspicion for acute cholecystitis
LFT has been trending down
Regular diet
Obesity with BMI of 48
hemoglobin A1c 5.8
Essential hypertension
Hold preadmission antihypertensive regimen including lisinopril and Lasix baseline
Opiate use disorder
On Suboxone prior to presentation
Full code
DVT prophylaxis subcu heparin
Anticipated Discharge: > 48 hours
Subjective/Interval History
-
Date of Service: May 15, 2024
no overnight events
improved with 2 units PRBC to Hb of 7.6
Objective Data
-
Labs:
Laboratory Results
05/15/24
04:52
WBC 8.6
Hgb 7.6 L
Hct 23.7 L
Plt Count 346
Vital Signs:
Vital Signs
Temp Pulse Resp BP Pulse Ox
98.1 F 71 16 112/63 94
05/15/24 07:20 05/15/24 07:20 05/15/24 07:20 05/15/24 07:20 05/15/24 07:20
I&O
05/14/24 05/15/24 05/16/24
06:59 06:59 06:59
Intake Total 540 / 540 1100 / 1100
Output Total 1550 / 1550 1850 / 1850
Balance -1010 / -1010 -750 / -750
Physical Exam
-
General: No Apparent Distress
HEENT: Normocephalic and Atraumatic
Respiratory: Negative Wheezes
Cardiac: Regular Rhythm and S1/S2
GI: Soft
Genito-urinary: No Costovertebral Tender
Musculoskeletal: Other (No Clubbing, No Cyanosis and Other (left leg wrapped))
Neuro: AO x 3
Psych: Calm
Data Reviewed
-
Total Time Spent with Patient (in minutes): 41
Labs: Labs Reviewed by me
[2024-05-15] MEDS: FERRLECIT 110 MG IV (13:54)
[2024-05-15 15:25] VITALS: BP 128/59
[2024-05-15] MEDS: LOVENOX 40 MG SC (17:09)
[2024-05-15] MEDS: CRESTOR 20 MG PO (17:09)
[2024-05-15 23:03] VITALS: BP 96/52
[2024-05-15] MEDS: DAKIN'S SOLUTION 0.125% 1/4 STRENGTH 1 ML TOPICAL (23:52)
[2024-05-16] MEDS: DILAUDID 1 MG IV ×4 (03:30→19:59)
[2024-05-16 05:36] LABS: Blood Urea Nitrogen 20 mg/dl (9-20); Calcium 8.8 mg/dl (8.4-10.2); Carbon Dioxide 33 mmol/L (22-30); Chloride 96 mmol/L (98-107); Estimated Creatinine Clearance > 125 ml/min; Glucose 101 mg/dl (70-99); Potassium 4.6 mmol/L (3.5-5.1); Sodium 137 mmol/L (135-145); eGFR > 60.00
[2024-05-16 05:50] LABS: Hematocrit 23.3 % (39.0-52.0); Hemoglobin 7.6 g/dL (13.0-18.0); Mean Corp Hgb Conc. 32.6 g/dL (33.0-37.0); Mean Corpuscular Hgb 27.9 pg (27.0-31.0); Mean Corpuscular Volume 85.7 fL (80.0-94.0); Mean Platelet Volume 9.6 fL (7.4-10.4); Platelet Count 342 10^3/uL (130-400); Red Blood Cell Count 2.72 10^6/uL (4.70-6.10); Red Cell Dist. Width 14.5 % (11.5-14.5); White Blood Cell Count 8.9 10^3/uL (4.8-10.8)
[2024-05-16 07:15] VITALS: BP 128/57
[2024-05-16] MEDS: ASPIR LOW (ENTERIC COATED) 81 MG PO (08:12)
[2024-05-16] MEDS: SUBUTEX 2 MG SL (08:12)
[2024-05-16] MEDS: FLUSH (NSS) 2 FLUSH IV ×2 (08:12→15:20)
[2024-05-16] MEDS: COREG 12.5 MG PO ×2 (08:12→19:59)
[2024-05-16] MEDS: DAKIN'S SOLUTION 0.125% 1/4 STRENGTH 473 ML TOPICAL ×2 (08:13→20:00)
[2024-05-16] MEDS: HYDROPHOR 1 APPLIC TOPICAL (08:14)
[2024-05-16] MEDS: DESENEX/MITRAZOL/ZEASORB 1 APPLIC TOPICAL ×2 (08:14→20:01)
[2024-05-16] MEDS: SILVADENE 1 APPLIC TOPICAL ×2 (08:14→20:00)
--- NOTE | 2024-05-16 13:49 | W.PN.HOSP.TC ---
Today's Communication/Plan
-
d/c planning
Assessment / Plan
Assessment / Plan
05/16
Patient complaining left lower extremity pain aggravated by recommended wound care
Patient evaluated by plastic surgeon, left lower extremity wound to be healing by secondary intention. Additional debridement warranted based on clinical course. Patient may require BKA in the near future.
Patient will require long-term wound care.
Superficial wound culture has been growing Streptococcus pyogenes, currently off of antibiotics. Patient finished course of IV cefazolin on 05/11
Continue monitoring for any fever/leukocytosis.
Disposition planning underway

Impression:
Severe sepsis due to left lower extremity cellulitis
Septic shock with hypotension requiring vasopressors
Bacteremia with Streptococcus pyogenous
Syncope prior to presentation.
Acute hypoxic respiratory failure in the settings of hypotension.
VDRF in the settings of severe sepsis and hemodynamic instability.
� Intubated 04/28
Acute renal failure
Lactic acidosis.
Abnormal liver function test
Demand ischemia non-Q wave MS
Stage II decubital ulcer present on admission
Hyperkalemia
Other conditions:
Essential hypertension
Obesity with BMI of 48.
Opiate use disorder on Suboxone.
Plan:
Left lower extremity cellulitis with severe sepsis and septic shock
Severe left lower extremity cellulitis with initial concern for necrotizing fasciitis
Blood culture with Streptococcus pyogenes
CT of the left lower extremity with severe cellulitis
Appreciate ID and GS consults
Status post incision and debridement of left lower extremity soft tissue infection with no evidence of necrotizing fasciitis
Lower extremity Doppler negative for DVT.
Antibiotics regimen adjusted to cefazolin. Completed 3 days of clindamycin. Continue IV Cefazolin dosed for elevated BMI. Completed 14-day course of antibiotics on 05/11
Repeat blood culture negative to date
Status post additional excisional debridement of the left lower extremity wound on 05/04
Daily wound care; not a good candidate for wound vac or delayed primary closure at this time. Per surgery: 'will eventually require further debridement and eventual skin grafting vs BKA. Will need eventual plastics involvement for grafting: not
ready yet.'
Septic shock with hypotension not expanding to IV fluids
Resolved
Urinary retention
-PVR 372 morning of 05/08; UA without infection
-straight cath protocol in place
Acute blood loss anemia secondary to large wound.
Hemoglobin trending down to sevens.
Low iron stores.
Continue IV iron
Hemoglobin 7.6 s/p 2 unit PRBC
Acute hypoxic respiratory failure
VDRF
� Intubated on 04/29 with procedure; extubated 04/30
Follow-up chest x-ray with left lower lobe pleural effusion and congestion
Weaned off sedation
Hyperkalemia
Normal creatinine
Normal CK.
ECG with no related changes.
s/p IV hydration
s/p Lokelma with improvement in K this morning
Non-Q wave MS secondary to demand ischemia.
Troponin peaked at 12 and trending down
Echocardiogram
Very technically difficult study suboptimal 2D echo doppler study
Normal left ventricular chamber size. Normal left ventricular systolic
function. Left ventricular ejection fraction is 55%. Normal regional wall
motion. Mild concentric left ventricular hypertrophy.
Enlarged dilated right ventricular size. Right ventricle appears mildly
hypokinetic.
No significant valvular disease within the limitations of this study
No prior echo for comparison.
Initially on IV heparin.
Transition to aspirin
Initiated on GDMT including:, Crestor.
Ischemic evaluation eventually
MARÍA ELENA baseline metabolic acidosis/lactic acidosis - resolved
Likely prerenal in the settings of sepsis, septic shock with prerenal stimuli.
Less likely glomerular process given bland UA
Hold Lasix, NSAIDs, lisinopril.
Bladder scan for retention
Follow BMP
Consider nephrology evaluation if uptrending creatinine
Avoid nephrotoxins
-weight down despite holding lasix
Abnormal LFT
Resolving bilirubin and transaminases.
Ultrasound:Hepatosplenomegaly with hepatic steatosis.
Gallstones and sludge are present. The gallbladder is mildly distended however there is are additional findings suggestive of cholecystitis.
The common bile duct is borderline dilated measuring 6.7 mm.
Overall low clinical suspicion for acute cholecystitis
LFT has been trending down
Regular diet
Obesity with BMI of 48
hemoglobin A1c 5.8
Essential hypertension
Hold preadmission antihypertensive regimen including lisinopril and Lasix baseline
Opiate use disorder
On Suboxone prior to presentation
Full code
DVT prophylaxis subcu heparin

Anticipated Discharge: Within 24 hours
Subjective/Interval History
-
Date of Service: May 16, 2024
Resting comfortably in bed
Have left leg discomfort, aggravated by wound care
afebrile
Objective Data
-
Labs:
Laboratory Results
05/16/24
04:59
WBC 8.9
Hgb 7.6 L
Hct 23.3 L
Plt Count 342
Sodium 137
Potassium 4.6
Chloride 96 L
Carbon Dioxide 33 H
BUN 20
Creatinine 0.7
Glucose 101 H
Calcium 8.8
Vital Signs:
Vital Signs
Temp Pulse Resp BP Pulse Ox
97.6 F 70 16 128/57 97
05/16/24 07:15 05/16/24 07:15 05/16/24 07:15 05/16/24 07:15 05/16/24 08:00
I&O
05/15/24 05/16/24 05/17/24
06:59 06:59 06:59
Intake Total 1100 / 1100 2400 / 2400
Output Total 1850 / 1850 1625 / 1625
Balance -750 / -750 775 / 775
Review of Systems
-
Respiratory: Reports No Symptoms
Cardiac: Reports No Symptoms
Abdomen/GI: Reports No Symptoms
Physical Exam
-
General: Obese
GI: Soft, Nontender and Nondistended
Musculoskeletal: No Clubbing, No Cyanosis and Other (Left leg bandage in place)
Neuro: AO x 3
Psych: Calm
[2024-05-16 15:20] VITALS: BP 136/63
[2024-05-16] MEDS: CRESTOR 20 MG PO (17:27)
[2024-05-16] MEDS: LOVENOX 40 MG SC (17:27)
[2024-05-16 23:28] VITALS: BP 111/59
[2024-05-17] MEDS: DILAUDID 1 MG IV ×3 (04:51→08:45)
[2024-05-17 06:00] VITALS: BMI 43.4
[2024-05-17 06:39] LABS: Hematocrit 23.9 % (39.0-52.0); Hemoglobin 7.6 g/dL (13.0-18.0); Mean Corp Hgb Conc. 31.8 g/dL (33.0-37.0); Mean Corpuscular Hgb 27.7 pg (27.0-31.0); Mean Corpuscular Volume 87.2 fL (80.0-94.0); Mean Platelet Volume 9.8 fL (7.4-10.4); Platelet Count 342 10^3/uL (130-400); Red Blood Cell Count 2.74 10^6/uL (4.70-6.10); Red Cell Dist. Width 14.6 % (11.5-14.5); White Blood Cell Count 8.1 10^3/uL (4.8-10.8)
[2024-05-17 07:02] LABS: Blood Urea Nitrogen 16 mg/dl (9-20); Carbon Dioxide 34 mmol/L (22-30); Chloride 95 mmol/L (98-107); Estimated Creatinine Clearance > 125 ml/min; Glucose 98 mg/dl (70-99); Potassium 4.6 mmol/L (3.5-5.1); Sodium 136 mmol/L (135-145); eGFR > 60.00
[2024-05-17 07:20] VITALS: BP 124/63
[2024-05-17] MEDS: SUBUTEX 2 MG SL (08:44)
[2024-05-17] MEDS: COREG 12.5 MG PO ×2 (08:44→20:06)
[2024-05-17] MEDS: DAKIN'S SOLUTION 0.125% 1/4 STRENGTH 473 ML TOPICAL ×2 (08:44→20:06)
[2024-05-17] MEDS: ASPIR LOW (ENTERIC COATED) 81 MG PO (08:44)
[2024-05-17] MEDS: HYDROPHOR 1 APPLIC TOPICAL (08:46)
[2024-05-17] MEDS: SILVADENE 1 APPLIC TOPICAL ×2 (08:46→20:07)
[2024-05-17] MEDS: DESENEX/MITRAZOL/ZEASORB 1 APPLIC TOPICAL ×2 (08:46→20:07)
--- NOTE | 2024-05-17 09:21 | CM ---
Addendum entered by Edel Perkins 05/17/24 15:36:
Spoke with Whit, will e-mail updated clinicals and therapy notes to [email or web address]
[facility] still has not made a decision re accepting patient back.
Original Note:
Left message with CM number for Whit or accounts payable administrator to see if Patient is being furloughed for skilled rehab.
[2024-05-17 12:22] VITALS: BP 136/68
[2024-05-17] MEDS: TYLENOL ORAL SOLUTION 650 MG TUBE ×2 (12:46→16:55)
[2024-05-17] MEDS: DILAUDID 2 MG PO (13:39)
--- NOTE | 2024-05-17 14:16 | PTCARENOTE ---
pt assisted back to bed. reviewed pain meds with pt. pt stated leg hurt tried tylenol but after an hour he was a 9/10 pain. po Dilaudid given.
--- NOTE | 2024-05-17 14:17 | W.PN.HOSP.TC ---
Today's Communication/Plan
-
Off antibiotics
Daily wound care
Discontinue PICC line
Continue Suboxone
Change to oral Dilaudid for breakthrough pain with dressing changes
Ongoing disposition efforts
Assessment / Plan
Assessment / Plan
Impression:
Severe sepsis due to left lower extremity cellulitis
Septic shock with hypotension requiring vasopressors
Bacteremia with Streptococcus pyogenous
Syncope prior to presentation.
Acute hypoxic respiratory failure in the settings of hypotension.
VDRF in the settings of severe sepsis and hemodynamic instability.
� Intubated 04/28
Acute renal failure
Lactic acidosis.
Abnormal liver function test
Demand ischemia non-Q wave PA
Stage II decubital ulcer present on admission
Hyperkalemia
Other conditions:
Essential hypertension
Obesity with BMI of 48.
Opiate use disorder on Suboxone.
Plan:
Left lower extremity cellulitis with severe sepsis and septic shock
Severe left lower extremity cellulitis with initial concern for necrotizing fasciitis
Blood culture with Streptococcus pyogenes
CT of the left lower extremity with severe cellulitis
Appreciate ID and GS consults
Status post incision and debridement of left lower extremity soft tissue infection with no evidence of necrotizing fasciitis
Lower extremity Doppler negative for DVT.
Antibiotics regimen adjusted to cefazolin. Completed 3 days of clindamycin. Continue IV Cefazolin dosed for elevated BMI. Completed 14-day course of antibiotics on 05/11
Repeat blood culture negative to date
Status post additional excisional debridement of the left lower extremity wound on 05/04
Daily wound care; not a good candidate for wound vac or delayed primary closure at this time. Per surgery: 'will eventually require further debridement and eventual skin grafting vs BKA. Will need eventual plastics involvement for grafting: not
ready yet.'
Septic shock with hypotension not expanding to IV fluids
Resolved
Urinary retention
-PVR 372 morning of 05/08; UA without infection
-straight cath protocol in place
Acute blood loss anemia secondary to large wound.
Hemoglobin trending down to sevens.
Low iron stores.
Continue IV iron
Hemoglobin 7.6 s/p 2 unit PRBC
Acute hypoxic respiratory failure
VDRF
� Intubated on 04/29 with procedure; extubated 04/30
Follow-up chest x-ray with left lower lobe pleural effusion and congestion
Weaned off sedation
Hyperkalemia
Normal creatinine
Normal CK.
ECG with no related changes.
s/p IV hydration
s/p Lokelma with improvement in K this morning
Non-Q wave PA secondary to demand ischemia.
Troponin peaked at 12 and trending down
Echocardiogram
Very technically difficult study suboptimal 2D echo doppler study
Normal left ventricular chamber size. Normal left ventricular systolic
function. Left ventricular ejection fraction is 55%. Normal regional wall
motion. Mild concentric left ventricular hypertrophy.
Enlarged dilated right ventricular size. Right ventricle appears mildly
hypokinetic.
No significant valvular disease within the limitations of this study
No prior echo for comparison.
Initially on IV heparin.
Transition to aspirin
Initiated on GDMT including:, Crestor.
Ischemic evaluation eventually
MARÍA ELENA baseline metabolic acidosis/lactic acidosis - resolved
Likely prerenal in the settings of sepsis, septic shock with prerenal stimuli.
Less likely glomerular process given bland UA
Hold Lasix, NSAIDs, lisinopril.
Bladder scan for retention
Follow BMP
Consider nephrology evaluation if uptrending creatinine
Avoid nephrotoxins
-weight down despite holding lasix
Abnormal LFT
Resolving bilirubin and transaminases.
Ultrasound:Hepatosplenomegaly with hepatic steatosis.
Gallstones and sludge are present. The gallbladder is mildly distended however there is are additional findings suggestive of cholecystitis.
The common bile duct is borderline dilated measuring 6.7 mm.
Overall low clinical suspicion for acute cholecystitis
LFT has been trending down
Regular diet
Obesity with BMI of 48
hemoglobin A1c 5.8
Essential hypertension
Hold preadmission antihypertensive regimen including lisinopril and Lasix baseline
Opiate use disorder
On Suboxone prior to presentation
Full code
DVT prophylaxis subcu heparin

Anticipated Discharge: 24 - 48 hours
Subjective/Interval History
-
Date of Service: May 17, 2024
Objective Data
-
Labs:
Laboratory Results
05/17/24
05:54
WBC 8.1
Hgb 7.6 L
Hct 23.9 L
Plt Count 342
Sodium 136
Potassium 4.6
Chloride 95 L
Carbon Dioxide 34 H
BUN 16
Creatinine 0.7
Glucose 98
Calcium 9.0
Vital Signs:
Vital Signs
Temp Pulse Resp BP Pulse Ox
98.4 F 73 14 124/63 94
05/17/24 07:20 05/17/24 08:44 05/17/24 07:20 05/17/24 08:44 05/17/24 07:20
I&O
05/16/24 05/17/24 05/18/24
06:59 06:59 06:59
Intake Total 2400 / 2400 1540 / 1540
Output Total 1625 / 1625 1270 / 1270
Balance 775 / 775 270 / 270
Physical Exam
-
General: Obese
GI: Soft, Nontender and Nondistended
Musculoskeletal: No Clubbing, No Cyanosis and Other (Left leg bandage in place)
Neuro: AO x 3
Psych: Calm
[2024-05-17 15:15] VITALS: BP 119/55
[2024-05-17] MEDS: CRESTOR 20 MG PO (16:54)
[2024-05-17] MEDS: LOVENOX 40 MG SC (16:55)
--- NOTE | 2024-05-17 17:36 | PTCARENOTE ---
left leg dressing changed as ordered.
[2024-05-17 23:46] VITALS: BP 139/71
[2024-05-18] MEDS: DILAUDID 2 MG PO ×2 (02:26→15:28)
[2024-05-18 06:00] VITALS: BMI 43.2
[2024-05-18 07:15] VITALS: BP 104/58
[2024-05-18] MEDS: ASPIR LOW (ENTERIC COATED) 81 MG PO (10:16)
[2024-05-18] MEDS: SUBUTEX 2 MG SL (10:16)
[2024-05-18] MEDS: COREG 12.5 MG PO ×2 (10:16→21:11)
--- NOTE | 2024-05-18 11:23 | CM ---
Addendum entered by Edel Perkins 05/18/24 14:42:
TCB from [facility], she was speaking with the DA and wanted to know limb prognosis, length of time patient would require skilled care (bid dressing changes and therapy).
will touch base in am. [facility] MD may want to speak with attending.
Original Note:
TC to BRANNON Sherman
[2024-05-18 11:31] LABS: Hematocrit 22.9 % (39.0-52.0); Hemoglobin 7.2 g/dL (13.0-18.0); Mean Corp Hgb Conc. 31.4 g/dL (33.0-37.0); Mean Corpuscular Hgb 28.7 pg (27.0-31.0); Mean Corpuscular Volume 91.2 fL (80.0-94.0); Mean Platelet Volume 9.2 fL (7.4-10.4); Platelet Count 279 10^3/uL (130-400); Red Blood Cell Count 2.51 10^6/uL (4.70-6.10); Red Cell Dist. Width 14.6 % (11.5-14.5); White Blood Cell Count 7.5 10^3/uL (4.8-10.8)
[2024-05-18 12:45] LABS: Blood Urea Nitrogen 18 mg/dl (9-20); Carbon Dioxide 33 mmol/L (22-30); Chloride 98 mmol/L (98-107); Estimated Creatinine Clearance > 125 ml/min; Glucose 120 mg/dl (70-99); Sodium 136 mmol/L (135-145); eGFR > 60.00
--- NOTE | 2024-05-18 12:53 | PTCARENOTE ---
pt aaox3. states pain at tolerable level. left leg dressing intact. reviewed plan of care
[2024-05-18 14:01] VITALS: BP 101/54
[2024-05-18 14:17] VITALS: BP 109/49
[2024-05-18 15:15] VITALS: BP 117/54
--- NOTE | 2024-05-18 15:39 | W.PN.HOSP.TC ---
Today's Communication/Plan
-
Wound care.
Transfuse to keep hemoglobin above 8.
Assessment / Plan
Assessment / Plan
Impression:
Severe sepsis due to left lower extremity cellulitis
Septic shock with hypotension requiring vasopressors
Bacteremia with Streptococcus pyogenous
Syncope prior to presentation.
Acute hypoxic respiratory failure in the settings of hypotension.
VDRF in the settings of severe sepsis and hemodynamic instability.
� Intubated 04/28
Acute renal failure
Lactic acidosis.
Abnormal liver function test
Demand ischemia non-Q wave IA
Stage II decubital ulcer present on admission
Hyperkalemia
Other conditions:
Essential hypertension
Obesity with BMI of 48.
Opiate use disorder on Suboxone.
Plan:
Left lower extremity cellulitis with severe sepsis and septic shock
Severe left lower extremity cellulitis with initial concern for necrotizing fasciitis
Blood culture with Streptococcus pyogenes
CT of the left lower extremity with severe cellulitis
Appreciate ID and GS consults
Status post incision and debridement of left lower extremity soft tissue infection with no evidence of necrotizing fasciitis
Lower extremity Doppler negative for DVT.
Antibiotics regimen adjusted to cefazolin. Completed 3 days of clindamycin. Continue IV Cefazolin dosed for elevated BMI. Completed 14-day course of antibiotics on 05/11
Repeat blood culture negative to date
Status post additional excisional debridement of the left lower extremity wound on 05/04
Daily wound care; not a good candidate for wound vac or delayed primary closure at this time. Per surgery: 'will eventually require further debridement and eventual skin grafting vs BKA. Will need eventual plastics involvement for grafting: not
ready yet.'
Septic shock with hypotension not expanding to IV fluids
Resolved
Urinary retention
-PVR 372 morning of 05/08; UA without infection
-straight cath protocol in place
Acute blood loss anemia secondary to large wound.
Hemoglobin trending down to sevens.
Low iron stores.
Continue IV iron
Transfuse to keep hemoglobin above 8
Acute hypoxic respiratory failure
VDRF
� Intubated on 04/29 with procedure; extubated 04/30
Follow-up chest x-ray with left lower lobe pleural effusion and congestion
Weaned off sedation
Hyperkalemia
Normal creatinine
Normal CK.
ECG with no related changes.
s/p IV hydration
s/p Lokelma with improvement in K this morning
Non-Q wave [place] secondary to demand ischemia.
Troponin peaked at 12 and trending down
Echocardiogram
Very technically difficult study suboptimal 2D echo doppler study
Normal left ventricular chamber size. Normal left ventricular systolic
function. Left ventricular ejection fraction is 55%. Normal regional wall
motion. Mild concentric left ventricular hypertrophy.
Enlarged dilated right ventricular size. Right ventricle appears mildly
hypokinetic.
No significant valvular disease within the limitations of this study
No prior echo for comparison.
Initially on IV heparin.
Transition to aspirin
Initiated on GDMT including:, Crestor.
Ischemic evaluation eventually
MARÍA ELENA baseline metabolic acidosis/lactic acidosis - resolved
Likely prerenal in the settings of sepsis, septic shock with prerenal stimuli.
Less likely glomerular process given bland UA
Hold Lasix, NSAIDs, lisinopril.
Bladder scan for retention
Follow BMP
Consider nephrology evaluation if uptrending creatinine
Avoid nephrotoxins
-weight down despite holding lasix
Abnormal LFT
Resolving bilirubin and transaminases.
Ultrasound:Hepatosplenomegaly with hepatic steatosis.
Gallstones and sludge are present. The gallbladder is mildly distended however there is are additional findings suggestive of cholecystitis.
The common bile duct is borderline dilated measuring 6.7 mm.
Overall low clinical suspicion for acute cholecystitis
LFT has been trending down
Regular diet
Obesity with BMI of 48
hemoglobin A1c 5.8
Essential hypertension
Hold preadmission antihypertensive regimen including lisinopril and Lasix baseline
Opiate use disorder
On Suboxone prior to presentation
Full code
DVT prophylaxis subcu heparin

Anticipated Discharge: 24 - 48 hours
Subjective/Interval History
-
Date of Service: May 18, 2024
Objective Data
-
Labs:
Laboratory Results
05/18/24
11:16
WBC 7.5
Hgb 7.2 L
Hct 22.9 L
Plt Count 279
Sodium 136
Potassium 5.0
Chloride 98
Carbon Dioxide 33 H
BUN 18
Creatinine 0.7
Glucose 120 H
Calcium 9.0
Vital Signs:
Vital Signs
Temp Pulse Resp BP Pulse Ox
98.5 F 81 18 109/49 96
05/18/24 14:17 05/18/24 14:17 05/18/24 14:17 05/18/24 14:17 05/18/24 07:15
I&O
05/17/24 05/18/24 05/19/24
06:59 06:59 06:59
Intake Total 1540 / 1540 1580 / 1580 0 / 0
Output Total 1270 / 1270 1875 / 1875
Balance 270 / 270 -295 / -295 0 / 0
Physical Exam
-
General: Obese
GI: Soft, Nontender and Nondistended
Musculoskeletal: No Clubbing, No Cyanosis and Other (Left leg bandage in place)
Neuro: AO x 3
Psych: Calm
[2024-05-18 17:09] VITALS: BP 140/70
[2024-05-18] MEDS: CRESTOR 20 MG PO (17:35)
[2024-05-18] MEDS: LOVENOX 40 MG SC (17:36)
[2024-05-18] MEDS: HYDROPHOR 1 APPLIC TOPICAL (17:36)
[2024-05-18] MEDS: SILVADENE 1 APPLIC TOPICAL ×2 (17:36→21:12)
[2024-05-18] MEDS: DESENEX/MITRAZOL/ZEASORB 1 APPLIC TOPICAL ×2 (17:36→21:11)
[2024-05-18] MEDS: DAKIN'S SOLUTION 0.125% 1/4 STRENGTH 473 ML TOPICAL ×2 (17:37→21:12)
[2024-05-18] MEDS: ZOFRAN 4 MG IV (21:11)
[2024-05-18 23:29] VITALS: BP 128/56
[2024-05-19] MEDS: DILAUDID 2 MG PO ×2 (03:28→16:37)
[2024-05-19 06:00] VITALS: BMI 43.1
[2024-05-19 07:20] VITALS: BP 158/71
[2024-05-19] MEDS: ASPIR LOW (ENTERIC COATED) 81 MG PO (07:28)
[2024-05-19] MEDS: SUBUTEX 2 MG SL (07:28)
[2024-05-19] MEDS: COREG 12.5 MG PO ×2 (07:29→21:56)
[2024-05-19 08:50] LABS: % Basophils 1.3 % (0-2); % Eosinophils 9.2 % (0-6); % Lymphocytes 29.5 % (20.5-51.1); % Monocytes 13.3 % (1.7-9.3); % Neutrophils 44.7 % (42.2-75.2); Absolute Basophils 0.1 10^3/uL (0-0.2); Absolute Eosinophils 0.7 10^3/uL (0-0.7); Absolute Immature Granulocytes 0.1 10^3/uL (0-0.05); Absolute Lymphocytes 2.1 10^3/uL (1.2-3.4); Absolute Neutrophils 3.2 10^3/uL (1.4-6.5); Hematocrit 25.8 % (39.0-52.0); Hemoglobin 7.9 g/dL (13.0-18.0); Mean Corp Hgb Conc. 30.6 g/dL (33.0-37.0); Mean Corpuscular Hgb 27.6 pg (27.0-31.0); Mean Corpuscular Volume 90.2 fL (80.0-94.0); Mean Platelet Volume 9.7 fL (7.4-10.4); Nucleated Red Blood Cells % 0 % (-); Platelet Count 307 10^3/uL (130-400); Red Blood Cell Count 2.86 10^6/uL (4.70-6.10); Red Cell Dist. Width 14.6 % (11.5-14.5); White Blood Cell Count 7.2 10^3/uL (4.8-10.8)
[2024-05-19 09:04] LABS: Blood Urea Nitrogen 13 mg/dl (9-20); Calcium 9.3 mg/dl (8.4-10.2); Carbon Dioxide 33 mmol/L (22-30); Chloride 96 mmol/L (98-107); Estimated Creatinine Clearance > 125 ml/min; Glucose 93 mg/dl (70-99); Sodium 137 mmol/L (135-145); eGFR > 60.00
--- NOTE | 2024-05-19 13:48 | CM ---
TC to Whit from [facility].
Whit requested our MD speak with her MD.
[facility] MD- DR Small [phone].
Left VM for Whit to get back to me to see if patient is indeed being furloughed.
Will need to find a skilled bed.
Need to find out if patient has medical insurance or if [facility] rivka be responsible for payment.
--- NOTE | 2024-05-19 14:07 | W.PN.HOSP.TC ---
Today's Communication/Plan
-
Wound care pain
Observe off antibiotics
Monitor hemoglobin
Ongoing disposition efforts
Assessment / Plan
Assessment / Plan
Impression:
Severe sepsis due to left lower extremity cellulitis
Septic shock with hypotension requiring vasopressors
Bacteremia with Streptococcus pyogenous
Syncope prior to presentation.
Acute hypoxic respiratory failure in the settings of hypotension.
VDRF in the settings of severe sepsis and hemodynamic instability.
� Intubated 04/28
Acute renal failure
Lactic acidosis.
Abnormal liver function test
Demand ischemia non-Q wave [place]
Stage II decubital ulcer present on admission
Hyperkalemia
Other conditions:
Essential hypertension
Obesity with BMI of 48.
Opiate use disorder on Suboxone.
Plan:
Left lower extremity cellulitis with severe sepsis and septic shock
Severe left lower extremity cellulitis with initial concern for necrotizing fasciitis
Blood culture with Streptococcus pyogenes
CT of the left lower extremity with severe cellulitis
Appreciate ID and GS consults
Status post incision and debridement of left lower extremity soft tissue infection with no evidence of necrotizing fasciitis
Lower extremity Doppler negative for DVT.
Antibiotics regimen adjusted to cefazolin. Completed 3 days of clindamycin. Continue IV Cefazolin dosed for elevated BMI. Completed 14-day course of antibiotics on 05/11
Repeat blood culture negative to date
Status post additional excisional debridement of the left lower extremity wound on 05/04
Daily wound care; not a good candidate for wound vac or delayed primary closure at this time. Per surgery: 'will eventually require further debridement and eventual skin grafting vs BKA. Will need eventual plastics involvement for grafting: not
ready yet.'
Septic shock with hypotension not expanding to IV fluids
Resolved
Urinary retention
-PVR 372 morning of 05/08; UA without infection
-straight cath protocol in place
Acute blood loss anemia secondary to large wound.
Hemoglobin trending down to sevens.
Low iron stores.
Continue IV iron
Transfuse to keep hemoglobin above 8
Acute hypoxic respiratory failure
VDRF
� Intubated on 04/29 with procedure; extubated 04/30
Follow-up chest x-ray with left lower lobe pleural effusion and congestion
Weaned off sedation
Hyperkalemia
Normal creatinine
Normal CK.
ECG with no related changes.
s/p IV hydration
s/p Lokelma with improvement in K this morning
Non-Q wave [place] secondary to demand ischemia.
Troponin peaked at 12 and trending down
Echocardiogram
Very technically difficult study suboptimal 2D echo doppler study
Normal left ventricular chamber size. Normal left ventricular systolic
function. Left ventricular ejection fraction is 55%. Normal regional wall
motion. Mild concentric left ventricular hypertrophy.
Enlarged dilated right ventricular size. Right ventricle appears mildly
hypokinetic.
No significant valvular disease within the limitations of this study
No prior echo for comparison.
Initially on IV heparin.
Transition to aspirin
Initiated on GDMT including:, Crestor.
Ischemic evaluation eventually
MARÍA ELENA baseline metabolic acidosis/lactic acidosis - resolved
Likely prerenal in the settings of sepsis, septic shock with prerenal stimuli.
Less likely glomerular process given bland UA
Hold Lasix, NSAIDs, lisinopril.
Bladder scan for retention
Follow BMP
Consider nephrology evaluation if uptrending creatinine
Avoid nephrotoxins
-weight down despite holding lasix
Abnormal LFT
Resolving bilirubin and transaminases.
Ultrasound:Hepatosplenomegaly with hepatic steatosis.
Gallstones and sludge are present. The gallbladder is mildly distended however there is are additional findings suggestive of cholecystitis.
The common bile duct is borderline dilated measuring 6.7 mm.
Overall low clinical suspicion for acute cholecystitis
LFT has been trending down
Regular diet
Obesity with BMI of 48
hemoglobin A1c 5.8
Essential hypertension
Hold preadmission antihypertensive regimen including lisinopril and Lasix baseline
Opiate use disorder
On Suboxone prior to presentation
Full code
DVT prophylaxis subcu heparin

Anticipated Discharge: Within 24 hours
Subjective/Interval History
-
Date of Service: May 19, 2024
Objective Data
-
Labs:
Laboratory Results
05/19/24
07:36
WBC 7.2
Hgb 7.9 L
Hct 25.8 L
Plt Count 307
Sodium 137
Potassium 5.0
Chloride 96 L
Carbon Dioxide 33 H
BUN 13
Creatinine 0.9
Glucose 93
Calcium 9.3
Vital Signs:
Vital Signs
Temp Pulse Resp BP Pulse Ox
98.4 F 74 16 158/71 96
05/19/24 07:20 05/19/24 07:29 05/19/24 07:20 05/19/24 07:29 05/19/24 07:20
I&O
05/18/24 05/19/24 05/20/24
06:59 06:59 06:59
Intake Total 1580 / 1580 1630 / 1630
Output Total 1875 / 1875 1700 / 1700
Balance -295 / -295 -70 / -70
[2024-05-19 15:20] VITALS: BP 138/69
[2024-05-19] MEDS: LOVENOX 40 MG SC (16:37)
[2024-05-19] MEDS: DESENEX/MITRAZOL/ZEASORB 1 APPLIC TOPICAL ×2 (16:38→21:56)
[2024-05-19] MEDS: HYDROPHOR 1 APPLIC TOPICAL ×2 (16:38)
[2024-05-19] MEDS: SILVADENE 1 APPLIC TOPICAL (16:38)
[2024-05-19] MEDS: DAKIN'S SOLUTION 0.125% 1/4 STRENGTH 473 ML TOPICAL (16:39)
[2024-05-19] MEDS: CRESTOR 20 MG PO (16:40)
[2024-05-19] MEDS: SILVADENE TOPICAL (20:45)
[2024-05-19] MEDS: DAKIN'S SOLUTION 0.125% 1/4 STRENGTH TOPICAL (20:46)
[2024-05-19 23:27] VITALS: BP 121/64
[2024-05-19] MEDS: TYLENOL 650 MG PO (23:28)
[2024-05-19] MEDS: ZOFRAN 4 MG IV (23:33)
[2024-05-20 05:29] VITALS: BMI 43.0
[2024-05-20 07:20] VITALS: BP 148/65
[2024-05-20] MEDS: DILAUDID 2 MG PO ×2 (07:36→23:32)
[2024-05-20] MEDS: ASPIR LOW (ENTERIC COATED) 81 MG PO (08:13)
[2024-05-20] MEDS: SUBUTEX 2 MG SL (08:13)
[2024-05-20] MEDS: COREG 12.5 MG PO ×2 (08:13→19:55)
--- NOTE | 2024-05-20 11:22 | CM ---
Call placed to [facility] - Whit on leave of absence.
Josefina in charge at present. She stated [facility] hospitalist spoke to [facility] physician.
Josefina states determined that medically cannot go back to [facility] -they are waiting on legal aspects of court order to release patient from [facility] to SNF.
PLAN: Awaiting court order so patient can go to SNF
[2024-05-20] MEDS: SILVADENE 1 APPLIC TOPICAL (11:58)
[2024-05-20] MEDS: DAKIN'S SOLUTION 0.125% 1/4 STRENGTH 473 ML TOPICAL (11:59)
[2024-05-20] MEDS: DESENEX/MITRAZOL/ZEASORB 1 APPLIC TOPICAL ×2 (11:59→19:55)
[2024-05-20] MEDS: TYLENOL 650 MG PO (13:18)
[2024-05-20 15:20] VITALS: BP 122/53
--- NOTE | 2024-05-20 16:06 | W.PN.HOSP.TC ---
Today's Communication/Plan
-
Wound care
Follow hemoglobin.
Disposition efforts
Assessment / Plan
Assessment / Plan
Impression:
Severe sepsis due to left lower extremity cellulitis
Septic shock with hypotension requiring vasopressors
Bacteremia with Streptococcus pyogenous
Syncope prior to presentation.
Acute hypoxic respiratory failure in the settings of hypotension.
VDRF in the settings of severe sepsis and hemodynamic instability.
� Intubated 04/28
Acute renal failure
Lactic acidosis.
Abnormal liver function test
Demand ischemia non-Q wave [place]
Stage II decubital ulcer present on admission
Hyperkalemia
Other conditions:
Essential hypertension
Obesity with BMI of 48.
Opiate use disorder on Suboxone.
Plan:
Left lower extremity cellulitis with severe sepsis and septic shock
Severe left lower extremity cellulitis with initial concern for necrotizing fasciitis
Blood culture with Streptococcus pyogenes
CT of the left lower extremity with severe cellulitis
Appreciate ID and GS consults
Status post incision and debridement of left lower extremity soft tissue infection with no evidence of necrotizing fasciitis
Lower extremity Doppler negative for DVT.
Antibiotics regimen adjusted to cefazolin. Completed 3 days of clindamycin. Continue IV Cefazolin dosed for elevated BMI. Completed 14-day course of antibiotics on 05/11
Repeat blood culture negative to date
Status post additional excisional debridement of the left lower extremity wound on 05/04
Daily wound care; not a good candidate for wound vac or delayed primary closure at this time. Per surgery: 'will eventually require further debridement and eventual skin grafting vs BKA. Will need eventual plastics involvement for grafting: not
ready yet.'
Septic shock with hypotension not expanding to IV fluids
Resolved
Urinary retention
-PVR 372 morning of 05/08; UA without infection
-straight cath protocol in place
Acute blood loss anemia secondary to large wound.
Hemoglobin trending down to sevens.
Low iron stores.
Continue IV iron
Transfuse to keep hemoglobin above 8
Acute hypoxic respiratory failure
VDRF
� Intubated on 04/29 with procedure; extubated 04/30
Follow-up chest x-ray with left lower lobe pleural effusion and congestion
Weaned off sedation
Hyperkalemia
Normal creatinine
Normal CK.
ECG with no related changes.
s/p IV hydration
s/p Lokelma with improvement in K this morning
Non-Q wave [place] secondary to demand ischemia.
Troponin peaked at 12 and trending down
Echocardiogram
Very technically difficult study suboptimal 2D echo doppler study
Normal left ventricular chamber size. Normal left ventricular systolic
function. Left ventricular ejection fraction is 55%. Normal regional wall
motion. Mild concentric left ventricular hypertrophy.
Enlarged dilated right ventricular size. Right ventricle appears mildly
hypokinetic.
No significant valvular disease within the limitations of this study
No prior echo for comparison.
Initially on IV heparin.
Transition to aspirin
Initiated on GDMT including:, Crestor.
Ischemic evaluation eventually
MARÍA ELENA baseline metabolic acidosis/lactic acidosis - resolved
Likely prerenal in the settings of sepsis, septic shock with prerenal stimuli.
Less likely glomerular process given bland UA
Hold Lasix, NSAIDs, lisinopril.
Bladder scan for retention
Follow BMP
Consider nephrology evaluation if uptrending creatinine
Avoid nephrotoxins
-weight down despite holding lasix
Abnormal LFT
Resolving bilirubin and transaminases.
Ultrasound:Hepatosplenomegaly with hepatic steatosis.
Gallstones and sludge are present. The gallbladder is mildly distended however there is are additional findings suggestive of cholecystitis.
The common bile duct is borderline dilated measuring 6.7 mm.
Overall low clinical suspicion for acute cholecystitis
LFT has been trending down
Regular diet
Obesity with BMI of 48
hemoglobin A1c 5.8
Essential hypertension
Hold preadmission antihypertensive regimen including lisinopril and Lasix baseline
Opiate use disorder
On Suboxone prior to presentation
Full code
DVT prophylaxis subcu heparin

Anticipated Discharge: 24 - 48 hours
Subjective/Interval History
-
Date of Service: May 20, 2024
Objective Data
-
Vital Signs:
Vital Signs
Temp Pulse Resp BP Pulse Ox
98.1 F 71 18 122/53 94
05/20/24 15:20 05/20/24 15:20 05/20/24 15:20 05/20/24 15:20 05/20/24 15:20
I&O
05/19/24 05/20/24 05/21/24
06:59 06:59 06:59
Intake Total 1630 / 1630 1080 / 1080
Output Total 1700 / 1700 1200 / 1200 50 / 50
Balance -70 / -70 -120 / -120 -50 / -50
Physical Exam
-
General: Obese
GI: Soft, Nontender and Nondistended
Musculoskeletal: No Clubbing, No Cyanosis and Other (Left leg bandage in place)
Neuro: AO x 3
Psych: Calm
[2024-05-20] MEDS: LOVENOX 40 MG SC (17:15)
[2024-05-20] MEDS: CRESTOR 20 MG PO (17:15)
[2024-05-20] MEDS: ZOFRAN 4 MG IV (19:55)
[2024-05-20] MEDS: TUMS CHEWABLE TABLET 200 MG PO (19:55)
[2024-05-20 23:22] VITALS: BP 118/60
[2024-05-21] MEDS: SILVADENE 1 APPLIC TOPICAL ×3 (01:27→21:09)
[2024-05-21] MEDS: DAKIN'S SOLUTION 0.125% 1/4 STRENGTH 473 ML TOPICAL ×3 (01:27→21:04)
[2024-05-21] MEDS: TYLENOL 650 MG PO ×2 (02:19→10:28)
[2024-05-21 05:31] VITALS: BMI 42.8
[2024-05-21 07:19] LABS: % Basophils 1.3 % (0-2); % Eosinophils 8.3 % (0-6); % Immature Granulocytes 1.7 % (0-0.5); % Lymphocytes 26.5 % (20.5-51.1); % Monocytes 14.4 % (1.7-9.3); % Neutrophils 47.8 % (42.2-75.2); Absolute Basophils 0.1 10^3/uL (0-0.2); Absolute Eosinophils 0.6 10^3/uL (0-0.7); Absolute Immature Granulocytes 0.1 10^3/uL (0-0.05); Absolute Lymphocytes 1.8 10^3/uL (1.2-3.4); Absolute Neutrophils 3.3 10^3/uL (1.4-6.5); Hematocrit 26.4 % (39.0-52.0); Hemoglobin 8.3 g/dL (13.0-18.0); Mean Corp Hgb Conc. 31.4 g/dL (33.0-37.0); Mean Corpuscular Hgb 28.8 pg (27.0-31.0); Mean Corpuscular Volume 91.7 fL (80.0-94.0); Mean Platelet Volume 10.1 fL (7.4-10.4); Nucleated Red Blood Cells % 0 % (-); Platelet Count 285 10^3/uL (130-400); Red Blood Cell Count 2.88 10^6/uL (4.70-6.10); Red Cell Dist. Width 14.5 % (11.5-14.5)
[2024-05-21 07:25] VITALS: BP 110/58
[2024-05-21] MEDS: SUBUTEX 2 MG SL (10:16)
[2024-05-21] MEDS: COREG 12.5 MG PO ×2 (10:16→21:10)
[2024-05-21] MEDS: ASPIR LOW (ENTERIC COATED) 81 MG PO (10:16)
[2024-05-21] MEDS: HYDROPHOR 1 APPLIC TOPICAL (10:18)
[2024-05-21] MEDS: DESENEX/MITRAZOL/ZEASORB 1 APPLIC TOPICAL ×2 (10:18→21:05)
[2024-05-21] MEDS: ZOFRAN 4 MG IV (10:29)
--- NOTE | 2024-05-21 12:34 | CM ---
Call placed and left message for DEEP at [facility] regarding update on patient. [phone],
Will continue to to obtain information regarding SNF placement & if there is medical insurance or if [facility] responsible for payment.
CM to follow up with [facility] - will need to find placement.
PLAN: SNF
[2024-05-21] MEDS: DILAUDID 2 MG PO ×2 (13:01→16:23)
--- NOTE | 2024-05-21 14:50 | WOUNDNOTE ---
L ANTERIOR LOWER LEG
--- NOTE | 2024-05-21 14:51 | WOUNDNOTE ---
WON RN NOTE: Followed up with patient regarding L leg wounds. Fasciotomy sites improved, concerned with darkening black eschar medial leg. TT picture to Dr. Meadows, will have Surgery take a look at it today to see if needs debridement. Patient
informed and aware may need further debridement. Nurse Bianca made aware, placed Ultrasorb pad around L leg wounds and elevated leg on pillow. Nurse will re wrap wound after surgery sees patient. Supplies at bedside. Will follow as needed.
[2024-05-21 15:03] VITALS: BP 112/60
--- NOTE | 2024-05-21 15:47 | W.PN.HOSP.TC ---
Today's Communication/Plan
-
Wounds with extensive necrotic eschar.
Will ask general surgery to assess for additional debridement.
Follow hemoglobin.
Assessment / Plan
Assessment / Plan
Impression:
Severe sepsis due to left lower extremity cellulitis
Septic shock with hypotension requiring vasopressors
Bacteremia with Streptococcus pyogenous
Syncope prior to presentation.
Acute hypoxic respiratory failure in the settings of hypotension.
VDRF in the settings of severe sepsis and hemodynamic instability.
� Intubated 04/28
Acute renal failure
Lactic acidosis.
Abnormal liver function test
Demand ischemia non-Q wave [place]
Stage II decubital ulcer present on admission
Hyperkalemia
Other conditions:
Essential hypertension
Obesity with BMI of 48.
Opiate use disorder on Suboxone.
Plan:
Left lower extremity cellulitis with severe sepsis and septic shock
Severe left lower extremity cellulitis with initial concern for necrotizing fasciitis
Blood culture with Streptococcus pyogenes
CT of the left lower extremity with severe cellulitis
Appreciate ID and GS consults
Status post incision and debridement of left lower extremity soft tissue infection with no evidence of necrotizing fasciitis
Lower extremity Doppler negative for DVT.
Antibiotics regimen adjusted to cefazolin. Completed 3 days of clindamycin. Continue IV Cefazolin dosed for elevated BMI. Completed 14-day course of antibiotics on 05/11
Repeat blood culture negative to date
Status post additional excisional debridement of the left lower extremity wound on 05/04
Daily wound care; not a good candidate for wound vac or delayed primary closure at this time. Per surgery: 'will eventually require further debridement and eventual skin grafting vs BKA. Will need eventual plastics involvement for grafting: not
ready yet.'
Septic shock with hypotension not expanding to IV fluids
Resolved
Urinary retention
-PVR 372 morning of 05/08; UA without infection
-straight cath protocol in place
Acute blood loss anemia secondary to large wound.
Hemoglobin trending down to sevens.
Low iron stores.
Continue IV iron
Transfuse to keep hemoglobin above 8
Acute hypoxic respiratory failure
VDRF
� Intubated on 04/29 with procedure; extubated 04/30
Follow-up chest x-ray with left lower lobe pleural effusion and congestion
Weaned off sedation
Hyperkalemia
Normal creatinine
Normal CK.
ECG with no related changes.
s/p IV hydration
s/p Lokelma with improvement in K this morning
Non-Q wave [place] secondary to demand ischemia.
Troponin peaked at 12 and trending down
Echocardiogram
Very technically difficult study suboptimal 2D echo doppler study
Normal left ventricular chamber size. Normal left ventricular systolic
function. Left ventricular ejection fraction is 55%. Normal regional wall
motion. Mild concentric left ventricular hypertrophy.
Enlarged dilated right ventricular size. Right ventricle appears mildly
hypokinetic.
No significant valvular disease within the limitations of this study
No prior echo for comparison.
Initially on IV heparin.
Transition to aspirin
Initiated on GDMT including:, Crestor.
Ischemic evaluation eventually
MARÍA ELENA baseline metabolic acidosis/lactic acidosis - resolved
Likely prerenal in the settings of sepsis, septic shock with prerenal stimuli.
Less likely glomerular process given bland UA
Hold Lasix, NSAIDs, lisinopril.
Bladder scan for retention
Follow BMP
Consider nephrology evaluation if uptrending creatinine
Avoid nephrotoxins
-weight down despite holding lasix
Abnormal LFT
Resolving bilirubin and transaminases.
Ultrasound:Hepatosplenomegaly with hepatic steatosis.
Gallstones and sludge are present. The gallbladder is mildly distended however there is are additional findings suggestive of cholecystitis.
The common bile duct is borderline dilated measuring 6.7 mm.
Overall low clinical suspicion for acute cholecystitis
LFT has been trending down
Regular diet
Obesity with BMI of 48
hemoglobin A1c 5.8
Essential hypertension
Hold preadmission antihypertensive regimen including lisinopril and Lasix baseline
Opiate use disorder
On Suboxone prior to presentation
Full code
DVT prophylaxis subcu heparin

Anticipated Discharge: > 48 hours
Subjective/Interval History
-
Date of Service: May 21, 2024
Objective Data
-
Labs:
Laboratory Results
05/21/24
05:04
WBC 7.0
Hgb 8.3 L
Hct 26.4 L
Plt Count 285
Vital Signs:
Vital Signs
Temp Pulse Resp BP Pulse Ox
98.2 F 68 14 112/60 98
05/21/24 07:25 05/21/24 15:03 05/21/24 07:25 05/21/24 15:03 05/21/24 15:03
I&O
05/20/24 05/21/24 05/22/24
06:59 06:59 06:59
Intake Total 1080 / 1080 2140 / 2140
Output Total 1200 / 1200 1150 / 1150 325 / 325
Balance -120 / -120 990 / 990 -325 / -325
Physical Exam
-
General: Obese
GI: Soft, Nontender and Nondistended
Musculoskeletal: No Clubbing, No Cyanosis and Other (Left leg bandage in place)
Neuro: AO x 3
Psych: Calm
--- NOTE | 2024-05-21 15:53 | W.PN.GS2 ---
Today's Communication / Plan
-
continue local wound care
Assessment / Plan
-
53M with severe GAS soft tissue infection of LLE with Group A Strep Cellulitis; Invasive group A strep infection with bacteremia
AFVSS
Leukocytosis resolved
Wound continues to progress. Incisions healing via secondary intention. Skin with superficial epidermolysis/necrosis.
Will eventually require further debridement and eventual skin grafting vs BKA
AFVSS
Continue with Silvadene over necrotic areas of skin
Due to ongoing progression of the wound, not a candidate for delayed primary closure or wound vac at this time
ID following off abx
Wound care with Dakin's 1/4 strength wet to dry to incisions, Silvadene/Xeroform to skin, sinan for compression and dressing changes BID
Analgesics as needed
Plastics and vascular follow up as OP
Subjective Data
-
Date of Service: May 21, 2024
Patient seen and examined at bedside. Pain with dressing changes is present. Denies fever/chills.
Objective Data
-
Intake and Output
05/20/24 05/21/24 05/22/24
06:59 06:59 06:59
Intake Total 1080 / 1080 2140 / 2140
Output Total 1200 / 1200 1150 / 1150 325 / 325
Balance -120 / -120 990 / 990 -325 / -325
Intake:
Oral fluids 1080 / 1080 2140 / 2140
Output:
Urine, Voided 1200 / 1200 1150 / 1150 325 / 325
Other:
How many times incontinent 1
SATURATED amount urine
Number of unmeasured liquid
stools
Rectum 1
Vital Signs
Temp Pulse Resp BP Pulse Ox
98.2 F 68 14 112/60 98
05/21/24 07:25 05/21/24 15:03 05/21/24 07:25 05/21/24 15:03 05/21/24 15:03
Lab Results
05/21/24 05:04
05/19/24 07:36
Calcium 9.3 mg/dl (8.4-10.2) 05/19/24 07:36
Phosphorus 3.2 mg/dl (2.5-4.5) 05/04/24 04:31
Magnesium 1.7 mg/dl (1.6-2.3) 05/09/24 04:45
Total Bilirubin 0.9 mg/dl (0.2-1.3) 05/06/24 05:56
Direct Bilirubin 0.5 mg/dl (0.0-0.4) H 05/04/24 04:31
AST 122 U/L (17-59) H 05/06/24 05:56
ALT 49 U/L (0-50) 05/06/24 05:56
Alkaline Phosphatase 126 U/L (38-126) 05/06/24 05:56
Total Protein 6.3 g/dl (6.3-8.2) 05/06/24 05:56
Albumin 2.8 g/dl (3.5-5.0) L 05/06/24 05:56
Physical Exam
-
Gen: NAD
LLE: thin dark eschar over most of anterior surface of the skin/george with superficial epidermolysis, laterally the surgical wound edges have minimal patches of slough but deeper tissues appear healthier and healing through secondary intention with
bleeding noted during dressing changes. Very small pinpoint area of necrosis to wound bed of medial wound.
LLE pulses: DP 2+, PT 1+
Good ROM to left ankle and toes, normal sensation to foot
--- NOTE | 2024-05-21 16:05 | CM ---
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 He stated he spoke to a high ranking official at the penitentiary. He said they stated that they are trying to get him placed in a state run half-way facility in
[facility] that is part of the penitentiary system. In order to do that the DA needed to ask a [facility] Supervisor to review the request. They are currently waiting for the [facility] Supervisor's determination, and hope to have it my Friday or Friday.They did state, although the
patient is currently furloughed while he is here , he is still under responsibility of the penitentiary.
Call placed to [facility]. He stated that the likelihood of the digital cartographer approving the transfer of this prisoner is not favorable. He stated he is more than willing to work with us to establish a plan that would allow the patient
to be discharged from the hospital. He just needs to discuss with his team to make sure that they can accommodate this patients needs. He asked if we could participate with a Teams meeting on Friday at 11:30 with his team to discuss this patient's
needs and if they feel they can provide the care he needs. I did make him aware that physical therapy is recommending skilled level of care.I agreed to send him an e-mail with my e-mail address, so that he can send me a meeting invite. Update to .
[2024-05-21] MEDS: LOVENOX 40 MG SC (17:43)
[2024-05-21] MEDS: CRESTOR 20 MG PO (17:43)
[2024-05-21 20:58] VITALS: BP 131/67
[2024-05-21 23:00] VITALS: BP 114/55
--- NOTE | 2024-05-22 03:36 | PTCARENOTE ---
Patient refuses dressing change until 0730. He requests to be medicated with PO Dilaudid at 0630 before hand.
[2024-05-22 06:00] VITALS: BMI 42.9
[2024-05-22] MEDS: DILAUDID 2 MG PO ×3 (06:36→21:47)
[2024-05-22 07:23] VITALS: BP 121/64
[2024-05-22] MEDS: ASPIR LOW (ENTERIC COATED) 81 MG PO (09:13)
[2024-05-22] MEDS: COREG 12.5 MG PO ×2 (09:13→20:36)
[2024-05-22] MEDS: SUBUTEX 2 MG SL (09:13)
[2024-05-22] MEDS: SILVADENE 1 APPLIC TOPICAL ×2 (09:15→20:34)
[2024-05-22] MEDS: DAKIN'S SOLUTION 0.125% 1/4 STRENGTH 473 ML TOPICAL ×2 (09:15→20:33)
[2024-05-22] MEDS: HYDROPHOR 1 APPLIC TOPICAL (09:15)
[2024-05-22] MEDS: DESENEX/MITRAZOL/ZEASORB 1 APPLIC TOPICAL ×2 (09:15→20:34)
[2024-05-22] MEDS: TYLENOL 650 MG PO (10:06)
--- NOTE | 2024-05-22 10:06 | W.PN.HOSP.TC ---
Today's Communication/Plan
-
dispo efforts
local wound care
Assessment / Plan
Assessment / Plan
Impression:
Severe sepsis due to left lower extremity cellulitis
Septic shock with hypotension requiring vasopressors
Bacteremia with Streptococcus pyogenous
Syncope prior to presentation.
Acute hypoxic respiratory failure in the settings of hypotension.
VDRF in the settings of severe sepsis and hemodynamic instability.
� Intubated 04/28
Acute renal failure
Lactic acidosis.
Abnormal liver function test
Demand ischemia non-Q wave [place]
Stage II decubital ulcer present on admission
Hyperkalemia
Other conditions:
Essential hypertension
Obesity with BMI of 48.
Opiate use disorder on Suboxone.
Plan:
Left lower extremity cellulitis with severe sepsis and septic shock
Severe left lower extremity cellulitis with initial concern for necrotizing fasciitis
Blood culture with Streptococcus pyogenes
CT of the left lower extremity with severe cellulitis
Appreciate ID and GS consults
Status post incision and debridement of left lower extremity soft tissue infection with no evidence of necrotizing fasciitis
Lower extremity Doppler negative for DVT.
Antibiotics regimen adjusted to cefazolin. Completed 3 days of clindamycin. Continue IV Cefazolin dosed for elevated BMI. Completed 14-day course of antibiotics on 05/11
Repeat blood culture negative to date
Status post additional excisional debridement of the left lower extremity wound on 05/04
Daily wound care; not a good candidate for wound vac or delayed primary closure at this time. Per surgery: 'will eventually require further debridement and eventual skin grafting vs BKA. Will need eventual plastics involvement for grafting: not
ready yet.'
Septic shock with hypotension not expanding to IV fluids
Resolved
Urinary retention
-PVR 372 morning of 05/08; UA without infection
-straight cath protocol in place
Acute blood loss anemia secondary to large wound.
Hemoglobin trending down to sevens.
Low iron stores.
Continue IV iron
Transfuse to keep hemoglobin above 8
Acute hypoxic respiratory failure
VDRF
� Intubated on 04/29 with procedure; extubated 04/30
Follow-up chest x-ray with left lower lobe pleural effusion and congestion
Weaned off sedation
Hyperkalemia
Normal creatinine
Normal CK.
ECG with no related changes.
s/p IV hydration
s/p Lokelma with improvement in K this morning
Non-Q wave [place] secondary to demand ischemia.
Troponin peaked at 12 and trending down
Echocardiogram
Very technically difficult study suboptimal 2D echo doppler study
Normal left ventricular chamber size. Normal left ventricular systolic
function. Left ventricular ejection fraction is 55%. Normal regional wall
motion. Mild concentric left ventricular hypertrophy.
Enlarged dilated right ventricular size. Right ventricle appears mildly
hypokinetic.
No significant valvular disease within the limitations of this study
No prior echo for comparison.
Initially on IV heparin.
Transition to aspirin
Initiated on GDMT including:, Crestor.
Ischemic evaluation eventually
MARÍA ELENA baseline metabolic acidosis/lactic acidosis - resolved
Likely prerenal in the settings of sepsis, septic shock with prerenal stimuli.
Less likely glomerular process given bland UA
Hold Lasix, NSAIDs, lisinopril.
Bladder scan for retention
Follow BMP
Consider nephrology evaluation if uptrending creatinine
Avoid nephrotoxins
-weight down despite holding lasix
Abnormal LFT
Resolving bilirubin and transaminases.
Ultrasound:Hepatosplenomegaly with hepatic steatosis.
Gallstones and sludge are present. The gallbladder is mildly distended however there is are additional findings suggestive of cholecystitis.
The common bile duct is borderline dilated measuring 6.7 mm.
Overall low clinical suspicion for acute cholecystitis
LFT has been trending down
Regular diet
Obesity with BMI of 48
hemoglobin A1c 5.8
Essential hypertension
Hold preadmission antihypertensive regimen including lisinopril and Lasix baseline
Opiate use disorder
On Suboxone prior to presentation
Full code
DVT prophylaxis subcu heparin

Anticipated Discharge: > 48 hours
Subjective/Interval History
-
Date of Service: May 22, 2024
no new complaints
Objective Data
-
Vital Signs:
Vital Signs
Temp Pulse Resp BP Pulse Ox
98.3 F 69 18 121/64 95
05/22/24 07:23 05/22/24 09:13 05/22/24 07:23 05/22/24 09:13 05/22/24 07:23
I&O
05/21/24 05/22/24 05/23/24
06:59 06:59 06:59
Intake Total 2140 / 2140 960 / 960 120 / 120
Output Total 1150 / 1150 845 / 845 400 / 400
Balance 990 / 990 115 / 115 -280 / -280
Review of Systems
-
History Source: Patient
All other systems: Reviewed and negative
Physical Exam
-
General: Obese
GI: Soft, Nontender and Nondistended
Musculoskeletal: No Clubbing, No Cyanosis and Other (Left leg bandage in place)
Neuro: AO x 3
Psych: Calm
Data Reviewed
-
Diagnostic Radiology: Report Reviewed by me
Labs: Labs Reviewed by me
[2024-05-22 15:15] VITALS: BP 116/60
[2024-05-22] MEDS: CRESTOR 20 MG PO (17:02)
[2024-05-22] MEDS: LOVENOX 40 MG SC (17:02)
[2024-05-22] MEDS: ZOFRAN 4 MG IV (18:10)
[2024-05-22] MEDS: TUMS CHEWABLE TABLET 200 MG PO (18:13)
[2024-05-22 23:07] VITALS: BP 114/64
[2024-05-23] MEDS: TORADOL 15 MG IV (02:31)
[2024-05-23] MEDS: FLUSH (NSS) 2 FLUSH IV (02:34)
[2024-05-23 06:00] VITALS: BMI 42.8
[2024-05-23 07:15] VITALS: BP 124/60
--- NOTE | 2024-05-23 09:16 | W.PN.HOSP.TC ---
Today's Communication/Plan
-
dispo efforts
Assessment / Plan
Assessment / Plan
Impression:
Severe sepsis due to left lower extremity cellulitis
Septic shock with hypotension requiring vasopressors
Bacteremia with Streptococcus pyogenous
Syncope prior to presentation.
Acute hypoxic respiratory failure in the settings of hypotension.
VDRF in the settings of severe sepsis and hemodynamic instability.
� Intubated 04/28
Acute renal failure
Lactic acidosis.
Abnormal liver function test
Demand ischemia non-Q wave [place]
Stage II decubital ulcer present on admission
Hyperkalemia
Other conditions:
Essential hypertension
Obesity with BMI of 48.
Opiate use disorder on Suboxone.
Plan:
Left lower extremity cellulitis with severe sepsis and septic shock
Severe left lower extremity cellulitis with initial concern for necrotizing fasciitis
Blood culture with Streptococcus pyogenes
CT of the left lower extremity with severe cellulitis
Appreciate ID and GS consults
Status post incision and debridement of left lower extremity soft tissue infection with no evidence of necrotizing fasciitis
Lower extremity Doppler negative for DVT.
Antibiotics regimen adjusted to cefazolin. Completed 3 days of clindamycin. Continue IV Cefazolin dosed for elevated BMI. Completed 14-day course of antibiotics on 05/11
Repeat blood culture negative to date
Status post additional excisional debridement of the left lower extremity wound on 05/04
Daily wound care; not a good candidate for wound vac or delayed primary closure at this time. Per surgery: 'will eventually require further debridement and eventual skin grafting vs BKA. Will need eventual plastics involvement for grafting: not
ready yet.'
Septic shock with hypotension not expanding to IV fluids
Resolved
Urinary retention
-PVR 372 morning of 05/08; UA without infection
-straight cath protocol in place
Acute blood loss anemia secondary to large wound.
Hemoglobin trending down to sevens.
Low iron stores.
Continue IV iron
Transfuse to keep hemoglobin above 8
Acute hypoxic respiratory failure
VDRF
� Intubated on 04/29 with procedure; extubated 04/30
Follow-up chest x-ray with left lower lobe pleural effusion and congestion
Weaned off sedation
Hyperkalemia
Normal creatinine
Normal CK.
ECG with no related changes.
s/p IV hydration
s/p Lokelma with improvement in K this morning
Non-Q wave [place] secondary to demand ischemia.
Troponin peaked at 12 and trending down
Echocardiogram
Very technically difficult study suboptimal 2D echo doppler study
Normal left ventricular chamber size. Normal left ventricular systolic
function. Left ventricular ejection fraction is 55%. Normal regional wall
motion. Mild concentric left ventricular hypertrophy.
Enlarged dilated right ventricular size. Right ventricle appears mildly
hypokinetic.
No significant valvular disease within the limitations of this study
No prior echo for comparison.
Initially on IV heparin.
Transition to aspirin
Initiated on GDMT including:, Crestor.
Ischemic evaluation eventually
MARÍA ELENA baseline metabolic acidosis/lactic acidosis - resolved
Likely prerenal in the settings of sepsis, septic shock with prerenal stimuli.
Less likely glomerular process given bland UA
Hold Lasix, NSAIDs, lisinopril.
Bladder scan for retention
Follow BMP
Consider nephrology evaluation if uptrending creatinine
Avoid nephrotoxins
-weight down despite holding lasix
Abnormal LFT
Resolving bilirubin and transaminases.
Ultrasound:Hepatosplenomegaly with hepatic steatosis.
Gallstones and sludge are present. The gallbladder is mildly distended however there is are additional findings suggestive of cholecystitis.
The common bile duct is borderline dilated measuring 6.7 mm.
Overall low clinical suspicion for acute cholecystitis
LFT has been trending down
Regular diet
Obesity with BMI of 48
hemoglobin A1c 5.8
Essential hypertension
Hold preadmission antihypertensive regimen including lisinopril and Lasix baseline
Opiate use disorder
On Suboxone prior to presentation
Full code
DVT prophylaxis subcu heparin

Anticipated Discharge: > 48 hours
Subjective/Interval History
-
Date of Service: May 23, 2024
no new complaints
Objective Data
-
Vital Signs:
Vital Signs
Temp Pulse Resp BP Pulse Ox
98.2 F 67 18 124/60 93
05/23/24 07:15 05/23/24 07:15 05/23/24 07:15 05/23/24 07:15 05/23/24 07:15
I&O
05/22/24 05/23/24 05/24/24
06:59 06:59 06:59
Intake Total 960 / 960 1800 / 1800
Output Total 845 / 845 1300 / 1300
Balance 115 / 115 500 / 500
Review of Systems
-
History Source: Patient
All other systems: Reviewed and negative
Physical Exam
-
General: Obese
GI: Soft, Nontender and Nondistended
Musculoskeletal: No Clubbing, No Cyanosis and Other (Left leg bandage in place)
Neuro: AO x 3
Psych: Calm
Data Reviewed
-
Diagnostic Radiology: Report Reviewed by me
Labs: Labs Reviewed by me
[2024-05-23] MEDS: DILAUDID 2 MG PO ×2 (09:34→22:32)
[2024-05-23] MEDS: SUBUTEX 2 MG SL (09:37)
[2024-05-23] MEDS: COREG 12.5 MG PO ×2 (09:37→22:31)
[2024-05-23] MEDS: ASPIR LOW (ENTERIC COATED) 81 MG PO (09:37)
[2024-05-23] MEDS: SILVADENE 1 APPLIC TOPICAL ×2 (09:38→22:33)
[2024-05-23] MEDS: DAKIN'S SOLUTION 0.125% 1/4 STRENGTH 473 ML TOPICAL (09:38)
[2024-05-23] MEDS: DESENEX/MITRAZOL/ZEASORB 1 APPLIC TOPICAL ×2 (09:39→22:33)
[2024-05-23] MEDS: HYDROPHOR 1 APPLIC TOPICAL (09:39)
[2024-05-23] MEDS: TYLENOL 650 MG PO ×2 (12:43→17:01)
[2024-05-23 12:57] LABS: Hemoglobin 8.3 g/dL (13.0-18.0)
[2024-05-23] MEDS: DILAUDID 0.5 MG IV (13:36)
[2024-05-23 15:15] VITALS: BP 114/47
[2024-05-23] MEDS: CRESTOR 20 MG PO (16:47)
[2024-05-23] MEDS: LOVENOX 40 MG SC (16:48)
[2024-05-23] MEDS: DAKIN'S SOLUTION 0.125% 1/4 STRENGTH 125 ML TOPICAL (22:32)
[2024-05-23] MEDS: ZOFRAN 4 MG IV (22:39)
[2024-05-24] MEDS: TORADOL 15 MG IV (03:02)
[2024-05-24 05:49] VITALS: BMI 42.8
[2024-05-24 06:23] LABS: Hematocrit 25.7 % (39.0-52.0); Hemoglobin 8.2 g/dL (13.0-18.0); Mean Corp Hgb Conc. 31.9 g/dL (33.0-37.0); Mean Corpuscular Hgb 28.8 pg (27.0-31.0); Mean Corpuscular Volume 90.2 fL (80.0-94.0); Mean Platelet Volume 9.2 fL (7.4-10.4); Platelet Count 265 10^3/uL (130-400); Red Blood Cell Count 2.85 10^6/uL (4.70-6.10); White Blood Cell Count 7.3 10^3/uL (4.8-10.8)
[2024-05-24 06:49] LABS: Blood Urea Nitrogen 13 mg/dl (9-20); Calcium 8.7 mg/dl (8.4-10.2); Carbon Dioxide 37 mmol/L (22-30); Chloride 95 mmol/L (98-107); Estimated Creatinine Clearance > 125 ml/min; Glucose 105 mg/dl (70-99); Potassium 4.5 mmol/L (3.5-5.1); Sodium 137 mmol/L (135-145); eGFR > 60.00
[2024-05-24 07:15] VITALS: BP 136/64
[2024-05-24] MEDS: SUBUTEX 2 MG SL (08:17)
[2024-05-24] MEDS: ASPIR LOW (ENTERIC COATED) 81 MG PO (08:17)
[2024-05-24] MEDS: COREG 12.5 MG PO ×2 (08:17→20:00)
[2024-05-24] MEDS: DAKIN'S SOLUTION 0.125% 1/4 STRENGTH 1 ML TOPICAL (08:18)
[2024-05-24] MEDS: HYDROPHOR 1 APPLIC TOPICAL (08:18)
[2024-05-24] MEDS: DESENEX/MITRAZOL/ZEASORB 1 APPLIC TOPICAL ×2 (08:19→20:01)
[2024-05-24] MEDS: SILVADENE 1 APPLIC TOPICAL (08:19)
--- NOTE | 2024-05-24 12:07 | CM ---
Spoke with patient bedside.
Patient lives with parents in a 1 story home and stays in the loft.
There is a second bedroom on the first floor that patient could use.
Bathroom is located on the first floor.
1 step up to the porch and threshold into the home.
Patient stated home could be WC accessible.
Patient states father would be able to assist with adls and wound care.
Patient drives and father drives.
Per patient not due for parole until 07/29/24.
With patients permission, call to patients Dad Fernando Bhakta [phone] re insurance information.
Dad and mom agreeable to patient coming home, they would assist, however per patient he is unable to tend to his own toileting needs and father and mother not willing to assist with those needs.
Explained to parents CM is not saying patient is being d/c home, information is for eventual discharge and all decisions are thru the courts.
Per dad, Insurance information is on a paper printout:
[employer] priority
Policy# [id number]
p# [phone]
address: [facility] [address] [address]
CM called insurance number- answers as [employer]
Policy and entered. Per automated response not enough info to locate policy.
Wait time for product support sales representative 136 minutes.
Call terminated.
[2024-05-24 12:10] VITALS: BP 119/82; BP 123/67; PULSE 71; O2SAT 97
[2024-05-24] MEDS: DILAUDID 2 MG PO ×2 (12:11→21:10)
[2024-05-24 14:02] VITALS: O2SAT 96
--- NOTE | 2024-05-24 14:55 | WOUNDNOTE ---
WON RN NOTE: Assessed wound on L leg with nurse Tovar, has been more bleeding recently reports nurse. Does not appear to have excessive drainage on dressing. Wound appears improved compared to last week, superficial eschar is demarcating itself.
Bleeding is mainly when fasciotomy site dressings are removed and painful to patient. TT picture to BUILD AND DEPLOYMENT ENGINEER Martha who agreed with using Xeroform under Dakin's dressing to prevent bleeding. Recommend daily dressing changes and prn drainage. Will update
wound care orders and nurse Tovar aware.
[2024-05-24 15:10] VITALS: BP 118/62
--- NOTE | 2024-05-24 16:04 | W.PN.HOSP.TC ---
Today's Communication/Plan
-
Wound care.
Ongoing disposition efforts
Monitor hemoglobin.
Assessment / Plan
Assessment / Plan
Impression:
Severe sepsis due to left lower extremity cellulitis
Septic shock with hypotension requiring vasopressors
Bacteremia with Streptococcus pyogenous
Syncope prior to presentation.
Acute hypoxic respiratory failure in the settings of hypotension.
VDRF in the settings of severe sepsis and hemodynamic instability.
� Intubated 04/28
Acute renal failure
Lactic acidosis.
Abnormal liver function test
Demand ischemia non-Q wave [place]
Stage II decubital ulcer present on admission
Hyperkalemia
Other conditions:
Essential hypertension
Obesity with BMI of 48.
Opiate use disorder on Suboxone.
Plan:
Left lower extremity cellulitis with severe sepsis and septic shock
Severe left lower extremity cellulitis with initial concern for necrotizing fasciitis
Blood culture with Streptococcus pyogenes
CT of the left lower extremity with severe cellulitis
Appreciate ID and GS consults
Status post incision and debridement of left lower extremity soft tissue infection with no evidence of necrotizing fasciitis
Lower extremity Doppler negative for DVT.
Antibiotics regimen adjusted to cefazolin. Completed 3 days of clindamycin. Continue IV Cefazolin dosed for elevated BMI. Completed 14-day course of antibiotics on 05/11
Repeat blood culture negative to date
Status post additional excisional debridement of the left lower extremity wound on 05/04
Daily wound care; not a good candidate for wound vac or delayed primary closure at this time. Per surgery: 'will eventually require further debridement and eventual skin grafting vs BKA. Will need eventual plastics involvement for grafting: not
ready yet.'
Septic shock with hypotension not expanding to IV fluids
Resolved
Urinary retention
-PVR 372 morning of 05/08; UA without infection
-straight cath protocol in place
Acute blood loss anemia secondary to large wound.
Hemoglobin trending down to sevens.
Low iron stores.
Continue IV iron
Transfuse to keep hemoglobin above 8
Acute hypoxic respiratory failure
VDRF
� Intubated on 04/29 with procedure; extubated 04/30
Follow-up chest x-ray with left lower lobe pleural effusion and congestion
Weaned off sedation
Hyperkalemia
Normal creatinine
Normal CK.
ECG with no related changes.
s/p IV hydration
s/p Lokelma with improvement in K this morning
Non-Q wave [place] secondary to demand ischemia.
Troponin peaked at 12 and trending down
Echocardiogram
Very technically difficult study suboptimal 2D echo doppler study
Normal left ventricular chamber size. Normal left ventricular systolic
function. Left ventricular ejection fraction is 55%. Normal regional wall
motion. Mild concentric left ventricular hypertrophy.
Enlarged dilated right ventricular size. Right ventricle appears mildly
hypokinetic.
No significant valvular disease within the limitations of this study
No prior echo for comparison.
Initially on IV heparin.
Transition to aspirin
Initiated on GDMT including:, Crestor.
Ischemic evaluation eventually
MARÍA ELENA baseline metabolic acidosis/lactic acidosis - resolved
Likely prerenal in the settings of sepsis, septic shock with prerenal stimuli.
Less likely glomerular process given bland UA
Hold Lasix, NSAIDs, lisinopril.
Bladder scan for retention
Follow BMP
Consider nephrology evaluation if uptrending creatinine
Avoid nephrotoxins
-weight down despite holding lasix
Abnormal LFT
Resolving bilirubin and transaminases.
Ultrasound:Hepatosplenomegaly with hepatic steatosis.
Gallstones and sludge are present. The gallbladder is mildly distended however there is are additional findings suggestive of cholecystitis.
The common bile duct is borderline dilated measuring 6.7 mm.
Overall low clinical suspicion for acute cholecystitis
LFT has been trending down
Regular diet
Obesity with BMI of 48
hemoglobin A1c 5.8
Essential hypertension
Hold preadmission antihypertensive regimen including lisinopril and Lasix baseline
Opiate use disorder
On Suboxone prior to presentation
Full code
DVT prophylaxis subcu heparin

Anticipated Discharge: 24 - 48 hours
Subjective/Interval History
-
Date of Service: May 24, 2024
Objective Data
-
Labs:
Laboratory Results
05/24/24
06:16
WBC 7.3
Hgb 8.2 L
Hct 25.7 L
Plt Count 265
Sodium 137
Potassium 4.5
Chloride 95 L
Carbon Dioxide 37 H
BUN 13
Creatinine 0.8
Glucose 105 H
Calcium 8.7
Vital Signs:
Vital Signs
Temp Pulse Resp BP Pulse Ox
98.5 F 73 16 136/64 95
05/24/24 07:15 05/24/24 08:17 05/24/24 07:15 05/24/24 08:17 05/24/24 11:21
I&O
05/23/24 05/24/24 05/25/24
06:59 06:59 06:59
Intake Total 1800 / 1800 1380 / 1380
Output Total 1300 / 1300
Balance 500 / 500 1380 / 1380
Physical Exam
-
General: Obese
GI: Soft, Nontender and Nondistended
Musculoskeletal: No Clubbing, No Cyanosis and Other (Left leg bandage in place)
Neuro: AO x 3
Psych: Calm
[2024-05-24] MEDS: LOVENOX 40 MG SC (17:37)
[2024-05-24] MEDS: CRESTOR 20 MG PO (17:37)
[2024-05-24] MEDS: TYLENOL 650 MG PO (17:53)
[2024-05-24] MEDS: SILVADENE TOPICAL (20:01)
[2024-05-24 23:33] VITALS: BP 128/61
[2024-05-25 06:00] VITALS: BMI 42.6
[2024-05-25] MEDS: ASPIR LOW (ENTERIC COATED) 81 MG PO (07:42)
[2024-05-25] MEDS: COREG 12.5 MG PO ×2 (07:42→20:26)
[2024-05-25] MEDS: SUBUTEX 2 MG SL (07:42)
[2024-05-25] MEDS: DESENEX/MITRAZOL/ZEASORB 1 APPLIC TOPICAL ×2 (07:43→20:29)
[2024-05-25] MEDS: DAKIN'S SOLUTION 0.125% 1/4 STRENGTH 1 ML TOPICAL (07:43)
[2024-05-25] MEDS: HYDROPHOR 1 APPLIC TOPICAL (07:44)
[2024-05-25] MEDS: SILVADENE 1 APPLIC TOPICAL (07:44)
[2024-05-25 08:00] VITALS: BP 120/55
[2024-05-25] MEDS: DILAUDID 2 MG PO ×2 (10:48→18:54)
--- NOTE | 2024-05-25 14:59 | W.PN.HOSP.TC ---
Today's Communication/Plan
-
Continue wound care per
Ongoing disposition efforts
Assessment / Plan
Assessment / Plan
Impression:
Severe sepsis due to left lower extremity cellulitis
Septic shock with hypotension requiring vasopressors
Bacteremia with Streptococcus pyogenous
Syncope prior to presentation.
Acute hypoxic respiratory failure in the settings of hypotension.
VDRF in the settings of severe sepsis and hemodynamic instability.
� Intubated 04/28
Acute renal failure
Lactic acidosis.
Abnormal liver function test
Demand ischemia non-Q wave [place]
Stage II decubital ulcer present on admission
Hyperkalemia
Other conditions:
Essential hypertension
Obesity with BMI of 48.
Opiate use disorder on Suboxone.
Plan:
Left lower extremity cellulitis with severe sepsis and septic shock
Severe left lower extremity cellulitis with initial concern for necrotizing fasciitis
Blood culture with Streptococcus pyogenes
CT of the left lower extremity with severe cellulitis
Appreciate ID and GS consults
Status post incision and debridement of left lower extremity soft tissue infection with no evidence of necrotizing fasciitis
Lower extremity Doppler negative for DVT.
Antibiotics regimen adjusted to cefazolin. Completed 3 days of clindamycin. Continue IV Cefazolin dosed for elevated BMI. Completed 14-day course of antibiotics on 05/11
Repeat blood culture negative to date
Status post additional excisional debridement of the left lower extremity wound on 05/04
Daily wound care; not a good candidate for wound vac or delayed primary closure at this time. Per surgery: 'will eventually require further debridement and eventual skin grafting vs BKA. Will need eventual plastics involvement for grafting: not
ready yet.'
Septic shock with hypotension not expanding to IV fluids
Resolved
Urinary retention
-PVR 372 morning of 05/08; UA without infection
-straight cath protocol in place
Acute blood loss anemia secondary to large wound.
Hemoglobin trending down to sevens.
Low iron stores.
Continue IV iron
Transfuse to keep hemoglobin above 8
Acute hypoxic respiratory failure
VDRF
� Intubated on 04/29 with procedure; extubated 04/30
Follow-up chest x-ray with left lower lobe pleural effusion and congestion
Weaned off sedation
Hyperkalemia
Normal creatinine
Normal CK.
ECG with no related changes.
s/p IV hydration
s/p Lokelma with improvement in K this morning
Non-Q wave [place] secondary to demand ischemia.
Troponin peaked at 12 and trending down
Echocardiogram
Very technically difficult study suboptimal 2D echo doppler study
Normal left ventricular chamber size. Normal left ventricular systolic
function. Left ventricular ejection fraction is 55%. Normal regional wall
motion. Mild concentric left ventricular hypertrophy.
Enlarged dilated right ventricular size. Right ventricle appears mildly
hypokinetic.
No significant valvular disease within the limitations of this study
No prior echo for comparison.
Initially on IV heparin.
Transition to aspirin
Initiated on GDMT including:, Crestor.
Ischemic evaluation eventually
MARÍA ELENA baseline metabolic acidosis/lactic acidosis - resolved
Likely prerenal in the settings of sepsis, septic shock with prerenal stimuli.
Less likely glomerular process given bland UA
Hold Lasix, NSAIDs, lisinopril.
Bladder scan for retention
Follow BMP
Consider nephrology evaluation if uptrending creatinine
Avoid nephrotoxins
-weight down despite holding lasix
Abnormal LFT
Resolving bilirubin and transaminases.
Ultrasound:Hepatosplenomegaly with hepatic steatosis.
Gallstones and sludge are present. The gallbladder is mildly distended however there is are additional findings suggestive of cholecystitis.
The common bile duct is borderline dilated measuring 6.7 mm.
Overall low clinical suspicion for acute cholecystitis
LFT has been trending down
Regular diet
Obesity with BMI of 48
hemoglobin A1c 5.8
Essential hypertension
Hold preadmission antihypertensive regimen including lisinopril and Lasix baseline
Opiate use disorder
On Suboxone prior to presentation
Full code
DVT prophylaxis subcu heparin

Anticipated Discharge: 24 - 48 hours
Subjective/Interval History
-
Date of Service: May 25, 2024
Objective Data
-
Vital Signs:
Vital Signs
Temp Pulse Resp BP Pulse Ox
98 F 69 16 120/55 94
05/25/24 08:00 05/25/24 08:00 05/25/24 08:00 05/25/24 08:00 05/25/24 12:13
I&O
05/24/24 05/25/24 05/26/24
06:59 06:59 06:59
Intake Total 1380 / 1380 1140 / 1620 480 / 480
Output Total 100 / 350 250 / 250
Balance 1380 / 1380 1040 / 1270 230 / 230
Physical Exam
-
General: Obese
GI: Soft, Nontender and Nondistended
Musculoskeletal: No Clubbing, No Cyanosis and Other (Left leg bandage in place)
Neuro: AO x 3
Psych: Calm
[2024-05-25 16:33] VITALS: BP 108/63
--- NOTE | 2024-05-25 16:50 | CM ---
Multiple skilled rehab referral sent via [facility].
[2024-05-25] MEDS: CRESTOR 20 MG PO (17:03)
[2024-05-25] MEDS: LOVENOX 40 MG SC (17:04)
[2024-05-25] MEDS: ZOFRAN 4 MG IV (18:54)
[2024-05-25] MEDS: SILVADENE TOPICAL (20:28)
[2024-05-25] MEDS: TUMS CHEWABLE TABLET 200 MG PO (20:34)
[2024-05-25 23:39] VITALS: BP 129/60
[2024-05-26] MEDS: DILAUDID 2 MG PO ×3 (03:16→21:43)
[2024-05-26] MEDS: TUMS CHEWABLE TABLET 200 MG PO (03:17)
[2024-05-26 05:31] VITALS: BMI 42.7
[2024-05-26 08:00] VITALS: BP 122/59
[2024-05-26] MEDS: ASPIR LOW (ENTERIC COATED) 81 MG PO (09:24)
[2024-05-26] MEDS: SUBUTEX 2 MG SL (09:32)
[2024-05-26] MEDS: COREG 12.5 MG PO ×2 (09:32→20:36)
[2024-05-26] MEDS: HYDROPHOR 1 APPLIC TOPICAL (09:33)
[2024-05-26] MEDS: DAKIN'S SOLUTION 0.125% 1/4 STRENGTH 473 ML TOPICAL (09:33)
[2024-05-26] MEDS: DESENEX/MITRAZOL/ZEASORB 1 APPLIC TOPICAL ×2 (09:34→20:36)
[2024-05-26] MEDS: SILVADENE 1 APPLIC TOPICAL (09:34)
--- NOTE | 2024-05-26 14:09 | CM ---
Continue to work on placement for patient.
Multiple referrals sent in [facility].
PLAN: SNF
--- NOTE | 2024-05-26 14:45 | CM ---
TC to Mavis from [facility] with interest in accepting patient.
After discussion, due to patients offence they are unable to accept, but their sister facility [facility] may be able to accept.
Await TCB.
TC to Hilda from [facility] to if Medicaid application could be expedited, await TCB.
Plan: Possibly skilled rehab if facility accepts.
--- NOTE | 2024-05-26 15:09 | W.PN.HOSP.TC ---
Today's Communication/Plan
-
Continue wound care.
Placement
Assessment / Plan
Assessment / Plan
Impression:
Severe sepsis due to left lower extremity cellulitis
Septic shock with hypotension requiring vasopressors
Bacteremia with Streptococcus pyogenous
Syncope prior to presentation.
Acute hypoxic respiratory failure in the settings of hypotension.
VDRF in the settings of severe sepsis and hemodynamic instability.
� Intubated 04/28
Acute renal failure
Lactic acidosis.
Abnormal liver function test
Demand ischemia non-Q wave [place]
Stage II decubital ulcer present on admission
Hyperkalemia
Other conditions:
Essential hypertension
Obesity with BMI of 48.
Opiate use disorder on Suboxone.
Plan:
Left lower extremity cellulitis with severe sepsis and septic shock
Severe left lower extremity cellulitis with initial concern for necrotizing fasciitis
Blood culture with Streptococcus pyogenes
CT of the left lower extremity with severe cellulitis
Appreciate ID and GS consults
Status post incision and debridement of left lower extremity soft tissue infection with no evidence of necrotizing fasciitis
Lower extremity Doppler negative for DVT.
Antibiotics regimen adjusted to cefazolin. Completed 3 days of clindamycin. Continue IV Cefazolin dosed for elevated BMI. Completed 14-day course of antibiotics on 05/11
Repeat blood culture negative to date
Status post additional excisional debridement of the left lower extremity wound on 05/04
Daily wound care; not a good candidate for wound vac or delayed primary closure at this time. Per surgery: 'will eventually require further debridement and eventual skin grafting vs BKA. Will need eventual plastics involvement for grafting: not
ready yet.'
Septic shock with hypotension not expanding to IV fluids
Resolved
Urinary retention
-PVR 372 morning of 05/08; UA without infection
-straight cath protocol in place
Acute blood loss anemia secondary to large wound.
Hemoglobin trending down to sevens.
Low iron stores.
Continue IV iron
Transfuse to keep hemoglobin above 8
Acute hypoxic respiratory failure
VDRF
� Intubated on 04/29 with procedure; extubated 04/30
Follow-up chest x-ray with left lower lobe pleural effusion and congestion
Weaned off sedation
Hyperkalemia
Normal creatinine
Normal CK.
ECG with no related changes.
s/p IV hydration
s/p Lokelma with improvement in K this morning
Non-Q wave [place] secondary to demand ischemia.
Troponin peaked at 12 and trending down
Echocardiogram
Very technically difficult study suboptimal 2D echo doppler study
Normal left ventricular chamber size. Normal left ventricular systolic
function. Left ventricular ejection fraction is 55%. Normal regional wall
motion. Mild concentric left ventricular hypertrophy.
Enlarged dilated right ventricular size. Right ventricle appears mildly
hypokinetic.
No significant valvular disease within the limitations of this study
No prior echo for comparison.
Initially on IV heparin.
Transition to aspirin
Initiated on GDMT including:, Crestor.
Ischemic evaluation eventually
MARÍA ELENA baseline metabolic acidosis/lactic acidosis - resolved
Likely prerenal in the settings of sepsis, septic shock with prerenal stimuli.
Less likely glomerular process given bland UA
Hold Lasix, NSAIDs, lisinopril.
Bladder scan for retention
Follow BMP
Consider nephrology evaluation if uptrending creatinine
Avoid nephrotoxins
-weight down despite holding lasix
Abnormal LFT
Resolving bilirubin and transaminases.
Ultrasound:Hepatosplenomegaly with hepatic steatosis.
Gallstones and sludge are present. The gallbladder is mildly distended however there is are additional findings suggestive of cholecystitis.
The common bile duct is borderline dilated measuring 6.7 mm.
Overall low clinical suspicion for acute cholecystitis
LFT has been trending down
Regular diet
Obesity with BMI of 48
hemoglobin A1c 5.8
Essential hypertension
Hold preadmission antihypertensive regimen including lisinopril and Lasix baseline
Opiate use disorder
On Suboxone prior to presentation
Full code
DVT prophylaxis subcu heparin

Anticipated Discharge: 24 - 48 hours
Subjective/Interval History
-
Date of Service: May 26, 2024
Objective Data
-
Vital Signs:
Vital Signs
Temp Pulse Resp BP Pulse Ox
98.1 F 70 16 122/59 96
05/26/24 08:00 05/26/24 09:32 05/26/24 08:00 05/26/24 09:32 05/26/24 08:00
I&O
05/25/24 05/26/24 05/27/24
06:59 06:59 06:59
Intake Total 1140 / 1620 1860 / 1860
Output Total 100 / 350 760 / 760
Balance 1040 / 1270 1100 / 1100
Physical Exam
-
General: Obese
GI: Soft, Nontender and Nondistended
Musculoskeletal: No Clubbing, No Cyanosis and Other (Left leg bandage in place)
Neuro: AO x 3
Psych: Calm
[2024-05-26] MEDS: TYLENOL 650 MG PO (15:29)
[2024-05-26 17:27] VITALS: BP 110/61
[2024-05-26] MEDS: CRESTOR 20 MG PO (17:58)
[2024-05-26] MEDS: LOVENOX 40 MG SC (17:58)
[2024-05-26] MEDS: ZOFRAN 4 MG IV (18:01)
[2024-05-26] MEDS: SILVADENE TOPICAL (20:35)
--- NOTE | 2024-05-26 20:37 | VATNOTE ---
Day shift RN stated patients IV burned when administering zofran and requested assessment of the IV. After speaking with patient, patient stated he would request IV team for a restart if he feels a 'sensation' again after another dose of zofran.
[2024-05-26 23:40] VITALS: BP 107/55
[2024-05-27] MEDS: TYLENOL 650 MG PO ×2 (02:38→12:46)
[2024-05-27] MEDS: DILAUDID 2 MG PO ×3 (05:43→22:01)
[2024-05-27 05:50] VITALS: BMI 42.2
[2024-05-27 07:15] VITALS: BP 124/59
[2024-05-27] MEDS: COREG 12.5 MG PO ×2 (07:28→21:53)
[2024-05-27] MEDS: SUBUTEX 2 MG SL (07:29)
[2024-05-27] MEDS: ASPIR LOW (ENTERIC COATED) 81 MG PO (07:29)
[2024-05-27] MEDS: DAKIN'S SOLUTION 0.125% 1/4 STRENGTH 1 ML TOPICAL (07:32)
[2024-05-27] MEDS: DESENEX/MITRAZOL/ZEASORB 1 APPLIC TOPICAL ×2 (07:32→21:58)
[2024-05-27] MEDS: HYDROPHOR 1 APPLIC TOPICAL (07:34)
[2024-05-27] MEDS: SILVADENE 1 APPLIC TOPICAL (07:34)
[2024-05-27 08:57] VITALS: BP 124/59
[2024-05-27 11:04] VITALS: O2SAT 95
--- NOTE | 2024-05-27 13:14 | CM ---
Addendum entered by Edel Perkins 05/27/24 15:26:
TCB from [facility], unable to accept.
Original Note:
Left VM for [facility] to see if medicaid process could be expedited. Await TCB.
37 referrals sent so far with 21 unable to accept, 1 checking and the rest no response.
[phone].
Per [place] obstacles include Saboxone, size of patient, possible additional surgeries, disposition, medicaid pending, and offence.
[facility] will review with their medical records library professor.
additional referrals sent.
[2024-05-27 15:25] VITALS: BP 135/66
--- NOTE | 2024-05-27 15:37 | W.PN.HOSP.TC ---
Today's Communication/Plan
-
Placement
Assessment / Plan
Assessment / Plan
Impression:
Severe sepsis due to left lower extremity cellulitis
Septic shock with hypotension requiring vasopressors
Bacteremia with Streptococcus pyogenous
Syncope prior to presentation.
Acute hypoxic respiratory failure in the settings of hypotension.
VDRF in the settings of severe sepsis and hemodynamic instability.
� Intubated 04/28
Acute renal failure
Lactic acidosis.
Abnormal liver function test
Demand ischemia non-Q wave [place]
Stage II decubital ulcer present on admission
Hyperkalemia
Other conditions:
Essential hypertension
Obesity with BMI of 48.
Opiate use disorder on Suboxone.
Plan:
Left lower extremity cellulitis with severe sepsis and septic shock
Severe left lower extremity cellulitis with initial concern for necrotizing fasciitis
Blood culture with Streptococcus pyogenes
CT of the left lower extremity with severe cellulitis
Appreciate ID and GS consults
Status post incision and debridement of left lower extremity soft tissue infection with no evidence of necrotizing fasciitis
Lower extremity Doppler negative for DVT.
Antibiotics regimen adjusted to cefazolin. Completed 3 days of clindamycin. Continue IV Cefazolin dosed for elevated BMI. Completed 14-day course of antibiotics on 05/11
Repeat blood culture negative to date
Status post additional excisional debridement of the left lower extremity wound on 05/04
Daily wound care; not a good candidate for wound vac or delayed primary closure at this time. Per surgery: 'will eventually require further debridement and eventual skin grafting vs BKA. Will need eventual plastics involvement for grafting: not
ready yet.'
Septic shock with hypotension not expanding to IV fluids
Resolved
Urinary retention
-PVR 372 morning of 05/08; UA without infection
-straight cath protocol in place
Acute blood loss anemia secondary to large wound.
Hemoglobin trending down to sevens.
Low iron stores.
Continue IV iron
Transfuse to keep hemoglobin above 8
Acute hypoxic respiratory failure
VDRF
� Intubated on 04/29 with procedure; extubated 04/30
Follow-up chest x-ray with left lower lobe pleural effusion and congestion
Weaned off sedation
Hyperkalemia
Normal creatinine
Normal CK.
ECG with no related changes.
s/p IV hydration
s/p Lokelma with improvement in K this morning
Non-Q wave [place] secondary to demand ischemia.
Troponin peaked at 12 and trending down
Echocardiogram
Very technically difficult study suboptimal 2D echo doppler study
Normal left ventricular chamber size. Normal left ventricular systolic
function. Left ventricular ejection fraction is 55%. Normal regional wall
motion. Mild concentric left ventricular hypertrophy.
Enlarged dilated right ventricular size. Right ventricle appears mildly
hypokinetic.
No significant valvular disease within the limitations of this study
No prior echo for comparison.
Initially on IV heparin.
Transition to aspirin
Initiated on GDMT including:, Crestor.
Ischemic evaluation eventually
MARÍA ELENA baseline metabolic acidosis/lactic acidosis - resolved
Likely prerenal in the settings of sepsis, septic shock with prerenal stimuli.
Less likely glomerular process given bland UA
Hold Lasix, NSAIDs, lisinopril.
Bladder scan for retention
Follow BMP
Consider nephrology evaluation if uptrending creatinine
Avoid nephrotoxins
-weight down despite holding lasix
Abnormal LFT
Resolving bilirubin and transaminases.
Ultrasound:Hepatosplenomegaly with hepatic steatosis.
Gallstones and sludge are present. The gallbladder is mildly distended however there is are additional findings suggestive of cholecystitis.
The common bile duct is borderline dilated measuring 6.7 mm.
Overall low clinical suspicion for acute cholecystitis
LFT has been trending down
Regular diet
Obesity with BMI of 48
hemoglobin A1c 5.8
Essential hypertension
Hold preadmission antihypertensive regimen including lisinopril and Lasix baseline
Opiate use disorder
On Suboxone prior to presentation
Full code
DVT prophylaxis subcu heparin

Anticipated Discharge: 24 - 48 hours
Subjective/Interval History
-
Date of Service: May 27, 2024
Objective Data
-
Vital Signs:
Vital Signs
Temp Pulse Resp BP Pulse Ox
98.1 F 68 18 124/59 95
05/27/24 07:15 05/27/24 07:28 05/27/24 07:15 05/27/24 07:28 05/27/24 10:51
I&O
05/26/24 05/27/24 05/28/24
06:59 06:59 06:59
Intake Total 1860 / 1860 680 / 680
Output Total 760 / 760 550 / 550
Balance 1100 / 1100 130 / 130
Physical Exam
-
General: Obese
GI: Soft, Nontender and Nondistended
Musculoskeletal: No Clubbing, No Cyanosis and Other (Left leg bandage in place)
Neuro: AO x 3
Psych: Calm
[2024-05-27] MEDS: LOVENOX 40 MG SC (17:08)
[2024-05-27] MEDS: CRESTOR 20 MG PO (17:08)
[2024-05-27] MEDS: SILVADENE TOPICAL (20:04)
[2024-05-27 23:00] VITALS: BP 125/66
[2024-05-28 04:34] VITALS: BMI 42.0
[2024-05-28] MEDS: DILAUDID 2 MG PO ×3 (06:04→22:41)
[2024-05-28 07:23] VITALS: BP 108/58
[2024-05-28] MEDS: SUBUTEX 2 MG SL (09:07)
[2024-05-28] MEDS: ASPIR LOW (ENTERIC COATED) 81 MG PO (09:10)
[2024-05-28] MEDS: COREG 12.5 MG PO ×2 (09:10→20:59)
[2024-05-28] MEDS: TYLENOL 650 MG PO ×2 (09:11→15:45)
[2024-05-28] MEDS: DAKIN'S SOLUTION 0.125% 1/4 STRENGTH 473 ML TOPICAL (09:15)
[2024-05-28] MEDS: HYDROPHOR 1 APPLIC TOPICAL (09:16)
[2024-05-28] MEDS: DESENEX/MITRAZOL/ZEASORB 1 APPLIC TOPICAL ×2 (09:16→21:00)
[2024-05-28] MEDS: SILVADENE 1 APPLIC TOPICAL (09:17)
[2024-05-28 09:28] LABS: % Basophils 0.6 % (0-2); % Eosinophils 4.2 % (0-6); % Immature Granulocytes 0.7 % (0-0.5); % Lymphocytes 26.2 % (20.5-51.1); % Monocytes 12.5 % (1.7-9.3); % Neutrophils 55.8 % (42.2-75.2); Absolute Eosinophils 0.3 10^3/uL (0-0.7); Absolute Immature Granulocytes 0.1 10^3/uL (0-0.05); Absolute Lymphocytes 1.8 10^3/uL (1.2-3.4); Absolute Monocytes 0.8 10^3/uL (0.1-0.6); Absolute Neutrophils 3.7 10^3/uL (1.4-6.5); Hematocrit 28.3 % (39.0-52.0); Hemoglobin 8.6 g/dL (13.0-18.0); Mean Corp Hgb Conc. 30.4 g/dL (33.0-37.0); Mean Corpuscular Hgb 27.7 pg (27.0-31.0); Mean Platelet Volume 8.9 fL (7.4-10.4); Nucleated Red Blood Cells % 0 % (-); Platelet Count 273 10^3/uL (130-400); Red Blood Cell Count 3.11 10^6/uL (4.70-6.10); White Blood Cell Count 6.7 10^3/uL (4.8-10.8)
--- NOTE | 2024-05-28 10:51 | CM ---
Tentative plan is for patient to return to [facility] early next week.
[facility] is working on setting up additional services and equipment to accommodate him.
Plan: back to [facility] once [facility] has staff and equipment set up.
[facility]
Report# [phone]
[2024-05-28 15:40] VITALS: BP 121/75
--- NOTE | 2024-05-28 16:45 | W.PN.HOSP.TC ---
Today's Communication/Plan
-
Daily wound care.
Pending placement
Assessment / Plan
Assessment / Plan
Impression:
Severe sepsis due to left lower extremity cellulitis
Septic shock with hypotension requiring vasopressors
Bacteremia with Streptococcus pyogenous
Syncope prior to presentation.
Acute hypoxic respiratory failure in the settings of hypotension.
VDRF in the settings of severe sepsis and hemodynamic instability.
� Intubated 04/28
Acute renal failure
Lactic acidosis.
Abnormal liver function test
Demand ischemia non-Q wave [place]
Stage II decubital ulcer present on admission
Hyperkalemia
Other conditions:
Essential hypertension
Obesity with BMI of 48.
Opiate use disorder on Suboxone.
Plan:
Left lower extremity cellulitis with severe sepsis and septic shock
Severe left lower extremity cellulitis with initial concern for necrotizing fasciitis
Blood culture with Streptococcus pyogenes
CT of the left lower extremity with severe cellulitis
Appreciate ID and GS consults
Status post incision and debridement of left lower extremity soft tissue infection with no evidence of necrotizing fasciitis
Lower extremity Doppler negative for DVT.
Antibiotics regimen adjusted to cefazolin. Completed 3 days of clindamycin. Continue IV Cefazolin dosed for elevated BMI. Completed 14-day course of antibiotics on 05/11
Repeat blood culture negative to date
Status post additional excisional debridement of the left lower extremity wound on 05/04
Daily wound care; not a good candidate for wound vac or delayed primary closure at this time. Per surgery: 'will eventually require further debridement and eventual skin grafting vs BKA. Will need eventual plastics involvement for grafting: not
ready yet.'
Septic shock with hypotension not expanding to IV fluids
Resolved
Urinary retention
-PVR 372 morning of 05/08; UA without infection
-straight cath protocol in place
Acute blood loss anemia secondary to large wound.
Hemoglobin trending down to sevens.
Low iron stores.
Continue IV iron
Transfuse to keep hemoglobin above 8
Acute hypoxic respiratory failure
VDRF
� Intubated on 04/29 with procedure; extubated 04/30
Follow-up chest x-ray with left lower lobe pleural effusion and congestion
Weaned off sedation
Hyperkalemia
Normal creatinine
Normal CK.
ECG with no related changes.
s/p IV hydration
s/p Lokelma with improvement in K this morning
Non-Q wave [place] secondary to demand ischemia.
Troponin peaked at 12 and trending down
Echocardiogram
Very technically difficult study suboptimal 2D echo doppler study
Normal left ventricular chamber size. Normal left ventricular systolic
function. Left ventricular ejection fraction is 55%. Normal regional wall
motion. Mild concentric left ventricular hypertrophy.
Enlarged dilated right ventricular size. Right ventricle appears mildly
hypokinetic.
No significant valvular disease within the limitations of this study
No prior echo for comparison.
Initially on IV heparin.
Transition to aspirin
Initiated on GDMT including:, Crestor.
Ischemic evaluation eventually
MARÍA ELENA baseline metabolic acidosis/lactic acidosis - resolved
Likely prerenal in the settings of sepsis, septic shock with prerenal stimuli.
Less likely glomerular process given bland UA
Hold Lasix, NSAIDs, lisinopril.
Bladder scan for retention
Follow BMP
Consider nephrology evaluation if uptrending creatinine
Avoid nephrotoxins
-weight down despite holding lasix
Abnormal LFT
Resolving bilirubin and transaminases.
Ultrasound:Hepatosplenomegaly with hepatic steatosis.
Gallstones and sludge are present. The gallbladder is mildly distended however there is are additional findings suggestive of cholecystitis.
The common bile duct is borderline dilated measuring 6.7 mm.
Overall low clinical suspicion for acute cholecystitis
LFT has been trending down
Regular diet
Obesity with BMI of 48
hemoglobin A1c 5.8
Essential hypertension
Hold preadmission antihypertensive regimen including lisinopril and Lasix baseline
Opiate use disorder
On Suboxone prior to presentation
Full code
DVT prophylaxis subcu heparin

Anticipated Discharge: 24 - 48 hours
Subjective/Interval History
-
Date of Service: May 28, 2024
Objective Data
-
Labs:
Laboratory Results
05/28/24
09:12
WBC 6.7
Hgb 8.6 L
Hct 28.3 L
Plt Count 273
Vital Signs:
Vital Signs
Temp Pulse Resp BP Pulse Ox
98.5 F 67 16 121/75 94
05/28/24 15:40 05/28/24 15:40 05/28/24 15:40 05/28/24 15:40 05/28/24 15:40
I&O
05/27/24 05/28/24 05/29/24
06:59 06:59 06:59
Intake Total 680 / 680 1140 / 1140
Output Total 550 / 550 300 / 300
Balance 130 / 130 840 / 840
Physical Exam
-
General: Obese
GI: Soft, Nontender and Nondistended
Musculoskeletal: No Clubbing, No Cyanosis and Other (Left leg bandage in place)
Neuro: AO x 3
Psych: Calm
[2024-05-28] MEDS: LOVENOX 40 MG SC (17:04)
[2024-05-28] MEDS: CRESTOR 20 MG PO (17:04)
[2024-05-28] MEDS: SILVADENE TOPICAL (21:01)
[2024-05-28 23:36] VITALS: BP 126/59
[2024-05-29] MEDS: TYLENOL 650 MG PO ×2 (03:20→19:54)
[2024-05-29 06:00] VITALS: BMI 42.4
[2024-05-29 06:20] VITALS: BMI 42.4
[2024-05-29 07:00] VITALS: BP 105/59
[2024-05-29] MEDS: DILAUDID 2 MG PO ×2 (08:40→16:44)
[2024-05-29] MEDS: ASPIR LOW (ENTERIC COATED) 81 MG PO (08:59)
[2024-05-29] MEDS: SUBUTEX 2 MG SL (08:59)
[2024-05-29] MEDS: COREG 12.5 MG PO ×2 (08:59→19:53)
[2024-05-29] MEDS: DAKIN'S SOLUTION 0.125% 1/4 STRENGTH 473 ML TOPICAL (09:00)
[2024-05-29] MEDS: DESENEX/MITRAZOL/ZEASORB 1 APPLIC TOPICAL (09:00)
[2024-05-29] MEDS: SILVADENE 1 APPLIC TOPICAL (09:00)
[2024-05-29] MEDS: HYDROPHOR 1 APPLIC TOPICAL (09:01)
--- NOTE | 2024-05-29 11:00 | W.PN.HOSP.TC ---
Today's Communication/Plan
-
Monitor vital signs see plan
Pending placement
Monitor hemoglobin
Wean oxygen as tolerated
Assessment / Plan
Assessment / Plan
Impression:
Severe sepsis due to left lower extremity cellulitis
Septic shock with hypotension requiring vasopressors
Bacteremia with Streptococcus pyogenous
Syncope prior to presentation.
Acute hypoxic respiratory failure in the settings of hypotension.
VDRF in the settings of severe sepsis and hemodynamic instability.
� Intubated 04/28
Acute renal failure
Lactic acidosis.
Abnormal liver function test
Demand ischemia non-Q wave [place]
Stage II decubital ulcer present on admission
Hyperkalemia
Other conditions:
Essential hypertension
Obesity with BMI of 48.
Opiate use disorder on Suboxone.
Plan:
Left lower extremity cellulitis with severe sepsis and septic shock
Severe left lower extremity cellulitis with initial concern for necrotizing fasciitis
Blood culture with Streptococcus pyogenes
CT of the left lower extremity with severe cellulitis
Appreciate ID and GS consults
Status post incision and debridement of left lower extremity soft tissue infection with no evidence of necrotizing fasciitis
Lower extremity Doppler negative for DVT.
Antibiotics regimen adjusted to cefazolin. Completed 3 days of clindamycin. Continue IV Cefazolin dosed for elevated BMI. Completed 14-day course of antibiotics on 05/11
Repeat blood culture negative to date
Status post additional excisional debridement of the left lower extremity wound on 05/04
Daily wound care; not a good candidate for wound vac or delayed primary closure at this time. Per surgery: 'will eventually require further debridement and eventual skin grafting vs BKA. Will need eventual plastics involvement for grafting: not
ready yet.'
Septic shock with hypotension not expanding to IV fluids
Resolved
Urinary retention
-PVR 372 morning of 05/08; UA without infection
-straight cath protocol in place
Acute blood loss anemia secondary to large wound.
Hemoglobin trending down to sevens.
Low iron stores.
Continue IV iron
Transfuse to keep hemoglobin above 8
Acute hypoxic respiratory failure
VDRF
� Intubated on 04/29 with procedure; extubated 04/30
Follow-up chest x-ray with left lower lobe pleural effusion and congestion
Weaned off sedation
Hyperkalemia
Normal creatinine
Normal CK.
ECG with no related changes.
s/p IV hydration
s/p Lokelma with improvement in K this morning
Non-Q wave [place] secondary to demand ischemia.
Troponin peaked at 12 and trending down
Echocardiogram
Very technically difficult study suboptimal 2D echo doppler study
Normal left ventricular chamber size. Normal left ventricular systolic
function. Left ventricular ejection fraction is 55%. Normal regional wall
motion. Mild concentric left ventricular hypertrophy.
Enlarged dilated right ventricular size. Right ventricle appears mildly
hypokinetic.
No significant valvular disease within the limitations of this study
No prior echo for comparison.
Initially on IV heparin.
Transition to aspirin
Initiated on GDMT including:, Crestor.
Ischemic evaluation eventually
MARÍA ELENA baseline metabolic acidosis/lactic acidosis - resolved
Likely prerenal in the settings of sepsis, septic shock with prerenal stimuli.
Less likely glomerular process given bland UA
Hold Lasix, NSAIDs, lisinopril.
Bladder scan for retention
Follow BMP
Consider nephrology evaluation if uptrending creatinine
Avoid nephrotoxins
-weight down despite holding lasix
Abnormal LFT
Resolving bilirubin and transaminases.
Ultrasound:Hepatosplenomegaly with hepatic steatosis.
Gallstones and sludge are present. The gallbladder is mildly distended however there is are additional findings suggestive of cholecystitis.
The common bile duct is borderline dilated measuring 6.7 mm.
Overall low clinical suspicion for acute cholecystitis
LFT has been trending down
Regular diet
Obesity with BMI of 48
hemoglobin A1c 5.8
Essential hypertension
Hold preadmission antihypertensive regimen including lisinopril and Lasix baseline
Opiate use disorder
On Suboxone prior to presentation
Full code
DVT prophylaxis subcu heparin
General: morbid Obese
GI: Soft, Nontender and Nondistended
Musculoskeletal: Other (Left leg bandage in place)
Neuro: AO x 3
Psych: Calm
Anticipated Discharge: > 48 hours
Subjective/Interval History
-
Date of Service: May 29, 2024
Denies nausea
Objective Data
-
Vital Signs:
Vital Signs
Temp Pulse Resp BP Pulse Ox
98.4 F 68 20 105/59 93
05/28/24 23:36 05/29/24 08:59 05/28/24 23:36 05/29/24 08:59 05/28/24 23:36
I&O
05/28/24 05/29/24 05/30/24
06:59 06:59 06:59
Intake Total 1140 / 1140 1200 / 1200
Output Total 300 / 300 600 / 600
Balance 840 / 840 600 / 600
[2024-05-29 15:00] VITALS: BP 115/56
[2024-05-29] MEDS: LOVENOX 40 MG SC (18:23)
[2024-05-29] MEDS: CRESTOR 20 MG PO (18:24)
[2024-05-29] MEDS: SILVADENE TOPICAL (19:54)
[2024-05-29] MEDS: DESENEX/MITRAZOL/ZEASORB TOPICAL (21:52)
[2024-05-29 23:17] VITALS: BP 113/66
[2024-05-30] MEDS: DILAUDID 2 MG PO ×3 (00:55→17:36)
[2024-05-30] MEDS: TYLENOL 650 MG PO ×2 (06:23→20:44)
[2024-05-30 06:24] LABS: % Basophils 0.9 % (0-2); % Eosinophils 6.9 % (0-6); % Immature Granulocytes 0.6 % (0-0.5); % Lymphocytes 33.1 % (20.5-51.1); % Monocytes 13.6 % (1.7-9.3); % Neutrophils 44.9 % (42.2-75.2); Absolute Basophils 0.1 10^3/uL (0-0.2); Absolute Eosinophils 0.4 10^3/uL (0-0.7); Absolute Lymphocytes 1.8 10^3/uL (1.2-3.4); Absolute Monocytes 0.7 10^3/uL (0.1-0.6); Absolute Neutrophils 2.4 10^3/uL (1.4-6.5); Hematocrit 26.4 % (39.0-52.0); Hemoglobin 8.2 g/dL (13.0-18.0); Mean Corp Hgb Conc. 31.1 g/dL (33.0-37.0); Mean Corpuscular Volume 90.1 fL (80.0-94.0); Mean Platelet Volume 9.6 fL (7.4-10.4); Nucleated Red Blood Cells % 0 % (-); Platelet Count 267 10^3/uL (130-400); Red Blood Cell Count 2.93 10^6/uL (4.70-6.10); Red Cell Dist. Width 13.9 % (11.5-14.5); White Blood Cell Count 5.4 10^3/uL (4.8-10.8)
[2024-05-30 07:20] VITALS: BP 110/60
[2024-05-30] MEDS: ASPIR LOW (ENTERIC COATED) 81 MG PO (08:49)
[2024-05-30] MEDS: COREG 12.5 MG PO ×2 (08:49→20:45)
[2024-05-30] MEDS: SUBUTEX 2 MG SL (08:49)
[2024-05-30] MEDS: HYDROPHOR 1 APPLIC TOPICAL (08:52)
[2024-05-30] MEDS: DESENEX/MITRAZOL/ZEASORB 1 APPLIC TOPICAL ×2 (08:52→20:45)
[2024-05-30] MEDS: DAKIN'S SOLUTION 0.125% 1/4 STRENGTH 473 ML TOPICAL (08:52)
[2024-05-30] MEDS: SILVADENE 1 APPLIC TOPICAL (08:53)
--- NOTE | 2024-05-30 10:51 | W.PN.HOSP.TC ---
Today's Communication/Plan
-
monitor vitals
see plan
pending placement
wean o2 as tolerated
monitor hgb
Assessment / Plan
Assessment / Plan
Impression:
Severe sepsis due to left lower extremity cellulitis
Septic shock with hypotension requiring vasopressors
Bacteremia with Streptococcus pyogenous
Syncope prior to presentation.
Acute hypoxic respiratory failure in the settings of hypotension.
VDRF in the settings of severe sepsis and hemodynamic instability.
� Intubated 04/28
Acute renal failure
Lactic acidosis.
Abnormal liver function test
Demand ischemia non-Q wave [place]
Stage II decubital ulcer present on admission
Hyperkalemia
Other conditions:
Essential hypertension
Obesity with BMI of 48.
Opiate use disorder on Suboxone.
Plan:
Left lower extremity cellulitis with severe sepsis and septic shock
Severe left lower extremity cellulitis with initial concern for necrotizing fasciitis
Blood culture with Streptococcus pyogenes
CT of the left lower extremity with severe cellulitis
Appreciate ID and GS consults
Status post incision and debridement of left lower extremity soft tissue infection with no evidence of necrotizing fasciitis
Lower extremity Doppler negative for DVT.
Antibiotics regimen adjusted to cefazolin. Completed 3 days of clindamycin. Continue IV Cefazolin dosed for elevated BMI. Completed 14-day course of antibiotics on 05/11
Repeat blood culture negative to date
Status post additional excisional debridement of the left lower extremity wound on 05/04
Daily wound care; not a good candidate for wound vac or delayed primary closure at this time. Per surgery: 'will eventually require further debridement and eventual skin grafting vs BKA. Will need eventual plastics involvement for grafting: not
ready yet.'
Septic shock with hypotension not expanding to IV fluids
Resolved
Urinary retention
-PVR 372 morning of 05/08; UA without infection
-straight cath protocol in place
Acute blood loss anemia secondary to large wound.
Hemoglobin trending down to sevens.
Low iron stores.
Continue IV iron
Transfuse to keep hemoglobin above 8
Acute hypoxic respiratory failure
VDRF
� Intubated on 04/29 with procedure; extubated 04/30
Follow-up chest x-ray with left lower lobe pleural effusion and congestion
Weaned off sedation
Hyperkalemia
Normal creatinine
Normal CK.
ECG with no related changes.
s/p IV hydration
s/p Lokelma with improvement in K this morning
Non-Q wave [place] secondary to demand ischemia.
Troponin peaked at 12 and trending down
Echocardiogram
Very technically difficult study suboptimal 2D echo doppler study
Normal left ventricular chamber size. Normal left ventricular systolic
function. Left ventricular ejection fraction is 55%. Normal regional wall
motion. Mild concentric left ventricular hypertrophy.
Enlarged dilated right ventricular size. Right ventricle appears mildly
hypokinetic.
No significant valvular disease within the limitations of this study
No prior echo for comparison.
Initially on IV heparin.
Transition to aspirin
Initiated on GDMT including:, Crestor.
Ischemic evaluation eventually
MARÍA ELENA baseline metabolic acidosis/lactic acidosis - resolved
Likely prerenal in the settings of sepsis, septic shock with prerenal stimuli.
Less likely glomerular process given bland UA
Hold Lasix, NSAIDs, lisinopril.
Bladder scan for retention
Follow BMP
Consider nephrology evaluation if uptrending creatinine
Avoid nephrotoxins
-weight down despite holding lasix
Abnormal LFT
Resolving bilirubin and transaminases.
Ultrasound:Hepatosplenomegaly with hepatic steatosis.
Gallstones and sludge are present. The gallbladder is mildly distended however there is are additional findings suggestive of cholecystitis.
The common bile duct is borderline dilated measuring 6.7 mm.
Overall low clinical suspicion for acute cholecystitis
LFT has been trending down
Regular diet
Obesity with BMI of 48
hemoglobin A1c 5.8
Essential hypertension
Hold preadmission antihypertensive regimen including lisinopril and Lasix baseline
Opiate use disorder
On Suboxone prior to presentation
Full code
DVT prophylaxis subcu heparin
General: morbid Obese
GI: Soft, Nontender and Nondistended
Musculoskeletal: Other (Left leg bandage in place)
Neuro: AO x 3
Psych: Calm
Anticipated Discharge: 24 - 48 hours
Subjective/Interval History
-
Date of Service: May 30, 2024
on o2
Objective Data
-
Labs:
Laboratory Results
05/30/24
05:00
WBC 5.4
Hgb 8.2 L
Hct 26.4 L
Plt Count 267
Vital Signs:
Vital Signs
Temp Pulse Resp BP Pulse Ox
98.0 F 69 14 110/60 94
05/30/24 07:20 05/30/24 08:49 05/30/24 07:20 05/30/24 08:49 05/30/24 07:20
I&O
05/29/24 05/30/24 05/31/24
06:59 06:59 06:59
Intake Total 1200 / 1200 1560 / 1560
Output Total 600 / 600 1325 / 1325
Balance 600 / 600 235 / 235
[2024-05-30] MEDS: TUMS CHEWABLE TABLET 200 MG PO (14:18)
[2024-05-30 15:20] VITALS: BP 125/71
[2024-05-30] MEDS: CRESTOR 20 MG PO (17:34)
[2024-05-30] MEDS: LOVENOX 40 MG SC (17:34)
[2024-05-30] MEDS: SILVADENE TOPICAL (20:44)
[2024-05-30 23:25] VITALS: BP 119/65
[2024-05-31] MEDS: DILAUDID 2 MG PO ×3 (01:47→18:02)
[2024-05-31 03:15] VITALS: BP 134/76
[2024-05-31 05:45] VITALS: BMI 42.6
[2024-05-31 06:40] LABS: % Basophils 0.6 % (0-2); % Eosinophils 7.7 % (0-6); % Immature Granulocytes 0.8 % (0-0.5); % Monocytes 14.3 % (1.7-9.3); % Neutrophils 44.6 % (42.2-75.2); Absolute Eosinophils 0.4 10^3/uL (0-0.7); Absolute Lymphocytes 1.6 10^3/uL (1.2-3.4); Absolute Monocytes 0.7 10^3/uL (0.1-0.6); Absolute Neutrophils 2.3 10^3/uL (1.4-6.5); Hematocrit 28.6 % (39.0-52.0); Hemoglobin 8.6 g/dL (13.0-18.0); Mean Corp Hgb Conc. 30.1 g/dL (33.0-37.0); Mean Corpuscular Hgb 27.7 pg (27.0-31.0); Mean Corpuscular Volume 92.3 fL (80.0-94.0); Mean Platelet Volume 9.4 fL (7.4-10.4); Nucleated Red Blood Cells % 0 % (-); Platelet Count 275 10^3/uL (130-400); White Blood Cell Count 5.1 10^3/uL (4.8-10.8)
[2024-05-31] MEDS: SUBUTEX 2 MG SL (08:19)
[2024-05-31] MEDS: COREG 12.5 MG PO ×2 (08:19→20:22)
[2024-05-31] MEDS: ASPIR LOW (ENTERIC COATED) 81 MG PO (08:19)
[2024-05-31] MEDS: DAKIN'S SOLUTION 0.125% 1/4 STRENGTH 1 ML TOPICAL (08:21)
[2024-05-31] MEDS: HYDROPHOR 1 APPLIC TOPICAL (08:21)
[2024-05-31] MEDS: SILVADENE 1 APPLIC TOPICAL (08:21)
[2024-05-31] MEDS: DESENEX/MITRAZOL/ZEASORB 1 APPLIC TOPICAL ×2 (08:21→20:23)
[2024-05-31 08:46] VITALS: BP 127/63
[2024-05-31 10:45] VITALS: BP 121/82; BP 139/78; PULSE 80; O2SAT 90
--- NOTE | 2024-05-31 14:33 | CM ---
tt Dr. Meadows
tentative plan is to return to [facility] as they are working on setting up additional services and equipment to accommodate him.
PLAN: [facility] once they have additional services & equipment
[facility]
Report# [phone]
[2024-05-31 15:15] VITALS: BP 134/76
--- NOTE | 2024-05-31 16:27 | W.PN.HOSP.TC ---
Today's Communication/Plan
-
Continue wound care
Ongoing disposition efforts
Assessment / Plan
Assessment / Plan
Impression:
Severe sepsis due to left lower extremity cellulitis
Septic shock with hypotension requiring vasopressors
Bacteremia with Streptococcus pyogenous
Syncope prior to presentation.
Acute hypoxic respiratory failure in the settings of hypotension.
VDRF in the settings of severe sepsis and hemodynamic instability.
� Intubated 04/28
Acute renal failure
Lactic acidosis.
Abnormal liver function test
Demand ischemia non-Q wave [place]
Stage II decubital ulcer present on admission
Hyperkalemia
Other conditions:
Essential hypertension
Obesity with BMI of 48.
Opiate use disorder on Suboxone.
Plan:
Left lower extremity cellulitis with severe sepsis and septic shock
Severe left lower extremity cellulitis with initial concern for necrotizing fasciitis
Blood culture with Streptococcus pyogenes
CT of the left lower extremity with severe cellulitis
Appreciate ID and GS consults
Status post incision and debridement of left lower extremity soft tissue infection with no evidence of necrotizing fasciitis
Lower extremity Doppler negative for DVT.
Antibiotics regimen adjusted to cefazolin. Completed 3 days of clindamycin. Continue IV Cefazolin dosed for elevated BMI. Completed 14-day course of antibiotics on 05/11
Repeat blood culture negative to date
Status post additional excisional debridement of the left lower extremity wound on 05/04
Daily wound care; not a good candidate for wound vac or delayed primary closure at this time. Per surgery: 'will eventually require further debridement and eventual skin grafting vs BKA. Will need eventual plastics involvement for grafting: not
ready yet.'
Septic shock with hypotension not expanding to IV fluids
Resolved
Urinary retention
-PVR 372 morning of 05/08; UA without infection
-straight cath protocol in place
Acute blood loss anemia secondary to large wound.
Hemoglobin trending down to sevens.
Low iron stores.
Continue IV iron
Transfuse to keep hemoglobin above 8
Acute hypoxic respiratory failure
VDRF
� Intubated on 04/29 with procedure; extubated 04/30
Follow-up chest x-ray with left lower lobe pleural effusion and congestion
Weaned off sedation
Hyperkalemia
Normal creatinine
Normal CK.
ECG with no related changes.
s/p IV hydration
s/p Lokelma with improvement in K this morning
Non-Q wave [place] secondary to demand ischemia.
Troponin peaked at 12 and trending down
Echocardiogram
Very technically difficult study suboptimal 2D echo doppler study
Normal left ventricular chamber size. Normal left ventricular systolic
function. Left ventricular ejection fraction is 55%. Normal regional wall
motion. Mild concentric left ventricular hypertrophy.
Enlarged dilated right ventricular size. Right ventricle appears mildly
hypokinetic.
No significant valvular disease within the limitations of this study
No prior echo for comparison.
Initially on IV heparin.
Transition to aspirin
Initiated on GDMT including:, Crestor.
Ischemic evaluation eventually
MARAÍ ELENA baseline metabolic acidosis/lactic acidosis - resolved
Likely prerenal in the settings of sepsis, septic shock with prerenal stimuli.
Less likely glomerular process given bland UA
Hold Lasix, NSAIDs, lisinopril.
Bladder scan for retention
Follow BMP
Consider nephrology evaluation if uptrending creatinine
Avoid nephrotoxins
-weight down despite holding lasix
Abnormal LFT
Resolving bilirubin and transaminases.
Ultrasound:Hepatosplenomegaly with hepatic steatosis.
Gallstones and sludge are present. The gallbladder is mildly distended however there is are additional findings suggestive of cholecystitis.
The common bile duct is borderline dilated measuring 6.7 mm.
Overall low clinical suspicion for acute cholecystitis
LFT has been trending down
Regular diet
Obesity with BMI of 48
hemoglobin A1c 5.8
Essential hypertension
Hold preadmission antihypertensive regimen including lisinopril and Lasix baseline
Opiate use disorder
On Suboxone prior to presentation
Full code
DVT prophylaxis subcu heparin
General: morbid Obese
GI: Soft, Nontender and Nondistended
Musculoskeletal: Other (Left leg bandage in place)
Neuro: AO x 3
Psych: Calm
Anticipated Discharge: 24 - 48 hours
Subjective/Interval History
-
Date of Service: May 31, 2024
Objective Data
-
Labs:
Laboratory Results
05/31/24
05:40
WBC 5.1
Hgb 8.6 L
Hct 28.6 L
Plt Count 275
Vital Signs:
Vital Signs
Temp Pulse Resp BP Pulse Ox
97.2 F 84 16 134/76 95
05/31/24 15:15 05/31/24 15:15 05/31/24 15:15 05/31/24 15:15 05/31/24 15:15
I&O
05/30/24 05/31/24 06/01/24
06:59 06:59 06:59
Intake Total 1560 / 1560 1140 / 1140
Output Total 1325 / 1325 653 / 653
Balance 235 / 235 487 / 487
[2024-05-31] MEDS: CRESTOR 20 MG PO (17:06)
[2024-05-31] MEDS: LOVENOX 40 MG SC (17:06)
[2024-05-31] MEDS: SILVADENE TOPICAL (20:17)
[2024-05-31] MEDS: TYLENOL 650 MG PO (20:22)
[2024-05-31 23:45] VITALS: BP 108/61
[2024-06-01] MEDS: DILAUDID 2 MG PO ×3 (02:04→18:27)
[2024-06-01 07:20] VITALS: BP 134/63; BMI 41.9
[2024-06-01] MEDS: COREG 12.5 MG PO ×2 (08:46→21:12)
[2024-06-01] MEDS: ASPIR LOW (ENTERIC COATED) 81 MG PO (08:46)
[2024-06-01] MEDS: SUBUTEX 2 MG SL (08:46)
[2024-06-01] MEDS: DESENEX/MITRAZOL/ZEASORB 1 APPLIC TOPICAL ×2 (08:47→21:12)
[2024-06-01] MEDS: DAKIN'S SOLUTION 0.125% 1/4 STRENGTH 1 ML TOPICAL (08:47)
[2024-06-01] MEDS: SILVADENE 1 APPLIC TOPICAL (08:47)
[2024-06-01] MEDS: HYDROPHOR 1 APPLIC TOPICAL (08:48)
[2024-06-01] MEDS: TYLENOL 650 MG PO ×2 (09:03→21:17)
[2024-06-01 12:18] VITALS: BP 119/72; PULSE 84; O2SAT 92
--- NOTE | 2024-06-01 13:11 | CM ---
Awaiting placement back to [facility]
PLAN: [facility] once they have additional services & equipment
[facility]
Report# [phone]
[2024-06-01 15:15] VITALS: BP 121/65
--- NOTE | 2024-06-01 15:58 | W.PN.HOSP.TC ---
Today's Communication/Plan
-
Continue wound care per
Ongoing disposition efforts.
Assessment / Plan
Assessment / Plan
Impression:
Severe sepsis due to left lower extremity cellulitis
Septic shock with hypotension requiring vasopressors
Bacteremia with Streptococcus pyogenous
Syncope prior to presentation.
Acute hypoxic respiratory failure in the settings of hypotension.
VDRF in the settings of severe sepsis and hemodynamic instability.
� Intubated 04/28
Acute renal failure
Lactic acidosis.
Abnormal liver function test
Demand ischemia non-Q wave [place]
Stage II decubital ulcer present on admission
Hyperkalemia
Other conditions:
Essential hypertension
Obesity with BMI of 48.
Opiate use disorder on Suboxone.
Plan:
Left lower extremity cellulitis with severe sepsis and septic shock
Severe left lower extremity cellulitis with initial concern for necrotizing fasciitis
Blood culture with Streptococcus pyogenes
CT of the left lower extremity with severe cellulitis
Appreciate ID and GS consults
Status post incision and debridement of left lower extremity soft tissue infection with no evidence of necrotizing fasciitis
Lower extremity Doppler negative for DVT.
Antibiotics regimen adjusted to cefazolin. Completed 3 days of clindamycin. Continue IV Cefazolin dosed for elevated BMI. Completed 14-day course of antibiotics on 05/11
Repeat blood culture negative to date
Status post additional excisional debridement of the left lower extremity wound on 05/04
Daily wound care; not a good candidate for wound vac or delayed primary closure at this time. Per surgery: 'will eventually require further debridement and eventual skin grafting vs BKA. Will need eventual plastics involvement for grafting: not
ready yet.'
Septic shock with hypotension not expanding to IV fluids
Resolved
Urinary retention
-PVR 372 morning of 05/08; UA without infection
-straight cath protocol in place
Acute blood loss anemia secondary to large wound.
Hemoglobin trending down to sevens.
Low iron stores.
Continue IV iron
Transfuse to keep hemoglobin above 8
Acute hypoxic respiratory failure
VDRF
� Intubated on 04/29 with procedure; extubated 04/30
Follow-up chest x-ray with left lower lobe pleural effusion and congestion
Weaned off sedation
Hyperkalemia
Normal creatinine
Normal CK.
ECG with no related changes.
s/p IV hydration
s/p Lokelma with improvement in K this morning
Non-Q wave [place] secondary to demand ischemia.
Troponin peaked at 12 and trending down
Echocardiogram
Very technically difficult study suboptimal 2D echo doppler study
Normal left ventricular chamber size. Normal left ventricular systolic
function. Left ventricular ejection fraction is 55%. Normal regional wall
motion. Mild concentric left ventricular hypertrophy.
Enlarged dilated right ventricular size. Right ventricle appears mildly
hypokinetic.
No significant valvular disease within the limitations of this study
No prior echo for comparison.
Initially on IV heparin.
Transition to aspirin
Initiated on GDMT including:, Crestor.
Ischemic evaluation eventually
MARÍA ELENA baseline metabolic acidosis/lactic acidosis - resolved
Likely prerenal in the settings of sepsis, septic shock with prerenal stimuli.
Less likely glomerular process given bland UA
Hold Lasix, NSAIDs, lisinopril.
Bladder scan for retention
Follow BMP
Consider nephrology evaluation if uptrending creatinine
Avoid nephrotoxins
-weight down despite holding lasix
Abnormal LFT
Resolving bilirubin and transaminases.
Ultrasound:Hepatosplenomegaly with hepatic steatosis.
Gallstones and sludge are present. The gallbladder is mildly distended however there is are additional findings suggestive of cholecystitis.
The common bile duct is borderline dilated measuring 6.7 mm.
Overall low clinical suspicion for acute cholecystitis
LFT has been trending down
Regular diet
Obesity with BMI of 48
hemoglobin A1c 5.8
Essential hypertension
Hold preadmission antihypertensive regimen including lisinopril and Lasix baseline
Opiate use disorder
On Suboxone prior to presentation
Full code
DVT prophylaxis subcu heparin
General: morbid Obese
GI: Soft, Nontender and Nondistended
Musculoskeletal: Other (Left leg bandage in place)
Neuro: AO x 3
Psych: Calm
Anticipated Discharge: 24 - 48 hours
Subjective/Interval History
-
Date of Service: June 01, 2024
Objective Data
-
Vital Signs:
Vital Signs
Temp Pulse Resp BP Pulse Ox
98.4 F 75 17 134/63 99
06/01/24 07:20 06/01/24 08:46 06/01/24 07:20 06/01/24 08:46 06/01/24 09:46
I&O
05/31/24 06/01/24 06/02/24
06:59 06:59 06:59
Intake Total 1140 / 1140 1680 / 1680
Output Total 653 / 653 925 / 925
Balance 487 / 487 755 / 755
Physical Exam
-
General: Obese
GI: Soft, Nontender and Nondistended
Musculoskeletal: No Clubbing, No Cyanosis and Other (Left leg bandage in place)
Neuro: AO x 3
Psych: Calm
[2024-06-01] MEDS: CRESTOR 20 MG PO (17:02)
[2024-06-01] MEDS: LOVENOX 40 MG SC (17:08)
[2024-06-01] MEDS: SILVADENE TOPICAL (19:04)
[2024-06-01 23:54] VITALS: BP 117/64
[2024-06-02] MEDS: DILAUDID 2 MG PO ×3 (04:15→20:49)
[2024-06-02] MEDS: TUMS CHEWABLE TABLET 200 MG PO (04:17)
--- NOTE | 2024-06-02 04:46 | DOWNTIME ---
There was a [email or web address] Downtime on 06/02/2024 from 0100 to 06/02/2024 at 0350. Downtime documentation of patient's care, including medication administrations, has been reconciled in the electronic record per guidelines. Refer to the
patient's paper chart under the miscellaneous tab to see printed paper medication records and downtime forms.
[2024-06-02 07:17] VITALS: BP 103/63
[2024-06-02] MEDS: COREG 12.5 MG PO ×2 (09:25→20:50)
[2024-06-02] MEDS: SUBUTEX 2 MG SL (09:26)
[2024-06-02] MEDS: ASPIR LOW (ENTERIC COATED) 81 MG PO (09:26)
[2024-06-02] MEDS: DAKIN'S SOLUTION 0.125% 1/4 STRENGTH 473 ML TOPICAL (09:28)
[2024-06-02] MEDS: SILVADENE 1 APPLIC TOPICAL ×2 (09:28→20:50)
[2024-06-02] MEDS: DESENEX/MITRAZOL/ZEASORB 1 APPLIC TOPICAL ×2 (09:28→20:49)
[2024-06-02] MEDS: HYDROPHOR 1 APPLIC TOPICAL (09:29)
[2024-06-02 09:30] VITALS: BP 130/67; PULSE 92; O2SAT 94
[2024-06-02] MEDS: TYLENOL 650 MG PO ×2 (10:14→17:44)
--- NOTE | 2024-06-02 13:07 | CM ---
Awaiting information regarding return to [facility]
PLAN: [facility] once they have additional services & equipment
[facility]
Report# [phone]
--- NOTE | 2024-06-02 14:36 | W.PN.HOSP.TC ---
Today's Communication/Plan
-
Wound care.
Pending placement
Assessment / Plan
Assessment / Plan
Impression:
Severe sepsis due to left lower extremity cellulitis
Septic shock with hypotension requiring vasopressors
Bacteremia with Streptococcus pyogenous
Syncope prior to presentation.
Acute hypoxic respiratory failure in the settings of hypotension.
VDRF in the settings of severe sepsis and hemodynamic instability.
� Intubated 04/28
Acute renal failure
Lactic acidosis.
Abnormal liver function test
Demand ischemia non-Q wave [place]
Stage II decubital ulcer present on admission
Hyperkalemia
Other conditions:
Essential hypertension
Obesity with BMI of 48.
Opiate use disorder on Suboxone.
Plan:
Left lower extremity cellulitis with severe sepsis and septic shock
Severe left lower extremity cellulitis with initial concern for necrotizing fasciitis
Blood culture with Streptococcus pyogenes
CT of the left lower extremity with severe cellulitis
Appreciate ID and GS consults
Status post incision and debridement of left lower extremity soft tissue infection with no evidence of necrotizing fasciitis
Lower extremity Doppler negative for DVT.
Antibiotics regimen adjusted to cefazolin. Completed 3 days of clindamycin. Continue IV Cefazolin dosed for elevated BMI. Completed 14-day course of antibiotics on 05/11
Repeat blood culture negative to date
Status post additional excisional debridement of the left lower extremity wound on 05/04
Daily wound care; not a good candidate for wound vac or delayed primary closure at this time. Per surgery: 'will eventually require further debridement and eventual skin grafting vs BKA. Will need eventual plastics involvement for grafting: not
ready yet.'
Septic shock with hypotension not expanding to IV fluids
Resolved
Urinary retention
-PVR 372 morning of 05/08; UA without infection
-straight cath protocol in place
Acute blood loss anemia secondary to large wound.
Hemoglobin trending down to sevens.
Low iron stores.
Continue IV iron
Transfuse to keep hemoglobin above 8
Acute hypoxic respiratory failure
VDRF
� Intubated on 04/29 with procedure; extubated 04/30
Follow-up chest x-ray with left lower lobe pleural effusion and congestion
Weaned off sedation
Hyperkalemia
Normal creatinine
Normal CK.
ECG with no related changes.
s/p IV hydration
s/p Lokelma with improvement in K this morning
Non-Q wave [place] secondary to demand ischemia.
Troponin peaked at 12 and trending down
Echocardiogram
Very technically difficult study suboptimal 2D echo doppler study
Normal left ventricular chamber size. Normal left ventricular systolic
function. Left ventricular ejection fraction is 55%. Normal regional wall
motion. Mild concentric left ventricular hypertrophy.
Enlarged dilated right ventricular size. Right ventricle appears mildly
hypokinetic.
No significant valvular disease within the limitations of this study
No prior echo for comparison.
Initially on IV heparin.
Transition to aspirin
Initiated on GDMT including:, Crestor.
Ischemic evaluation eventually
MARÍA ELENA baseline metabolic acidosis/lactic acidosis - resolved
Likely prerenal in the settings of sepsis, septic shock with prerenal stimuli.
Less likely glomerular process given bland UA
Hold Lasix, NSAIDs, lisinopril.
Bladder scan for retention
Follow BMP
Consider nephrology evaluation if uptrending creatinine
Avoid nephrotoxins
-weight down despite holding lasix
Abnormal LFT
Resolving bilirubin and transaminases.
Ultrasound:Hepatosplenomegaly with hepatic steatosis.
Gallstones and sludge are present. The gallbladder is mildly distended however there is are additional findings suggestive of cholecystitis.
The common bile duct is borderline dilated measuring 6.7 mm.
Overall low clinical suspicion for acute cholecystitis
LFT has been trending down
Regular diet
Obesity with BMI of 48
hemoglobin A1c 5.8
Essential hypertension
Hold preadmission antihypertensive regimen including lisinopril and Lasix baseline
Opiate use disorder
On Suboxone prior to presentation
Full code
DVT prophylaxis subcu heparin
General: morbid Obese
GI: Soft, Nontender and Nondistended
Musculoskeletal: Other (Left leg bandage in place)
Neuro: AO x 3
Psych: Calm
Anticipated Discharge: 24 - 48 hours
Subjective/Interval History
-
Date of Service: June 02, 2024
Objective Data
-
Vital Signs:
Vital Signs
Temp Pulse Resp BP Pulse Ox
98.3 F 80 17 103/63 92
06/02/24 07:17 06/02/24 09:25 06/02/24 07:17 06/02/24 09:25 06/02/24 07:17
I&O
06/01/24 06/02/24 06/03/24
06:59 06:59 06:59
Intake Total 1680 / 1680 800 / 800
Output Total 925 / 925
Balance 755 / 755 800 / 800
Physical Exam
-
General: Obese
GI: Soft, Nontender and Nondistended
Musculoskeletal: No Clubbing, No Cyanosis and Other (Left leg bandage in place)
Neuro: AO x 3
Psych: Calm
[2024-06-02 15:15] VITALS: BP 121/64
[2024-06-02 16:44] VITALS: BP 121/64
[2024-06-02] MEDS: CRESTOR 20 MG PO (17:44)
[2024-06-02] MEDS: LOVENOX 40 MG SC (17:45)
[2024-06-02 23:51] VITALS: BP 117/71
[2024-06-03] MEDS: TYLENOL 650 MG PO ×3 (01:26→18:21)
[2024-06-03] MEDS: TUMS CHEWABLE TABLET 200 MG PO (01:26)
[2024-06-03] MEDS: DILAUDID 2 MG PO ×3 (04:59→22:23)
[2024-06-03 05:34] VITALS: BMI 42.2
[2024-06-03 07:15] VITALS: BP 118/68
[2024-06-03] MEDS: ASPIR LOW (ENTERIC COATED) 81 MG PO (08:30)
[2024-06-03] MEDS: COREG 12.5 MG PO ×2 (08:32→19:55)
[2024-06-03] MEDS: SUBUTEX 2 MG SL (08:32)
[2024-06-03] MEDS: SILVADENE 1 APPLIC TOPICAL (08:35)
[2024-06-03] MEDS: DESENEX/MITRAZOL/ZEASORB 1 APPLIC TOPICAL ×2 (08:35→19:54)
[2024-06-03] MEDS: HYDROPHOR 1 APPLIC TOPICAL (08:35)
[2024-06-03] MEDS: DAKIN'S SOLUTION 0.125% 1/4 STRENGTH 473 ML TOPICAL (08:35)
--- NOTE | 2024-06-03 11:13 | W.PN.HOSP.TC ---
Today's Communication/Plan
-
dispo planning
Assessment / Plan
Assessment / Plan
Impression:
Severe sepsis due to left lower extremity cellulitis
Septic shock with hypotension requiring vasopressors
Bacteremia with Streptococcus pyogenous
Syncope prior to presentation.
Acute hypoxic respiratory failure in the settings of hypotension.
VDRF in the settings of severe sepsis and hemodynamic instability.
� Intubated 04/28
Acute renal failure
Lactic acidosis.
Abnormal liver function test
Demand ischemia non-Q wave [place]
Stage II decubital ulcer present on admission
Hyperkalemia
Other conditions:
Essential hypertension
Obesity with BMI of 48.
Opiate use disorder on Suboxone.
Plan:
Left lower extremity cellulitis with severe sepsis and septic shock
Severe left lower extremity cellulitis with initial concern for necrotizing fasciitis
Blood culture with Streptococcus pyogenes
CT of the left lower extremity with severe cellulitis
Appreciate ID and GS consults
Status post incision and debridement of left lower extremity soft tissue infection with no evidence of necrotizing fasciitis
Lower extremity Doppler negative for DVT.
Antibiotics regimen adjusted to cefazolin. Completed 3 days of clindamycin. Continue IV Cefazolin dosed for elevated BMI. Completed 14-day course of antibiotics on 05/11
Repeat blood culture negative to date
Status post additional excisional debridement of the left lower extremity wound on 05/04
Daily wound care; not a good candidate for wound vac or delayed primary closure at this time. Per surgery: 'will eventually require further debridement and eventual skin grafting vs BKA. Will need eventual plastics involvement for grafting: not
ready yet.'
Septic shock with hypotension not expanding to IV fluids
Resolved
Urinary retention
-PVR 372 morning of 05/08; UA without infection
-straight cath protocol in place
Acute blood loss anemia secondary to large wound.
Hemoglobin trending down to sevens.
Low iron stores.
Continue IV iron
Transfuse to keep hemoglobin above 8
Acute hypoxic respiratory failure
VDRF
� Intubated on 04/29 with procedure; extubated 04/30
Follow-up chest x-ray with left lower lobe pleural effusion and congestion
Weaned off sedation
Hyperkalemia
Normal creatinine
Normal CK.
ECG with no related changes.
s/p IV hydration
s/p Lokelma with improvement in K this morning
Non-Q wave [place] secondary to demand ischemia.
Troponin peaked at 12 and trending down
Echocardiogram
Very technically difficult study suboptimal 2D echo doppler study
Normal left ventricular chamber size. Normal left ventricular systolic
function. Left ventricular ejection fraction is 55%. Normal regional wall
motion. Mild concentric left ventricular hypertrophy.
Enlarged dilated right ventricular size. Right ventricle appears mildly
hypokinetic.
No significant valvular disease within the limitations of this study
No prior echo for comparison.
Initially on IV heparin.
Transition to aspirin
Initiated on GDMT including Crestor.
Ischemic evaluation eventually
MARÍA ELENA baseline metabolic acidosis/lactic acidosis - resolved
Likely prerenal in the settings of sepsis, septic shock with prerenal stimuli.
Less likely glomerular process given bland UA
Hold Lasix, NSAIDs, lisinopril.
Bladder scan for retention
Follow BMP
Consider nephrology evaluation if uptrending creatinine
Avoid nephrotoxins
-weight down despite holding lasix
Abnormal LFT
Resolving bilirubin and transaminases.
Ultrasound:Hepatosplenomegaly with hepatic steatosis.
Gallstones and sludge are present. The gallbladder is mildly distended however there is are additional findings suggestive of cholecystitis.
The common bile duct is borderline dilated measuring 6.7 mm.
Overall low clinical suspicion for acute cholecystitis
LFT has been trending down
Regular diet
Obesity with BMI of 48
hemoglobin A1c 5.8
Essential hypertension
Hold preadmission antihypertensive regimen including lisinopril and Lasix baseline
Opiate use disorder
On Suboxone prior to presentation
Full code
DVT prophylaxis subcu heparin
General: morbid Obese
GI: Soft, Nontender and Nondistended
Musculoskeletal: Other (Left leg bandage in place)
Neuro: AO x 3
Psych: Calm
Anticipated Discharge: > 48 hours
Subjective/Interval History
-
Date of Service: June 03, 2024
Objective Data
-
Vital Signs:
Vital Signs
Temp Pulse Resp BP Pulse Ox
36.8 C 79 16 118/68 98
06/03/24 07:15 06/03/24 08:32 06/03/24 07:15 06/03/24 08:32 06/03/24 07:15
I&O
06/02/24 06/03/24 06/04/24
06:59 06:59 06:59
Intake Total 800 / 800 960 / 960
Output Total 850 / 850
Balance 800 / 800 110 / 110
Review of Systems
-
History Source: Patient
All other systems: Reviewed and negative
Physical Exam
-
General: Well Developed, Well Nourished, No Apparent Distress, Comfortable, Conversant and Obese
GI: Soft, Nontender and Nondistended
Musculoskeletal: No Clubbing, No Cyanosis and Other (Left leg bandage in place)
Neuro: AO x 3
Psych: Calm and Intact Judgement/Insight
[2024-06-03 15:28] VITALS: BP 110/61
[2024-06-03] MEDS: CRESTOR 20 MG PO (17:36)
[2024-06-03] MEDS: LOVENOX 40 MG SC (17:36)
[2024-06-03] MEDS: SILVADENE TOPICAL (19:55)
[2024-06-03 23:24] VITALS: BP 108/61
[2024-06-04] MEDS: TYLENOL 650 MG PO ×3 (04:24→20:45)
[2024-06-04 04:31] VITALS: BMI 42.3
[2024-06-04 07:20] VITALS: BP 121/59
[2024-06-04] MEDS: DILAUDID 2 MG PO ×2 (07:24→16:00)
[2024-06-04] MEDS: ASPIR LOW (ENTERIC COATED) 81 MG PO (08:52)
[2024-06-04] MEDS: COREG 12.5 MG PO ×2 (08:52→20:40)
[2024-06-04] MEDS: SUBUTEX 2 MG SL (08:53)
[2024-06-04] MEDS: DESENEX/MITRAZOL/ZEASORB 1 APPLIC TOPICAL ×2 (08:53→20:41)
[2024-06-04] MEDS: HYDROPHOR 1 APPLIC TOPICAL (08:53)
[2024-06-04] MEDS: DAKIN'S SOLUTION 0.125% 1/4 STRENGTH 473 ML TOPICAL (08:53)
[2024-06-04] MEDS: SILVADENE 1 APPLIC TOPICAL (08:54)
[2024-06-04 09:10] VITALS: BP 147/71; PULSE 97
--- NOTE | 2024-06-04 10:46 | VATNOTE ---
No PIVs noted upon rounds.
--- NOTE | 2024-06-04 11:27 | W.PN.HOSP.TC ---
Today's Communication/Plan
-
see A/P
Dispo planning
Assessment / Plan
Assessment / Plan
Impression:
Severe sepsis due to left lower extremity cellulitis
Septic shock with hypotension requiring vasopressors
Bacteremia with Streptococcus pyogenous
Syncope prior to presentation.
Acute hypoxic respiratory failure in the settings of hypotension.
VDRF in the settings of severe sepsis and hemodynamic instability.
� Intubated 04/28
Acute renal failure
Lactic acidosis.
Abnormal liver function test
Demand ischemia non-Q wave [place]
Stage II decubital ulcer present on admission
Hyperkalemia
Other conditions:
Essential hypertension
Obesity with BMI of 48.
Opiate use disorder on Suboxone.
Plan:
Left lower extremity cellulitis with severe sepsis and septic shock
Severe left lower extremity cellulitis with initial concern for necrotizing fasciitis
Blood culture with Streptococcus pyogenes
CT of the left lower extremity with severe cellulitis
Appreciate ID and GS consults
Status post incision and debridement of left lower extremity soft tissue infection with no evidence of necrotizing fasciitis
Lower extremity Doppler negative for DVT.
Antibiotics regimen adjusted to cefazolin. Completed 3 days of clindamycin. Continue IV Cefazolin dosed for elevated BMI. Completed 14-day course of antibiotics on 05/11
Repeat blood culture negative to date
Status post additional excisional debridement of the left lower extremity wound on 05/04
Daily wound care; not a good candidate for wound vac or delayed primary closure at this time. Per surgery: 'will eventually require further debridement and eventual skin grafting vs BKA. Will need eventual plastics involvement for grafting: not
ready yet.'
Septic shock with hypotension not expanding to IV fluids
Resolved
Urinary retention
-PVR 372 morning of 05/08; UA without infection
-straight cath protocol in place
Acute blood loss anemia secondary to large wound.
Hemoglobin trending down to sevens.
Low iron stores.
Continue IV iron
Transfuse to keep hemoglobin above 8
Acute hypoxic respiratory failure
VDRF
� Intubated on 04/29 with procedure; extubated 04/30
Follow-up chest x-ray with left lower lobe pleural effusion and congestion
Weaned off sedation
Hyperkalemia
Normal creatinine
Normal CK.
ECG with no related changes.
s/p IV hydration
s/p Lokelma with improvement in K this morning
Non-Q wave [place] secondary to demand ischemia.
Troponin peaked at 12 and trending down
Echocardiogram
Very technically difficult study suboptimal 2D echo doppler study
Normal left ventricular chamber size. Normal left ventricular systolic
function. Left ventricular ejection fraction is 55%. Normal regional wall
motion. Mild concentric left ventricular hypertrophy.
Enlarged dilated right ventricular size. Right ventricle appears mildly
hypokinetic.
No significant valvular disease within the limitations of this study
No prior echo for comparison.
Initially on IV heparin.
Transition to aspirin
Initiated on GDMT including Crestor.
Ischemic evaluation eventually
MARÍA ELENA baseline metabolic acidosis/lactic acidosis - resolved
Likely prerenal in the settings of sepsis, septic shock with prerenal stimuli.
Less likely glomerular process given bland UA
Hold Lasix, NSAIDs, lisinopril.
Bladder scan for retention
Follow BMP
Consider nephrology evaluation if uptrending creatinine
Avoid nephrotoxins
-weight down despite holding lasix
Abnormal LFT
Resolving bilirubin and transaminases.
Ultrasound:Hepatosplenomegaly with hepatic steatosis.
Gallstones and sludge are present. The gallbladder is mildly distended however there is are additional findings suggestive of cholecystitis.
The common bile duct is borderline dilated measuring 6.7 mm.
Overall low clinical suspicion for acute cholecystitis
LFT has been trending down
Regular diet
Obesity with BMI of 48
hemoglobin A1c 5.8
Essential hypertension
Hold preadmission antihypertensive regimen including lisinopril and Lasix baseline
Opiate use disorder
On Suboxone prior to presentation
Full code
DVT prophylaxis subcu heparin
Anticipated Discharge: > 48 hours
Subjective/Interval History
-
Date of Service: June 04, 2024
Objective Data
-
Vital Signs:
Vital Signs
Temp Pulse Resp BP Pulse Ox
36.7 C 78 18 121/59 97
06/04/24 07:20 06/04/24 08:52 06/04/24 07:20 06/04/24 08:52 06/04/24 10:45
I&O
06/03/24 06/04/24 06/05/24
06:59 06:59 06:59
Intake Total 960 / 960 1440 / 1440 720 / 720
Output Total 850 / 850
Balance 110 / 110 1440 / 1440 720 / 720
Physical Exam
-
General: Well Developed, Well Nourished, No Apparent Distress, Comfortable, Conversant and Morbidly Obese
Respiratory: Non Labored Respirations; Negative Accessory Resp Muscle Use
GI: Soft, Nontender and Nondistended
Musculoskeletal: No Clubbing, No Cyanosis and Other (Left leg bandage in place)
Psych: Calm and Intact Judgement/Insight
[2024-06-04 15:15] VITALS: BP 101/60
[2024-06-04 16:20] VITALS: BP 120/67; PULSE 86
[2024-06-04] MEDS: CRESTOR 20 MG PO (17:20)
[2024-06-04] MEDS: LOVENOX 40 MG SC (17:21)
[2024-06-04] MEDS: TUMS CHEWABLE TABLET 200 MG PO (17:25)
[2024-06-04] MEDS: SILVADENE TOPICAL (20:40)
[2024-06-04 23:43] VITALS: BP 108/60
[2024-06-05] MEDS: DILAUDID 2 MG PO ×3 (00:12→17:59)
[2024-06-05 06:00] VITALS: BMI 42.3
[2024-06-05] MEDS: SUBUTEX 2 MG SL (08:12)
[2024-06-05] MEDS: ASPIR LOW (ENTERIC COATED) 81 MG PO (08:12)
[2024-06-05] MEDS: SENOKOT-S 1 TABLET PO (08:13)
[2024-06-05] MEDS: TYLENOL 650 MG PO ×3 (08:13→21:23)
[2024-06-05] MEDS: MIRALAX 17 GRAMS PO (08:13)
[2024-06-05] MEDS: COREG 12.5 MG PO ×2 (08:13→21:22)
[2024-06-05] MEDS: DAKIN'S SOLUTION 0.125% 1/4 STRENGTH 473 ML TOPICAL (08:18)
[2024-06-05] MEDS: HYDROPHOR 1 APPLIC TOPICAL (08:18)
[2024-06-05] MEDS: SILVADENE 1 APPLIC TOPICAL (08:18)
[2024-06-05] MEDS: DESENEX/MITRAZOL/ZEASORB 1 APPLIC TOPICAL ×2 (08:18→21:25)
[2024-06-05 08:24] VITALS: BP 121/68
--- NOTE | 2024-06-05 11:25 | W.PN.HOSP.TC ---
Today's Communication/Plan
-
dispo planning
Assessment / Plan
Assessment / Plan
Impression:
Severe sepsis due to left lower extremity cellulitis
Septic shock with hypotension requiring vasopressors
Bacteremia with Streptococcus pyogenous
Syncope prior to presentation.
Acute hypoxic respiratory failure in the settings of hypotension.
VDRF in the settings of severe sepsis and hemodynamic instability.
� Intubated 04/28
Acute renal failure
Lactic acidosis.
Abnormal liver function test
Demand ischemia non-Q wave [place]
Stage II decubital ulcer present on admission
Hyperkalemia
Other conditions:
Essential hypertension
Obesity with BMI of 48.
Opiate use disorder on Suboxone.
Plan:
Left lower extremity cellulitis with severe sepsis and septic shock
Severe left lower extremity cellulitis with initial concern for necrotizing fasciitis
Blood culture with Streptococcus pyogenes
CT of the left lower extremity with severe cellulitis
Appreciate ID and GS consults
Status post incision and debridement of left lower extremity soft tissue infection with no evidence of necrotizing fasciitis
Lower extremity Doppler negative for DVT.
Antibiotics regimen adjusted to cefazolin. Completed 3 days of clindamycin. Continue IV Cefazolin dosed for elevated BMI. Completed 14-day course of antibiotics on 05/11
Repeat blood culture negative to date
Status post additional excisional debridement of the left lower extremity wound on 05/04
Daily wound care; not a good candidate for wound vac or delayed primary closure at this time. Per surgery: 'will eventually require further debridement and eventual skin grafting vs BKA. Will need eventual plastics involvement for grafting: not
ready yet.'
Septic shock with hypotension not expanding to IV fluids
Resolved
Urinary retention
-PVR 372 morning of 05/08; UA without infection
-straight cath protocol in place
Acute blood loss anemia secondary to large wound.
Hemoglobin trending down to sevens.
Low iron stores.
Continue IV iron
Transfuse to keep hemoglobin above 8
Acute hypoxic respiratory failure
VDRF
� Intubated on 04/29 with procedure; extubated 04/30
Follow-up chest x-ray with left lower lobe pleural effusion and congestion
Weaned off sedation
Hyperkalemia
Normal creatinine
Normal CK.
ECG with no related changes.
s/p IV hydration
s/p Lokelma with improvement in K this morning
Non-Q wave [place] secondary to demand ischemia.
Troponin peaked at 12 and trending down
Echocardiogram
Very technically difficult study suboptimal 2D echo doppler study
Normal left ventricular chamber size. Normal left ventricular systolic
function. Left ventricular ejection fraction is 55%. Normal regional wall
motion. Mild concentric left ventricular hypertrophy.
Enlarged dilated right ventricular size. Right ventricle appears mildly
hypokinetic.
No significant valvular disease within the limitations of this study
No prior echo for comparison.
Initially on IV heparin.
Transition to aspirin
Initiated on GDMT including Crestor.
Ischemic evaluation eventually
MARÍA ELENA baseline metabolic acidosis/lactic acidosis - resolved
Likely prerenal in the settings of sepsis, septic shock with prerenal stimuli.
Less likely glomerular process given bland UA
Hold Lasix, NSAIDs, lisinopril.
Bladder scan for retention
Follow BMP
Consider nephrology evaluation if uptrending creatinine
Avoid nephrotoxins
-weight down despite holding lasix
Abnormal LFT
Resolving bilirubin and transaminases.
Ultrasound:Hepatosplenomegaly with hepatic steatosis.
Gallstones and sludge are present. The gallbladder is mildly distended however there is are additional findings suggestive of cholecystitis.
The common bile duct is borderline dilated measuring 6.7 mm.
Overall low clinical suspicion for acute cholecystitis
LFT has been trending down
Regular diet
Obesity with BMI of 48
hemoglobin A1c 5.8
Essential hypertension
Hold preadmission antihypertensive regimen including lisinopril and Lasix baseline
Opiate use disorder
On Suboxone prior to presentation
Full code
DVT prophylaxis subcu heparin
Anticipated Discharge: 24 - 48 hours
Subjective/Interval History
-
Date of Service: June 05, 2024
Objective Data
-
Vital Signs:
Vital Signs
Temp Pulse Resp BP Pulse Ox
36.8 C 81 16 121/68 92
06/05/24 08:24 06/05/24 08:24 06/05/24 08:24 06/05/24 08:24 06/05/24 08:24
I&O
06/04/24 06/05/24 06/06/24
06:59 06:59 06:59
Intake Total 1440 / 1440 1900 / 1900
Balance 1440 / 1440 1900 / 1900
Review of Systems
-
History Source: Patient
All other systems: Reviewed and negative
Physical Exam
-
General: Well Developed, Well Nourished, No Apparent Distress, Comfortable, Conversant and Morbidly Obese
Respiratory: Non Labored Respirations; Negative Accessory Resp Muscle Use
GI: Soft, Nontender and Nondistended
Musculoskeletal: No Clubbing, No Cyanosis and Other (Left leg bandage in place)
Psych: Calm and Intact Judgement/Insight
Data Reviewed
-
Diagnostic Radiology: Report Reviewed by me
Labs: Labs Reviewed by me
[2024-06-05 16:43] VITALS: BP 119/75
[2024-06-05] MEDS: LOVENOX 40 MG SC (17:59)
[2024-06-05] MEDS: CRESTOR 20 MG PO (17:59)
[2024-06-05] MEDS: SILVADENE TOPICAL (21:33)
[2024-06-05 22:32] VITALS: BP 105/46
[2024-06-05 23:32] VITALS: BP 105/46
[2024-06-06] MEDS: DILAUDID 2 MG PO ×3 (02:08→19:46)
[2024-06-06 06:00] VITALS: BMI 42.3
[2024-06-06] MEDS: TYLENOL 650 MG PO ×4 (06:46→22:01)
[2024-06-06 07:10] VITALS: BP 126/69
[2024-06-06] MEDS: COREG 12.5 MG PO ×2 (08:54→19:46)
[2024-06-06] MEDS: SUBUTEX 2 MG SL (08:56)
[2024-06-06] MEDS: ASPIR LOW (ENTERIC COATED) 81 MG PO (08:56)
[2024-06-06] MEDS: DAKIN'S SOLUTION 0.125% 1/4 STRENGTH 473 ML TOPICAL (08:58)
[2024-06-06] MEDS: HYDROPHOR 1 APPLIC TOPICAL (08:58)
[2024-06-06] MEDS: SILVADENE 1 APPLIC TOPICAL (08:58)
[2024-06-06] MEDS: DESENEX/MITRAZOL/ZEASORB 1 APPLIC TOPICAL ×2 (08:59→19:45)
[2024-06-06] MEDS: MIRALAX 17 GRAMS PO (09:04)
[2024-06-06] MEDS: SENOKOT-S 1 TABLET PO (09:04)
[2024-06-06 10:15] LABS: Hematocrit 29.5 % (39.0-52.0); Mean Corp Hgb Conc. 30.5 g/dL (33.0-37.0); Mean Corpuscular Hgb 27.8 pg (27.0-31.0); Mean Platelet Volume 9.9 fL (7.4-10.4); Platelet Count 280 10^3/uL (130-400); Red Blood Cell Count 3.24 10^6/uL (4.70-6.10); White Blood Cell Count 6.5 10^3/uL (4.8-10.8)
[2024-06-06 10:25] LABS: Blood Urea Nitrogen 11 mg/dl (9-20); Carbon Dioxide 31 mmol/L (22-30); Chloride 102 mmol/L (98-107); Estimated Creatinine Clearance > 125 ml/min; Glucose 112 mg/dl (70-99); Potassium 4.8 mmol/L (3.5-5.1); Sodium 141 mmol/L (135-145); eGFR > 60.00
--- NOTE | 2024-06-06 11:21 | W.PN.HOSP.TC ---
Today's Communication/Plan
-
Blood work today unrevealing
dispo planning
Assessment / Plan
Assessment / Plan
Impression:
Severe sepsis due to left lower extremity cellulitis
Septic shock with hypotension requiring vasopressors
Bacteremia with Streptococcus pyogenous
Syncope prior to presentation.
Acute hypoxic respiratory failure in the settings of hypotension.
VDRF in the settings of severe sepsis and hemodynamic instability.
� Intubated 04/28
Acute renal failure
Lactic acidosis.
Abnormal liver function test
Demand ischemia non-Q wave [place]
Stage II decubital ulcer present on admission
Hyperkalemia
Other conditions:
Essential hypertension
Obesity with BMI of 48.
Opiate use disorder on Suboxone.
Plan:
Left lower extremity cellulitis with severe sepsis and septic shock
Severe left lower extremity cellulitis with initial concern for necrotizing fasciitis
Blood culture with Streptococcus pyogenes
CT of the left lower extremity with severe cellulitis
Appreciate ID and GS consults
Status post incision and debridement of left lower extremity soft tissue infection with no evidence of necrotizing fasciitis
Lower extremity Doppler negative for DVT.
Antibiotics regimen adjusted to cefazolin. Completed 3 days of clindamycin. Continue IV Cefazolin dosed for elevated BMI. Completed 14-day course of antibiotics on 05/11
Repeat blood culture negative to date
Status post additional excisional debridement of the left lower extremity wound on 05/04
Daily wound care; not a good candidate for wound vac or delayed primary closure at this time. Per surgery: 'will eventually require further debridement and eventual skin grafting vs BKA. Will need eventual plastics involvement for grafting: not
ready yet.'
Septic shock with hypotension not expanding to IV fluids
Resolved
Urinary retention
-PVR 372 morning of 05/08; UA without infection
-straight cath protocol in place
Acute blood loss anemia secondary to large wound.
Hemoglobin trending down to sevens.
Low iron stores.
Continue IV iron
Transfuse to keep hemoglobin above 8
Acute hypoxic respiratory failure
VDRF
� Intubated on 04/29 with procedure; extubated 04/30
Follow-up chest x-ray with left lower lobe pleural effusion and congestion
Weaned off sedation
Hyperkalemia
Normal creatinine
Normal CK.
ECG with no related changes.
s/p IV hydration
s/p Lokelma with improvement in K this morning
Non-Q wave [place] secondary to demand ischemia.
Troponin peaked at 12 and trending down
Echocardiogram
Very technically difficult study suboptimal 2D echo doppler study
Normal left ventricular chamber size. Normal left ventricular systolic
function. Left ventricular ejection fraction is 55%. Normal regional wall
motion. Mild concentric left ventricular hypertrophy.
Enlarged dilated right ventricular size. Right ventricle appears mildly
hypokinetic.
No significant valvular disease within the limitations of this study
No prior echo for comparison.
Initially on IV heparin.
Transition to aspirin
Initiated on GDMT including Crestor.
Ischemic evaluation eventually
MARÍA ELENA baseline metabolic acidosis/lactic acidosis - resolved
Likely prerenal in the settings of sepsis, septic shock with prerenal stimuli.
Less likely glomerular process given bland UA
Hold Lasix, NSAIDs, lisinopril.
Bladder scan for retention
Follow BMP
Consider nephrology evaluation if uptrending creatinine
Avoid nephrotoxins
-weight down despite holding lasix
Abnormal LFT
Resolving bilirubin and transaminases.
Ultrasound:Hepatosplenomegaly with hepatic steatosis.
Gallstones and sludge are present. The gallbladder is mildly distended however there is are additional findings suggestive of cholecystitis.
The common bile duct is borderline dilated measuring 6.7 mm.
Overall low clinical suspicion for acute cholecystitis
LFT has been trending down
Regular diet
Obesity with BMI of 48
hemoglobin A1c 5.8
Essential hypertension
Hold preadmission antihypertensive regimen including lisinopril and Lasix baseline
Opiate use disorder
On Suboxone prior to presentation
Full code
DVT prophylaxis subcu heparin
Anticipated Discharge: 24 - 48 hours
Subjective/Interval History
-
Date of Service: June 06, 2024
Objective Data
-
Labs:
Laboratory Results
06/06/24
09:24
WBC 6.5
Hgb 9.0 L
Hct 29.5 L
Plt Count 280
Sodium 141
Potassium 4.8
Chloride 102
Carbon Dioxide 31 H
BUN 11
Creatinine 0.7
Glucose 112 H
Calcium 9.0
Vital Signs:
Vital Signs
Temp Pulse Resp BP Pulse Ox
36.7 C 73 18 126/69 95
06/06/24 07:10 06/06/24 08:54 06/06/24 07:10 06/06/24 08:54 06/06/24 07:10
I&O
06/05/24 06/06/24 06/07/24
06:59 06:59 06:59
Intake Total 1900 / 1900 1440 / 1440
Output Total 600 / 600
Balance 1900 / 1900 840 / 840
Review of Systems
-
History Source: Patient
All other systems: Reviewed and negative
Physical Exam
-
General: Well Developed, Well Nourished, No Apparent Distress, Comfortable, Conversant and Morbidly Obese
Respiratory: Non Labored Respirations; Negative Accessory Resp Muscle Use
GI: Soft, Nontender and Nondistended
Musculoskeletal: No Clubbing, No Cyanosis and Other (Left leg bandage in place)
Psych: Calm and Intact Judgement/Insight
Data Reviewed
-
Diagnostic Radiology: Report Reviewed by me
Labs: Labs Reviewed by me
[2024-06-06 16:00] VITALS: BP 120/61
[2024-06-06] MEDS: LOVENOX 40 MG SC (17:19)
[2024-06-06] MEDS: CRESTOR 20 MG PO (17:19)
[2024-06-06] MEDS: SILVADENE TOPICAL (19:45)
[2024-06-06 23:27] VITALS: BP 124/71
[2024-06-07] MEDS: DILAUDID 2 MG PO ×3 (04:00→20:09)
[2024-06-07 06:00] VITALS: BMI 42.7
[2024-06-07 07:20] VITALS: BP 134/71
[2024-06-07] MEDS: COREG 12.5 MG PO ×2 (08:16→20:09)
[2024-06-07] MEDS: SUBUTEX 2 MG SL (08:16)
[2024-06-07] MEDS: ASPIR LOW (ENTERIC COATED) 81 MG PO (08:16)
[2024-06-07] MEDS: DAKIN'S SOLUTION 0.125% 1/4 STRENGTH 473 ML TOPICAL (08:17)
[2024-06-07] MEDS: HYDROPHOR 1 APPLIC TOPICAL (08:18)
[2024-06-07] MEDS: SILVADENE 1 APPLIC TOPICAL (08:18)
[2024-06-07] MEDS: DESENEX/MITRAZOL/ZEASORB 1 APPLIC TOPICAL ×2 (08:18→20:10)
[2024-06-07] MEDS: TYLENOL 650 MG PO ×3 (08:21→22:24)
[2024-06-07] MEDS: MIRALAX 17 GRAMS PO (09:04)
--- NOTE | 2024-06-07 11:07 | CM ---
Patient seen at bedside.
Awaiting information regarding return to [facility]
PLAN: [facility] once they have additional services & equipment
[facility]
Report# [phone]
[2024-06-07 11:35] VITALS: BP 110/61; BP 116/72; PULSE 72; O2SAT 93
[2024-06-07 15:15] VITALS: BP 113/54
--- NOTE | 2024-06-07 16:24 | W.PN.HOSP.TC ---
Today's Communication/Plan
-
Wound care
Placement
Assessment / Plan
Assessment / Plan
Impression:
Severe sepsis due to left lower extremity cellulitis
Septic shock with hypotension requiring vasopressors
Bacteremia with Streptococcus pyogenous
Syncope prior to presentation.
Acute hypoxic respiratory failure in the settings of hypotension.
VDRF in the settings of severe sepsis and hemodynamic instability.
� Intubated 04/28
Acute renal failure
Lactic acidosis.
Abnormal liver function test
Demand ischemia non-Q wave SC
Stage II decubital ulcer present on admission
Hyperkalemia
Other conditions:
Essential hypertension
Obesity with BMI of 48.
Opiate use disorder on Suboxone.
Plan:
Left lower extremity cellulitis with severe sepsis and septic shock
Severe left lower extremity cellulitis with initial concern for necrotizing fasciitis
Blood culture with Streptococcus pyogenes
CT of the left lower extremity with severe cellulitis
Appreciate ID and GS consults
Status post incision and debridement of left lower extremity soft tissue infection with no evidence of necrotizing fasciitis
Lower extremity Doppler negative for DVT.
Antibiotics regimen adjusted to cefazolin. Completed 3 days of clindamycin. Continue IV Cefazolin dosed for elevated BMI. Completed 14-day course of antibiotics on 05/11
Repeat blood culture negative to date
Status post additional excisional debridement of the left lower extremity wound on 05/04
Daily wound care; not a good candidate for wound vac or delayed primary closure at this time. Per surgery: 'will eventually require further debridement and eventual skin grafting vs BKA. Will need eventual plastics involvement for grafting: not
ready yet.'
Septic shock with hypotension not expanding to IV fluids
Resolved
Urinary retention
-PVR 372 morning of 05/08; UA without infection
-straight cath protocol in place
Acute blood loss anemia secondary to large wound.
Hemoglobin trending down to sevens.
Low iron stores.
Continue IV iron
Transfuse to keep hemoglobin above 8
Acute hypoxic respiratory failure
VDRF
� Intubated on 04/29 with procedure; extubated 04/30
Follow-up chest x-ray with left lower lobe pleural effusion and congestion
Weaned off sedation
Hyperkalemia
Normal creatinine
Normal CK.
ECG with no related changes.
s/p IV hydration
s/p Lokelma with improvement in K this morning
Non-Q wave SC secondary to demand ischemia.
Troponin peaked at 12 and trending down
Echocardiogram
Very technically difficult study suboptimal 2D echo doppler study
Normal left ventricular chamber size. Normal left ventricular systolic
function. Left ventricular ejection fraction is 55%. Normal regional wall
motion. Mild concentric left ventricular hypertrophy.
Enlarged dilated right ventricular size. Right ventricle appears mildly
hypokinetic.
No significant valvular disease within the limitations of this study
No prior echo for comparison.
Initially on IV heparin.
Transition to aspirin
Initiated on GDMT including Crestor.
Ischemic evaluation eventually
MARÍA ELENA baseline metabolic acidosis/lactic acidosis - resolved
Likely prerenal in the settings of sepsis, septic shock with prerenal stimuli.
Less likely glomerular process given bland UA
Hold Lasix, NSAIDs, lisinopril.
Bladder scan for retention
Follow BMP
Consider nephrology evaluation if uptrending creatinine
Avoid nephrotoxins
-weight down despite holding lasix
Abnormal LFT
Resolving bilirubin and transaminases.
Ultrasound:Hepatosplenomegaly with hepatic steatosis.
Gallstones and sludge are present. The gallbladder is mildly distended however there is are additional findings suggestive of cholecystitis.
The common bile duct is borderline dilated measuring 6.7 mm.
Overall low clinical suspicion for acute cholecystitis
LFT has been trending down
Regular diet
Obesity with BMI of 48
hemoglobin A1c 5.8
Essential hypertension
Hold preadmission antihypertensive regimen including lisinopril and Lasix baseline
Opiate use disorder
On Suboxone prior to presentation
Full code
DVT prophylaxis subcu heparin
Anticipated Discharge: 24 - 48 hours
Subjective/Interval History
-
Date of Service: June 07, 2024
Objective Data
-
Vital Signs:
Vital Signs
Temp Pulse Resp BP Pulse Ox
98.1 F 88 17 113/54 93
06/07/24 15:15 06/07/24 15:15 06/07/24 15:15 06/07/24 15:15 06/07/24 15:15
I&O
06/06/24 06/07/24 06/08/24
06:59 06:59 06:59
Intake Total 1440 / 1440 1680 / 1680
Output Total 600 / 600 300 / 300
Balance 840 / 840 1380 / 1380
Physical Exam
-
General: Well Developed, Well Nourished, No Apparent Distress, Comfortable, Conversant and Morbidly Obese
Respiratory: Non Labored Respirations; Negative Accessory Resp Muscle Use
GI: Soft, Nontender and Nondistended
Musculoskeletal: No Clubbing, No Cyanosis and Other (Left leg bandage in place)
Psych: Calm and Intact Judgement/Insight
[2024-06-07] MEDS: CRESTOR 20 MG PO (17:02)
[2024-06-07] MEDS: LOVENOX 40 MG SC (17:02)
[2024-06-07] MEDS: SILVADENE TOPICAL (20:10)
[2024-06-07 22:22] VITALS: BP 110/58
[2024-06-07 23:22] VITALS: BP 110/58
[2024-06-08 04:04] VITALS: BP 111/60
[2024-06-08] MEDS: DILAUDID 2 MG PO ×3 (04:05→21:21)
[2024-06-08 05:09] VITALS: BMI 42.8
[2024-06-08 07:20] VITALS: BP 126/72
[2024-06-08] MEDS: COREG 12.5 MG PO ×2 (08:48→20:40)
[2024-06-08] MEDS: HYDROPHOR 1 APPLIC TOPICAL (08:49)
[2024-06-08] MEDS: DAKIN'S SOLUTION 0.125% 1/4 STRENGTH 473 ML TOPICAL (08:49)
[2024-06-08] MEDS: ASPIR LOW (ENTERIC COATED) 81 MG PO (08:49)
[2024-06-08] MEDS: SUBUTEX 2 MG SL (08:49)
[2024-06-08] MEDS: SILVADENE 1 APPLIC TOPICAL (08:50)
[2024-06-08] MEDS: DESENEX/MITRAZOL/ZEASORB 1 APPLIC TOPICAL ×2 (08:50→20:39)
--- NOTE | 2024-06-08 11:03 | CM ---
Await [facility], they are arranging for serices in the facility.
Plan: back to [facility] once they can accept.
--- NOTE | 2024-06-08 13:51 | W.PN.HOSP.TC ---
Today's Communication/Plan
-
Wound care per
Placement
Assessment / Plan
Assessment / Plan
Impression:
Severe sepsis due to left lower extremity cellulitis
Septic shock with hypotension requiring vasopressors
Bacteremia with Streptococcus pyogenous
Syncope prior to presentation.
Acute hypoxic respiratory failure in the settings of hypotension.
VDRF in the settings of severe sepsis and hemodynamic instability.
� Intubated 04/28
Acute renal failure
Lactic acidosis.
Abnormal liver function test
Demand ischemia non-Q wave [place]
Stage II decubital ulcer present on admission
Hyperkalemia
Other conditions:
Essential hypertension
Obesity with BMI of 48.
Opiate use disorder on Suboxone.
Plan:
Left lower extremity cellulitis with severe sepsis and septic shock
Severe left lower extremity cellulitis with initial concern for necrotizing fasciitis
Blood culture with Streptococcus pyogenes
CT of the left lower extremity with severe cellulitis
Appreciate ID and GS consults
Status post incision and debridement of left lower extremity soft tissue infection with no evidence of necrotizing fasciitis
Lower extremity Doppler negative for DVT.
Antibiotics regimen adjusted to cefazolin. Completed 3 days of clindamycin. Continue IV Cefazolin dosed for elevated BMI. Completed 14-day course of antibiotics on 05/11
Repeat blood culture negative to date
Status post additional excisional debridement of the left lower extremity wound on 05/04
Daily wound care; not a good candidate for wound vac or delayed primary closure at this time. Per surgery: 'will eventually require further debridement and eventual skin grafting vs BKA. Will need eventual plastics involvement for grafting: not
ready yet.'
Septic shock with hypotension not expanding to IV fluids
Resolved
Urinary retention
-PVR 372 morning of 05/08; UA without infection
-straight cath protocol in place
Acute blood loss anemia secondary to large wound.
Hemoglobin trending down to sevens.
Low iron stores.
Continue IV iron
Transfuse to keep hemoglobin above 8
Acute hypoxic respiratory failure
VDRF
� Intubated on 04/29 with procedure; extubated 04/30
Follow-up chest x-ray with left lower lobe pleural effusion and congestion
Weaned off sedation
Hyperkalemia
Normal creatinine
Normal CK.
ECG with no related changes.
s/p IV hydration
s/p Lokelma with improvement in K this morning
Non-Q wave [place] secondary to demand ischemia.
Troponin peaked at 12 and trending down
Echocardiogram
Very technically difficult study suboptimal 2D echo doppler study
Normal left ventricular chamber size. Normal left ventricular systolic
function. Left ventricular ejection fraction is 55%. Normal regional wall
motion. Mild concentric left ventricular hypertrophy.
Enlarged dilated right ventricular size. Right ventricle appears mildly
hypokinetic.
No significant valvular disease within the limitations of this study
No prior echo for comparison.
Initially on IV heparin.
Transition to aspirin
Initiated on GDMT including Crestor.
Ischemic evaluation eventually
MARÍA ELENA baseline metabolic acidosis/lactic acidosis - resolved
Likely prerenal in the settings of sepsis, septic shock with prerenal stimuli.
Less likely glomerular process given bland UA
Hold Lasix, NSAIDs, lisinopril.
Bladder scan for retention
Follow BMP
Consider nephrology evaluation if uptrending creatinine
Avoid nephrotoxins
-weight down despite holding lasix
Abnormal LFT
Resolving bilirubin and transaminases.
Ultrasound:Hepatosplenomegaly with hepatic steatosis.
Gallstones and sludge are present. The gallbladder is mildly distended however there is are additional findings suggestive of cholecystitis.
The common bile duct is borderline dilated measuring 6.7 mm.
Overall low clinical suspicion for acute cholecystitis
LFT has been trending down
Regular diet
Obesity with BMI of 48
hemoglobin A1c 5.8
Essential hypertension
Hold preadmission antihypertensive regimen including lisinopril and Lasix baseline
Opiate use disorder
On Suboxone prior to presentation
Full code
DVT prophylaxis subcu heparin
Anticipated Discharge: Within 24 hours
Subjective/Interval History
-
Date of Service: June 08, 2024
Objective Data
-
Labs:
Laboratory Results
06/08/24
13:04
WBC Pending
Hgb Pending
Hct Pending
Plt Count Pending
Sodium Pending
Potassium Pending
Chloride Pending
Carbon Dioxide Pending
BUN Pending
Creatinine Pending
Glucose Pending
Calcium Pending
Vital Signs:
Vital Signs
Temp Pulse Resp BP Pulse Ox
97.7 F 70 16 126/72 95
06/08/24 07:20 06/08/24 08:48 06/08/24 07:20 06/08/24 08:48 06/08/24 10:28
I&O
06/07/24 06/08/24 06/09/24
06:59 06:59 06:59
Intake Total 1680 / 1680 960 / 960
Output Total 300 / 300 1200 / 1200
Balance 1380 / 1380 -240 / -240
Physical Exam
-
General: Well Developed, Well Nourished, No Apparent Distress, Comfortable, Conversant and Morbidly Obese
Respiratory: Non Labored Respirations; Negative Accessory Resp Muscle Use
GI: Soft, Nontender and Nondistended
Musculoskeletal: No Clubbing, No Cyanosis and Other (Left leg bandage in place)
Psych: Calm and Intact Judgement/Insight
[2024-06-08 14:16] LABS: % Basophils 0.7 % (0-2); % Eosinophils 8.1 % (0-6); % Immature Granulocytes 0.5 % (0-0.5); % Lymphocytes 29.6 % (20.5-51.1); % Monocytes 15.3 % (1.7-9.3); % Neutrophils 45.8 % (42.2-75.2); Absolute Eosinophils 0.5 10^3/uL (0-0.7); Absolute Lymphocytes 1.8 10^3/uL (1.2-3.4); Absolute Monocytes 0.9 10^3/uL (0.1-0.6); Absolute Neutrophils 2.7 10^3/uL (1.4-6.5); Hematocrit 29.7 % (39.0-52.0); Mean Corp Hgb Conc. 30.3 g/dL (33.0-37.0); Mean Corpuscular Hgb 27.3 pg (27.0-31.0); Mean Platelet Volume 9.2 fL (7.4-10.4); Nucleated Red Blood Cells % 0 % (-); Platelet Count 287 10^3/uL (130-400); Red Cell Dist. Width 13.9 % (11.5-14.5)
[2024-06-08 14:23] LABS: Blood Urea Nitrogen 11 mg/dl (9-20); Carbon Dioxide 34 mmol/L (22-30); Chloride 102 mmol/L (98-107); Estimated Creatinine Clearance > 125 ml/min; Glucose 111 mg/dl (70-99); Potassium 5.3 mmol/L (3.5-5.1); Sodium 139 mmol/L (135-145); eGFR > 60.00
[2024-06-08 15:25] VITALS: BP 121/68
[2024-06-08] MEDS: CRESTOR 20 MG PO (17:43)
[2024-06-08] MEDS: LOVENOX 40 MG SC (17:43)
[2024-06-08] MEDS: TYLENOL 650 MG PO (17:48)
[2024-06-08] MEDS: SILVADENE TOPICAL (20:40)
[2024-06-08 23:14] VITALS: BP 120/58
[2024-06-09] MEDS: TYLENOL 650 MG PO ×2 (02:37→09:08)
[2024-06-09 05:45] VITALS: BMI 42.8
[2024-06-09] MEDS: DILAUDID 2 MG PO ×3 (05:48→22:19)
[2024-06-09 08:36] VITALS: BP 123/78
[2024-06-09] MEDS: SUBUTEX 2 MG SL (09:03)
[2024-06-09] MEDS: COREG 12.5 MG PO ×2 (09:03→20:41)
[2024-06-09] MEDS: ASPIR LOW (ENTERIC COATED) 81 MG PO (09:03)
[2024-06-09] MEDS: DESENEX/MITRAZOL/ZEASORB 1 APPLIC TOPICAL ×2 (09:05→20:42)
[2024-06-09] MEDS: DAKIN'S SOLUTION 0.125% 1/4 STRENGTH 473 ML TOPICAL (09:05)
[2024-06-09] MEDS: SILVADENE 1 APPLIC TOPICAL (09:05)
[2024-06-09] MEDS: HYDROPHOR 1 APPLIC TOPICAL (09:06)
--- NOTE | 2024-06-09 12:04 | CM ---
Patient seen at bedside.
Patient to return to [facility] once they have services/equipment.
PLAN: [facility] once they can accept.
[2024-06-09 13:20] VITALS: BP 136/68; PULSE 75; O2SAT 94
[2024-06-09 15:15] VITALS: BP 123/67
--- NOTE | 2024-06-09 15:27 | WOUNDNOTE ---
LEFT LOWER LEG
--- NOTE | 2024-06-09 15:28 | WOUNDNOTE ---
LEFT ANTERIOR LOWER LEG
--- NOTE | 2024-06-09 15:28 | WOUNDNOTE ---
LEFT LATERAL LOWER LEG
--- NOTE | 2024-06-09 15:29 | WOUNDNOTE ---
LEFT LOWER LEG
--- NOTE | 2024-06-09 15:30 | WOUNDNOTE ---
MITA RN NOTE: Assessed wound on L leg with RN, Osvaldo. Patient sitting on bariatric air cushion in chair with left leg elevated on 2 pillows. Minimal drainage noted on JAYSHREE bandage. Patient was medicated for pain prior to wound care. Wound appears
improved compared to last assessment on 05/24, superficial eschar is demarcating itself. 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 Current wound care continues to be appropriate. All wound care provided as ordered. Patient reports good appetite. Buttocks with
protective foam over intact skin. Sacrum and bilateral heels intact. Patient remains on air surface. RN given update. Discharge planning in progress. Will follow as needed
[2024-06-09] MEDS: LOKELMA 10 GRAM PO (15:59)
--- NOTE | 2024-06-09 16:18 | CM ---
TC with [facility], physical therapy and wound care notes reviewed.
Plan is back to [facility] tomorrow, [facility] will transport via WC van with guards.
Transfer packet to include written script for narcotics.
Please email d/c instructions and medications list to [email or web address] ([employer])
[facility] arranging for bed, WC and assistance.
[facility]
Report# [id number]
(verified with Olguin)
--- NOTE | 2024-06-09 16:18 | W.PN.HOSP.TC ---
Today's Communication/Plan
-
Wound care.
Mild hyperkalemia will repeat Lokelma and follow BMP in the morning.
Assessment / Plan
Assessment / Plan
Impression:
Severe sepsis due to left lower extremity cellulitis
Septic shock with hypotension requiring vasopressors
Bacteremia with Streptococcus pyogenous
Syncope prior to presentation.
Acute hypoxic respiratory failure in the settings of hypotension.
VDRF in the settings of severe sepsis and hemodynamic instability.
� Intubated 04/28
Acute renal failure
Lactic acidosis.
Abnormal liver function test
Demand ischemia non-Q wave [place]
Stage II decubital ulcer present on admission
Hyperkalemia
Other conditions:
Essential hypertension
Obesity with BMI of 48.
Opiate use disorder on Suboxone.
Plan:
Left lower extremity cellulitis with severe sepsis and septic shock
Severe left lower extremity cellulitis with initial concern for necrotizing fasciitis
Blood culture with Streptococcus pyogenes
CT of the left lower extremity with severe cellulitis
Appreciate ID and GS consults
Status post incision and debridement of left lower extremity soft tissue infection with no evidence of necrotizing fasciitis
Lower extremity Doppler negative for DVT.
Antibiotics regimen adjusted to cefazolin. Completed 3 days of clindamycin. Continue IV Cefazolin dosed for elevated BMI. Completed 14-day course of antibiotics on 05/11
Repeat blood culture negative to date
Status post additional excisional debridement of the left lower extremity wound on 05/04
Daily wound care; not a good candidate for wound vac or delayed primary closure at this time. Per surgery: 'will eventually require further debridement and eventual skin grafting vs BKA. Will need eventual plastics involvement for grafting: not
ready yet.'
Septic shock with hypotension not expanding to IV fluids
Resolved
Urinary retention
-PVR 372 morning of 05/08; UA without infection
-straight cath protocol in place
Acute blood loss anemia secondary to large wound.
Hemoglobin trending down to sevens.
Low iron stores.
Continue IV iron
Transfuse to keep hemoglobin above 8
Acute hypoxic respiratory failure
VDRF
� Intubated on 04/29 with procedure; extubated 04/30
Follow-up chest x-ray with left lower lobe pleural effusion and congestion
Weaned off sedation
Hyperkalemia
Normal creatinine
Normal CK.
ECG with no related changes.
s/p IV hydration
s/p Lokelma with improvement in K this morning
Non-Q wave NJ secondary to demand ischemia.
Troponin peaked at 12 and trending down
Echocardiogram
Very technically difficult study suboptimal 2D echo doppler study
Normal left ventricular chamber size. Normal left ventricular systolic
function. Left ventricular ejection fraction is 55%. Normal regional wall
motion. Mild concentric left ventricular hypertrophy.
Enlarged dilated right ventricular size. Right ventricle appears mildly
hypokinetic.
No significant valvular disease within the limitations of this study
No prior echo for comparison.
Initially on IV heparin.
Transition to aspirin
Initiated on GDMT including Crestor.
Ischemic evaluation eventually
MARÍA ELENA baseline metabolic acidosis/lactic acidosis - resolved
Likely prerenal in the settings of sepsis, septic shock with prerenal stimuli.
Less likely glomerular process given bland UA
Hold Lasix, NSAIDs, lisinopril.
Bladder scan for retention
Follow BMP
Consider nephrology evaluation if uptrending creatinine
Avoid nephrotoxins
-weight down despite holding lasix
Abnormal LFT
Resolving bilirubin and transaminases.
Ultrasound:Hepatosplenomegaly with hepatic steatosis.
Gallstones and sludge are present. The gallbladder is mildly distended however there is are additional findings suggestive of cholecystitis.
The common bile duct is borderline dilated measuring 6.7 mm.
Overall low clinical suspicion for acute cholecystitis
LFT has been trending down
Regular diet
Obesity with BMI of 48
hemoglobin A1c 5.8
Essential hypertension
Hold preadmission antihypertensive regimen including lisinopril and Lasix baseline
Opiate use disorder
On Suboxone prior to presentation
Full code
DVT prophylaxis subcu heparin
Anticipated Discharge: 24 - 48 hours
Subjective/Interval History
-
Date of Service: June 09, 2024
Objective Data
-
Vital Signs:
Vital Signs
Temp Pulse Resp BP Pulse Ox
97.8 F 70 16 123/78 94
06/09/24 08:36 06/09/24 09:03 06/09/24 08:36 06/09/24 09:03 06/09/24 11:10
I&O
06/08/24 06/09/24 06/10/24
06:59 06:59 06:59
Intake Total 960 / 960 1260 / 1260
Output Total 1200 / 1200 1050 / 1050
Balance -240 / -240 210 / 210
Physical Exam
-
General: Well Developed, Well Nourished, No Apparent Distress, Comfortable, Conversant and Morbidly Obese
Respiratory: Non Labored Respirations; Negative Accessory Resp Muscle Use
GI: Soft, Nontender and Nondistended
Musculoskeletal: No Clubbing, No Cyanosis and Other (Left leg bandage in place)
Psych: Calm and Intact Judgement/Insight
[2024-06-09] MEDS: LOVENOX 40 MG SC (17:45)
[2024-06-09] MEDS: CRESTOR 20 MG PO (17:46)
[2024-06-09] MEDS: SILVADENE TOPICAL (20:42)
[2024-06-09 23:27] VITALS: BP 131/66
[2024-06-10] MEDS: TYLENOL 650 MG PO (02:54)
[2024-06-10 06:00] VITALS: BMI 42.9
[2024-06-10] MEDS: DILAUDID 2 MG PO (06:23)
[2024-06-10 07:09] LABS: Blood Urea Nitrogen 10 mg/dl (9-20); Calcium 8.9 mg/dl (8.4-10.2); Carbon Dioxide 31 mmol/L (22-30); Chloride 103 mmol/L (98-107); Estimated Creatinine Clearance > 125 ml/min; Glucose 100 mg/dl (70-99); Potassium 4.6 mmol/L (3.5-5.1); Sodium 141 mmol/L (135-145); eGFR > 60.00
[2024-06-10 07:20] VITALS: BP 137/71
[2024-06-10] MEDS: COREG 12.5 MG PO (08:55)
[2024-06-10] MEDS: SUBUTEX 2 MG SL (08:56)
[2024-06-10] MEDS: ASPIR LOW (ENTERIC COATED) 81 MG PO (08:56)
[2024-06-10] MEDS: DESENEX/MITRAZOL/ZEASORB 1 APPLIC TOPICAL (08:57)
[2024-06-10] MEDS: HYDROPHOR 1 APPLIC TOPICAL (08:58)
[2024-06-10] MEDS: SILVADENE 1 APPLIC TOPICAL (08:59)
[2024-06-10] MEDS: DAKIN'S SOLUTION 0.125% 1/4 STRENGTH 473 ML TOPICAL (08:59)
--- NOTE | 2024-06-10 09:06 | W.DS.TRANS ---
Addendum entered and electronically signed by Stan Meadows MD 06/10/24 09:14:
Aspirin added
Original Note:
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
-
Discharge Instructions:
Sleep Apnea Risk High
Discharge Diagnosis/Procedures Impression:
Severe sepsis due to left lower extremity
cellulitis
Septic shock with hypotension requiring
vasopressors
Bacteremia with Streptococcus pyogenous
Syncope prior to presentation.
Acute hypoxic respiratory failure in the
settings of hypotension.
VDRF in the settings of severe sepsis and
hemodynamic instability.
� Intubated 04/28
Acute renal failure
Lactic acidosis.
Abnormal liver function test
Demand ischemia non-Q wave MD
Stage II decubital ulcer present on admission
Hyperkalemia
Other conditions:
Essential hypertension
Obesity with BMI of 48.
Opiate use disorder on Suboxone.
Diet Regular
Blood Work CBC, BMP in one week
Instructions:
Stand-Alone Forms:
Changes to Home Medications: Yes
Discharge Medications:
DC Medications w/original date entered in [employer]
buprenorphine HCl 2 mg sublingual tablet 2 mg sublingual DAILY Pain 04/27/24
ibuprofen 200 mg tablet (Advil) 400 mg PO BIDPRN PRN mild pain 04/27/24
acetaminophen 325 mg tablet 650 mg (2 x 325 mg) PO Q4HPRN PRN MILD PAIN/MEEHAN/TEMP>100.4 #30 tabs 06/10/24
carvedilol 12.5 mg tablet 12.5 mg PO BID #60 tabs 06/10/24
hydromorphone 2 mg tablet 2 mg PO Q8HPRN PRN dressing changes, severe pain #14 tabs 06/10/24
rosuvastatin 20 mg tablet 20 mg PO QPM #30 tabs 06/10/24
Home Medication Changes
Lisinopril and Lasix discontinued
Coreg initiated.
Hydromorphone added in addition to buprenorphine for breakthrough pain with wound dressing changes
Pending Results: No
[2024-06-10 11:05] VITALS: BP 114/70
--- NOTE | 2024-06-10 12:52 | CM ---
Patient seen at bedside.
Scripts for medications attached to chart
Bariatric walker provided
emailed [email or web address] ([employer] discharge instructions
[facility]
Report# [phone]
(verified with Olguin)
--- NOTE | 2024-06-10 14:25 | PTCARENOTE ---
Patient discharged back to [facility], transported by facility. This RN called nursing report to Lori at facility. Patient dressed and belongings gathered in room with assistance of tech. Paper scripts in discharge packet, bariatric walker supplied to
patient prior to DC. No IV or tele pack on patient.
== END 2024-06-10 15:00 | DRG 853 ==
LOC: 2 NORTH 15:21
PROVIDERS: Clinical Nurse Specialist Family Health; Hospitalist; Internal Medicine; Internal Medicine Cardiovascular Disease; Nurse Practitioner Family; Nurse Practitioner Gerontology; Nurse Practitioner Primary Care; Physician Assistant; Radiology Diagnostic Radiology; Student in an Organized Health Care Education/Training Program; Surgery; ADMITTING PHYSICIAN Hospitalist; ATTENDING PHYSICIAN Internal Medicine; CONSULT PHYSICIAN Internal Medicine Critical Care Medicine; CONSULT PHYSICIAN Internal Medicine Gastroenterology; CONSULT PHYSICIAN Student in an Organized Health Care Education/Training Program; CONSULT PHYSICIAN Surgery Plastic and Reconstructive Surgery; EMERGENCY PHYSICIAN Emergency Medicine; OTHER PHYSICIAN Nuclear Medicine Nuclear Cardiology; OTHER PHYSICIAN Surgery Vascular Surgery
PROC: 02HV33Z Insertion of Infusion Device into Superior Vena Cava, Percutaneous Approach (ICD-10-PCS; 2024-04-28)
PROC: 0BH17EZ Insertion of Endotracheal Airway into Trachea, Via Natural or Artificial Opening (ICD-10-PCS; 2024-04-28)
PROC: 0JBP0ZZ Excision of Left Lower Leg Subcutaneous Tissue and Fascia, Open Approach (ICD-10-PCS; 2024-04-28)
PROC: 03HC33Z Insertion of Infusion Device into Left Radial Artery, Percutaneous Approach (ICD-10-PCS; 2024-04-28)
PROC: 5A1945Z Respiratory Ventilation, 24-96 Consecutive Hours (ICD-10-PCS; 2024-04-28)
PROC: 0KNT0ZZ Release Left Lower Leg Muscle, Open Approach (ICD-10-PCS; 2024-04-28)
PROC: 5A09357 Assistance with Respiratory Ventilation, Less than 24 Consecutive Hours, Continuous Positive Airway Pressure (ICD-10-PCS; 2024-04-30)
PROC: 0BP1XDZ Removal of Intraluminal Device from Trachea, External Approach (ICD-10-PCS; 2024-04-30)
PROC: 0Y3J0ZZ Control Bleeding in Left Lower Leg, Open Approach (ICD-10-PCS; 2024-05-04)
PROC: 0JDP0ZZ Extraction of Left Lower Leg Subcutaneous Tissue and Fascia, Open Approach (ICD-10-PCS; 2024-05-04)
PROC: 30243N1 Transfusion of Nonautologous Red Blood Cells into Central Vein, Percutaneous Approach (ICD-10-PCS; 2024-05-11)
PROC: 30233N1 Transfusion of Nonautologous Red Blood Cells into Peripheral Vein, Percutaneous Approach (ICD-10-PCS; 2024-05-18)
DX: A40.0 Sepsis due to streptococcus, group A (principal); I21.A1 Myocardial infarction type 2; J96.01 Acute respiratory failure with hypoxia; R65.21 Severe sepsis with septic shock; J96.02 Acute respiratory failure with hypercapnia; N17.9 Acute kidney failure, unspecified; L03.116 Cellulitis of left lower limb; Z68.42 Body mass index [BMI] 45.0-49.9, adult; F11.20 Opioid dependence, uncomplicated; E87.20 Acidosis, unspecified; E87.1 Hypo-osmolality and hyponatremia; I96 Gangrene, not elsewhere classified; D62 Acute posthemorrhagic anemia; R55 Syncope and collapse; E66.01 Morbid (severe) obesity due to excess calories; I11.9 Hypertensive heart disease without heart failure; L89.322 Pressure ulcer of left buttock, stage 2; I89.0 Lymphedema, not elsewhere classified; L28.0 Lichen simplex chronicus; E87.8 Other disorders of electrolyte and fluid balance, not elsewhere classified; K80.20 Calculus of gallbladder without cholecystitis without obstruction; K76.0 Fatty (change of) liver, not elsewhere classified; E87.5 Hyperkalemia; R33.9 Retention of urine, unspecified; R16.2 Hepatomegaly with splenomegaly, not elsewhere classified; M51.26 Other intervertebral disc displacement, lumbar region; R74.01 Elevation of levels of liver transaminase levels; E66.813 Obesity, class 3; M54.9 Dorsalgia, unspecified; R60.0 Localized edema; G89.29 Other chronic pain; Z87.891 Personal history of nicotine dependence; Z83.438 Family history of other disorder of lipoprotein metabolism and other lipidemia; Z63.8 Other specified problems related to primary support group; Z88.0 Allergy status to penicillin; Z75.1 Person awaiting admission to adequate facility elsewhere
CPT/HCPCS: 71045; 73700; 76700; 80048; 80053; 80061; 80202; 81003; 81015; 82248; 82550; 82728; 82805; 82962; 82977; 83036; 83540; 83550; 83605; 83735; 84100; 84439; 84443; 84484; 85018; 85025; 85027; 85610; 85730; 86140; 86706; 86803; 86850; 86900; 86901; 86920; 87040; 87070; 87075; 87077; 87147; 87205; 87324; 87340; 87449; 93005; 93306; 93922; 93925; 93970; 94002; 94003; 94660; 97110; 97116; 97163; 97167; 97530; 97535; 99291; J2185; J2916; P9016; P9045; P9047

== ENCOUNTER 2024-06-12 18:47 | Emergency (ER) | payer OTHER, SELFPAY ==
[2024-06-12 18:57] VITALS: BP 123/81
[2024-06-12 19:00] VITALS: BP 128/68
--- NOTE | 2024-06-12 19:01 | ED.GENMED ---
History of Present Illness
General
Chief Complaint: Fall
Time Seen by Provider: 06/12/24 19:01
History of Present Illness
History of Present Illness:
TIME OF INITIAL ENCOUNTER: 7 PM
HPI: The patient has chronic wounds to the left lower extremity. He was admitted for cellulitis recently. He comes in from [facility]. During a transfer from wheelchair to toilet, he fell and injured the left leg at the
site of where his wounds are. He had no significant head trauma other than 'grazing my head'.
EXAM:
GENERAL: Appears somewhat chronically ill and generally weak, he is afebrile
HEENT: Moist oral mucosa
CARDIOVASCULAR: No murmurs, normal heart rate, regular rhythm, No chest wall tenderness
PULMONARY: No respiratory distress, breath sounds are clear and equal
ABDOMEN: Soft with no peritoneal signs, no tenderness, elevated BMI
NEUROLOGIC: Excellent strength all extremities, no coordination deficits
PSYCHIATRIC: Appropriate mental status, normal insight and judgement
EXTREMITIES: I took down some of the dressing to the left lower extremity, wounds are noted but no clear evidence of infection, lower extremity edema noted, no foul odor, and no definite sign of acute infection
SKIN: No rash, no lesions
NUMBER AND COMPLEXITY OF PROBLEMS ADDRESSED AT THE ENCOUNTER
� Chronic conditions affecting care: CHF, he was admitted for necrotizing cellulitis recently and had MARÍA ELENA
� Acute Exacerbation and/or Progression of Chronic Illness: This is an acute worsening of a chronic problem
� Differential Diagnosis includes:
AMOUNT AND/OR COMPLEXITY OF DATA TO BE REVIEWED AND ANALYZED
� I performed an independent evaluation of and my interpretation is:
EKG:
CT:
X-rays: I personally viewed x-ray and see no bony destruction/fracture
Laboratory Studies:
Other:
� Review of other/old records: I reviewed the discharge summary from earlier this month�the patient has a history of opioid use disorder, and was admitted here with septic shock/respiratory failure related to left lower extremity
necrotizing cellulitis and MARÍA ELENA along with lactic acidosis
� Clinical information was obtained by an independent historian: I spoke to the [facility] corrections officers at bedside however they were not present when the incident
� Prescriptions/Medications Considered but not given:
� Further testing considered but not performed:
RISK OF COMPLICATIONS AND/OR MORBIDITY OR MORTALITY OF PATIENT MANAGEMENT
� Social determinants of health affecting care: Currently resides at [facility]
� Discussion with other providers:
� Escalation of care including admission/observation vs risk of discharge considered: Appears remove the entire dressing and placed a new dressing, eschar formation is noted along with healing deep wounds
ANY OTHER UPDATES:
Phy Exam
Physical Exam
Physical Exam:
See HPI
Course
Orders/Labs/Results
Orders:
Orders
06/12/24 19:17
CR Leg Tibia/fibula Left 2 Vw Urgent
Comment:
Reason For Exam: trauma pain wounds also eval for osteomyelitis
Vital Signs
Initial and Last Documented VS:
Initial Vital Signs
Temp Pulse Resp BP Pulse Ox
36.8 C 93 18 123/81 97
06/12/24 18:57 06/12/24 18:57 06/12/24 18:57 06/12/24 18:57 06/12/24 18:57
Last Documented Vital Signs
Temp Pulse Resp BP Pulse Ox
36.8 C 89 14 123/81 97
06/12/24 18:57 06/12/24 18:57 06/12/24 18:57 06/12/24 18:57 06/12/24 18:57
*Critical Care Note
Total Time (30-74mins, 75-104mins- exclusive of procedures): Not Applicable
ED Attending Note
-
Portions of this chart may have been created with voice recognition software.� Occasional wrong word or��sound alike� substitutions may have occurred due to the inherent limitations of voice recognition software.
Discharge Plan
Departure
Patient Disposition: Home (Routine Discharge)
Date of Disposition: 06/12/24
Time of Disposition: 20:54
Patient with high blood pressure during this ER visit?: Yes
Discharge Problem:
Injury of left leg
Instructions: Wound Care (DC), Preventing falls in adults
Prescriptions:
No Action
ibuprofen [Advil] 200 mg Tablet
400 mg PO BIDPRN PRN (Reason: mild pain)
acetaminophen 325 mg Tablet
650 mg PO Q4HPRN PRN (Reason: MILD PAIN/MEEHAN/TEMP>100.4) Qty: 30 0RF
carvedilol 12.5 mg Tablet
12.5 mg PO BID Qty: 60 0RF
rosuvastatin 20 mg Tablet
20 mg PO QPM Qty: 30 0RF
aspirin 81 mg tablet,delayed release (DR/EC)
81 mg PO DAILY Qty: 30 0RF
hydromorphone 2 mg tablet
2 mg PO Q8H PRN (Reason: Pain) Qty: 14 0RF
buprenorphine HCl 2 mg Tablet, Sublingual
2 mg SUBLINGUAL DAILY Qty: 15 0RF
Referrals:
[facility] [Family Provider] -
Min Slater MD [Active] - Follow up in 1 week
Activity Restrictions/Additional Instructions:
I see no definite abnormality to the x-rays of the left tibia/fibula. Return here if worse or other concerns. I also recommend follow up with Dr. Slater; [employer] senior specialist.
Interventions
Interventions:
*Risk Screen - Suicide Last Done: 06/12/24 18:55
*General Assessment Last Done: 06/12/24 18:55
*Neglect/Abuse Screening Last Done: 06/12/24 18:55
*ED COVID-19 Vaccine History Last Done: 06/12/24 18:55
ED-Musculoskeletal Assessment Last Done: 06/12/24 18:56
ED- Neurological Assessment Last Done: 06/12/24 18:56
ED-Skin Assessment Last Done: 06/12/24 18:56
Discharge Date and Time
Print Language: MALDIVIAN
== END 2024-06-12 22:25 ==
LOC: EMR 18:47
PROVIDERS: EMERGENCY PHYSICIAN Emergency Medicine
DX: S89.92XA Unspecified injury of left lower leg, initial encounter (principal); W05.0XXA Fall from non-moving wheelchair, initial encounter; Y92.142 Bathroom in prison as the place of occurrence of the external cause
CPT/HCPCS: 99283; 73590

== ENCOUNTER → 2024-07-06 13:34 | Outpatient (REF) | payer OTHER, SELFPAY | LOC: WOUND 13:34 | PROVIDERS: ATTENDING PHYSICIAN Surgery; FAMILY PHYSICIAN General Practice | DX: L97.322 Non-pressure chronic ulcer of left ankle with fat layer exposed (principal); L97.222 Non-pressure chronic ulcer of left calf with fat layer exposed; E66.01 Morbid (severe) obesity due to excess calories | CPT/HCPCS: 11042; 11045; 99204 ==

== ENCOUNTER → 2024-07-23 09:25 | Outpatient (REF) | payer OTHER, SELFPAY | LOC: WOUND 09:25 | PROVIDERS: ATTENDING PHYSICIAN Surgery; FAMILY PHYSICIAN General Practice | DX: L97.322 Non-pressure chronic ulcer of left ankle with fat layer exposed (principal); L97.222 Non-pressure chronic ulcer of left calf with fat layer exposed; E66.01 Morbid (severe) obesity due to excess calories | CPT/HCPCS: 99213 ==

== ENCOUNTER → 2024-08-05 13:28 | Outpatient (REF) | payer OTHER, SELFPAY | LOC: WOUND 13:28 | PROVIDERS: ATTENDING PHYSICIAN Surgery; FAMILY PHYSICIAN General Practice | DX: L97.322 Non-pressure chronic ulcer of left ankle with fat layer exposed (principal); L97.222 Non-pressure chronic ulcer of left calf with fat layer exposed; E66.01 Morbid (severe) obesity due to excess calories | CPT/HCPCS: 99213 ==

== ENCOUNTER → 2024-08-19 12:40 | Outpatient (REF) | payer OTHER, SELFPAY | LOC: WOUND 12:40 | PROVIDERS: ATTENDING PHYSICIAN Surgery | DX: L97.322 Non-pressure chronic ulcer of left ankle with fat layer exposed (principal); L97.222 Non-pressure chronic ulcer of left calf with fat layer exposed; E66.01 Morbid (severe) obesity due to excess calories | CPT/HCPCS: 99213 ==

== ENCOUNTER → 2024-09-09 12:55 | Outpatient (REF) | payer OTHER, SELFPAY | LOC: WOUND 12:55 | PROVIDERS: ATTENDING PHYSICIAN Surgery; FAMILY PHYSICIAN General Practice | DX: L97.322 Non-pressure chronic ulcer of left ankle with fat layer exposed (principal); L97.222 Non-pressure chronic ulcer of left calf with fat layer exposed; E66.01 Morbid (severe) obesity due to excess calories | CPT/HCPCS: 99213 ==

== ENCOUNTER → 2024-09-30 13:07 | Outpatient (REF) | payer OTHER, SELFPAY | LOC: WOUND 13:07 | PROVIDERS: ATTENDING PHYSICIAN Surgery; FAMILY PHYSICIAN General Practice | DX: L97.322 Non-pressure chronic ulcer of left ankle with fat layer exposed (principal); L97.222 Non-pressure chronic ulcer of left calf with fat layer exposed; E66.01 Morbid (severe) obesity due to excess calories | CPT/HCPCS: 99213 ==

== ENCOUNTER → 2024-10-21 13:04 | Outpatient (REF) | payer OTHER, SELFPAY | LOC: WOUND 13:04 | PROVIDERS: ATTENDING PHYSICIAN Surgery; FAMILY PHYSICIAN Family Medicine | DX: L97.322 Non-pressure chronic ulcer of left ankle with fat layer exposed (principal); L97.222 Non-pressure chronic ulcer of left calf with fat layer exposed; E66.01 Morbid (severe) obesity due to excess calories | CPT/HCPCS: 99213 ==

== ENCOUNTER → 2024-11-11 13:33 | Outpatient (REF) | payer OTHER, SELFPAY | LOC: WOUND 13:33 | PROVIDERS: ATTENDING PHYSICIAN Surgery; FAMILY PHYSICIAN Family Medicine | DX: L97.322 Non-pressure chronic ulcer of left ankle with fat layer exposed (principal); L97.222 Non-pressure chronic ulcer of left calf with fat layer exposed; E66.01 Morbid (severe) obesity due to excess calories | CPT/HCPCS: 99213 ==

== ENCOUNTER → 2024-12-06 10:11 | Outpatient (REF) | payer OTHER, SELFPAY | LOC: WOUND 10:11 | PROVIDERS: ATTENDING PHYSICIAN Surgery; FAMILY PHYSICIAN Family Medicine | DX: L97.322 Non-pressure chronic ulcer of left ankle with fat layer exposed (principal); L97.222 Non-pressure chronic ulcer of left calf with fat layer exposed; E66.01 Morbid (severe) obesity due to excess calories | CPT/HCPCS: 99213 ==

== ENCOUNTER → 2025-01-06 13:35 | Outpatient (REF) | payer OTHER, SELFPAY | LOC: WOUND 13:35 | PROVIDERS: ATTENDING PHYSICIAN Surgery; FAMILY PHYSICIAN Family Medicine | DX: L97.322 Non-pressure chronic ulcer of left ankle with fat layer exposed (principal); L97.222 Non-pressure chronic ulcer of left calf with fat layer exposed; E66.01 Morbid (severe) obesity due to excess calories | CPT/HCPCS: 99213 ==

== ENCOUNTER → 2025-01-27 13:13 | Outpatient (REF) | payer OTHER, SELFPAY | LOC: WOUND 13:13 | PROVIDERS: ATTENDING PHYSICIAN Surgery; FAMILY PHYSICIAN Family Medicine | DX: L97.322 Non-pressure chronic ulcer of left ankle with fat layer exposed (principal); L97.222 Non-pressure chronic ulcer of left calf with fat layer exposed; E66.01 Morbid (severe) obesity due to excess calories | CPT/HCPCS: 99213 ==

== ENCOUNTER → 2025-02-03 13:24 | Outpatient (REF) | payer OTHER, SELFPAY | LOC: WOUND 13:24 | PROVIDERS: ATTENDING PHYSICIAN Surgery; FAMILY PHYSICIAN Family Medicine | DX: L97.322 Non-pressure chronic ulcer of left ankle with fat layer exposed (principal); L97.222 Non-pressure chronic ulcer of left calf with fat layer exposed; E66.01 Morbid (severe) obesity due to excess calories | CPT/HCPCS: 99213 ==

== ENCOUNTER 2025-02-10 14:13 | Emergency (ER) | payer OTHER, SELFPAY ==
[2025-02-10 14:16] VITALS: BP 155/81
[2025-02-10 16:40] VITALS: BP 129/43; BMI 74.7
[2025-02-10 16:47] LABS: Hematocrit 31.4 % (39.0-52.0); Hemoglobin 10.2 g/dL (13.0-18.0); Mean Corp Hgb Conc. 32.5 g/dL (33.0-37.0); Mean Corpuscular Volume 82.4 fL (80.0-94.0); Nucleated Red Blood Cells % 0 % (-); Platelet Count 225 10^3/uL (130-400); Red Cell Dist. Width 13.5 % (11.5-14.5)
[2025-02-10 16:57] LABS: APTT 28.9 Sec (23.4-35.0); INR 1.03; PT 14.1 Sec (11.4-14.6)
[2025-02-10 17:06] LABS: ALT (SGPT) 13 U/L (0-50); AST (SGOT) 20 U/L (17-59); Albumin 4.0 g/dl (3.5-5.0); Alkaline Phosphatase 75 U/L (38-126); Blood Urea Nitrogen 18 mg/dl (9-20); Calcium 9.0 mg/dl (8.4-10.2); Carbon Dioxide 26 mmol/L (22-30); Chloride 107 mmol/L (98-107); Estimated Creatinine Clearance > 125 ml/min; Glucose 114 mg/dl (70-99); Potassium 5.1 mmol/L (3.5-5.1); Sodium 137 mmol/L (135-145); Total Protein 7.4 g/dl (6.3-8.2); eGFR > 60.00
--- NOTE | 2025-02-10 17:40 | ED.GENMED ---
History of Present Illness
<Naz Pratt PA-C - Last Filed: 02/10/25 22:36>
General
Chief Complaint: Skin Problem
Source: patient
Exam Limitations: none
Time Seen by Provider: 02/10/25 15:16
Nursing documentation reviewed up to this point in time: agreed with
History of Present Illness
History of Present Illness:
see MDM
Phy Exam
<Naz Pratt PA-C - Last Filed: 02/10/25 22:36>
Physical Exam
Physical Exam:
GENERAL: Alert , in no apparent distress, elevated BMI
EYE: pupils equal and reactive
NECK: Supple
ENT: o/p clr, mmm.
CARDIAC: Regular rate and rhythm .
LUNGS: Clear breath sounds bilaterally, no acute respiratory distress, no wheezes/rales/rhonchi
ABDOMEN: Soft, without focal tenderness, no r/g, no cvat, normal bowel sounds
NEUROLOGICAL: Alert and oriented, no focal neuro deficits
SKIN: Warm and dry, chronic incision changes/wound to LLE with slight ulcerated tissue within erythema of the L lateral lower extremity that is not significantly red and doesn't appear to be acutely infected;
MUSCULOSKELETAL: Nlymphedema
severe left LE, moderat RLE
able to move foot/ankle and knee on the Left
no calf tendenress
compartment soft
PSYCH: Normal and appropriate interaction.
Course
<Naz Pratt PA-C - Last Filed: 02/10/25 22:36>
Orders/Labs/Results
Orders:
Orders
02/10/25 16:06
Venous Doppler Lwr Ext Left [US Periph Venous LOWER Ext LT] Urgent
Comment:
Reason For Exam: L leg swelling, h/o cellulitis
02/10/25 16:22
Complete Blood Count/With Diff Urgent
Lactic Acid Q4H
Comment: CANCEL 2nd LACTIC ACID IF 1st LACTIC ACID IS LESS THAN 2
NT-proBNP Urgent
PTT Urgent
Prothrombin Time Urgent
02/10/25 16:38
Comprehensive Metabolic Panel Urgent
Abnormal Lab Results
02/10/25 02/10/25
16:22 16:38
RBC 3.81 L 10^6/uL
(4.70-6.10)
Hgb 10.2 L g/dL
(13.0-18.0)
Hct 31.4 L %
(39.0-52.0)
MCH 26.8 L pg
(27.0-31.0)
MCHC 32.5 L g/dL
(33.0-37.0)
Absolute Monos (auto) 0.7 H 10^3/uL
(0.1-0.6)
Glucose 114 H mg/dl
(70-99)
Lactic Acid 0.6 L mmol/L
(0.7-2.0)
02/10/25 16:22
02/10/25 16:38
Vital Signs
Initial and Last Documented VS:
Initial Vital Signs
Temp Pulse Resp BP Pulse Ox
36.6 C 74 16 155/81 97
02/10/25 14:16 02/10/25 14:16 02/10/25 14:16 02/10/25 14:16 02/10/25 14:16
Last Documented Vital Signs
Temp Pulse Resp BP Pulse Ox
36.4 C 63 20 131/85 100
02/10/25 18:44 02/10/25 18:44 02/10/25 18:44 02/10/25 18:44 02/10/25 18:44
<Teresa Ortiz MD - Last Filed: 02/10/25 18:55>
Orders/Labs/Results
Orders:
Orders
02/10/25 16:06
Venous Doppler Lwr Ext Left [US Periph Venous LOWER Ext LT] Urgent
Comment:
Reason For Exam: L leg swelling, h/o cellulitis
02/10/25 16:22
Complete Blood Count/With Diff Urgent
Lactic Acid Q4H
Comment: CANCEL 2nd LACTIC ACID IF 1st LACTIC ACID IS LESS THAN 2
NT-proBNP Urgent
PTT Urgent
Prothrombin Time Urgent
02/10/25 16:38
Comprehensive Metabolic Panel Urgent
Abnormal Lab Results
02/10/25 02/10/25
16:22 16:38
RBC 3.81 L 10^6/uL
(4.70-6.10)
Hgb 10.2 L g/dL
(13.0-18.0)
Hct 31.4 L %
(39.0-52.0)
MCH 26.8 L pg
(27.0-31.0)
MCHC 32.5 L g/dL
(33.0-37.0)
Absolute Monos (auto) 0.7 H 10^3/uL
(0.1-0.6)
Glucose 114 H mg/dl
(70-99)
Lactic Acid 0.6 L mmol/L
(0.7-2.0)
02/10/25 16:22
02/10/25 16:38
Vital Signs
Initial and Last Documented VS:
Initial Vital Signs
Temp Pulse Resp BP Pulse Ox
36.6 C 74 16 155/81 97
02/10/25 14:16 02/10/25 14:16 02/10/25 14:16 02/10/25 14:16 02/10/25 14:16
Last Documented Vital Signs
Temp Pulse Resp BP Pulse Ox
36.4 C 63 20 131/85 100
02/10/25 18:44 02/10/25 18:44 02/10/25 18:44 02/10/25 18:44 02/10/25 18:44
<Naz Pratt PA-C - Last Filed: 02/10/25 22:36>
MDM/Problems Addressed
Differential Diagnosis Includes:
se MDM
MDM/Problems Addressed:
Note:
CHIEF COMPLAINT(S)
Swelling and fluid draining from the left leg post-surgery.
HISTORY OF PRESENT ILLNESS
The patient is a male who underwent multiple surgeries for necrotizing cellulitis in the left leg on April 27. Since the surgery, the patient has noticed intermittent swelling and fluid drainage from the wound site. Over the past few weeks, the
patient reports that the swelling on the left leg has worsened significantly, particularly noting increased size and volume since last night. Although the swelling fluctuates daily, it has recently been larger and more persistent. The patient sees
wound care () and had been going every 3 weeks but in the past month has gone weekly and doctor is satisfied with the wound healing, as it is not more red or draining excessively and exhibits no worsening appearance. However, the persistent
swelling remains a concern. The patient denies having a history of diabetes, fever, or chills. He reports nausea but no vomiting.
The patient states that he has a history of a suspected myocardial infarction. He is currently on carvedilol for blood pressure management and possible myocardial infarction history. He also uses buprenorphine (Suboxone) to manage a previous
addiction to pain medication. Additionally, he is taking sucralfate for gastrointestinal issues following a hospitalization in January, where the patient experienced infection concerns.
PAST MEDICAL AND SURIGICAL HISTORY
- Necrotizing fasciitis in the left leg requiring multiple surgeries.
ADDITIONAL HISTORY OBTAINED FROM SOURCES OTHER THAN THE PATIENT
- Not applicable.
CHRONIC MEDICAL CONDITIONS SIGNIFICANTLY AFFECTING CARE
- History of suspected myocardial infarction.
- Prior substance use disorder, currently managed with buprenorphine.
SOCIAL DETERMINANTS AFFECTING HEALTH
The patient mentions a history of substance use disorder and is currently on buprenorphine (Suboxone) for management.
MEDICATIONS
- Carvedilol for blood pressure and possible myocardial infarction management.
- Buprenorphine (Suboxone) for past addiction therapy.
- Sucralfate for gastrointestinal concerns.
PHYSICAL EXAM
The left leg is very swollen, c/w lymphedema (both are but L is greater) he has chronic changes to LLE that are post surgical and slight ulcerated tissue to the L lateral aspecto f the lower leg that is weeping slightly; it is warmer and more
erythematous in this area than the whole entire LLE; Nursing notes reviewed and vital signs reviewed.
PROBLEM LIST
Acute:
- Left leg swelling and fluid drainage post-surgery.
Chronic:
- History of suspected myocardial infarction.
- Past substance use disorder.
PLAN
- Perform an ultrasound of the left leg to exclude the presence of a possible blood clot.
- Obtain blood work for further evaluation.
DIFFERENTIAL DIAGNOSIS
The Differential Diagnosis includes, in no particular order and is not limited to:
1. Deep vein thrombosis.
2. Lymphedema.
3. Infection or abscess formation.
4. Venous insufficiency.
5. Chronic wound drainage.
6. Cellulitis.
7. Heart failure leading to peripheral edema.
8. Side effect of medication (e.g., carvedilol).
9. Peripheral vascular disease.
10. Fluid overload or renal impairment.
54-year-old male with chronic edema both of his legs, chronic wound left lower extremity necrotizing cellulitis previously status post multiple surgeries presents for worsening swelling overall on the entire left leg over the last 2 weeks but more
specifically in the last 24 hours. He has not had much skin changes to the chronic wound, maybe mildly more pink/oozing from an ulcerated area but he says dr. turk from wound care has been treating this and feels it is healing
he has not had any systemic symptoms, cp, sob
no diuretic use
no h/o DVT
on exam pt's entire LLE is edematous
there are chronic incisions that are closed with 1 area that is more macerated/ulcerated L lateral lower ext with some weeping
normal pulse
no exquisite tenderness
labs reassuring, normal WBC, neg BNP
US neg for DVT.
pt is asking for rx for lasix for a few days, as he has had this int he past
d/w ed attending whoagreed and saw pt, felt comfortable with outpatient f/u
<Naz Pratt PA-C - Last Filed: 02/10/25 22:36>
*Pulse Oximetry
SaO2: 100
Oxygen Mode of Delivery: Room air
Patient hypoxic: no (100)
*Critical Care Note
Total Time (30-74mins, 75-104mins- exclusive of procedures): Not Applicable
ED Attending Note
<Naz Pratt PA-C - Last Filed: 02/10/25 22:36>
-
Portions of this chart may have been created with voice recognition software.� Occasional wrong word or��sound alike� substitutions may have occurred due to the inherent limitations of voice recognition software.
<Teresa Ortiz MD - Last Filed: 02/10/25 18:55>
ED Attending Note
Patient seen and examined by attending physician: Yes
I performed the substantive portion of visit, reviewed & personally made and approve the management plan that is documented in note by myself or LORRI.: Yes
ED Attending Note:
54-year-old male presents with area of swelling noted to the left calf. He is under the close guidance of wound care doctor and has been healing well. No fevers, chills, new pain, or other complaints. Ultrasound here negative for acute DVT. On
exam, pulses normal, well-perfused, no bruising. He points to an area of the proximal posterior calf. That looks more swollen to him. This area is without redness, warmth, tenderness, fluctuance, crepitus, or other abnormalities. May be a
component of increasing lymphedema. He is eager to go home and follow-up with his wound doctor which we feel is reasonable.
Discharge Plan
Departure
Patient Disposition: Home (Routine Discharge)
Date of Disposition: 02/10/25
Time of Disposition: 18:57
Patient with high blood pressure during this ER visit?: No
Condition: Fair
Covid-19: Not Applicable
Discharge Problem:
Lymphedema, chronic wound leg
Instructions: Lymphedema
Prescriptions:
New
furosemide [Lasix] 20 mg tablet
20 mg PO DAILY Qty: 5 0RF
No Action
ibuprofen [Advil] 200 mg Tablet
400 mg PO BIDPRN PRN (Reason: mild pain)
acetaminophen 325 mg Tablet
650 mg PO Q4HPRN PRN (Reason: MILD PAIN/MEEHAN/TEMP>100.4) Qty: 30 0RF
carvedilol 12.5 mg Tablet
12.5 mg PO BID Qty: 60 0RF
rosuvastatin 20 mg Tablet
20 mg PO QPM Qty: 30 0RF
aspirin 81 mg tablet,delayed release (DR/EC)
81 mg PO DAILY Qty: 30 0RF
hydromorphone 2 mg tablet
2 mg PO Q8H PRN (Reason: Pain) Qty: 14 0RF
buprenorphine HCl 2 mg Tablet, Sublingual
2 mg SUBLINGUAL DAILY Qty: 15 0RF
Referrals:
Amaris Henley DO [Family Provider, Family Practice] - Follow up in 5-7 days
Activity Restrictions/Additional Instructions:
Were not entirely sure why your leg is more swollen recently. You had no blood clot, your white count was normal and we do not feel like your cellulitis is significantly worse. You should see the sports marketing specialist as directed already for
continued wound care. Please also follow-up with your family doctor regarding maybe starting a diuretic if Dr. Turk does not do this for you. Return for any worsening symptoms like worsening redness, pain, trouble breathing etc.
Elevate your leg
Interventions
Interventions:
*Risk Screen - Suicide Last Done: 02/10/25 14:16
*General Assessment Last Done: 02/10/25 14:16
*Neglect/Abuse Screening Last Done: 02/10/25 14:16
*ED- Fall Risk Assessment Last Done: 02/10/25 16:40
*ED COVID-19 Vaccine History Last Done: 02/10/25 16:40
*Nursing Disposition Last Done: 02/10/25 19:26
ED-Skin Assessment Last Done: 02/10/25 16:40
Discharge Date and Time
Discharge Date/Time: 02/10/25 19:26
Print Language: AUSTRIAN
[2025-02-10 18:44] VITALS: BP 131/85
== END 2025-02-10 19:26 | disposition home or self-care (01) ==
LOC: EMR 14:13
PROVIDERS: Physician Assistant; EMERGENCY PHYSICIAN Emergency Medicine; FAMILY PHYSICIAN Family Medicine
DX: I89.0 Lymphedema, not elsewhere classified (principal); S81.802A Unspecified open wound, left lower leg, initial encounter; X58.XXXA Exposure to other specified factors, initial encounter; Z79.899 Other long term (current) drug therapy
CPT/HCPCS: 99284; 80053; 83605; 83880; 85025; 85610; 85730; 93971

== ENCOUNTER → 2025-02-10 14:16 | Outpatient (REF) | payer OTHER, SELFPAY | LOC: WOUND 14:16 | PROVIDERS: ATTENDING PHYSICIAN Surgery; FAMILY PHYSICIAN Family Medicine | DX: I87.312 Chronic venous hypertension (idiopathic) with ulcer of left lower extremity (principal); L97.322 Non-pressure chronic ulcer of left ankle with fat layer exposed; L03.116 Cellulitis of left lower limb; L97.222 Non-pressure chronic ulcer of left calf with fat layer exposed; E66.01 Morbid (severe) obesity due to excess calories | CPT/HCPCS: 99215 ==

== ENCOUNTER → 2025-02-17 13:30 | Outpatient (REF) | payer OTHER, SELFPAY | LOC: WOUND 13:30 | PROVIDERS: ATTENDING PHYSICIAN Surgery; FAMILY PHYSICIAN Family Medicine | DX: I87.312 Chronic venous hypertension (idiopathic) with ulcer of left lower extremity (principal); L97.322 Non-pressure chronic ulcer of left ankle with fat layer exposed; L03.116 Cellulitis of left lower limb; L97.222 Non-pressure chronic ulcer of left calf with fat layer exposed; E66.01 Morbid (severe) obesity due to excess calories | CPT/HCPCS: 99213 ==

== ENCOUNTER → 2025-03-03 13:16 | Outpatient (REF) | payer OTHER, SELFPAY | LOC: WOUND 13:16 | PROVIDERS: ATTENDING PHYSICIAN Surgery; FAMILY PHYSICIAN Family Medicine | DX: I87.312 Chronic venous hypertension (idiopathic) with ulcer of left lower extremity (principal); L97.322 Non-pressure chronic ulcer of left ankle with fat layer exposed; L03.116 Cellulitis of left lower limb; L97.222 Non-pressure chronic ulcer of left calf with fat layer exposed; E66.01 Morbid (severe) obesity due to excess calories | CPT/HCPCS: 99213 ==

== ENCOUNTER → 2025-03-24 13:17 | Outpatient (REF) | payer OTHER, SELFPAY | LOC: WOUND 13:17 | PROVIDERS: ATTENDING PHYSICIAN Surgery; FAMILY PHYSICIAN Family Medicine | DX: I87.312 Chronic venous hypertension (idiopathic) with ulcer of left lower extremity (principal); L97.322 Non-pressure chronic ulcer of left ankle with fat layer exposed; L97.222 Non-pressure chronic ulcer of left calf with fat layer exposed; E66.01 Morbid (severe) obesity due to excess calories | CPT/HCPCS: 29581; 99213 ==

== ENCOUNTER → 2025-04-01 12:53 | Outpatient (REF) | payer OTHER, SELFPAY | LOC: WOUND 12:53 | PROVIDERS: ATTENDING PHYSICIAN Surgery; FAMILY PHYSICIAN Family Medicine | DX: I87.312 Chronic venous hypertension (idiopathic) with ulcer of left lower extremity (principal); L97.322 Non-pressure chronic ulcer of left ankle with fat layer exposed; L03.116 Cellulitis of left lower limb; L97.222 Non-pressure chronic ulcer of left calf with fat layer exposed; E66.01 Morbid (severe) obesity due to excess calories | CPT/HCPCS: 99213 ==

== ENCOUNTER → 2025-04-15 12:58 | Outpatient (REF) | payer OTHER, SELFPAY | LOC: WOUND 12:58 | PROVIDERS: ATTENDING PHYSICIAN Surgery; FAMILY PHYSICIAN Family Medicine | DX: I87.312 Chronic venous hypertension (idiopathic) with ulcer of left lower extremity (principal); L97.322 Non-pressure chronic ulcer of left ankle with fat layer exposed; L03.116 Cellulitis of left lower limb; L97.222 Non-pressure chronic ulcer of left calf with fat layer exposed; E66.01 Morbid (severe) obesity due to excess calories | CPT/HCPCS: 99213 ==

== ENCOUNTER → 2025-05-06 12:56 | Outpatient (REF) | payer OTHER, SELFPAY | LOC: WOUND 12:56 | PROVIDERS: ATTENDING PHYSICIAN Surgery; FAMILY PHYSICIAN Family Medicine | DX: I87.312 Chronic venous hypertension (idiopathic) with ulcer of left lower extremity (principal); L97.322 Non-pressure chronic ulcer of left ankle with fat layer exposed; L03.116 Cellulitis of left lower limb; L97.222 Non-pressure chronic ulcer of left calf with fat layer exposed; E66.01 Morbid (severe) obesity due to excess calories | CPT/HCPCS: 99213 ==

== ENCOUNTER 2025-05-23 12:53 | Outpatient (REF) | payer OTHER, SELFPAY | END 2025-05-23 23:59 | disposition home or self-care (01) | LOC: WOUND 12:53 | PROVIDERS: ATTENDING PHYSICIAN Surgery; FAMILY PHYSICIAN Family Medicine | DX: I87.312 Chronic venous hypertension (idiopathic) with ulcer of left lower extremity (principal); L97.322 Non-pressure chronic ulcer of left ankle with fat layer exposed; L03.116 Cellulitis of left lower limb; L97.222 Non-pressure chronic ulcer of left calf with fat layer exposed; E66.01 Morbid (severe) obesity due to excess calories | CPT/HCPCS: 99213 ==

== ENCOUNTER 2025-06-27 12:28 | Outpatient (REF) | payer OTHER, SELFPAY | END 2025-06-27 23:59 | disposition home or self-care (01) | LOC: WOUND 12:28 | PROVIDERS: ATTENDING PHYSICIAN Registered Nurse; FAMILY PHYSICIAN Family Medicine | DX: I87.312 Chronic venous hypertension (idiopathic) with ulcer of left lower extremity (principal); L97.322 Non-pressure chronic ulcer of left ankle with fat layer exposed; L03.116 Cellulitis of left lower limb; L97.222 Non-pressure chronic ulcer of left calf with fat layer exposed; E66.01 Morbid (severe) obesity due to excess calories | CPT/HCPCS: 99213 ==